=== PATIENT | male | born 1955 | race Caucasian/White ===

== ENCOUNTER → 2016-07-02 | Outpatient (CLI) | payer BC ==
--- NOTE | 2016-07-02 11:46 | CT ---
CT CHEST FOR PULMONARY EMBOLISM. EXAMINATION TYPE: CT angio chest DATE OF EXAM: 07/02/2016 11:34 AM INDICATION: Patient complains of increased difficulty in breathing with a history of COPD. CT DLP: 136.5 mGycm, Automated exposure control for dose reduction was used. CONTRAST: Patient injected with 100 mL of Omnipaque 350. COMPARISON: NONE TECHNIQUE: CT of the chest is performed on a spiral scan at 2 mm thick sections. Study is performed with intravenous contrast timed for evaluation for pulmonary embolism. This will limit additional po rtions of the evaluation. 3-D MIP images reconstructed by the technologist are reviewed on the compu ter in the coronal and sagittal planes. FINDINGS: No persistent filling defects are evident to suggest an acute pulmonary embolism. There is an enlarged right hilar lymph node measuring 1.8 cm. Additional adenopathy is present in the right peribronchial region. There is an enlarged right paratracheal lymph node estimated at 1.8 cm. A pretracheal precarinal lymph node is enlarged at 2.5 cm. Findings are suspicious for metastatic dis ease. The ascending aorta diameter at the level of the main pulmonary artery is 3.7 cm. The main pulmona ry artery diameter at the bifurcation is 2.5 cm. Emphysematous blebs and bulla are at the right apex. Emphysematous changes are within the lungs bilat erally. Emphysematous bulla are present at the lung bases. There is a cyst lobular density within the posterior superior right upper lobe measuring 1.6 AP by 1. 5 cm transverse. Workup for neoplasm is recommended. Limited CT section through the upper abdomen are unremarkable. IMPRESSIONS: 1. No acute pulmonary embolism. 2. 1.6 x 1.5 cm right upper lobe mass suspicious for neoplasm. 3. Enlarged right peribronchial pretracheal and precarinal lymphadenopathy suspicious for metastatic disease. 4. Workup for neoplasm is recommended. Consider PET/CT. 5. COPD
== END | disposition home or self-care (01) ==
LOC: RADCTMAIN 11:11
PROVIDERS: ATTEND Internal Medicine
DX: J44.9 Chronic obstructive pulmonary disease, unspecified (principal); R59.0 Localized enlarged lymph nodes; R91.8 Other nonspecific abnormal finding of lung field
CPT/HCPCS: 71275; Q9967

== ENCOUNTER 2016-07-16 07:46 | Day surgery (SDC) | payer BC ==
[2016-07-16] MEDS ORDERED: ALPRAZolam 0.5 MG TAB PO STA (08:39)
[2016-07-16 08:41] LABS: Mean Platelet Volume 6.5
[2016-07-16 08:43] VITALS: RESP 14; TEMP 97.6
[2016-07-16 08:54] LABS: Prothrombin Time 9.8 sec (9.0-12.0)
--- NOTE | 2016-07-16 09:47 | CT ---
EXAMINATION TYPE: CT discontinued procedure DATE OF EXAM: 07/16/2016 9:36 AM COMPARISON: NONE HISTORY: RUL lung mass CT DLP: 290 mGycm Automated exposure control for dose reduction was used. FINDINGS: Patient was positioned for the procedure. Nodules small and located directly behind the rib. Patient was moved in multiple positions with no successive removing the nodule away from the rib. Therefore, there is no percutaneous access. IMPRESSION: NO PERCUTANEOUS ACCESS FOR BIOPSY. PROCEDURE DEFERRED. LESION DOES APPEAR SUSPICIOUS. SURGICAL CONSUL TATION SUGGESTED.
[2016-07-16 09:56] VITALS: BP 140/77; PULSE 66
== END 2016-07-16 09:55 | disposition home or self-care (01) ==
LOC: RADPROMAIN 07:46
PROVIDERS: ATTEND Internal Medicine
DX: R91.1 Solitary pulmonary nodule (principal); Z53.8 Procedure and treatment not carried out for other reasons; I10 Essential (primary) hypertension; J44.9 Chronic obstructive pulmonary disease, unspecified; J96.11 Chronic respiratory failure with hypoxia; Z79.52 Long term (current) use of systemic steroids; Z79.899 Other long term (current) drug therapy; Z83.6 Family history of other diseases of the respiratory system; Z87.891 Personal history of nicotine dependence
CPT/HCPCS: 36415; 76380; 85049; 85610

== ENCOUNTER 2016-07-30 11:11 | Day surgery (SDC) | payer BC ==
[2016-07-28 11:28] VITALS: BMI 17.2
[~2016-07-30 11:11] MED LIST: ALBUTEROL NEB (CONC) 2.5 MG/0.5 ML INHALATION ONE; LACTATED RINGERS 1,000 ML IV ONE; LACTATED RINGERS 1,000 ML IV SCH; LIDOCAINE 1% 20 ML VIAL (10MG/ML) FOR IV START INTRADERMA PRN; LIDOCAINE 2% (PF) 20 MG/ML 10ML INHALATION ONE
[2016-07-30] MEDS ORDERED: NEOSTIGMINE 1 MG/ML 10 ML VIAL ONE (12:56)
[2016-07-30] MEDS ORDERED: GLYCOPYRROLATE 0.2 MG/ML 2 ML VIAL ONE (12:56)
[2016-07-30] MEDS ORDERED: ROCURONIUM BROMIDE 10 MG/ML 10 ML VIAL IV ONE (12:56)
[2016-07-30] MEDS ORDERED: LIDOCAINE 1% INJ 10MG/ML (20 ML MDV) ONE (12:56)
[2016-07-30] MEDS ORDERED: PROPOFOL 10 MG/ML 20 ML VIAL IV ONE (12:56)
[2016-07-30] MEDS ORDERED: PHENYLEPHRINE-0.9% NACL SYG 1 MG/10 ML SYRINGE ONE (12:56)
[2016-07-30] MEDS ORDERED: fentaNYL (PF) 50 MCG/ML 2 ML AMP ONE (12:56)
[2016-07-30] MEDS ORDERED: MIDAZOLAM 2 MG/2 ML VIAL ONE (12:56)
[2016-07-30] MEDS ORDERED: SUCCINYLCHOLINE CHLORIDE 100 MG/5 ML SYR IV ONE (12:56)
--- NOTE | 2016-07-30 13:33 | P.OP ---
Date of Procedure: 07/30/16 Preoperative Diagnosis: Mediastinal lymphadenopathy, lung mass Postoperative Diagnosis: Mediastinal lymphadenopathy, lung mass Procedure(s) Performed: Bronchoscopy, transbronchial needle aspirate of mediastinal lymph node Surgeon: Tom Nava Machine Installer #1: Kathryn Mccrary Estimated Blood Loss (ml): 0 Pathology: other Condition: stable Disposition: same day Indications for Procedure: lung mass Operative Findings: The procedure was done in the operating room. A consent was obtained and a timeout was done. The patient was placed on the general anesthesia, intubated and placed on a mechanical ventilator. Following that, a flexible bronchoscope was inserted through the endotracheal tube and was advanced into the lower trachea. The procedure was done as the patient was being fully ventilated and oxygenated. The tip of the endotracheal tube was seen around 4 cm above the gabriela. Airway inspection was done and the visualized airways occluded the distal trachea, bilateral mainstem bronchi, right upper lobe bronchus, bronchus intermedius, right middle lobe bronchus, right lower lobe bronchus, left upper lobe bronchus, left lower lobe bronchussegments and subsegments. No endobronchial tumors or lesions was identified. There was some mild extrinsic compression of the anterior tracheal wall at its distal and just before its bifurcation. Nevertheless, there was no endobronchial tumors. No significant airway compromise. Using a 19-gauge cytology needle, one needle aspirates of the precarinal mediastinal lymph node was done. A total of 2 passes were obtained and the adequacy of the samples was confirmed by anesthesia the bedside. The sample was quite cellular and diagnostic. Following that, I used a 21-gauge histology needle and an additional 2 passes were obtained in the same location and samples were sent for histologic evaluation. No bleeding was encountered a total amount of bleeding was less than 5 mL's. Bronchoscope was removed and the patient was left for anesthesia to recover.
[2016-07-30 13:48] VITALS: TEMP 97.2
[2016-07-30 14:32] VITALS: BP 134/81; PULSE 79; RESP 18
--- NOTE | 2016-08-10 07:58 | CDI ---
Mr. Gomez was seen on 07/30 for a biopsy of his mediastinal lymphadenopathy. 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 According to the Official Guidelines for Coding and Reporting, in the outpatient setting a diagnosis documented as consistent with fits the definition of a probable or suspected condition. Further clarification is required when a suspected condition is reported. Please clarify for proper reporting purposes. 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 Thank you for your time. MATT
--- NOTE | 2016-08-12 08:50 | CDI ---
Mr. Gomez was seen on 08/27 for a biopsy of his mediastinal lymphadenopathy. 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 According to the Official Guidelines for Coding and Reporting, in the outpatient setting a diagnosis documented as 'consistent with' fits the definition of a probable or suspected condition. Further clarification is required when a suspected condition is reported. Please clarify for proper reporting purposes. 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 Thank you for your time. MATT
--- NOTE | 2016-08-25 07:24 | CDI ---
Mr. Gomez was seen on 08/27 for a biopsy of his mediastinal lymphadenopathy. 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 According to the Official Guidelines for Coding and Reporting, in the outpatient setting a diagnosis documented as 'consistent with' fits the definition of a probable or suspected condition. Further clarification is required when a suspected condition is reported. Please clarify for proper reporting purposes. 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 Thank you for your time. JOSE Murphy If you have any questions about this query, you may contact Orchestrator, Dorinda Arana at [phone] between 8am and 6pm Mon-Fri. 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
== END 2016-07-30 14:46 | disposition home or self-care (01) ==
LOC: ORWHC2ENDO 11:11
PROVIDERS: ATTEND Internal Medicine Critical Care Medicine
DX: C34.31 Malignant neoplasm of lower lobe, right bronchus or lung (principal); C77.1 Secondary and unspecified malignant neoplasm of intrathoracic lymph nodes; J44.9 Chronic obstructive pulmonary disease, unspecified; Z99.81 Dependence on supplemental oxygen; Z87.891 Personal history of nicotine dependence; J96.11 Chronic respiratory failure with hypoxia; C80.1 Malignant (primary) neoplasm, unspecified; Z79.899 Other long term (current) drug therapy; Z79.52 Long term (current) use of systemic steroids
CPT/HCPCS: 88305; 88173; 88342; 88341; 31629; J2250; J2710; J2001; J3010; J2370; J0330; J2704; 31633

== ENCOUNTER → 2016-08-13 | Outpatient (CLI) | payer BC ==
--- NOTE | 2016-08-13 18:04 | XR ---
EXAMINATION TYPE: XR chest 2V DATE OF EXAM: 08/13/2016 5:54 PM COMPARISON: 07/02/2016 HISTORY: COPD TECHNIQUE: Frontal and lateral views of the chest are obtained. FINDINGS: There is no heart failure nor confluent pneumonic infiltrate. There is pulmonary hyperinfl ation and flattening of the diaphragm. There are no hilar masses. Heart size is normal. Bones are ost eopenic. IMPRESSION: COPD. Normal heart. No acute lung disease. No change.
[2016-08-13 19:20] LABS: Non-African American GFR(MDRD) >60 (>60 ml/min/1.73 sqM)
--- NOTE | 2016-08-13 20:19 | CT ---
EXAMINATION TYPE: CT brain wo/w con DATE OF EXAM: 08/13/2016 8:05 PM COMPARISON: NONE HISTORY: Lung CA small cell. CT DLP: 2416.00 mGycm Automated exposure control for dose reduction was used. CONTRAST: CT scan of the head is performed with IV Contrast, patient injected with 100 mL of Omnipaque 300. FINDINGS: The ventricles have normal size. There is no mass effect nor midline shift. There is no sign of intra cranial hemorrhage. The calvarium is intact. I see no focal bone destruction. The contrast images marie w no pathologic enhancement. IMPRESSION: Negative CT scan of the brain with and without contrast.
== END | disposition home or self-care (01) ==
LOC: RADXRMAIN 17:32
PROVIDERS: ATTEND Internal Medicine Hematology & Oncology
DX: C34.90 Malignant neoplasm of unspecified part of unspecified bronchus or lung (principal); J44.9 Chronic obstructive pulmonary disease, unspecified
CPT/HCPCS: 82565; 71020; 70470; Q9967

== ENCOUNTER → 2016-12-10 | Outpatient (CLI) | payer BC ==
[2016-12-10 12:44] LABS: Blood Urea Nitrogen 21 mg/dL (9-20); Non-African American GFR(MDRD) >60 (>60 ml/min/1.73 sqM)
--- NOTE | 2016-12-10 13:42 | CT ---
EXAMINATION TYPE: CT chest w con DATE OF EXAM: 12/10/2016 COMPARISON: Previous study dated 07/02/2016. HISTORY: Lung cancer CT DLP: 154.6 mGycm Automated exposure control for dose reduction was used. CONTRAST: CT scan of the chest is performed with IV Contrast, patient injected with 100 mL of Omnipaque 300. FINDINGS: There are bullous emphysematous changes throughout both lungs.. The mass in the posterior s egment of the right upper lobe which previously measured 1.5 x 1.6 cm today measures 5.9 x 10.3 mm. N o new parenchymal lesions are seen. Mediastinal pretracheal and subcarinal adenopathy has resolved. Right hilar adenopathy has improved. There is no pleural or pericardial fluid. The heart is not enlarged. There is a stable 11 mm cyst in the medial segment of the left lobe of the liver. There continues to be fullness in the left adrenal gland. Upper abdominal structures are otherwise unremarkable. There is hypertrophic spondylosis within the spine. There is mild wedging of the T3 vertebral body. T his is unchanged. No bony destructive lesion is seen. IMPRESSION: 1. MARKED REDUCTION IN THE SIZE OF THE PATIENT'S RIGHT UPPER LOBE PULMONARY MASS WELL THE MEDIA STINAL AND HILAR ADENOPATHY. 2. SEVERE BULLOUS EMPHYSEMATOUS CHANGE. 3. FULLNESS IN THE LEFT ADRENAL GLAND WHICH MEASURES 9.1 MM X 2.6 MM. 4. PROBABLE CYST WITHIN THE LEFT LOBE OF THE LIVER. 5. STABLE WEDGE COMPRESSION FRACTURE OF THE T3 VERTEBRAL BODY.
== END | disposition home or self-care (01) ==
LOC: RADPROMAIN 11:48
PROVIDERS: ATTEND Internal Medicine Hematology & Oncology
DX: Z03.89 Encounter for observation for other suspected diseases and conditions ruled out (principal); J43.9 Emphysema, unspecified; C34.91 Malignant neoplasm of unspecified part of right bronchus or lung; S22.030A Wedge compression fracture of third thoracic vertebra, initial encounter for closed fracture
CPT/HCPCS: 82565; 84520; 71260; 36415; Q9967

== ENCOUNTER 2016-12-12 07:57 | Emergency (ER) | payer BC ==
[2016-12-12] MEDS ORDERED: ONDANSETRON 4 MG/2 ML VIAL IVP STA (08:24)
[2016-12-12] MEDS ORDERED: ACETAMINOPHEN TAB 325 MG TAB PO STA (08:24)
[2016-12-12] MEDS ORDERED: HYDROmorphone 1 MG/ML 1 ML SYRINGE IVP STA (08:24)
[2016-12-12] MEDS ORDERED: SODIUM CHLORIDE 0.9% 1,000 ML IV STA ×2 (08:24)
--- NOTE | 2016-12-12 08:43 | ED ---
General Adult HPI - General Chief complaint: Fever Stated complaint: FEVER, CHILLS Ca PATIENT Time Seen by Provider: 12/12/16 08:10 Source: patient, RN notes reviewed Mode of arrival: wheelchair Limitations: no limitations - History of Present Illness Initial comments: Patient 61-year-old male significant past medical history for lung cancer, who presents emergency room today with a chief complaint of a she was rash to the right side of his face. Patient admits that he was diagnosed she was just restarted on acyclovir. He states he went to the family doctor and was then directed to the systems administrator who did see yesterday placed on steroid drops for the right eye. He does admit to some pain locally to the right eye. States he woke up this morning with a fever. States had symptoms of nausea vomiting over the last day has been unable to keep anything down and feels that he may be dehydrated as well. States last dose of chemotherapy was on December 04 approximately one week ago. Patient does admit some mild discomfort in his abdomen in the upper quadrants as well. He denies any other complaints or symptoms at this time. Patient denies any recent fever, chills, shortness of breath, chest pain, back pain, numbness or tingling, dysuria or hematuria, constipation or diarrhea, or any other complaints. - Related Data Home Medications Medication Instructions Recorded Confirmed Tiotropium 18 Mcg/Puff [Spiriva] 1 cap INHALATION BID 07/08/16 11/20/16 predniSONE 5 mg PO DAILY 07/08/16 11/20/16 Previous Rx's Medication Instructions Recorded Hydrocodone/Acetaminophen [Rittman 1 each PO Q6HR PRN #20 tab 12/12/16 5-325] Ondansetron Odt [Zofran ODT] 4 mg PO Q8HR PRN #20 tab 12/12/16 Allergies Allergy/AdvReac Type Severity Reaction Status Date / Time No Known Allergies Allergy Verified 12/12/16 08:04 Review of Systems ROS Statement: Those systems with pertinent positive or pertinent negative responses have been documented in the HPI. ROS Other: All systems not noted in ROS Statement are negative. Past Medical History Past Medical History: Asthma, Cancer, COPD, Pneumonia, Renal Disease Additional Past Medical History / Comment(s): kidney stones in past, small cell lung CA History of Any Multi-Drug Resistant Organisms: None Reported Past Surgical History: Hernia Repair Additional Past Surgical History / Comment(s): bilateral hernia repair 2016 Past Anesthesia/Blood Transfusion Reactions: No Reported Reaction Past Psychological History: No Psychological Hx Reported Smoking Status: Former smoker Past Alcohol Use History: None Reported Past Drug Use History: None Reported - Past Family History Father Family Medical History: No Reported History General Exam - General Exam Comments Initial Comments: General: The patient is awake and alert, in no distress, and does not appear acutely ill. Eye: Pupils are equal, round and reactive to light, extra-ocular movements are intact. Patient does admit to some discomfort with extraocular movements. No nystagmus. There is normal conjunctiva bilaterally. No signs of icterus. Patient's right eye stained with fluorescein checked with Wood's lamp revealing no dendritic lesions. Ears, nose, mouth and throat: There are moist mucous membranes and no oral lesions. Neck: The neck is supple, there is no tenderness or JVD. Cardiovascular: There is a regular rate and rhythm. No murmur, rub or gallop is appreciated. Respiratory: Lungs are clear to auscultation, respirations are non-labored, breath sounds are equal. No wheezes, stridor, rales, or rhonchi. Gastrointestinal: Soft, non-distended, non-tender abdomen without masses or organomegaly noted. There is no rebound or guarding present. No CVA tenderness. Bowel sounds are unremarkable. Musculoskeletal: Normal ROM, no tenderness. Strength 5/5. Sensation intact. Pulses equal bilaterally 2+. Neurological: A&O x 3. CN II-XII intact, There are no obvious motor or sensory deficits. Coordination appears grossly intact. Speech is normal. Skin: Skin is warm and dry and no rashes or lesions are noted. Psychiatric: Cooperative, appropriate mood & affect, normal judgment. Limitations: no limitations Course Vital Signs 12/12/16 12/12/16 12/12/16 08:01 08:24 09:52 Temperature 100.1 F H Pulse Rate 119 H 90 Respiratory 18 18 16 Rate Blood Pressure 139/76 171/85 O2 Sat by Pulse 94 L 99 Oximetry Medical Decision Making - Medical Decision Making Case discussed in detail with attending physician Dr. Augustin who did discuss case with patient's oncologist radio television technical director constipation may be discharged home if he is feeling better. Patient's symptoms of nausea has improved. Given a liter bolus here in the emergency room with IV fluids and is feeling better. Patient's currently on antivirals and steroid drops. Has seen the systems administrator. Does have a follow-up appointment coming up this week. Options were discussed with patient about discharge versus admission. He states feels comfortable being discharged home. He's been advised to return here to the emergency room if any symptoms increase or worsen. Patient will be given prescription for both nausea and pain to go home with. - Lab Data Result diagrams: 12/12/16 08:50 12/12/16 08:50 Lab Results 12/12/16 12/12/16 12/12/16 Range/Units 08:50 08:50 08:50 WBC 1.9 L* (3.8-10.6) k/uL RBC 2.75 L (4.30-5.90) m/uL Hgb 9.5 L (13.0-17.5) gm/dL Hct 26.4 L (39.0-53.0) % MCV 96.3 (80.0-100.0) fL MCH 34.7 (25.0-35.0) pg MCHC 36.0 (31.0-37.0) g/dL RDW 18.0 H (11.5-15.5) % Plt Count 62 L (150-450) k/uL Neutrophils % 80 % Lymphocytes % 5 % Monocytes % 10 % Eosinophils % 0 % Basophils % 1 % Neutrophils # 1.5 (1.3-7.7) k/uL Lymphocytes # 0.1 L (1.0-4.8) k/uL Monocytes # 0.2 (0-1.0) k/uL Eosinophils # 0.0 (0-0.7) k/uL Basophils # 0.0 (0-0.2) k/uL Manual Slide Review Performed Poikilocytosis (manual Present Anisocytosis Slight Macrocytosis Slight PT (9.0-12.0) sec INR (<1.1) APTT (22.0-30.0) sec Sodium 132 L (137-145) mmol/L Potassium 4.6 (3.5-5.1) mmol/L Chloride 98 (98-107) mmol/L Carbon Dioxide 25 (22-30) mmol/L Anion Gap 9 mmol/L BUN 19 (9-20) mg/dL Creatinine 1.00 (0.66-1.25) mg/dL Est GFR (MDRD) Af Amer >60 (>60 ml/min/1.73 sqM) Est GFR (MDRD) Non-Af >60 (>60 ml/min/1.73 sqM) Glucose 102 H (74-99) mg/dL Plasma Lactic Acid Santana 0.7 (0.7-2.0) mmol/L Calcium 8.4 (8.4-10.2) mg/dL Total Bilirubin 0.6 (0.2-1.3) mg/dL AST 16 L (17-59) U/L ALT 21 (21-72) U/L Alkaline Phosphatase 148 H (38-126) U/L Total Protein 6.0 L (6.3-8.2) g/dL Albumin 3.7 (3.5-5.0) g/dL Amylase 96 (30-110) U/L Lipase 70 (23-300) U/L /01/21 Range/Units 08:50 WBC (3.8-10.6) k/uL RBC (4.30-5.90) m/uL Hgb (13.0-17.5) gm/dL Hct (39.0-53.0) % MCV (80.0-100.0) fL MCH (25.0-35.0) pg MCHC (31.0-37.0) g/dL RDW (11.5-15.5) % Plt Count (150-450) k/uL Neutrophils % % Lymphocytes % % Monocytes % % Eosinophils % % Basophils % % Neutrophils # (1.3-7.7) k/uL Lymphocytes # (1.0-4.8) k/uL Monocytes # (0-1.0) k/uL Eosinophils # (0-0.7) k/uL Basophils # (0-0.2) k/uL Manual Slide Review Poikilocytosis (manual Anisocytosis Macrocytosis PT 10.0 (9.0-12.0) sec INR 1.0 (<1.1) APTT 21.3 L (22.0-30.0) sec Sodium (137-145) mmol/L Potassium (3.5-5.1) mmol/L Chloride (98-107) mmol/L Carbon Dioxide (22-30) mmol/L Anion Gap mmol/L BUN (9-20) mg/dL Creatinine (0.66-1.25) mg/dL Est GFR (MDRD) Af Amer (>60 ml/min/1.73 sqM) Est GFR (MDRD) Non-Af (>60 ml/min/1.73 sqM) Glucose (74-99) mg/dL Plasma Lactic Acid Santana (0.7-2.0) mmol/L Calcium (8.4-10.2) mg/dL Total Bilirubin (0.2-1.3) mg/dL AST (17-59) U/L ALT (21-72) U/L Alkaline Phosphatase (38-126) U/L Total Protein (6.3-8.2) g/dL Albumin (3.5-5.0) g/dL Amylase (30-110) U/L Lipase (23-300) U/L Disposition Clinical Impression: Herpes zoster Disposition: HOME SELF-CARE Condition: Good Instructions: Shingles (ED) Additional Instructions: Please use medication as discussed. Please follow-up with systems administrator/ family doctor in the next 2 days of symptoms have not improved. Please return to emergency room if the symptoms increase or worsen or for any other concerns. Prescriptions: Hydrocodone/Acetaminophen [Rittman 5-325] 1 each PO Q6HR PRN #20 tab PRN Reason: Pain Ondansetron Odt [Zofran ODT] 4 mg PO Q8HR PRN #20 tab PRN Reason: Nausea Referrals: Zhane Cabrera MD [Primary Care Provider] - 1-2 days Time of Disposition: 10:35
[2016-12-12 09:11] LABS: Anisocytosis Slight; Basophils % (A) 1 %; CHCM 35.4; Eosinophils % (A) 0 %; HCT 26.4 % (39.0-53.0); HDW 2.84; HGB 9.5 gm/dL (13.0-17.5); Luc # (Auto) 0.07; Luc % (Auto) 4; Lymphocytes # (A) 0.1 k/uL (1.0-4.8); Lymphocytes % (A) 5 %; MCH 34.7 pg (25.0-35.0); MCV 96.3 fL (80.0-100.0); Macrocytosis Slight; Mean Platelet Volume 7.6; Monocytes # (A) 0.2 k/uL (0-1.0); Monocytes % (A) 10 %; Neutrophils # (A) 1.5 k/uL (1.3-7.7); Neutrophils % (A) 80 %; RBC 2.75 m/uL (4.30-5.90); WBC (Perox) 1.96
[2016-12-12 09:20] LABS: ALT 21 U/L (21-72); AST 16 U/L (17-59); Alkaline Phosphatase 148 U/L (38-126); Amylase 96 U/L (30-110); Anion Gap 9 mmol/L; Blood Urea Nitrogen 19 mg/dL (9-20); Calcium 8.4 mg/dL (8.4-10.2); Carbon Dioxide 25 mmol/L (22-30); Chloride 98 mmol/L (98-107); Glucose 102 mg/dL (74-99); Non-African American GFR(MDRD) >60 (>60 ml/min/1.73 sqM); Potassium 4.6 mmol/L (3.5-5.1); Sodium 132 mmol/L (137-145); Total Bilirubin 0.6 mg/dL (0.2-1.3)
[2016-12-12 09:24] LABS: WBC 1.9 k/uL (3.8-10.6)
[2016-12-12 09:26] LABS: Manual Review Performed
[2016-12-12 09:36] LABS: Partial Thromboplastin Time 21.3 sec (22.0-30.0)
--- NOTE | 2016-12-12 09:50 | XR ---
EXAMINATION TYPE: XR chest 2V DATE OF EXAM: 12/12/2016 COMPARISON: 08/13/2016 HISTORY: 61-year-old male with fever TECHNIQUE: AP and lateral views FINDINGS: Heart is normal size. Aorta and pulmonary vasculature within normal limits. COPD with hyperinflation and bullous change at the left base. Slight increased opacity in the peripheral left midlung. Nodular density just below on the left suggestive of nipple shadow. No pleural effusion. Punctate metallic d ebris projecting at the left shoulder. Right anterior chest wall injection port with catheter tip at the mid SVC. IMPRESSION: 1. COPD with bullous emphysema. 2. New patchy left midlung atelectasis or early infiltrate.
[2016-12-12 09:54] VITALS: PULSE 90; RESP 16
[2016-12-12 11:03] VITALS: BP 170/81; TEMP 97.7
== END 2016-12-12 10:55 | disposition home or self-care (01) ==
LOC: EC 07:57
DX: B02.9 Zoster without complications (principal); R11.2 Nausea with vomiting, unspecified; J45.909 Unspecified asthma, uncomplicated; J44.9 Chronic obstructive pulmonary disease, unspecified; Z85.118 Personal history of other malignant neoplasm of bronchus and lung; Z87.891 Personal history of nicotine dependence; Z79.52 Long term (current) use of systemic steroids; Z79.899 Other long term (current) drug therapy
CPT/HCPCS: 99283; 96374; 96375; 96361 ×2; 36415; 80053; 82150; 83605; 83690; 85025; 85610; 85730; 87040; 71020; J2405; J1170

== ENCOUNTER 2016-12-12 19:12 | Inpatient (IN) | payer BC ==
[2016-12-12] MEDS ORDERED: SODIUM CHLORIDE 0.9% 1,000 ML IV STA ×2 (19:39)
[2016-12-12] MEDS ORDERED: PIPERACILLIN-TAZOBACTAM 3.375 GM in DEXTROSE/WATER 1 50ML.BAG IVPB STA (19:39)
[2016-12-12] MEDS ORDERED: IV VANCOMYCIN PER PHARMACY 1 EACH MISC MISCELLANE PRN (19:39)
[2016-12-12] MEDS ORDERED: VANCOMYCIN 1,250 MG in SODIUM CHLORIDE 0.9% 250 ML IVPB STA (19:39)
[2016-12-12] MEDS ORDERED: ACETAMINOPHEN TAB 325 MG TAB PO STA (19:42)
[2016-12-12] MEDS ORDERED: SODIUM CHLORIDE 0.9% 1,000 ML IV ONE (19:47)
--- NOTE | 2016-12-12 19:47 | ED ---
General Adult HPI - General Chief complaint: Skin/Abscess/Foreign Body Stated complaint: Shingles,Eye Swelling Time Seen by Provider: 12/12/16 19:32 Source: patient, RN notes reviewed Mode of arrival: wheelchair Limitations: no limitations - History of Present Illness Initial comments: Patient 61-year-old male significant past medical history for lung cancer, shingles, who presents emergency room today with a chief complaint of increased nausea vomiting. Patient states having difficult time keeping down liquids and food at home. Patient does admit to increased pain with the she was rash. States he tried medications of nausea medication and pain medicine at home with no relief. Patient was seen here earlier in the day here in the emergency room and offered admission at the time. He states he wanted to try to go home but has not any little to tolerated by mouth liquids and medications at home. Patient states still experiencing pain to the right side of the face with rash. She'll have some swelling around the right eye. Patient does admit to nausea vomiting some mild abdominal discomfort and cramping. Denies any other complaints or symptoms at this time. Patient denies any recent fever, chills, shortness of breath, chest pain, back pain, numbness or tingling, dysuria or hematuria, constipation or diarrhea, headaches or visual changes, or any other complaints. - Related Data Home Medications Medication Instructions Recorded Confirmed Tiotropium 18 Mcg/Puff [Spiriva] 1 cap INHALATION BID 07/08/16 12/12/16 predniSONE 5 mg PO DAILY 07/08/16 12/12/16 valACYclovir HCL [Valtrex] 1,000 mg PO TID 12/12/16 12/12/16 Previous Rx's Medication Instructions Recorded Hydrocodone/Acetaminophen [[place] 1 each PO Q6HR PRN #20 tab 12/12/16 5-325] Ondansetron Odt [Zofran ODT] 4 mg PO Q8HR PRN #20 tab 12/12/16 Allergies Allergy/AdvReac Type Severity Reaction Status Date / Time No Known Allergies Allergy Verified 12/12/16 19:28 Review of Systems ROS Statement: Those systems with pertinent positive or pertinent negative responses have been documented in the HPI. ROS Other: All systems not noted in ROS Statement are negative. Past Medical History Past Medical History: Asthma, Cancer, COPD, Pneumonia, Renal Disease Additional Past Medical History / Comment(s): kidney stones in past, small cell lung CA History of Any Multi-Drug Resistant Organisms: None Reported Past Surgical History: Hernia Repair Additional Past Surgical History / Comment(s): bilateral hernia repair 2016 Past Anesthesia/Blood Transfusion Reactions: No Reported Reaction Past Psychological History: No Psychological Hx Reported Smoking Status: Former smoker Past Alcohol Use History: None Reported Past Drug Use History: None Reported - Past Family History Father Family Medical History: No Reported History General Exam - General Exam Comments Initial Comments: General: The patient is awake and alert, in no distress, and does not appear acutely ill. Eye: Pupils are equal, round and reactive to light, extra-ocular movements are intact. No nystagmus. There is normal conjunctiva bilaterally. No signs of icterus. Ears, nose, mouth and throat: There are moist mucous membranes and no oral lesions. Neck: The neck is supple, there is no tenderness or JVD. Cardiovascular: There is a regular rate and rhythm. No murmur, rub or gallop is appreciated. Respiratory: Lungs are clear to auscultation, respirations are non-labored, breath sounds are equal. No wheezes, stridor, rales, or rhonchi. Gastrointestinal: Soft, non-distended, non-tender abdomen without masses or organomegaly noted. There is no rebound or guarding present. No CVA tenderness. Bowel sounds are unremarkable. Musculoskeletal: Normal ROM, no tenderness. Strength 5/5. Sensation intact. Pulses equal bilaterally 2+. Neurological: A&O x 3. CN II-XII intact, There are no obvious motor or sensory deficits. Coordination appears grossly intact. Speech is normal. Skin: She was rash located to the right side of her face going from top arrival area down just above right cheek. Mild swelling locally below right eye. Psychiatric: Cooperative, appropriate mood & affect, normal judgment. Limitations: no limitations Course Vital Signs 12/12/16 19:25 Temperature 101.7 F H Pulse Rate 125 H Respiratory 20 Rate Blood Pressure 174/84 O2 Sat by Pulse 95 Oximetry Medical Decision Making - Medical Decision Making Patient will be given a bolus of IV fluids here in the emergency room started on broad-spectrum antibiotics. Given Tylenol for fever. She will be admitted for intractable nausea vomiting and fever. Consult to oncology. Disposition Clinical Impression: Herpes zoster, Intractable nausea and vomiting Disposition: ADMITTED IP TO THIS HOSP Condition: Stable Referrals: Zhane Cabrera MD [Primary Care Provider] - 1-2 days Time of Disposition: 19:47
[2016-12-12] MEDS ORDERED: NALOXONE 0.4 MG/ML 1 ML VIAL IV PRN (19:49)
[2016-12-12] MEDS ORDERED: HYDROmorphone 1 MG/ML 1 ML SYRINGE IVP STA (19:50)
[2016-12-12] MEDS ORDERED: ONDANSETRON 4 MG/2 ML VIAL IVP STA (19:50)
[2016-12-12] MEDS: valACYclovir HCL 1,000 MG TABLET PO SCH (22:22)
[2016-12-13] MEDS: HYDROmorphone 1 MG/ML 1 ML SYRINGE IV PRN ×7 (00:02→19:00)
[2016-12-13] MEDS: ONDANSETRON 4 MG/2 ML VIAL IVP PRN ×2 (06:09→14:40)
[2016-12-13 07:44] LABS: Anisocytosis Slight; Aty Lym Flag Marked; CH 33.7; CHCM 34.8; HCT 24.4 % (39.0-53.0); HDW 2.94; HGB 8.6 gm/dL (13.0-17.5); MCH 34.3 pg (25.0-35.0); MCHC 35.3 g/dL (31.0-37.0); MCV 97.1 fL (80.0-100.0); Mean Platelet Volume 7.1; RBC 2.52 m/uL (4.30-5.90); RDW 17.3 % (11.5-15.5); WBC (Perox) 1.84
[2016-12-13 07:50] LABS: WBC 1.7 k/uL (3.8-10.6)
[2016-12-13 08:05] LABS: ALT 20 U/L (21-72); AST 14 U/L (17-59); Alkaline Phosphatase 116 U/L (38-126); Anion Gap 7 mmol/L; Blood Urea Nitrogen 14 mg/dL (9-20); Calcium 8.1 mg/dL (8.4-10.2); Carbon Dioxide 25 mmol/L (22-30); Chloride 97 mmol/L (98-107); Glucose 127 mg/dL (74-99); Non-African American GFR(MDRD) >60 (>60 ml/min/1.73 sqM); Sodium 129 mmol/L (137-145); Total Bilirubin 0.5 mg/dL (0.2-1.3); Total Protein 5.6 g/dL (6.3-8.2)
[2016-12-13 08:55] LABS: Add Differential Manual Differential
[2016-12-13 08:58] LABS: Manual Review Performed; Nucleated Red Blood Cells 0 /100 WBC (0-0); Total Cells Counted 100
[2016-12-13 08:59] LABS: Toxic Granulation Present
[2016-12-13] MEDS: PIPERACILLIN-TAZOBACTAM 3.375 GM in DEXTROSE/WATER 1 50ML.BAG IVPB SCH ×3 (09:08→23:03)
[2016-12-13] MEDS: valACYclovir HCL 1,000 MG TABLET PO SCH ×3 (09:08→21:32)
[2016-12-13] MEDS ORDERED: PANTOPRAZOLE 40 MG/10 ML VIAL IVP SCH (10:00)
[2016-12-13] MEDS: SCOPOLAMINE 1.5MG/72HR PATCH TRANSDERM SCH (10:45)
[2016-12-13] MEDS ORDERED: VANCOMYCIN 1,250 MG in SODIUM CHLORIDE 0.9% 250 ML IVPB SCH (12:00)
[2016-12-13] MEDS ORDERED: VANCOMYCIN 1,000 MG in SODIUM CHLORIDE 0.9% 250 ML IVPB SCH (13:00)
--- NOTE | 2016-12-13 13:57 | P.HPIM ---
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 Galvez and started on radiation and chemotherapy. Patient had chemotherapy this past week. For the last few days patient developed to have intractable nausea vomiting not control started to have a smaller spot and right side of his face then developed to have multiple line or rash involving the superior branch of the trigeminal nerve as a full blowing type of zoster with severe pain. Patient was started on Valtrex he symptoms has not improved but his worsening nausea vomiting and low-grade temperature and pain become much worse. Patient seen at [facility] early on 12/12/2016 was stabilized and sent home to return to the hospital again with worsening symptoms. Same time patient had leukopenia and thrombocytopenia most likely from his chemotherapy this past weekend he could not tolerate previously neulasta, patient tolerate Neupogen very well. Patient was hospitalized started on gram-negative coverage for pancytopenia and we'll continue anti-nausea vomiting medication for now. Review of Systems Constitutional: Reports anorexia, Reports chronic headaches, Reports fatigue, Reports fever, Reports lethargy, Reports malaise, Reports weakness, Reports weight loss, Denies as per HPI, Denies chills, Denies chronic pain, Denies daytime sleepiness, Denies night sweats, Denies poor appetite, Denies sweats, Denies weight gain Eyes: bilateral as per HPI Ears: bilateral: decreased hearing Ears, nose, mouth and throat: Reports ant. neck pain, Reports nasal congestion, Reports sinus pain, Reports sinus pressure, Reports swelling in throat, Reports sore throat, Denies as per HPI, Denies bleeding gums, Denies dental pain, Denies dysphagia, Denies epistaxis, Denies headache, Denies hoarseness, Denies mouth pain, Denies nasal discharge, Denies neck fullness/pressure, Denies neck lump, Denies nose pain, Denies odynophagia, Denies post-nasal drip, Denies swelling in mouth, Denies vertigo, Denies voice changes Cardiovascular: Reports lightheadedness, Reports orthopnea, Denies as per HPI, Denies chest pain, Denies claudication, Denies decreased exercise tolerance, Denies dyspnea on exertion, Denies edema, Denies high blood pressure, Denies irregular heart beat, Denies leg edema, Denies palpitations, Denies paroxysmal nocturnal dyspnea, Denies phlebitis, Denies rapid heart beat, Denies shortness of breath, Denies syncope Respiratory: Reports congestion, Reports pain on inspiration, Reports pleurisy, Reports wheezing, Denies as per HPI, Denies cough, Denies cough with sputum, Denies dyspnea, Denies excessive sputum, Denies hemoptysis, Denies home oxygen, Denies pain, Denies respiratory infections, Denies sleep apnea, Denies snoring Gastrointestinal: Reports abdominal pain, Reports bloating, Reports constipation , Reports dyspepsia, Reports early satiety, Reports heartburn, Reports indigestion, Reports loss of appetite, Reports nausea, Reports vomiting, Denies as per HPI, Denies belching, Denies BRBPR, Denies change in bowel habits, Denies coffee ground emesis, Denies diarrhea, Denies excessive gas, Denies hematemesis, Denies hematochezia, Denies jaundice, Denies lactose intolerance, Denies melena Genitourinary: Reports nocturia, Reports urinary frequency, Reports urinary hesitancy, Denies as per HPI, Denies decreased libido, Denies difficulties fathering child, Denies discharge, Denies dysuria, Denies erectile dysfunction, Denies flank pain, Denies genital pain, Denies genital sores, Denies hematuria, Denies impotence, Denies incontinence, Denies kidney stones, Denies polyuria, Denies testicular lump, Denies testicular pain, Denies urinary retention Musculoskeletal: Reports low back pain, Reports myalgias, Reports neck pain, Reports neck stiffness, Denies as per HPI, Denies arm numbness/tingling, Denies atrophy, Denies fractures, Denies frequent falls, Denies gait dysfunction, Denies hot joints, Denies leg numbness/tingling, Denies limitation of motion, Denies loss of height, Denies morning stiffness, Denies muscle cramps, Denies muscle weakness, Denies prior amputations, Denies redness of joints, Denies shooting arm pain, Denies shooting leg pain Integumentary: Reports pruritus, Reports rash, Reports unusual bruising, Denies as per HPI, Denies acne, Denies boils, Denies brittle nails, Denies change in hair/nails, Denies color changes, Denies darkening of skin, Denies depigmentation, Denies dryness, Denies foot/leg ulcers, Denies growths, Denies hirsutism, Denies lesions, Denies onychomycosis, Denies sores, Denies striae, Denies wounds Neurological: Reports ataxia, Reports balance difficulties, Reports headaches, Denies as per HPI, Denies aphasia, Denies burning pain, Denies change in mentation, Denies change in smell/taste, Denies change in speech, Denies confusion, Denies convulsions, Denies double vision, Denies gait dysfunction, Denies head injury, Denies hearing difficulties, Denies lack of coordination, Denies loss of vision, Denies memory loss, Denies migraines, Denies motor disturbance, Denies numbness, Denies paralysis, Denies paresthesias, Denies seizures, Denies sensory deficit, Denies spasticity, Denies syncope, Denies tic , Denies tingling, Denies transient paralysis, Denies tremors, Denies vertigo, Denies weakness, Denies visual changes Psychiatric: Reports anxiety, Reports mood swings, Denies as per HPI, Denies anhedonia, Denies anxiety attacks, Denies change in appetite, Denies change in libido, Denies change in sleep habits, Denies confusion, Denies depression, Denies difficulty concentrating, Denies disorientation, Denies hallucinations, Denies hopelessness, Denies hypersomnia, Denies insomnia, Denies irritability, Denies memory loss, Denies paranoia, Denies sadness/tearfulness, Denies sleep disturbances, Denies suicidal ideation Endocrine: Reports cold intolerance, Reports polyphagia, Reports polyuria, Denies as per HPI, Denies deepening of the voice, Denies excessive sweating, Denies excessive thirst, Denies fatigue, Denies flushing, Denies heat intolerance, Denies high blood sugars, Denies increase in ring/shoe/hat size, Denies low blood sugars, Denies nocturia, Denies palpitations, Denies polydipsia , Denies proptosis, Denies recent glucocorticoid use, Denies thyroid mass, Denies weight change Hematologic/Lymphatic: Reports easy bruising Allergic/Immunologic: Reports allergic rhinitis Past Medical History Past Medical History: Asthma, Cancer, COPD, Pneumonia, Renal Disease Additional Past Medical History / Comment(s): kidney stones in past, small cell lung CA History of Any Multi-Drug Resistant Organisms: None Reported Past Surgical History: Hernia Repair Additional Past Surgical History / Comment(s): bilateral hernia repair 2016 Past Anesthesia/Blood Transfusion Reactions: No Reported Reaction Past Psychological History: No Psychological Hx Reported Smoking Status: Former smoker Past Alcohol Use History: None Reported Past Drug Use History: None Reported - Past Family History Father Family Medical History: No Reported History Medications and Allergies Home Medications Medication Instructions Recorded Confirmed Type Tiotropium 18 Mcg/Puff [Spiriva] 1 cap INHALATION BID 07/08/16 12/12/16 History predniSONE 5 mg PO DAILY 07/08/16 12/12/16 History valACYclovir HCL [Valtrex] 1,000 mg PO TID 12/12/16 12/12/16 History Allergies Allergy/AdvReac Type Severity Reaction Status Date / Time No Known Allergies Allergy Verified 12/12/16 19:28 Physical Exam Vitals: Vital Signs Temp Pulse Pulse Resp BP BP Pulse Ox 12/13/16 07:00 99.8 F H 92 16 158/87 98 12/12/16 23:00 99.1 F 100 18 156/94 98 12/12/16 20:21 101.5 F H 104 H 20 188/94 98 12/12/16 19:25 101.7 F H 125 H 20 174/84 95 Intake and Output 12/12/16 12/13/16 12/13/16 22:59 06:59 14:59 Intake Total 260 0 Balance 260 0 Intake: Oral 260 0 Other: # Voids 1 1 0 # Bowel Movements 0 Weight 130.5 kg 59.194 kg - Constitutional General appearance: cooperative, disheveled, morbidly obese - EENT Shingle rash and liner distribution in the superior branch of the trigeminal nerve in the right side. Eyes: no abnormal pupil, anicteric sclerae, no disc margins sharp, no edentulous , no EOMI, no PERRLA, no fundus normal, no photophobia, no dentition normal, no poor dentition, no ptosis, scleral icterus, normal appearance ENT: hard of hearing, no hearing grossly normal, no NA/AT, normal oropharynx, no other, pharyngeal erythema, no thrush, no tonsillar exudates, no tonsillar swelling Ears: bilateral: normal, bulging - Neck Neck: lymphadenopathy, normal ROM, no other, no rigidity, no stridor, no thyromegaly Carotids: bilateral: upstroke normal, upstroke delayed Thyroid: bilateral: normal size - Respiratory Respiratory: bilateral: CTA, diminished - Cardiovascular Rhythm: regular Heart sounds: normal: S1, S2 Abnormal Heart Sounds: systolic murmur, S3 Gallop - Gastrointestinal General gastrointestinal: no absent bowel sounds, no decreased bowel sounds, distended, no hepatomegaly, no hyperactive bowel sounds, no normal bowel sounds , organomegaly, no rigid, no scaphoid, soft, splenomegaly, no tenderness, no umbilical hernia, no ventral hernia - Integumentary Shingle rash on the right side of the trigeminal nerve area. Integumentary: flushed, normal, pale, rash - Neurologic Neurologic: CNII-XII intact - Musculoskeletal Musculoskeletal: generalized weakness, strength equal bilaterally - Psychiatric Psychiatric: A&O x's 3, appropriate affect Results CBC & Chem 7: 12/13/16 07:15 12/13/16 07:15 Labs: Abnormal Lab Results - Last 24 Hours (Table) 12/13/16 12/13/16 Range/Units 07:15 07:15 WBC 1.7 L* (3.8-10.6) k/uL RBC 2.52 L (4.30-5.90) m/uL Hgb 8.6 L (13.0-17.5) gm/dL Hct 24.4 L (39.0-53.0) % RDW 17.3 H (11.5-15.5) % Plt Count 59 L (150-450) k/uL Neutrophils # (Manual) 1.1 L (1.3-7.7) k/uL Lymphocytes # (Manual) 0.2 L (1.0-4.8) k/uL Sodium 129 L (137-145) mmol/L Chloride 97 L (98-107) mmol/L Glucose 127 H (74-99) mg/dL Calcium 8.1 L (8.4-10.2) mg/dL AST 14 L (17-59) U/L ALT 20 L (21-72) U/L Total Protein 5.6 L (6.3-8.2) g/dL Albumin 3.3 L (3.5-5.0) g/dL Thrombosis Risk Factor Assmnt - DVT/VTE Prophylaxis DVT/VTE Prophylaxis: Mechanical Prophylaxis ordered - Choose All That Apply Any of the Below Risk Factors Present?: No Other Risk Factors: Yes Each Risk Factor Represents 2 Points: Age 61-74 years Thrombosis Risk Factor Assessment Total Risk Factor Score: 2 Thrombosis Risk Factor Assessment Level: Low Risk Assessment and Plan Plan: 1 severe intractable nausea vomiting: Combination of gastroparesis along with pancytopenia reaction to chemotherapy and other continue Zofran will add Compazine on regular basis and possible Transderm scopolamine patch until the symptoms are better control. 2 leukopenia and neutropenia: Patient was started on gram-negative coverage antibiotics we will ask oncology to see patient in consultation most likely the patient will be giving and continue to watch his CBC on daily basis. 3 severe herpes zoster continue Valtrex watch for any worsening symptom watch for any secondary infection in the same area and for developing of [place] Augustin syndrome. 4 small cell CA of the lung: Has been on chemotherapy and seen pulmonary and oncology. 5 anemia: Has been on multivitamins and iron supplement. 6 COPD: Patient has been on's Prevo and risk her inhaler and he hardly use anything else, He is seen Dr. Montilla on regular basis. 7 GI prophylaxis: Patient will be on Pepcid or pantoprazole. 8 DVT prophylaxis: With his thrombocytopenia patient will be only on knee-high SINAN hose and Venodyne boots. CODE STATUS: Full code. Expectation from's admission: Patient in the hospital for more than 2 nights.
[2016-12-13] MEDS: VANCOMYCIN 1,250 MG in SODIUM CHLORIDE 0.9% 250 ML IVPB SCH (21:32)
[2016-12-13] MEDS ORDERED: HYDROmorphone 1 MG/ML 1 ML SYRINGE ONE (23:30)
[2016-12-14] MEDS ORDERED: HYDROmorphone 1 MG/ML 1 ML SYRINGE ONE
[2016-12-14] MEDS ORDERED: ONDANSETRON 4 MG/2 ML VIAL ONE
[2016-12-14] MEDS: HYDROmorphone 1 MG/ML 1 ML SYRINGE IV PRN ×6 (05:29→22:13)
[2016-12-14] MEDS: ACETAMINOPHEN TAB 325 MG TAB PO PRN (05:34)
[2016-12-14] MEDS: PANTOPRAZOLE 40 MG TABLET PO SCH (07:58)
[2016-12-14] MEDS: valACYclovir HCL 1,000 MG TABLET PO SCH ×3 (07:58→22:10)
[2016-12-14] MEDS: PIPERACILLIN-TAZOBACTAM 3.375 GM in DEXTROSE/WATER 1 50ML.BAG IVPB SCH ×2 (07:58→15:32)
[2016-12-14 09:30] LABS: ALT 20 U/L (21-72); AST 15 U/L (17-59); Alkaline Phosphatase 103 U/L (38-126); Anion Gap 11 mmol/L; Blood Urea Nitrogen 12 mg/dL (9-20); Calcium 8.3 mg/dL (8.4-10.2); Carbon Dioxide 26 mmol/L (22-30); Chloride 88 mmol/L (98-107); Glucose 143 mg/dL (74-99); Non-African American GFR(MDRD) >60 (>60 ml/min/1.73 sqM); Potassium 3.2 mmol/L (3.5-5.1); Sodium 125 mmol/L (137-145); Total Bilirubin 0.5 mg/dL (0.2-1.3); Total Protein 5.7 g/dL (6.3-8.2)
[2016-12-14 09:35] LABS: Anisocytosis Slight; Aty Lym Flag Marked; CH 33.8; CHCM 35.4; HCT 24.9 % (39.0-53.0); HDW 2.99; HGB 8.8 gm/dL (13.0-17.5); MCH 33.8 pg (25.0-35.0); MCHC 35.3 g/dL (31.0-37.0); MCV 95.8 fL (80.0-100.0); Mean Platelet Volume 7.5; RDW 17.4 % (11.5-15.5); WBC (Perox) 2.25
[2016-12-14 10:58] VITALS: BMI 18.7
[2016-12-14] MEDS: POTASSIUM CHLORIDE ER 20 MEQ TAB.ER PO SCH ×2 (11:16→13:38)
[2016-12-14 12:15] LABS: Add Differential Manual Differential
[2016-12-14] MEDS: VANCOMYCIN 1,250 MG in SODIUM CHLORIDE 0.9% 250 ML IVPB SCH ×2 (12:17→22:09)
[2016-12-14 12:20] LABS: Nucleated Red Blood Cells 0 /100 WBC (0-0); Total Cells Counted 100
--- NOTE | 2016-12-14 13:37 | P.PN ---
Subjective 61-year-old male with past medical history of asthma/COPD who was diagnosed with small cell C of the lung in June 2016 apparently patient diagnosed with recurrent bronchitis and pneumonia for few weeks chest x-ray and CAT scan in May showed slight abnormality and up having bronchoscopy and biopsy came back positive for small cell C of the lung patient was seen Dr. Galvez and started on radiation and chemotherapy. Patient had chemotherapy this past week. For the last few days patient developed to have intractable nausea vomiting not control started to have a smaller spot and right side of his face then developed to have multiple line or rash involving the superior branch of the trigeminal nerve as a full blowing type of zoster with severe pain. Patient was started on Valtrex he symptoms has not improved but his worsening nausea vomiting and low-grade temperature and pain become much worse. Patient seen at [facility] early on 12/12/2016 was stabilized and sent home to return to the hospital again with worsening symptoms. Same time patient had leukopenia and thrombocytopenia most likely from his chemotherapy this past weekend he could not tolerate previously neulasta, patient tolerate Neupogen very well. Patient was hospitalized started on gram-negative coverage for pancytopenia and we'll continue anti-nausea vomiting medication for now. 12/14: Patient's lab work today shows an increased white count to 2 and hemoglobin 8.8 and platelet count 62. Sodium is down to 125 with potassium 3.2. Potassium will be replaced. Patient will be placed on a 1.5 L fluid restriction. Patient denies any nausea. Possible discharge home tomorrow. Objective - Vital Signs Vital signs: Vital Signs Temp 97.2 F L 12/14/16 07:00 Pulse 92 12/14/16 07:00 Resp 16 12/14/16 07:00 BP 168/74 12/14/16 07:00 Pulse Ox 98 12/14/16 07:00 Intake & Output 12/13/16 12/14/16 12/14/16 18:59 06:59 18:59 Intake Total 0 Balance 0 Weight 59.194 kg Intake: Oral 0 Other: # Voids 0 2 # Bowel Movements 0 0 - Exam General appearance: cooperative, disheveled, morbidly obese - EENT Shingle rash and liner distribution in the superior branch of the trigeminal nerve in the right side. Eyes: no abnormal pupil, anicteric sclerae, no disc margins sharp, no edentulous , no EOMI, no PERRLA, no fundus normal, no photophobia, no dentition normal, no poor dentition, no ptosis, scleral icterus, normal appearance ENT: hard of hearing, no hearing grossly normal, no NA/AT, normal oropharynx, no other, pharyngeal erythema, no thrush, no tonsillar exudates, no tonsillar swelling Ears: bilateral: normal, bulging - Neck Neck: lymphadenopathy, normal ROM, no other, no rigidity, no stridor, no thyromegaly Carotids: bilateral: upstroke normal, upstroke delayed Thyroid: bilateral: normal size - Respiratory Respiratory: bilateral: CTA, diminished - Cardiovascular Rhythm: regular Heart sounds: normal: S1, S2 Abnormal Heart Sounds: systolic murmur, S3 Gallop - Gastrointestinal General gastrointestinal: no absent bowel sounds, no decreased bowel sounds, distended, no hepatomegaly, no hyperactive bowel sounds, no normal bowel sounds , organomegaly, no rigid, no scaphoid, soft, splenomegaly, no tenderness, no umbilical hernia, no ventral hernia - Integumentary Shingle rash on the right side of the trigeminal nerve area. Integumentary: flushed, normal, pale, rash - Neurologic Neurologic: CNII-XII intact - Musculoskeletal Musculoskeletal: generalized weakness, strength equal bilaterally - Psychiatric Psychiatric: A&O x's 3, appropriate affect - Labs CBC & Chem 7: 12/14/16 08:05 12/14/16 08:05 Labs: Abnormal Lab Results - Last 24 Hours (Table) 12/14/16 12/14/16 Range/Units 08:05 08:05 WBC 2.0 L* (3.8-10.6) k/uL RBC 2.60 L (4.30-5.90) m/uL Hgb 8.8 L (13.0-17.5) gm/dL Hct 24.9 L (39.0-53.0) % RDW 17.4 H (11.5-15.5) % Plt Count 62 L (150-450) k/uL Sodium 125 L (137-145) mmol/L Potassium 3.2 L (3.5-5.1) mmol/L Chloride 88 L (98-107) mmol/L Glucose 143 H (74-99) mg/dL Calcium 8.3 L (8.4-10.2) mg/dL AST 15 L (17-59) U/L ALT 20 L (21-72) U/L Total Protein 5.7 L (6.3-8.2) g/dL Albumin 3.4 L (3.5-5.0) g/dL Microbiology - Last 24 Hours (Table) 12/12/16 20:00 Blood Culture - Preliminary Blood No Growth after 24 hours Assessment and Plan Plan: 1 severe intractable nausea vomiting: Combination of gastroparesis along with pancytopenia reaction to chemotherapy and other continue Zofran will add Compazine on regular basis and possible Transderm scopolamine patch until the symptoms are better control. 2 leukopenia and neutropenia: Patient was started on gram-negative coverage antibiotics we will ask oncology to see patient in consultation most likely the patient will be giving and continue to watch his CBC on daily basis. 3 severe herpes zoster continue Valtrex watch for any worsening symptom watch for any secondary infection in the same area and for developing of [place] Augustin syndrome. 4 small cell CA of the lung: Has been on chemotherapy and seen pulmonary and oncology. 5 anemia: Has been on multivitamins and iron supplement. 6 COPD: Patient has been on's Prevo and risk her inhaler and he hardly use anything else, He is seen Dr. Montilla on regular basis. 7 GI prophylaxis: Patient will be on Pepcid or pantoprazole. 8 DVT prophylaxis: With his thrombocytopenia patient will be only on knee-high SINAN hose and Venodyne boots. 9. Hyponatremia secondary to SIADH patient will be placed on fluid restriction of 1.5 L. Recheck sodium in the morning. CODE STATUS: Full code. Discharge plan: Return home Impression and plan of care have been directed as dictated by the signing physician. [place] Archibald nurse practitioner acting as scribe for signing physician.
[2016-12-14] MEDS: predniSONE 5 MG TAB PO SCH (13:38)
[2016-12-14] MEDS: ONDANSETRON 4 MG/2 ML VIAL IVP PRN (15:39)
--- NOTE | 2016-12-14 16:07 | P.CONS ---
History of Present Illness - Reason for Consult Consult date: 12/14/16 right lung small cell cancer - Chief Complaint facial rash - History of Present Illness Edison Gomez is a 61 year old Male with a history of limited stage small cell lung cancer involving right upper lobe mass with mediastinal adenopathy. He is status post definitive chemoradiation to a dose of 60 Capellan, finishing his radiotherapy on October 21, 2016. His last dose of chemotherapy was on December 04, 2016. The patient presents after being hospitalized with a herpes zoster infection of the right first trigeminal distribution. The patient reports that this rash started approximately 1 week ago on Wednesday, and progressively worsened until this past Wednesday. He notes that by his right eye had swollen shut, and he was seen in ophthalmology. He was sent to the emergency room for evaluation on December 12, 2016. Since being admitted, the patient reports he is feeling better; he notes that the rash along his right upper face has been drying out. On December 10, the patient underwent a CT scan of the chest for restaging. This study revealed resolution of the patient's mediastinal and hilar adenopathy, as well as significant decrease in the size of a right upper lung nodule. The patient denies significant cough, but does note that he is requiring 3 L of oxygen constantly at this time. 3 weeks ago, the patient noted that he needed the oxygen with less frequency, and he feels more short of breath at this current time. The patient was due for a follow-up in our clinic tomorrow, however he may still be hospitalized at the time of a scheduled visit. Review of Systems Constitutional: Denies chills, Denies fever Eyes: right blurred vision Ears: deny: decreased hearing Ears, nose, mouth and throat: Denies dysphagia Cardiovascular: Denies chest pain Respiratory: Reports dyspnea, Reports home oxygen Gastrointestinal: Denies abdominal pain Musculoskeletal: Denies myalgias Neurological: Denies aphasia, Denies headaches Psychiatric: Denies anxiety, Denies depression Past Medical History Past Medical History: Asthma, Cancer, COPD, Pneumonia, Renal Disease Additional Past Medical History / Comment(s): kidney stones in past, small cell lung CA History of Any Multi-Drug Resistant Organisms: None Reported Past Surgical History: Hernia Repair Additional Past Surgical History / Comment(s): bilateral hernia repair 2016 Past Anesthesia/Blood Transfusion Reactions: No Reported Reaction Past Psychological History: No Psychological Hx Reported Smoking Status: Former smoker Past Alcohol Use History: None Reported Past Drug Use History: None Reported - Past Family History Father Family Medical History: No Reported History Medications and Allergies Home Medications Medication Instructions Recorded Confirmed Type Tiotropium 18 Mcg/Puff [Spiriva] 1 cap INHALATION DAILY 07/08/16 12/14/16 History predniSONE 5 mg PO DAILY 07/08/16 12/12/16 History valACYclovir HCL [Valtrex] 1,000 mg PO TID 12/12/16 12/12/16 History Allergies Allergy/AdvReac Type Severity Reaction Status Date / Time No Known Allergies Allergy Verified 12/12/16 19:28 Physical Exam Vitals: Vital Signs Temp Pulse Resp BP Pulse Ox 12/14/16 07:00 97.2 F L 92 16 168/74 98 12/13/16 22:26 99.1 F 106 H 16 158/79 97 12/13/16 16:00 16 Intake and Output 12/14/16 12/14/16 12/14/16 06:59 14:59 22:59 Intake Total 300 Balance 300 Intake: IV 50 Piperacillin-Tazobactam 3 50 .375 gm In Dextrose/Water 1 50ml.bag @ 12.5 mls/hr IVPB Q8HR [facility] Rx#: [id number] Intake, IV Titration 250 Amount Vancomycin 1,250 mg In 250 Sodium Chloride 0.9% 250 ml @ 125 mls/hr IVPB BID@ 1200,2200 [facility] Rx#: [id number] Other: # Voids 2 # Bowel Movements 0 Weight 59.194 kg Patient Weight 12/15/16 06:59 Weight 59.194 kg - Constitutional General appearance: average body habitus, no acute distress - EENT Eyes: ptosis (right eye swollen, moderate edema) - Neck Neck: no lymphadenopathy - Respiratory Respiratory: bilateral: diminished (dimished breath sounds in lower lung blakely) - Cardiovascular Rhythm: regular - Gastrointestinal General gastrointestinal: no tenderness - Integumentary Integumentary: no calor, no jaundiced - Neurologic Neurologic: CNII-XII intact - Psychiatric Psychiatric: A&O x's 3 Results CBC & Chem 7: 12/14/16 08:05 12/14/16 08:05 Labs: Abnormal Lab Results - Last 24 Hours (Table) 12/14/16 12/14/16 12/14/16 Range/Units 08:05 08:05 08:05 WBC 2.0 L* (3.8-10.6) k/uL RBC 2.60 L (4.30-5.90) m/uL Hgb 8.8 L (13.0-17.5) gm/dL Hct 24.9 L (39.0-53.0) % RDW 17.4 H (11.5-15.5) % Plt Count 62 L (150-450) k/uL Neutrophils # (Manual) 1.0 L (1.3-7.7) k/uL Lymphocytes # (Manual) 0.4 L (1.0-4.8) k/uL Sodium 125 L (137-145) mmol/L Potassium 3.2 L (3.5-5.1) mmol/L Chloride 88 L (98-107) mmol/L Glucose 143 H (74-99) mg/dL Calcium 8.3 L (8.4-10.2) mg/dL Magnesium 1.2 L (1.6-2.3) mg/dL AST 15 L (17-59) U/L ALT 20 L (21-72) U/L Total Protein 5.7 L (6.3-8.2) g/dL Albumin 3.4 L (3.5-5.0) g/dL Microbiology - Last 24 Hours (Table) 12/12/16 20:00 Blood Culture - Preliminary Blood No Growth after 24 hours Chest x-ray: report reviewed, image reviewed CT scan - chest: report reviewed, image reviewed Assessment and Plan (1) Mediastinal lymphadenopathy Status: Acute Plan: 1. I discussed with the patient, that his CT scan of the chest shows a significant response to treatment with resolution of the abnormal adenopathy. The patient plans to follow-up with Dr. Oates this coming . I have recommended the patient return to our clinic in approximately 3-4 weeks for routine follow-up. 2. I briefly discussed with the patient the possibility of treatment with PCI. I explained that this treatment is often recommended for patients with limited stage small cell lung cancer, and is been shown to decrease the rate of metastasis in the brain as well as improve overall survival. I did explain to the patient, that this can be a difficult decision to make, as patient's often can often have neurocognitive side effects from PCI. We do have an open research trial looking at hippocampal avoidance, and this will be discussed in more detail when the patient returns to our clinic. 3. Continue medical management for the patient's apparent shingles outbreak. Time with Patient: Greater than 30
[2016-12-14] MEDS ORDERED: FILGRASTIM-SNDZ 300 MCG/0.5 ML SYRINGE SQ SCH (18:00)
--- NOTE | 2016-12-14 18:22 | P.CONS ---
History of Present Illness - Reason for Consult Consult date: 12/14/16 SCLC Requesting physician: Dank Cheema - Chief Complaint shingles - History of Present Illness Mr. Gomez is a very pleasant male pt of Dr. Oates who was diagnosed in about Jul 2016 with limited stage Small cell lng cancer. Pt was seen by and evaluated by Dr. Smith due to progressive SOB, he had CT chest dated 07/02/16 at [facility], this revealed 1.8cm RUL nodule and suspicious right hilar lymphadenoapthy, PET was active in the same areas with no extra-thoracic areas of concern. He had navigational bronchosopy with hazel needle biopsy on revealing small cell lung cancer. He was started on cisplatin with concurrent radiation 08/19/16 and completed 6 cycles of treatment 12/04/16. He required GCSF support, he is O2 dependent prior to treatment. Pt states progressive rash on the scalp x 3 days, burning in nature, touching the area would rupture pustules and they would drain purulent fluid, he denies vision loss or eye pain, had some nausea, vomiting and had fevers, he denies any other area of rash. Today he is feeling better, did eat breakfast without vomiting, he is using antiemetic. Denies cough, SOB, chest pain. No other physical c/o. Would like results of recent treatment follow up CT. Review of Systems All systems: negative Constitutional: Reports as per HPI Past Medical History Past Medical History: Asthma, Cancer, COPD, Pneumonia, Renal Disease Additional Past Medical History / Comment(s): kidney stones in past, small cell lung CA History of Any Multi-Drug Resistant Organisms: None Reported Past Surgical History: Hernia Repair Additional Past Surgical History / Comment(s): bilateral hernia repair 2016 Past Anesthesia/Blood Transfusion Reactions: No Reported Reaction Past Psychological History: No Psychological Hx Reported Smoking Status: Former smoker Past Alcohol Use History: None Reported Past Drug Use History: None Reported - Past Family History Father Family Medical History: No Reported History Medications and Allergies Home Medications Medication Instructions Recorded Confirmed Type Tiotropium 18 Mcg/Puff [Spiriva] 1 cap INHALATION DAILY 07/08/16 12/14/16 History predniSONE 5 mg PO DAILY 07/08/16 12/12/16 History valACYclovir HCL [Valtrex] 1,000 mg PO TID 12/12/16 12/12/16 History Allergies Allergy/AdvReac Type Severity Reaction Status Date / Time No Known Allergies Allergy Verified 12/12/16 19:28 Physical Exam Vitals: Vital Signs Temp Pulse Resp BP Pulse Ox 12/14/16 15:00 97.4 F L 106 H 16 156/71 97 12/14/16 07:00 97.2 F L 92 16 168/74 98 12/13/16 22:26 99.1 F 106 H 16 158/79 97 Intake and Output 12/14/16 12/14/16 12/14/16 06:59 14:59 22:59 Intake Total 300 Output Total 50 Balance 300 -50 Intake: IV 50 Piperacillin-Tazobactam 3 50 .375 gm In Dextrose/Water 1 50ml.bag @ 12.5 mls/hr IVPB Q8HR [facility] Rx#: [id number] Intake, IV Titration 250 Amount Vancomycin 1,250 mg In 250 Sodium Chloride 0.9% 250 ml @ 125 mls/hr IVPB BID@ 1200,2200 [facility] Rx#: [id number] Output: Emesis 50 Other: # Voids 2 # Bowel Movements 0 Weight 59.194 kg Patient Weight 12/15/16 06:59 Weight 59.194 kg - Constitutional General appearance: cooperative, no acute distress, thin - EENT right eye scleral swelling and redness, tearing and whiteish colored drainage, EOMs intact, pupil equal, round and reactive - Respiratory Respiratory: bilateral: diminished - Cardiovascular Rhythm: regular Heart sounds: normal: S1, S2 leg Peripheral Edema: bilateral: None - Gastrointestinal General gastrointestinal: normal bowel sounds, soft - Integumentary Integumentary: normal - Neurologic right scalp reddened, scabbed rash noted, no pustules or draining noted at this time Neurologic: CNII-XII intact - Musculoskeletal Musculoskeletal: strength equal bilaterally - Psychiatric Psychiatric: A&O x's 3, appropriate affect, intact judgment & insight Results CBC & Chem 7: 12/14/16 08:05 12/14/16 08:05 Labs: Abnormal Lab Results - Last 24 Hours (Table) 12/14/16 12/14/16 12/14/16 Range/Units 08:05 08:05 08:05 WBC 2.0 L* (3.8-10.6) k/uL RBC 2.60 L (4.30-5.90) m/uL Hgb 8.8 L (13.0-17.5) gm/dL Hct 24.9 L (39.0-53.0) % RDW 17.4 H (11.5-15.5) % Plt Count 62 L (150-450) k/uL Neutrophils # (Manual) 1.0 L (1.3-7.7) k/uL Lymphocytes # (Manual) 0.4 L (1.0-4.8) k/uL Sodium 125 L (137-145) mmol/L Potassium 3.2 L (3.5-5.1) mmol/L Chloride 88 L (98-107) mmol/L Glucose 143 H (74-99) mg/dL Calcium 8.3 L (8.4-10.2) mg/dL Magnesium 1.2 L (1.6-2.3) mg/dL AST 15 L (17-59) U/L ALT 20 L (21-72) U/L Total Protein 5.7 L (6.3-8.2) g/dL Albumin 3.4 L (3.5-5.0) g/dL Microbiology - Last 24 Hours (Table) 12/12/16 20:00 Blood Culture - Preliminary Blood No Growth after 24 hours Chest x-ray: report reviewed CT scan - chest: report reviewed Assessment and Plan (1) Herpes zoster Status: Acute (2) Small cell lung cancer Narrative/Plan: Reviewed results of recent CT chest with noted improvement in RUL mass and lymphadenopathy. This is pt 1st imaging post treatment, he will keep his follow up with Dr. Oates as scheduled for ongoing plan of care. Status: Chronic (3) Antineoplastic chemotherapy induced pancytopenia Narrative/Plan: GCSF has been ordered, no need for PRBC or platelet transfusion. SCDs for DVT prophylaxis recommended for now, daily CBC. Status: Acute
[2016-12-14] MEDS: TIOTROPIUM 18 MCG/PUFF INHALER INHALATION SCH (20:42)
[2016-12-14] MEDS ORDERED: VANCOMYCIN TROUGH DUE 1 EACH MISC MISCELLANE ONE (21:00)
[2016-12-15] MEDS: PIPERACILLIN-TAZOBACTAM 3.375 GM in DEXTROSE/WATER 1 50ML.BAG IVPB SCH ×3 (00:44→15:08)
[2016-12-15] MEDS: ONDANSETRON 4 MG/2 ML VIAL IVP PRN ×2 (00:45→10:56)
[2016-12-15] MEDS: HYDROmorphone 1 MG/ML 1 ML SYRINGE IV PRN ×2 (02:15→06:17)
[2016-12-15] MEDS: predniSONE 5 MG TAB PO SCH (07:41)
[2016-12-15] MEDS: valACYclovir HCL 1,000 MG TABLET PO SCH ×3 (07:41→21:53)
[2016-12-15] MEDS: PANTOPRAZOLE 40 MG TABLET PO SCH (07:41)
[2016-12-15 08:37] LABS: Anisocytosis Slight; Aty Lym Flag Slight; Basophils % (A) 0 %; CH 34.8; Eosinophils % (A) 0 %; HCT 26.2 % (39.0-53.0); HDW 2.98; HGB 9.3 gm/dL (13.0-17.5); Luc # (Auto) 0.48; Luc % (Auto) 5; Lymphocytes # (A) 0.6 k/uL (1.0-4.8); Lymphocytes % (A) 6 %; MCH 34.3 pg (25.0-35.0); MCHC 35.4 g/dL (31.0-37.0); MCV 97.1 fL (80.0-100.0); Macrocytosis Slight; Mean Platelet Volume 7.2; Monocytes # (A) 0.8 k/uL (0-1.0); Monocytes % (A) 8 %; Neutrophils # (A) 8.1 k/uL (1.3-7.7); Neutrophils % (A) 81 %; RDW 18.2 % (11.5-15.5); WBC (Perox) 10.19
[2016-12-15 09:07] LABS: Anion Gap 9 mmol/L; Blood Urea Nitrogen 14 mg/dL (9-20); Calcium 8.7 mg/dL (8.4-10.2); Carbon Dioxide 30 mmol/L (22-30); Chloride 86 mmol/L (98-107); Glucose 122 mg/dL (74-99); Non-African American GFR(MDRD) >60 (>60 ml/min/1.73 sqM); Potassium 3.5 mmol/L (3.5-5.1); Sodium 125 mmol/L (137-145)
[2016-12-15] MEDS ORDERED: RX INFO: IV CONTRAST WAS GIVEN 1 EACH MISC MISCELLANE PRN (09:23)
--- NOTE | 2016-12-15 11:03 | CT ---
EXAMINATION TYPE: CT brain wo/w con DATE OF EXAM: 12/15/2016 COMPARISON: 08/13/2016 HISTORY: 61-year-old male complains of difficulty breathing with history of lung cancer. Episode of confusion. TECHNIQUE: Examination was done in axial plane before and after administration of intravenous contra st. 100 mL Omnipaque 300 IV contrast was administered. Coronal and sagittal reconstructions performed . CT DLP: 1999.6 mGycm Automated exposure control for dose reduction was used. FINDINGS: There is no evidence of acute intracranial hemorrhage, acute ischemic changes, mass effect, or extra -axial fluid collection. There is no effacement of cerebral sulci or basal subarachnoid cisterns. T here is no hydrocephalus. There is no midline shift. Capellan-white matter distinction is preserved. Similar mild bifrontal cerebral atrophy. There is new hypodensity within the medial right temporal lobe, axial image 15 there is a vague enhan cement is seen in this region that appears separate from the choroid enhancement. Also, some new hypodensity inferior and medial right frontal lobe, axial image 11, sagittal image 24. Otherwise, no suspicious enhancing lesions are identified. Dural venous sinuses are patent. Dural venous sinuses are patent. Air-fluid level in the right frontal sinus. Mild mucosal thickening right ethmoid air cells. Mastoid air cells well pneumatized. IMPRESSION: 1. 2 new hypodensities, one in the medial right temporal lobe and the second at the inferomedial righ t frontal lobe. There may be some subtle associated enhancement in the temporal lobe lesion. Given th e patient's history of lung cancer, brain metastases are not excluded. Consider contrast-enhanced MRI for more sensitive evaluation. 2. No mass effect, midline shift, or acute intracranial hemorrhage. 3. Findings suggest acute right frontal sinusitis.
[2016-12-15] MEDS: VANCOMYCIN 1,250 MG in SODIUM CHLORIDE 0.9% 250 ML IVPB SCH ×2 (11:30→21:53)
--- NOTE | 2016-12-15 12:10 | P.PN ---
Subjective 61-year-old male with past medical history of asthma/COPD who was diagnosed with small cell C of the lung in June 2016 apparently patient diagnosed with recurrent bronchitis and pneumonia for few weeks chest x-ray and CAT scan in May showed slight abnormality and up having bronchoscopy and biopsy came back positive for small cell C of the lung patient was seen Dr. Galvez and started on radiation and chemotherapy. Patient had chemotherapy this past week. For the last few days patient developed to have intractable nausea vomiting not control started to have a smaller spot and right side of his face then developed to have multiple line or rash involving the superior branch of the trigeminal nerve as a full blowing type of zoster with severe pain. Patient was started on Valtrex he symptoms has not improved but his worsening nausea vomiting and low-grade temperature and pain become much worse. Patient seen at [facility] early on 12/12/2016 was stabilized and sent home to return to the hospital again with worsening symptoms. Same time patient had leukopenia and thrombocytopenia most likely from his chemotherapy this past weekend he could not tolerate previously neulasta, patient tolerate Neupogen very well. Patient was hospitalized started on gram-negative coverage for pancytopenia and we'll continue anti-nausea vomiting medication for now. 12/14: Patient's lab work today shows an increased white count to 2 and hemoglobin 8.8 and platelet count 62. Sodium is down to 125 with potassium 3.2. Potassium will be replaced. Patient will be placed on a 1.5 L fluid restriction. Patient denies any nausea. Possible discharge home tomorrow. 12/15: Patient has been seen by oncology with plan for him to follow-up with Dr. Oates as scheduled. Lab work this morning shows a jump in his white count to 10, hemoglobin of 9.3 and platelet count is up to 88. Sodium is again today 125 and chloride 86, however, fluid restriction was not started yesterday. We will plan to recheck sodium in the morning. Patient has had some confusion yesterday and CAT scan of the brain ordered which reveals 2 new hypodensities, one in the medial right temporal lobe and the second at the inferior medial right frontal lobe. There may be some subtle associated enhancement in the temporal lobe lesion. Brain metastasis not excluded. Consider contrast- enhanced MRI for more sensitive evaluation. No mass effect, midline shift or acute intracranial hemorrhage. Suggest acute right frontal sinusitis. MRI ordered. We have discontinued Dilaudid as this may be affecting his mentation. Patient states his right eye is feeling much better and he can see out of the right eye at this time. Consult with ophthalmology is still pending. Objective - Vital Signs Vital signs: Vital Signs Temp 98.0 F 12/15/16 07:00 Pulse 112 H 12/15/16 07:00 Resp 16 12/15/16 07:00 BP 140/80 12/15/16 07:00 Pulse Ox 97 12/15/16 07:00 Intake & Output 12/14/16 12/15/16 12/15/16 18:59 06:59 18:59 Intake Total 300 Output Total 50 Balance 250 Weight 59.194 kg Intake: IV 50 Piperacillin-Tazobactam 3 50 .375 gm In Dextrose/Water 1 50ml.bag @ 12.5 mls/hr IVPB Q8HR [facility] Rx#: [id number] Intake, IV Titration 250 Amount Vancomycin 1,250 mg In 250 Sodium Chloride 0.9% 250 ml @ 125 mls/hr IVPB BID@ 1200,2200 [facility] Rx#: [id number] Output: Emesis 50 Other: # Voids 0 # Bowel Movements 0 - Exam General appearance: cooperative, disheveled, morbidly obese - EENT Shingle rash and liner distribution in the superior branch of the trigeminal nerve in the right side. Eyes: no abnormal pupil, anicteric sclerae, no disc margins sharp, no edentulous , no EOMI, no PERRLA, no fundus normal, no photophobia, no dentition normal, no poor dentition, no ptosis, scleral icterus, normal appearance ENT: hard of hearing, no hearing grossly normal, no NA/AT, normal oropharynx, no other, pharyngeal erythema, no thrush, no tonsillar exudates, no tonsillar swelling Ears: bilateral: normal, bulging - Neck Neck: lymphadenopathy, normal ROM, no other, no rigidity, no stridor, no thyromegaly Carotids: bilateral: upstroke normal, upstroke delayed Thyroid: bilateral: normal size - Respiratory Respiratory: bilateral: CTA, diminished - Cardiovascular Rhythm: regular Heart sounds: normal: S1, S2 Abnormal Heart Sounds: systolic murmur, S3 Gallop - Gastrointestinal General gastrointestinal: no absent bowel sounds, no decreased bowel sounds, distended, no hepatomegaly, no hyperactive bowel sounds, no normal bowel sounds , organomegaly, no rigid, no scaphoid, soft, splenomegaly, no tenderness, no umbilical hernia, no ventral hernia - Integumentary Shingle rash on the right side of the trigeminal nerve area. Integumentary: flushed, normal, pale, rash - Neurologic Neurologic: CNII-XII intact - Musculoskeletal Musculoskeletal: generalized weakness, strength equal bilaterally - Psychiatric Psychiatric: A&O x's 3, appropriate affect - Labs CBC & Chem 7: 12/15/16 07:56 12/15/16 07:56 Labs: Abnormal Lab Results - Last 24 Hours (Table) 12/14/16 12/15/16 12/15/16 Range/Units 08:05 07:56 07:56 RBC 2.70 L (4.30-5.90) m/uL Hgb 9.3 L (13.0-17.5) gm/dL Hct 26.2 L (39.0-53.0) % RDW 18.2 H (11.5-15.5) % Plt Count 88 L (150-450) k/uL Neutrophils # 8.1 H (1.3-7.7) k/uL Neutrophils # (Manual) 1.0 L (1.3-7.7) k/uL Lymphocytes # 0.6 L (1.0-4.8) k/uL Lymphocytes # (Manual) 0.4 L (1.0-4.8) k/uL Sodium 125 L (137-145) mmol/L Chloride 86 L (98-107) mmol/L Glucose 122 H (74-99) mg/dL Microbiology - Last 24 Hours (Table) 12/12/16 20:00 Blood Culture - Preliminary Blood No Growth after 48 hours Assessment and Plan Plan: 1 severe intractable nausea vomiting: Combination of gastroparesis along with pancytopenia reaction to chemotherapy and other continue Zofran will add Compazine on regular basis and possible Transderm scopolamine patch until the symptoms are better control. 2 leukopenia and neutropenia with neutropenic fever: Patient was started on gram -negative coverage antibiotics we will ask oncology to see patient in consultation most likely the patient will be giving and continue to watch his CBC on daily basis. 3 severe herpes zoster continue Valtrex watch for any worsening symptom watch for any secondary infection in the same area and for developing of Arely Augustin syndrome. 4 small cell CA of the lung: Has been on chemotherapy and seen pulmonary and oncology. 5 anemia: Has been on multivitamins and iron supplement. 6 COPD: Patient has been on's Prevo and risk her inhaler and he hardly use anything else, He is seen Dr. Montilla on regular basis. 7 GI prophylaxis: Patient will be on Pepcid or pantoprazole. 8 DVT prophylaxis: With his thrombocytopenia patient will be only on knee-high SINAN hose and Venodyne boots. 9. Hyponatremia secondary to SIADH patient will be placed on fluid restriction of 1.5 L. Recheck sodium in the morning. 10. Acute delirium. CAT scan showing two lesions that may be metastatic disease. MRI will be ordered. Dilaudid also discontinued as may be affecting his mentation. Patient is currently at his baseline. CODE STATUS: Full code. Discharge plan: Return home Impression and plan of care have been directed as dictated by the signing physician. [place] Archibald nurse practitioner acting as scribe for signing physician.
[2016-12-15] MEDS: ACETAMINOPHEN TAB 325 MG TAB PO PRN ×2 (13:28→19:42)
--- NOTE | 2016-12-15 17:48 | P.PN ---
Subjective Principal diagnosis: Shingles Pt admitted with fever and shingles of the scalp involving the right eye as well. Pt just completed cisplatin and etoposide for SCLC about 2 weeks ago, his CT chest showed improvement in disease. Today when seen pt voiced concerns about pt behavior-easily agitated, forgetfulness and talking about events that have not happened, these changes started last night. Pt was able to count serial 7's for me, he was oriented to self, place, time and situation but he did make some statements that were out of context of our conversation. Pt has facial pain, states his right eye vision is better today, mild nausea controlled with anti-emetics, he did have 2 episodes of emesis, small amounts, denies difficulty swallowing, numbness or tingling, unilateral weakness, no acute changes in bowel or bladder habits. Objective - Vital Signs Vital signs: Vital Signs Temp 97.0 F L 12/15/16 15:00 Pulse 109 H 12/15/16 15:00 Resp 16 12/15/16 15:00 BP 118/65 12/15/16 15:00 Pulse Ox 96 12/15/16 15:00 Intake & Output 12/14/16 12/15/16 12/15/16 18:59 06:59 18:59 Intake Total 300 Output Total 50 Balance 250 Weight 59.194 kg Intake: IV 50 Piperacillin-Tazobactam 3 50 .375 gm In Dextrose/Water 1 50ml.bag @ 12.5 mls/hr IVPB Q8HR KATIE Rx#: [id number] Intake, IV Titration 250 Amount Vancomycin 1,250 mg In 250 Sodium Chloride 0.9% 250 ml @ 125 mls/hr IVPB BID@ 1200,2200 KATIE Rx#: [id number] Output: Emesis 50 Other: # Voids 0 2 # Bowel Movements 0 - Constitutional General appearance: Present: cooperative, no acute distress, thin - EENT EENT Comment(s): right eye less redness and swelling Eyes: Present: anicteric sclerae, EOMI - Respiratory Respiratory: bilateral: diminished - Cardiovascular Heart sounds: normal: S1, S2 - Peripheral edema leg Peripheral Edema: bilateral: None - Gastrointestinal General gastrointestinal: Present: normal bowel sounds, soft - Neurologic Neurologic Comment(s): no gross deficits noted, generalized weakness - Musculoskeletal Musculoskeletal: Present: generalized weakness, strength equal bilaterally - Psychiatric Psychiatric: Present: A&O x's 3, appropriate affect - Labs CBC & Chem 7: 12/15/16 07:56 07 07:56 Labs: Abnormal Lab Results - Last 24 Hours (Table) 12/15/16 12/15/16 Range/Units 07:56 07:56 RBC 2.70 L (4.30-5.90) m/uL Hgb 9.3 L (13.0-17.5) gm/dL Hct 26.2 L (39.0-53.0) % RDW 18.2 H (11.5-15.5) % Plt Count 88 L (150-450) k/uL Neutrophils # 8.1 H (1.3-7.7) k/uL Lymphocytes # 0.6 L (1.0-4.8) k/uL Sodium 125 L (137-145) mmol/L Chloride 86 L (98-107) mmol/L Glucose 122 H (74-99) mg/dL Microbiology - Last 24 Hours (Table) 12/12/16 20:00 Blood Culture - Preliminary Blood No Growth after 48 hours Assessment and Plan (1) Herpes zoster Narrative/Plan: IM managing, ophthalmology consulted Status: Acute (2) Small cell lung cancer Narrative/Plan: We reviewed CT chest post treatment yesterday with decreased disease burden noted. Pt mental status changes are concerning-metastasis vs narcotic effects. CT has been ordered for evaluation. Have asked nursing to discuss pain management with IM. Status: Chronic (3) Antineoplastic chemotherapy induced pancytopenia Narrative/Plan: GCSF discontinued today as ANC 8.1, Hgb and platelets stable, no transfusions Status: Acute Plan: At time of documentation CT results were available, IM note reviewed, they have ordered MRI for suspicious findings on CT. Will follow up in AM.
[2016-12-15] MEDS: TIOTROPIUM 18 MCG/PUFF INHALER INHALATION SCH (21:13)
[2016-12-15] MEDS: ERYTHROMYCIN 5 MG/GM OPHTH OINT 3.5 GM TUBE RIGHT EYE SCH (21:53)
[2016-12-15 23:16] VITALS: RESP 18
[2016-12-15] MEDS: HYDROcodone/APAP 7.5-325MG 1 EACH TAB PO PRN (23:25)
[2016-12-16] MEDS: PIPERACILLIN-TAZOBACTAM 3.375 GM in DEXTROSE/WATER 1 50ML.BAG IVPB SCH ×2 (00:52→07:39)
[2016-12-16] MEDS: HYDROcodone/APAP 7.5-325MG 1 EACH TAB PO PRN (05:11)
[2016-12-16] MEDS: PANTOPRAZOLE 40 MG TABLET PO SCH (07:38)
[2016-12-16] MEDS: predniSONE 5 MG TAB PO SCH (07:38)
[2016-12-16] MEDS: valACYclovir HCL 1,000 MG TABLET PO SCH (07:39)
[2016-12-16] MEDS: SCOPOLAMINE 1.5MG/72HR PATCH TRANSDERM SCH (07:39)
[2016-12-16] MEDS: ERYTHROMYCIN 5 MG/GM OPHTH OINT 3.5 GM TUBE RIGHT EYE SCH (07:39)
[2016-12-16 07:54] VITALS: BP 143/82; PULSE 94; TEMP 99.4
[2016-12-16 08:42] LABS: Anisocytosis Slight; Basophils % (A) 0 %; CH 34.2; CHCM 35.2; Eosinophils % (A) 0 %; HCT 26.3 % (39.0-53.0); HDW 2.92; HGB 9.4 gm/dL (13.0-17.5); Luc # (Auto) 0.21; Luc % (Auto) 2; Lymphocytes # (A) 0.5 k/uL (1.0-4.8); Lymphocytes % (A) 5 %; MCHC 35.9 g/dL (31.0-37.0); MCV 97.4 fL (80.0-100.0); Macrocytosis Slight; Mean Platelet Volume 7.1; Monocytes # (A) 0.5 k/uL (0-1.0); Monocytes % (A) 4 %; Neutrophils # (A) 9.9 k/uL (1.3-7.7); Neutrophils % (A) 89 %; RDW 18.9 % (11.5-15.5); WBC 11.2 k/uL (3.8-10.6); WBC (Perox) 11.22
[2016-12-16 08:53] LABS: Anion Gap 11 mmol/L; Blood Urea Nitrogen 14 mg/dL (9-20); Calcium 8.9 mg/dL (8.4-10.2); Carbon Dioxide 30 mmol/L (22-30); Chloride 90 mmol/L (98-107); Glucose 125 mg/dL (74-99); Non-African American GFR(MDRD) >60 (>60 ml/min/1.73 sqM); Sodium 131 mmol/L (137-145)
[2016-12-16] MEDS: VANCOMYCIN 1,250 MG in SODIUM CHLORIDE 0.9% 250 ML IVPB SCH (11:21)
--- NOTE | 2016-12-16 15:32 | CONS ---
CHIEF CONSULT: Pain right forehead. HISTORY OF PRESENT ILLNESS: Mr. Gomez notes a one week history of pain in the right scalp and forehead and brow area. This began suddenly and slowly worsened. There are associated skin lesions. The patient was seen in the office as an outpatient two days prior and was started on oral antivirals for herpes zoster. The patient has multiple medical issues and was admitted in the hospital for further treatment. The patient notes that the symptoms are constant and have not improved. There is no associated vision loss. REVIEW OF SYSTEMS: The patient reports occasional headache, joint stiffness, shortness of breath. Otherwise negative. Medical history: The patient has history of small cell lung cancer with metastasis. Medications: Reviewed. Please see history and physical. ALLERGIES: No known drug allergies. SOCIAL HISTORY: Previous cigarette smoker. Currently does not smoke. Ophthalmic surgical history: None. FAMILY HISTORY: No significant family history. OPHTHALMIC EXAM: Visual acuity is 20/50 at near in the right eye and 20/40 at near in the left eye. There was intraocular pressure soft to palpation in both eyes. Eyelid examination reveal ( ) lesions in the upper lid, brow and forehead involving the scalp on the right side. Conjunctivae 1+ injection in the right. Cornea clear. No dendrites. Anterior chamber within normal limits. Lens shows 1+ nuclear sclerosis. Posterior exam within normal limits. ASSESSMENT AND PLAN: 1. Herpes zoster opthalmatus, right. The patient is receiving the appropriate treatment for herpes zoster. He should continue valacyclovir 1 gm two times daily. The patient is immune compromised due to his lung cancer history. There is no indication for steroid treatment or antiviral drops. Erythromycin ophthalmic ointment can be administered twice a day in the right eye to prevent super infection. 2. Nuclear sclerosis does not appear significant. Can be reevaluated in an outpatient setting. Thank you for allowing me to participate in this patient's care. I will reevaluate him in the hospital if needed, otherwise, I will evaluate him as an outpatient after discharge. MATT
--- NOTE | 2016-12-16 16:14 | P.PN ---
Subjective Principal diagnosis: Shingles Pt seen today in follow up, pt shingles pain is fairly well controlled, it can be severe at times, no vomiting today, he is getting back and forth to the bathroom, he is O2 dependent and SOB with activity, feels his mental status is a little better. Objective - Vital Signs Vital signs: Vital Signs Temp 99.4 F 12/16/16 07:00 Pulse 94 12/16/16 07:00 Resp 18 12/16/16 07:00 BP 143/82 12/16/16 07:00 Pulse Ox 96 12/16/16 07:00 Intake & Output 12/15/16 12/16/16 12/16/16 18:59 06:59 18:59 Intake Total 640 Balance 640 Intake: Oral 640 Other: Voiding Method Toilet # Voids 2 2 # Bowel Movements 0 - Constitutional General appearance: Present: cooperative, no acute distress, thin - EENT Eyes: Present: PERRLA - Respiratory Respiratory: bilateral: diminished - Cardiovascular Heart sounds: normal: S1, S2 - Peripheral edema leg Peripheral Edema: bilateral: None - Gastrointestinal General gastrointestinal: Present: normal bowel sounds, soft - Neurologic Neurologic: Present: CNII-XII intact - Musculoskeletal Musculoskeletal: Present: strength equal bilaterally - Psychiatric Psychiatric: Present: A&O x's 3, appropriate affect, intact judgment & insight - Labs CBC & Chem 7: 12/16/16 07:45 12/16/16 07:45 Labs: Abnormal Lab Results - Last 24 Hours (Table) 12/16/16 12/16/16 Range/Units 07:45 07:45 WBC 11.2 H (3.8-10.6) k/uL RBC 2.70 L (4.30-5.90) m/uL Hgb 9.4 L (13.0-17.5) gm/dL Hct 26.3 L (39.0-53.0) % RDW 18.9 H (11.5-15.5) % Plt Count 112 L (150-450) k/uL Neutrophils # 9.9 H (1.3-7.7) k/uL Lymphocytes # 0.5 L (1.0-4.8) k/uL Sodium 131 L (137-145) mmol/L Chloride 90 L (98-107) mmol/L Glucose 125 H (74-99) mg/dL Microbiology - Last 24 Hours (Table) 12/12/16 20:00 Blood Culture - Preliminary Blood No Growth after 72 hours - Imaging and Cardiology CT Scan - head: report reviewed, image reviewed, other (discussed with Radiology , Radiation/Oncology) Assessment and Plan (1) Herpes zoster Narrative/Plan: IM managing and treating, pt is improving Status: Acute (2) Small cell lung cancer Narrative/Plan: CT head results discussed with pt and , MRI cannot be performed due to foreign object in chest. Dr. Del Cid reviewed with Radiologist and case discussed with Rad/Onc Dr. Hutchins-no one is convinced of malignant process. Plan is for pt to be seen outpatient once shingles have cleared with consideration for another CT head in a few weeks for comparison. Pt is a candidate for prophylactic cranial irradiation because of diagnosis of SCLC but, care team would like evaluate pt further before committing to a definite plan. Status: Chronic (3) Antineoplastic chemotherapy induced pancytopenia Narrative/Plan: WBC increased with use of GCSF which had been discontinues, Hgb stable, platelets improved. No interventions today Status: Acute
== END 2016-12-16 12:42 | disposition home health service (06) | DRG 865 ==
LOC: EC 19:12 → 4MS4W 19:52
PROVIDERS: ADMIT Internal Medicine Geriatric Medicine; ATTEND Internal Medicine Geriatric Medicine
DX: B02.8 Zoster with other complications (principal); D61.810 Antineoplastic chemotherapy induced pancytopenia; Z99.81 Dependence on supplemental oxygen; C34.11 Malignant neoplasm of upper lobe, right bronchus or lung; E22.2 Syndrome of inappropriate secretion of antidiuretic hormone; B02.30 Zoster ocular disease, unspecified; J44.9 Chronic obstructive pulmonary disease, unspecified; D64.9 Anemia, unspecified; K31.84 Gastroparesis; T40.2X5A Adverse effect of other opioids, initial encounter; R41.0 Disorientation, unspecified; T45.1X5A Adverse effect of antineoplastic and immunosuppressive drugs, initial encounter; R59.0 Localized enlarged lymph nodes; R53.1 Weakness; R01.1 Cardiac murmur, unspecified; R90.89 Other abnormal findings on diagnostic imaging of central nervous system; J30.9 Allergic rhinitis, unspecified; R50.81 Fever presenting with conditions classified elsewhere; R51 Headache; H91.90 Unspecified hearing loss, unspecified ear; R11.2 Nausea with vomiting, unspecified; M79.5 Residual foreign body in soft tissue; H25.11 Age-related nuclear cataract, right eye; Z87.891 Personal history of nicotine dependence; Z87.442 Personal history of urinary calculi; Z79.51 Long term (current) use of inhaled steroids; Z79.52 Long term (current) use of systemic steroids; Z92.3 Personal history of irradiation; Z92.21 Personal history of antineoplastic chemotherapy; Z87.448 Personal history of other diseases of urinary system; Z87.01 Personal history of pneumonia (recurrent); Z87.09 Personal history of other diseases of the respiratory system; Z71.3 Dietary counseling and surveillance
CPT/HCPCS: 70470; 80048; 80053; 80202; 83605; 83735; 85025; 87040; 94640; 94760; 96374; 96375; 99285

== ENCOUNTER 2016-12-18 06:58 | Inpatient (IN) | payer BC ==
[2016-12-18] MEDS ORDERED: SODIUM CHLORIDE 0.9% 1,000 ML IV STA ×2 (07:39)
--- NOTE | 2016-12-18 07:46 | ED ---
General Adult HPI - General Chief complaint: Recheck/Abnormal Lab/Rx Stated complaint: HTN Time Seen by Provider: 12/18/16 07:17 Source: patient, family, RN notes reviewed, old records reviewed Mode of arrival: wheelchair Limitations: no limitations - History of Present Illness Initial comments: This is a 61-year-old male with a history of small cell lung cancer who was just discharged from the hospital 2 days ago after being admitted for intractable vomiting and herpes zoster of the face and scalp who presents today with complaints of shortness of breath or exertional dyspnea and elevated blood pressure. He was noted have a blood pressure 250/190 at home on arrival here to 236/110. He did have chills this morning also. Patient has any history of COPD and emphysema he does have known metastatic lesions to the brain were documented on a scan done 3 days ago for the patient's . He denies any overt headache fevers sweats no overt chest pain no nausea vomiting at this time additionally he has been acting paranoid per his he's been hearing voices and seeing things that aren't there. He woke up immediately if radiated hurt his . Patient relates this to possibly taking too many pain medications which contained Tylenol. Is no prior history of paranoid behavior additional information patient believes he does have a history of blood pressure issues and had been on lisinopril in the past but apparently he had problems with it. He is currently not on any blood pressure medication. - Related Data Home Medications Medication Instructions Recorded Confirmed Tiotropium 18 Mcg/Puff [Spiriva] 1 cap INHALATION RT-DAILY 07/08/16 12/18/16 predniSONE 5 mg PO DAILY 07/08/16 12/18/16 valACYclovir HCL [Valtrex] 1,000 mg PO TID 12/12/16 12/18/16 Previous Rx's Medication Instructions Recorded Ondansetron Odt [Zofran ODT] 4 mg PO Q8HR PRN #20 tab 12/12/16 Acetaminophen Tab [Tylenol] 650 mg PO Q6HR PRN tab 12/16/16 Erythromycin Ophth Oint [Romycin 1 applic RIGHT EYE BID #5 ml 12/16/16 Ophth Oint] HYDROcodone/APAP 7.5-325MG [[place] 1 tab PO Q6HR PRN #40 tab 12/16/16 7.5-325] Levofloxacin [Levaquin] 500 mg PO DAILY #5 tab 12/16/16 Pantoprazole [Protonix] 40 mg PO AC-BRKFST #30 tab 12/16/16 Scopolamine 1.5MG/72Hr Patch 1 patch TRANSDERM Q72H #3 patch 12/16/16 [TransDerm Scop] Allergies Allergy/AdvReac Type Severity Reaction Status Date / Time No Known Allergies Allergy Verified 12/18/16 07:54 Review of Systems ROS Statement: Those systems with pertinent positive or pertinent negative responses have been documented in the HPI. ROS Other: All systems not noted in ROS Statement are negative. Past Medical History Past Medical History: Asthma, Cancer, COPD, Pneumonia, Renal Disease Additional Past Medical History / Comment(s): kidney stones in past, small cell lung CA History of Any Multi-Drug Resistant Organisms: None Reported Past Surgical History: Hernia Repair Additional Past Surgical History / Comment(s): bilateral hernia repair 2016 Past Anesthesia/Blood Transfusion Reactions: No Reported Reaction Past Psychological History: No Psychological Hx Reported Smoking Status: Former smoker Past Alcohol Use History: None Reported Past Drug Use History: None Reported - Past Family History Father Family Medical History: No Reported History General Exam - General Exam Comments Initial Comments: This is a well-developed asthenic appearing male he is awake alert oriented 3 Limitations: no limitations General appearance: alert, anxious Head exam: Present: normocephalic, other (Healing herpes zoster lesions seen over the right side of the scalp /forehead) Eye exam: Present: normal appearance, PERRL, EOMI. Absent: scleral icterus, conjunctival injection, periorbital swelling ENT exam: Present: mucous membranes dry Neck exam: Present: normal inspection. Absent: tenderness, meningismus, lymphadenopathy Respiratory exam: Present: decreased breath sounds Cardiovascular Exam: Present: normal rhythm, tachycardia GI/Abdominal exam: Present: soft, normal bowel sounds. Absent: distended, tenderness, guarding, rebound, rigid Extremities exam: Present: normal inspection, full ROM, normal capillary refill. Absent: tenderness, pedal edema, joint swelling, calf tenderness Back exam: Present: normal inspection Neurological exam: Present: alert, oriented X3, CN II-XII intact. Absent: motor sensory deficit Psychiatric exam: Present: anxious Skin exam: Present: warm, dry, other (The above-mentioned herpetic lesions on the scalp also with excoriated area in the posterior right occipital scalp) Course Vital Signs 12/18/16 12/18/16 12/18/16 07:08 07:34 08:12 Temperature 98.8 F Pulse Rate 119 H 120 H 124 H Respiratory 17 18 18 Rate Blood Pressure 181/91 236/112 222/108 O2 Sat by Pulse 90 L 100 99 Oximetry 12/18/16 12/18/16 12/18/16 09:00 09:30 10:18 Temperature 97.1 F L Pulse Rate 111 H 112 H 125 H Respiratory 18 18 18 Rate Blood Pressure 225/112 211/100 208/107 O2 Sat by Pulse 98 99 96 Oximetry 12/18/16 12/18/16 10:56 11:25 Temperature Pulse Rate 123 H 118 H Respiratory 18 18 Rate Blood Pressure 205/98 196/91 O2 Sat by Pulse 98 96 Oximetry - Reevaluation(s) Reevaluation #1: 12/18/16 12:10 Patient's blood pressure remained elevated he required IV fluids he did get IV hydralazine and later Nitropaste patient's blood pressure did improve. Medical Decision Making - Medical Decision Making I did discuss the findings with Dr. Del Cid from oncology also with Dr. Shaikh. Patient be admitted patient was started on IV heparin no bolus. Patient does have evidence of 2 lesions in the brain though per oncology is not definitive metastatic disease. Patient will be evaluated also by vascular surgery for possible IVC filter. - Lab Data Result diagrams: 12/18/16 08:05 12/18/16 08:05 Lab Results 12/18/16 12/18/16 12/18/16 Range/Units 08:05 08:05 08:05 WBC 7.6 (3.8-10.6) k/uL RBC 2.78 L (4.30-5.90) m/uL Hgb 9.6 L (13.0-17.5) gm/dL Hct 27.4 L (39.0-53.0) % MCV 98.9 (80.0-100.0) fL MCH 34.6 (25.0-35.0) pg MCHC 35.0 (31.0-37.0) g/dL RDW 19.2 H (11.5-15.5) % Plt Count 192 D (150-450) k/uL Neutrophils % 80 % Lymphocytes % 6 % Monocytes % 10 % Eosinophils % 0 % Basophils % 0 % Neutrophils # 6.1 (1.3-7.7) k/uL Lymphocytes # 0.5 L (1.0-4.8) k/uL Monocytes # 0.7 (0-1.0) k/uL Eosinophils # 0.0 (0-0.7) k/uL Basophils # 0.0 (0-0.2) k/uL Anisocytosis Slight Macrocytosis Slight PT (9.0-12.0) sec INR (<1.1) APTT (22.0-30.0) sec D-Dimer (<0.60) mg/L FEU Sodium 137 (137-145) mmol/L Potassium 3.6 (3.5-5.1) mmol/L Chloride 95 L (98-107) mmol/L Carbon Dioxide 31 H (22-30) mmol/L Anion Gap 11 mmol/L BUN 21 H (9-20) mg/dL Creatinine 1.02 (0.66-1.25) mg/dL Est GFR (MDRD) Af Amer >60 (>60 ml/min/1.73 sqM) Est GFR (MDRD) Non-Af >60 (>60 ml/min/1.73 sqM) Glucose 97 (74-99) mg/dL Calcium 8.4 (8.4-10.2) mg/dL Magnesium 1.5 L (1.6-2.3) mg/dL Total Bilirubin 0.3 (0.2-1.3) mg/dL AST 21 (17-59) U/L ALT 24 (21-72) U/L Alkaline Phosphatase 128 H (38-126) U/L Ammonia (<30) umol/L Total Creatine Kinase 24 L (55-170) U/L CK-MB (CK-2) 1.6 (0.0-2.4) ng/mL CK-MB (CK-2) Rel Index 6.7 Troponin I 0.038 H* (0.000-0.034) ng/mL NT-Pro-B Natriuret Pep pg/mL Total Protein 6.5 (6.3-8.2) g/dL Albumin 4.1 (3.5-5.0) g/dL Salicylates <1.0 mg/dL Urine Opiates Screen (NotDetected) Ur Oxycodone Screen (NotDetected) Urine Methadone Screen (NotDetected) Ur Propoxyphene Screen (NotDetected) Acetaminophen <10.0 ug/mL Ur Barbiturates Screen (NotDetected) U Tricyclic Antidepress (NotDetected) Ur Phencyclidine Scrn (NotDetected) Ur Amphetamines Screen (NotDetected) U Methamphetamines Scrn (NotDetected) U Benzodiazepines Scrn (NotDetected) Urine Cocaine Screen (NotDetected) U Marijuana (THC) Screen (NotDetected) 12/18/16 12/18/16 12/18/16 Range/Units 08:05 08:05 08:05 WBC (3.8-10.6) k/uL RBC (4.30-5.90) m/uL Hgb (13.0-17.5) gm/dL Hct (39.0-53.0) % MCV (80.0-100.0) fL MCH (25.0-35.0) pg MCHC (31.0-37.0) g/dL RDW (11.5-15.5) % Plt Count (150-450) k/uL Neutrophils % % Lymphocytes % % Monocytes % % Eosinophils % % Basophils % % Neutrophils # (1.3-7.7) k/uL Lymphocytes # (1.0-4.8) k/uL Monocytes # (0-1.0) k/uL Eosinophils # (0-0.7) k/uL Basophils # (0-0.2) k/uL Anisocytosis Macrocytosis PT 10.5 (9.0-12.0) sec INR 1.0 (<1.1) APTT 25.1 (22.0-30.0) sec D-Dimer 1.59 H (<0.60) mg/L FEU Sodium (137-145) mmol/L Potassium (3.5-5.1) mmol/L Chloride (98-107) mmol/L Carbon Dioxide (22-30) mmol/L Anion Gap mmol/L BUN (9-20) mg/dL Creatinine (0.66-1.25) mg/dL Est GFR (MDRD) Af Amer (>60 ml/min/1.73 sqM) Est GFR (MDRD) Non-Af (>60 ml/min/1.73 sqM) Glucose (74-99) mg/dL Calcium (8.4-10.2) mg/dL Magnesium (1.6-2.3) mg/dL Total Bilirubin (0.2-1.3) mg/dL AST (17-59) U/L ALT (21-72) U/L Alkaline Phosphatase (38-126) U/L Ammonia <9 (<30) umol/L Total Creatine Kinase (55-170) U/L CK-MB (CK-2) (0.0-2.4) ng/mL CK-MB (CK-2) Rel Index Troponin I (0.000-0.034) ng/mL NT-Pro-B Natriuret Pep 1600 pg/mL Total Protein (6.3-8.2) g/dL Albumin (3.5-5.0) g/dL Salicylates mg/dL Urine Opiates Screen (NotDetected) Ur Oxycodone Screen (NotDetected) Urine Methadone Screen (NotDetected) Ur Propoxyphene Screen (NotDetected) Acetaminophen ug/mL Ur Barbiturates Screen (NotDetected) U Tricyclic Antidepress (NotDetected) Ur Phencyclidine Scrn (NotDetected) Ur Amphetamines Screen (NotDetected) U Methamphetamines Scrn (NotDetected) U Benzodiazepines Scrn (NotDetected) Urine Cocaine Screen (NotDetected) U Marijuana (THC) Screen (NotDetected) 12/18/16 Range/Units 08:40 WBC (3.8-10.6) k/uL RBC (4.30-5.90) m/uL Hgb (13.0-17.5) gm/dL Hct (39.0-53.0) % MCV (80.0-100.0) fL MCH (25.0-35.0) pg MCHC (31.0-37.0) g/dL RDW (11.5-15.5) % Plt Count (150-450) k/uL Neutrophils % % Lymphocytes % % Monocytes % % Eosinophils % % Basophils % % Neutrophils # (1.3-7.7) k/uL Lymphocytes # (1.0-4.8) k/uL Monocytes # (0-1.0) k/uL Eosinophils # (0-0.7) k/uL Basophils # (0-0.2) k/uL Anisocytosis Macrocytosis PT (9.0-12.0) sec INR (<1.1) APTT (22.0-30.0) sec D-Dimer (<0.60) mg/L FEU Sodium (137-145) mmol/L Potassium (3.5-5.1) mmol/L Chloride (98-107) mmol/L Carbon Dioxide (22-30) mmol/L Anion Gap mmol/L BUN (9-20) mg/dL Creatinine (0.66-1.25) mg/dL Est GFR (MDRD) Af Amer (>60 ml/min/1.73 sqM) Est GFR (MDRD) Non-Af (>60 ml/min/1.73 sqM) Glucose (74-99) mg/dL Calcium (8.4-10.2) mg/dL Magnesium (1.6-2.3) mg/dL Total Bilirubin (0.2-1.3) mg/dL AST (17-59) U/L ALT (21-72) U/L Alkaline Phosphatase (38-126) U/L Ammonia (<30) umol/L Total Creatine Kinase (55-170) U/L CK-MB (CK-2) (0.0-2.4) ng/mL CK-MB (CK-2) Rel Index Troponin I (0.000-0.034) ng/mL NT-Pro-B Natriuret Pep pg/mL Total Protein (6.3-8.2) g/dL Albumin (3.5-5.0) g/dL Salicylates mg/dL Urine Opiates Screen Not Detected (NotDetected) Ur Oxycodone Screen Not Detected (NotDetected) Urine Methadone Screen Not Detected (NotDetected) Ur Propoxyphene Screen Not Detected (NotDetected) Acetaminophen ug/mL Ur Barbiturates Screen Not Detected (NotDetected) U Tricyclic Antidepress Not Detected (NotDetected) Ur Phencyclidine Scrn Not Detected (NotDetected) Ur Amphetamines Screen Not Detected (NotDetected) U Methamphetamines Scrn Not Detected (NotDetected) U Benzodiazepines Scrn Not Detected (NotDetected) Urine Cocaine Screen Not Detected (NotDetected) U Marijuana (THC) Screen Not Detected (NotDetected) - Radiology Data Radiology results: report reviewed (X-ray was unremarkable for acute findings a CAT scan however show evidence of a left upper lobe pulmonary embolism.), image reviewed Critical Care Time Critical Care Time: Yes Critical Care Time: 35 minutes of critical care time which includes initial presentation with history physical labs x-rays evaluation of old charting. Evaluation of patient response to therapy discussion with the consult service and the admitting physician and admission orders and documentation of the above. This also included discussion with patient family members. Disposition Clinical Impression: Pulmonary embolism, Small cell lung cancer, Hypertensive urgency, Tachycardia Disposition: ADMITTED IP TO THIS [facility] Condition: Stable Referrals: Zhane Cabrera MD [Primary Care Provider] - 1-2 days
[2016-12-18 08:36] LABS: Anisocytosis Slight; Basophils % (A) 0 %; CH 34.1; CHCM 34.7; Eosinophils % (A) 0 %; HCT 27.4 % (39.0-53.0); HDW 2.91; HGB 9.6 gm/dL (13.0-17.5); Luc # (Auto) 0.24; Luc % (Auto) 3; Lymphocytes # (A) 0.5 k/uL (1.0-4.8); Lymphocytes % (A) 6 %; MCH 34.6 pg (25.0-35.0); MCV 98.9 fL (80.0-100.0); Macrocytosis Slight; Mean Platelet Volume 6.9; Monocytes # (A) 0.7 k/uL (0-1.0); Monocytes % (A) 10 %; Neutrophils # (A) 6.1 k/uL (1.3-7.7); Neutrophils % (A) 80 %; RBC 2.78 m/uL (4.30-5.90); RDW 19.2 % (11.5-15.5); WBC 7.6 k/uL (3.8-10.6); WBC (Perox) 7.75
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
[2016-12-18 08:45] LABS: ALT 24 U/L (21-72); AST 21 U/L (17-59); Acetaminophen <10.0 ug/mL; Alkaline Phosphatase 128 U/L (38-126); Anion Gap 11 mmol/L; Blood Urea Nitrogen 21 mg/dL (9-20); Calcium 8.4 mg/dL (8.4-10.2); Carbon Dioxide 31 mmol/L (22-30); Chloride 95 mmol/L (98-107); Glucose 97 mg/dL (74-99); Magnesium 1.5 mg/dL (1.6-2.3); Non-African American GFR(MDRD) >60 (>60 ml/min/1.73 sqM); Potassium 3.6 mmol/L (3.5-5.1); Salicylate <1.0 mg/dL; Sodium 137 mmol/L (137-145); Total Bilirubin 0.3 mg/dL (0.2-1.3); Total Protein 6.5 g/dL (6.3-8.2)
[2016-12-18 08:47] LABS: Partial Thromboplastin Time 25.1 sec (22.0-30.0); Prothrombin Time 10.5 sec (9.0-12.0)
[2016-12-18] MEDS ORDERED: MAGNESIUM SULFATE-D5W PMX 1 GM in DEXTROSE/WATER 1 100ML.BAG IVPB ONE (08:49)
[2016-12-18 09:03] LABS: Creatine Kinase MB 1.6 ng/mL (0.0-2.4)
[2016-12-18 09:05] LABS: Troponin I 0.038 ng/mL (0.000-0.034)
[2016-12-18] MEDS ORDERED: RX INFO: IV CONTRAST WAS GIVEN 1 EACH MISC MISCELLANE PRN (09:31)
[2016-12-18] MEDS ORDERED: hydrALAZINE HCL 20 MG/ML 1 ML VIAL IVP STA (09:31)
--- NOTE | 2016-12-18 10:35 | CT ---
EXAMINATION TYPE: CT angio chest DATE OF EXAM: 12/18/2016 10:22 AM COMPARISON: 12/10/2016 HISTORY: chest pain CT DLP: 161.5 mGycm Automated exposure control for dose reduction was used. CONTRAST: CTA scan of the thorax is performed with IV Contrast, patient injected with 53 mL of Omnipaque 350, p ulmonary embolism protocol. . FINDINGS: LUNGS: There are bullous emphysematous changes throughout both lungs.. The stable nodule in the poste rior segment of the right upper lobe measures 5.9 x 10.3 mm. MEDIASTINUM: There is small filling defects within left upper lobe branch pulmonary artery compatible with pulmonary embolism. Best noted axial image 53 Central pulmonary arteries are patent. Additional reduced enhancement within any additional left upper lobe artery also suspicious for additional pulm onary embolus. Subsegmental changes involving lungs are seen bilaterally most typical of atelectasis. Shotty adenopathy in the mediastinum and hilum noted. Tiny right pleural effusion seen. OTHER: There is hypertrophic spondylosis within the spine. There is mild wedging of the T3 vertebral body. This is unchanged. IMPRESSION: 1. FINDINGS ARE COMPATIBLE WITH A SMALL LEFT UPPER LOBE DISTAL BRANCH PULMONARY EMBOLISM 2. SEVERE COPD COPD. 3. STABLE RIGHT UPPER LOBE PULMONARY NODULE. CENTRAL BRONCHIECTASIS EXTENDING IN THE LUNG BASES NOTED . SUBSEGMENTAL CONSOLIDATION RIGHT SUGGESTIVE OF ATELECTASIS.
[2016-12-18] MEDS ORDERED: NITROGLYCERIN OINT 1 INCH/GM PACKET TOPICAL STA (10:53)
[2016-12-18] MEDS ORDERED: ONDANSETRON 4 MG/2 ML VIAL IVP STA (12:00)
[2016-12-18] MEDS: HEPARIN SODIUM,PORCINE/D5W PMX 25,000 UNIT in DEXTROSE/WATER 1 500ML.BAG IV SCH (12:09)
[2016-12-18] MEDS ORDERED: NALOXONE 0.4 MG/ML 1 ML VIAL IV PRN (12:17)
[2016-12-18] MEDS ORDERED: ONDANSETRON 4 MG/2 ML VIAL IVP PRN (12:17)
[2016-12-18] MEDS ORDERED: HYDROcodone/APAP 7.5-325MG 1 EACH TAB PO PRN (12:21)
[2016-12-18] MEDS ORDERED: ONDANSETRON ODT 4 MG TAB PO PRN (12:21)
[2016-12-18] MEDS: SODIUM CHLORIDE 0.9% 1,000 ML IV SCH (12:48)
[2016-12-18] MEDS: ACETAMINOPHEN TAB 325 MG TAB PO PRN ×2 (14:10→22:16)
--- NOTE | 2016-12-18 17:17 | P.HPIM ---
History of Present Illness H&P Date: 12/18/16 Chief Complaint: Pulmonary embolism, altered mental status with brain metastasis , small cell 61-year-old male one of Dr. Cabrera's patient who was in the hospital few days ago with severe intractable nausea vomiting combination of gastroparesis along with pancytopenia He develops same time neutropenia from chemotherapy and severe shingle in the right side of the trigeminal nerve area with severe pain at the time. Patient ended up leaving the hospital day before yesterday through his hospitalization had slight change CAT scan of the brain showed 2 spot in the brain consistent with metastasis could not do MRI of the time. Patient has an appointment to see his radiation oncologist Dr. Hutchins and was in to see Dr. of Al Terrell yesterday for his follow-up and to schedule his MRI of the brain and move forward on his chemotherapy. He is neutropenia was resolved and he is to be continue on oral antibiotics. Patient developed to have significant altered mental status had diffusion confusion and mild hallucination he felt become so aggressive he killed his was very compatible with her at the time. Something never took place at the time. Patient was scared of the current finding his blood pressure surprisingly was very high in the 200 at the time ended up coming to the emergency department at [facility] while his in developed to have significant chest pain mild tachycardia and slight change in EKG his CK with troponin was negative d-dimer was quite bit elevated CTA performed and shows left upper lobe distal branch pulmonary embolism with severe COPD and stable right upper lobe pulmonary nodular. Patient was started on heparin drip was giving hydralazine IV stabilized his blood pressure will be admitted to the hospital for the above problem. Apparently Dr. Del Cid: An requested vascular consultation for possible need for [place] filter placement. No finding so far consistent with DVT of the lower extremity [place] filter placement will be delay at this point until further testing in Doppler of the leg to find out if there is any finding of DVT [place] filter might be indicated otherwise is not at this point. Despite the indication for anticoagulation this patient will be very hard and rough decision on the long-term because of the metastasis to the brain and the family area the brain tissue the auto of having intracranial hemorrhage become very high patient and his were told about this dilemma still need to treat this initially to avoid having life- threatening problem and any complication happen in the future need to be dealt with at the time. Review of Systems Constitutional: Reports anorexia, Reports chronic headaches, Reports chronic pain, Reports fatigue, Reports lethargy, Reports malaise, Reports weight loss, Denies as per HPI, Denies chills, Denies daytime sleepiness, Denies fever, Denies night sweats, Denies poor appetite, Denies sweats, Denies weakness, Denies weight gain Eyes: right blurred vision, right irritation, right itching, right pain, right photophobia Ears: bilateral: decreased hearing Ears, nose, mouth and throat: Reports nasal congestion, Reports nasal discharge , Reports sinus pain, Reports sinus pressure, Denies as per HPI, Denies ant. neck pain, Denies bleeding gums, Denies dental pain, Denies dysphagia, Denies epistaxis, Denies headache, Denies hoarseness, Denies mouth pain, Denies neck fullness/pressure, Denies neck lump, Denies nose pain, Denies odynophagia, Denies post-nasal drip, Denies swelling in mouth, Denies swelling in throat, Denies sore throat, Denies vertigo, Denies voice changes Cardiovascular: Reports chest pain, Reports orthopnea, Reports palpitations, Denies as per HPI, Denies claudication, Denies decreased exercise tolerance, Denies dyspnea on exertion, Denies edema, Denies high blood pressure, Denies irregular heart beat, Denies leg edema, Denies lightheadedness, Denies paroxysmal nocturnal dyspnea, Denies phlebitis, Denies rapid heart beat, Denies shortness of breath, Denies syncope Respiratory: Reports congestion, Reports cough, Reports cough with sputum, Reports sleep apnea, Denies as per HPI, Denies dyspnea, Denies excessive sputum , Denies hemoptysis, Denies home oxygen, Denies pain, Denies pain on inspiration , Denies pleurisy, Denies respiratory infections, Denies snoring, Denies wheezing Gastrointestinal: Reports abdominal pain, Reports bloating, Reports early satiety, Reports loss of appetite, Reports nausea, Denies as per HPI, Denies belching, Denies BRBPR, Denies change in bowel habits, Denies coffee ground emesis, Denies constipation, Denies diarrhea, Denies dyspepsia, Denies excessive gas, Denies heartburn, Denies hematemesis, Denies hematochezia, Denies indigestion, Denies jaundice, Denies lactose intolerance, Denies melena, Denies vomiting Genitourinary: Reports dysuria, Reports incontinence, Reports nocturia, Reports polyuria, Denies as per HPI, Denies decreased libido, Denies difficulties fathering child, Denies discharge, Denies erectile dysfunction, Denies flank pain, Denies genital pain, Denies genital sores, Denies hematuria, Denies impotence, Denies kidney stones, Denies testicular lump, Denies testicular pain , Denies urinary frequency, Denies urinary hesitancy, Denies urinary retention Musculoskeletal: Reports low back pain, Reports neck pain, Reports neck stiffness, Denies as per HPI, Denies arm numbness/tingling, Denies atrophy, Denies fractures, Denies frequent falls, Denies gait dysfunction, Denies hot joints, Denies leg numbness/tingling, Denies limitation of motion, Denies loss of height, Denies morning stiffness, Denies muscle cramps, Denies muscle weakness, Denies myalgias, Denies prior amputations, Denies redness of joints, Denies shooting arm pain, Denies shooting leg pain Integumentary: Reports pruritus, Reports rash, Denies as per HPI, Denies acne, Denies boils, Denies brittle nails, Denies change in hair/nails, Denies color changes, Denies darkening of skin, Denies depigmentation, Denies dryness, Denies foot/leg ulcers, Denies growths, Denies hirsutism, Denies lesions, Denies onychomycosis, Denies sores, Denies striae, Denies unusual bruising, Denies wounds Neurological: Reports aphasia, Reports ataxia, Reports burning pain, Reports headaches, Reports migraines, Reports vertigo, Reports weakness, Denies as per HPI, Denies balance difficulties, Denies change in mentation, Denies change in smell/taste, Denies change in speech, Denies confusion, Denies convulsions, Denies double vision, Denies gait dysfunction, Denies head injury, Denies hearing difficulties, Denies lack of coordination, Denies loss of vision, Denies memory loss, Denies motor disturbance, Denies numbness, Denies paralysis , Denies paresthesias, Denies seizures, Denies sensory deficit, Denies spasticity, Denies syncope, Denies tic, Denies tingling, Denies transient paralysis, Denies tremors, Denies visual changes Psychiatric: Reports anhedonia, Reports anxiety, Reports disorientation, Reports hallucinations, Reports hypersomnia, Reports memory loss, Reports mood swings, Reports paranoia, Reports sleep disturbances, Denies as per HPI, Denies anxiety attacks, Denies change in appetite, Denies change in libido, Denies change in sleep habits, Denies confusion, Denies depression, Denies hopelessness , Denies insomnia, Denies irritability, Denies sadness/tearfulness, Denies suicidal ideation Endocrine: Reports fatigue, Reports nocturia, Reports polyphagia, Denies as per HPI, Denies cold intolerance, Denies deepening of the voice, Denies excessive sweating, Denies excessive thirst, Denies flushing, Denies heat intolerance, Denies high blood sugars, Denies increase in ring/shoe/hat size, Denies low blood sugars, Denies palpitations, Denies polydipsia, Denies polyuria, Denies proptosis, Denies recent glucocorticoid use, Denies thyroid mass, Denies weight change Hematologic/Lymphatic: Reports easy bruising, Denies as per HPI, Denies easy bleeding, Denies lymphadenopathy, Denies lymphedema, Denies thrombophilia Allergic/Immunologic: Reports allergic rhinitis, Denies as per HPI, Denies anaphylaxis, Denies angioedema, Denies gluten intolerance, Denies persistent infections, Denies seasonal allergies, Denies urticaria, Denies wheezing Past Medical History Past Medical History: Asthma, Cancer, COPD, Pneumonia, Renal Disease Additional Past Medical History / Comment(s): R small cell lung cancer with chemo/radiation, pancytopenia, anemia, home O2, current shingelles R trigeminal nerve, HTN in the past, kidney stones in past. History of Any Multi-Drug Resistant Organisms: None Reported Past Surgical History: Hernia Repair Additional Past Surgical History / Comment(s): Bronchoscopy with bx, colonoscopy , bilateral hernia repair 2016, Past Anesthesia/Blood Transfusion Reactions: No Reported Reaction Smoking Status: Former smoker - Past Family History Father Family Medical History: No Reported History Medications and Allergies Home Medications Medication Instructions Recorded Confirmed Type Tiotropium 18 Mcg/Puff [Spiriva] 1 cap INHALATION RT-DAILY 07/08/16 12/18/16 History predniSONE 5 mg PO DAILY 07/08/16 12/18/16 History valACYclovir HCL [Valtrex] 1,000 mg PO TID 12/12/16 12/18/16 History Allergies Allergy/AdvReac Type Severity Reaction Status Date / Time No Known Allergies Allergy Verified 12/18/16 07:54 Physical Exam Vitals: Vital Signs Temp Pulse Resp BP Pulse Ox 12/18/16 16:20 115 H 18 12/18/16 15:03 98.1 F 113 H 18 156/86 98 12/18/16 13:50 113 H 15 12/18/16 12:49 113 H 16 178/99 98 12/18/16 12:10 111 H 16 167/83 100 12/18/16 11:25 118 H 18 196/91 96 12/18/16 10:56 123 H 18 205/98 98 12/18/16 10:18 97.1 F L 125 H 18 208/107 96 12/18/16 09:30 112 H 18 211/100 99 12/18/16 09:00 111 H 18 225/112 98 12/18/16 08:12 124 H 18 222/108 99 12/18/16 07:34 120 H 18 236/112 100 12/18/16 07:08 98.8 F 119 H 17 181/91 90 L Intake and Output 12/18/16 12/18/16 12/18/16 06:59 14:59 22:59 Other: Weight 59.874 kg Patient Weight 12/19/16 06:59 Weight 59.874 kg - Constitutional General appearance: no average body habitus, cooperative, disheveled, no mild distress, no morbidly obese, no acute distress, no obese, no severe distress, no thin - EENT Zoster on the right side of his forehead all the way to the mid skull area in the trigeminal nerve side. Eyes: abnormal pupil, no anicteric sclerae, no disc margins sharp, no edentulous , no EOMI, no PERRLA, no fundus normal, no photophobia, no dentition normal, no poor dentition, no ptosis, no scleral icterus, normal appearance ENT: hard of hearing, no hearing grossly normal, no NA/AT, no normal oropharynx , no other, no pharyngeal erythema, no thrush, no tonsillar exudates, no tonsillar swelling Ears: bilateral: normal - Neck Neck: no lymphadenopathy, normal ROM, no other, no rigidity, no stridor, no thyromegaly Carotids: bilateral: upstroke normal Thyroid: bilateral: normal size - Respiratory Respiratory: bilateral: diminished, dullness, rales, rhonchi, wheezing - Cardiovascular Rhythm: irregularly irregular Heart sounds: normal: S1, S2 Abnormal Heart Sounds: systolic murmur, S3 Gallop - Gastrointestinal General gastrointestinal: no absent bowel sounds, no decreased bowel sounds, distended, no hepatomegaly, no hyperactive bowel sounds, normal bowel sounds, no organomegaly, no rigid, no scaphoid, soft, no splenomegaly, no tenderness, no umbilical hernia, no ventral hernia - Integumentary Integumentary: no calor, no cellulitis, no cyanotic, no decreased turgor, no flushed, no jaundiced, normal, no normal turgor, pale, rash, no ulcer - Neurologic Neurologic: CNII-XII intact - Musculoskeletal Musculoskeletal: gait normal, generalized weakness, strength equal bilaterally, no right sided weakness, no left sided weakness - Psychiatric Psychiatric: A&O x's 3, appropriate affect Results CBC & Chem 7: 12/18/16 08:05 12/18/16 08:05 Labs: Abnormal Lab Results - Last 24 Hours (Table) 12/18/16 12/18/16 12/18/16 Range/Units 08:05 08:05 08:05 RBC 2.78 L (4.30-5.90) m/uL Hgb 9.6 L (13.0-17.5) gm/dL Hct 27.4 L (39.0-53.0) % RDW 19.2 H (11.5-15.5) % Lymphocytes # 0.5 L (1.0-4.8) k/uL D-Dimer (<0.60) mg/L FEU Chloride 95 L (98-107) mmol/L Carbon Dioxide 31 H (22-30) mmol/L BUN 21 H (9-20) mg/dL Magnesium 1.5 L (1.6-2.3) mg/dL Alkaline Phosphatase 128 H (38-126) U/L Total Creatine Kinase 24 L (55-170) U/L Troponin I 0.038 H* (0.000-0.034) ng/mL 12/18/16 12/18/16 Range/Units 08:05 14:49 RBC (4.30-5.90) m/uL Hgb (13.0-17.5) gm/dL Hct (39.0-53.0) % RDW (11.5-15.5) % Lymphocytes # (1.0-4.8) k/uL D-Dimer 1.59 H (<0.60) mg/L FEU Chloride (98-107) mmol/L Carbon Dioxide (22-30) mmol/L BUN (9-20) mg/dL Magnesium (1.6-2.3) mg/dL Alkaline Phosphatase (38-126) U/L Total Creatine Kinase (55-170) U/L Troponin I 0.042 H* (0.000-0.034) ng/mL Thrombosis Risk Factor Assmnt - DVT/VTE Prophylaxis DVT/VTE Prophylaxis: Pharmacologic Prophylaxis ordered, Mechanical Prophylaxis ordered - Choose All That Apply Any of the Below Risk Factors Present?: Yes Each Factor Represents 1 point: Abnormal pulmonary function (COPD) Other Risk Factors: Yes Each Risk Factor Represents 2 Points: Age 61-74 years, Malignancy Each Risk Factor Represents 3 Points: History of DVT/PE Other congenital or acquired thrombophilia - If yes, enter type in comment: No Thrombosis Risk Factor Assessment Total Risk Factor Score: 8 Thrombosis Risk Factor Assessment Level: High Risk Assessment and Plan Plan: 1 acute pulmonary embolism: With the current finding patient will be hospitalized started on heparin drip and try to switch him into Lovenox subcutaneous twice a day 1 mg/kg twice a day. Whether patient need to go for [place] filter placement or not to be decided in the next few days the meanwhile Doppler of the lower extremity be done we'll consult pulmonary. 2 altered mental status: Most likely elated to the brain metastasis patient might benefit from Decadron again decision will be left up to his oncologist specially with this finding of his PE and been on steroid will make the area more susceptible to bleed. 3 urgent hypertension with a blood pressure emergency was 250/190, patient will be on hydralazine and a sore are if possible try to bring his blood pressure down and if needed calcium channel donovan be good option as well. 4 herpes zoster: Continue his to finish his dose of Valcyte [place]. 5 neutropenia: Patient is on oral Levaquin for a few more days his white blood cell has improved. 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 7 severe intractable nausea and vomiting and gastroparesis: Has improved significantly since last week. 8 BPH: Watch for any urinary retention. 9 tachycardia: EKG was performed patient might need an echocardiogram and if needed to start him on beta donovan to bring the pulse rate down. 10 anemia: Iron deficiency continue multivitamins. 11 COPD: Has been on combination of bronchodilator along with steroid inhaler. 12 GI prophylaxis: Patient is on pantoprazole. DVT prophylaxis: Patient will be on heparin IV. CODE STATUS: Full code. Expectation from this admission: Patient be in the hospital for more than 2 nights.
--- NOTE | 2016-12-18 17:24 | US ---
EXAMINATION TYPE: US venous doppler duplex LE DATE OF EXAM: 12/18/2016 4:24 PM COMPARISON: NONE CLINICAL HISTORY: known pe. SIDE PERFORMED: Bilateral TECHNIQUE: The lower extremity deep venous system is examined utilizing real time linear array sonog francisca with graded compression, doppler sonography and color-flow sonography. VESSELS IMAGED: External Iliac Vein (EIV) Common Femoral Vein Deep Femoral Vein Greater Saphenous Vein * Femoral Vein Popliteal Vein Small Saphenous Vein * Proximal Calf Veins (* superficial vessels) Grayscale, color doppler, spectral doppler imaging performed of the deep veins of the lower extremiti es. There is normal flow, compressibility, vascular waveforms bilaterally. IMPRESSION: RIGHT LEG: NO EVIDENCE OF DVT LEFT LEG: NO EVIDENCE OF DVT
[2016-12-18] MEDS: valACYclovir HCL 1,000 MG TABLET PO SCH ×2 (18:01→22:10)
[2016-12-18] MEDS: NITROGLYCERIN OINT 1 INCH/GM PACKET TOPICAL SCH (18:02)
[2016-12-18] MEDS: predniSONE 5 MG TAB PO SCH (22:10)
[2016-12-18] MEDS: METOPROLOL TARTRATE 25 MG TAB PO SCH (22:10)
[2016-12-18] MEDS: ERYTHROMYCIN 5 MG/GM OPHTH OINT 3.5 GM TUBE RIGHT EYE SCH (22:11)
[2016-12-19] MEDS: NITROGLYCERIN OINT 1 INCH/GM PACKET TOPICAL SCH ×5 (00:08→23:39)
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
[2016-12-19] MEDS: ACETAMINOPHEN TAB 325 MG TAB PO PRN (03:00)
[2016-12-19] MEDS: HEPARIN SODIUM,PORCINE/D5W PMX 25,000 UNIT in DEXTROSE/WATER 1 500ML.BAG IV SCH ×2 (05:14→23:55)
[2016-12-19] MEDS: PANTOPRAZOLE 40 MG TABLET PO SCH (06:23)
[2016-12-19] MEDS: SCOPOLAMINE 1.5MG/72HR PATCH TRANSDERM SCH (08:08)
[2016-12-19] MEDS: predniSONE 5 MG TAB PO SCH (08:08)
[2016-12-19] MEDS: ERYTHROMYCIN 5 MG/GM OPHTH OINT 3.5 GM TUBE RIGHT EYE SCH ×2 (08:08→20:46)
[2016-12-19] MEDS: valACYclovir HCL 1,000 MG TABLET PO SCH ×3 (08:08→20:46)
[2016-12-19] MEDS: LEVOFLOXACIN 500 MG TAB PO SCH (08:09)
[2016-12-19] MEDS: METOPROLOL TARTRATE 25 MG TAB PO SCH ×2 (08:09→20:39)
[2016-12-19] MEDS ORDERED: predniSONE 5 MG TAB PO SCH (09:00)
--- NOTE | 2016-12-19 09:09 | CT ---
EXAMINATION TYPE: CT brain wo con DATE OF EXAM: 12/19/2016 HISTORY: Hypertension, pulmonary embolism, lung cancer. New altered mental status. CT DLP: 945.5 mGycm. Automated Exposure Control for Dose Reduction was Utilized. TECHNIQUE: CT scan of the head is performed without contrast. COMPARISON: CT brain from 4 days ago. FINDINGS: There is no acute intracranial hemorrhage or midline shift identified. There is diffuse v entricular and sulcal prominence consistent with diffuse age-related cerebral atrophy. Findings most pronounced superiorly. There is redemonstration of vague area heterogeneous low-attenuation inferior right frontal lobe on axial image 13. There is additional vague hypodense area or medial right tempor al lobe redemonstrated near axial image 12 through 16. The globes are intact and the visualized sinus es are clear. IMPRESSION: No acute intracranial hemorrhage or midline shift. There is mild diffuse age-related ce rebral atrophy redemonstrated. There is redemonstration of vague areas of heterogeneous hypodensity i nferior right frontal lobe and medial right temporal lobes, differential includes evolving acute/suba cute infarcts versus metastatic disease.. Clinical correlation advised. MRI can be performed to [facility] er investigate if desired.
--- NOTE | 2016-12-19 11:05 | P.CNPUL ---
History of Present Illness Consult date: 12/19/16 Reason for consult: dyspnea, cough, chest pain, pulmonary embolism, abnormal CXR /CT Chief complaint: Shortness of breath, dyspnea on exertion. Elevated blood pressure. History of present illness: 61-year-old male who was recently inpatient. He was inpatient for about 2 days with intractable vomiting and sitosterol the facial and scalp area. The patient presented to the emergency room on 714 with complaints of increasing shortness of breath as well as some elevated blood pressure. The blood pressure was noted to be 250/190. The patient does have a history of underlying COPD and also has a history of a small cell lung cancer. He's finishing off chemotherapy. The patient was evaluated in the emergency room by Dr. Negron and was discovered to have a blood clot in the left upper lobe pulmonary artery. Patient is currently on IV heparin. Patient seemed to be doing relatively well although he apparently is been acting unreasonable at home according to the note from the ER doctor with paranoia hearing voices and seeing things. I the patient apparently was on all the appropriate medications including a small dose of prednisone Spiriva Valtrex Zofran Tylenol erythromycin ointment [place] Levaquin Protonix and Transderm scopolamine. He has no ALLERGIES. He does have a history of COPD small cell lung cancer and apparently a history of asthma as well. Review of Systems A 12 point review of system is positive for shortness of breath. That has pretty much resolved. He was apparently also having some nausea and vomiting and the previous admission but not currently. His other issue is elevated blood pressure. Past Medical History Past Medical History: Asthma, Cancer, COPD, Pneumonia, Renal Disease Additional Past Medical History / Comment(s): R small cell lung cancer with chemo/radiation, pancytopenia, anemia, home O2, current shingelles R trigeminal nerve, HTN in the past, kidney stones in past. History of Any Multi-Drug Resistant Organisms: None Reported Past Surgical History: Hernia Repair Additional Past Surgical History / Comment(s): Bronchoscopy with bx, colonoscopy , bilateral hernia repair 2016, Past Anesthesia/Blood Transfusion Reactions: No Reported Reaction Smoking Status: Former smoker - Past Family History Father Family Medical History: No Reported History Medications and Allergies Home Medications Medication Instructions Recorded Confirmed Type Tiotropium 18 Mcg/Puff [Spiriva] 1 cap INHALATION RT-DAILY 07/08/16 12/18/16 History predniSONE 5 mg PO DAILY 07/08/16 12/18/16 History valACYclovir HCL [Valtrex] 1,000 mg PO TID 12/12/16 12/18/16 History Allergies Allergy/AdvReac Type Severity Reaction Status Date / Time No Known Allergies Allergy Verified 12/18/16 07:54 Physical Exam Osteopathic Statement: *. No significant issues noted on an osteopathic structural exam other than those noted in the History and Physical/Consult. Vitals: Vital Signs Temp Pulse Pulse Resp BP BP Pulse Ox 12/19/16 03:31 20 12/19/16 03:30 97.8 F 87 20 150/81 99 12/19/16 00:00 98.2 F 86 20 153/82 97 12/18/16 20:00 97.9 F 108 H 20 174/89 98 12/18/16 18:18 98.5 F 110 H 22 136/90 98 12/18/16 18:10 118 H 21 12/18/16 17:12 99.3 F 104 H 16 149/88 98 12/18/16 16:20 115 H 18 12/18/16 15:03 98.1 F 113 H 18 156/86 98 12/18/16 13:50 113 H 15 12/18/16 12:49 113 H 16 178/99 98 12/18/16 12:10 111 H 16 167/83 100 12/18/16 11:25 118 H 18 196/91 96 12/18/16 10:56 123 H 18 205/98 98 Intake and Output 12/18/16 12/19/16 12/19/16 22:59 06:59 14:59 Intake Total 146.54 585.863 120 Output Total 350 Balance 146.54 585.863 -230 Intake: IV 315 Heparin Sodium,Porcine/ 175 D5w Pmx 25,000 unit In Dextrose/Water 1 500ml. bag @ 18 UNITS/KG/HR 21. 55 mls/hr IV .[id number] [facility] Rx#:[id number] Sodium Chloride 0.9% 1, 140 000 ml @ 20 mls/hr IV . Q24H [facility] Rx#:[id number] Intake, IV Titration 146.54 270.863 Amount Heparin Sodium,Porcine/ 146.54 270.863 D5w Pmx 25,000 unit In Dextrose/Water 1 500ml. bag @ 18 UNITS/KG/HR 21. 55 mls/hr IV .[id number] [facility] Rx#:[id number] Oral 120 Output: Urine 350 Other: Voiding Method Urinal Urinal # Voids 3 1 Weight 60.2 kg No acute distress, oriented 3 HEENT examination is grossly unremarkable. Membranes are moist. No oral lesions. He does have some healing lesions on the facial area and scalp area on the right side from his recent episode of zoster or shingles. He also appears to have some right eyelid droop. Neck supple. Full range of motion. No adenopathy or thyromegaly. Neck veins are flat. Cardiovascular examination reveals regular rhythm rate. 1 S2 normal. He's not in atrial fibrillation. Lungs are clear breath sounds are equal. No wheezes rhonchi or crackles. Abdomen soft bowel sounds are heard. Extremities are intact. No cyanosis clubbing or edema. Skin without rash except for the previously aforementioned rash on the facial and scalp area on the right side. Neurologic examination is brief but nonfocal. Results - Laboratory Findings CBC and BMP: 12/18/16 08:05 12/18/16 08:05 PT/INR, D-dimer PT 10.5 sec (9.0-12.0) 12/18/16 08:05 INR 1.0 (<1.1) 12/18/16 08:05 D-Dimer 1.59 mg/L FEU (<0.60) H 12/18/16 08:05 Abnormal lab findings: Abnormal Labs 12/18/16 12/18/16 12/18/16 08:05 08:05 08:05 RBC 2.78 L Hgb 9.6 L Hct 27.4 L RDW 19.2 H Lymphocytes # 0.5 L APTT D-Dimer Chloride 95 L Carbon Dioxide 31 H BUN 21 H Magnesium 1.5 L Alkaline Phosphatase 128 H Total Creatine Kinase 24 L Troponin I 0.038 H* 12/18/16 12/18/16 12/18/16 08:05 14:49 18:05 RBC Hgb Hct RDW Lymphocytes # APTT 34.5 H D-Dimer 1.59 H Chloride Carbon Dioxide BUN Magnesium Alkaline Phosphatase Total Creatine Kinase Troponin I 0.042 H* 12/18/16 12/19/16 21:37 01:34 RBC Hgb Hct RDW Lymphocytes # APTT 53.8 H D-Dimer Chloride Carbon Dioxide BUN Magnesium Alkaline Phosphatase Total Creatine Kinase Troponin I 0.037 H* - Diagnostic Findings Chest x-ray: image reviewed CT scan - chest: image reviewed (Chest x-ray labs and medications are all reviewed.) Assessment and Plan (1) Hypertensive urgency Status: Acute (2) Pulmonary embolism Status: Acute (3) Small cell lung cancer Status: Acute (4) COPD (chronic obstructive pulmonary disease) Status: Acute (5) Herpes zoster Status: Acute (6) Lung mass Status: Acute (7) Small cell lung cancer Status: Chronic Plan: Plan dated 12/19/2016 The patient's labs x-rays a medications are all be reviewed. Because of his history of small cell lung cancer, the patient should probably have a lifelong treatment with anticoagulation. He was currently started on heparin. He apparently does have some brain lesions which may be metastatic lesions from his small cell lung cancer. The patient's respiratory status is stable. The blood clot was confined to the left upper lobe was peripheral line relatively small. His breathing is stable. We'll continue to follow. Additional recommendations and suggestions are made. Time with Patient: Greater than 30
[2016-12-19] MEDS ORDERED: ALBUTEROL NEBULIZED 2.5 MG/3 ML INHALATION PRN (11:06)
[2016-12-19] MEDS: TIOTROPIUM 18 MCG/PUFF INHALER INHALATION SCH (11:23)
[2016-12-19] MEDS: SODIUM CHLORIDE 0.9% 1,000 ML IV SCH (12:18)
--- NOTE | 2016-12-19 13:49 | P.PN ---
Subjective Principal diagnosis: Pulmonary embolism, altered mental status with brain metastasis, small cell 61-year-old male one of Dr. Cabrera's patient who was in the hospital few days ago with severe intractable nausea vomiting combination of gastroparesis along with pancytopenia He develops same time neutropenia from chemotherapy and severe shingle in the right side of the trigeminal nerve area with severe pain at the time. Patient ended up leaving the hospital day before yesterday through his hospitalization had slight change CAT scan of the brain showed 2 spot in the brain consistent with metastasis could not do MRI of the time. Patient has an appointment to see his radiation oncologist Dr. Hutchins and was in to see Dr. of [facility] Terrell yesterday for his follow-up and to schedule his MRI of the brain and move forward on his chemotherapy. He is neutropenia was resolved and he is to be continue on oral antibiotics. Patient developed to have significant altered mental status had diffusion confusion and mild hallucination he felt become so aggressive he killed his was very compatible with her at the time. Something never took place at the time. Patient was scared of the current finding his blood pressure surprisingly was very high in the 200 at the time ended up coming to the emergency department at [facility] while his in developed to have significant chest pain mild tachycardia and slight change in EKG his CK with troponin was negative d-dimer was quite bit elevated CTA performed and shows left upper lobe distal branch pulmonary embolism with severe COPD and stable right upper lobe pulmonary nodular. Patient was started on heparin drip was giving hydralazine IV stabilized his blood pressure will be admitted to the hospital for the above problem. Apparently Dr. Del Cid: An requested vascular consultation for possible need for [place] filter placement. No finding so far consistent with DVT of the lower extremity Shanelle filter placement will be delay at this point until further testing in Doppler of the leg to find out if there is any finding of DVT Shanelle filter might be indicated otherwise is not at this point. Despite the indication for anticoagulation this patient will be very hard and rough decision on the intermediate frame tender because of the metastasis to the brain and the family area the brain tissue the auto of having intracranial hemorrhage become very high patient and his were told about this dilemma still need to treat this initially to avoid having life- threatening problem and any complication happen in the future need to be dealt with at the time. Patient seen Dr. Tani Montilla today and then indication for Shanelle filter still if patient brain spot consult to be metastasis in origin cannot be on anticoagulation long-term he need to have a [place] filter by Wednesday to avoid having or to reduce the possibility of having any further PE. Objective - Vital Signs Vital signs: Vital Signs Temp 98.0 F 12/19/16 12:00 Pulse 88 12/19/16 12:00 Resp 20 12/19/16 12:00 BP 119/70 12/19/16 12:00 Pulse Ox 96 12/19/16 12:00 Intake & Output 12/18/16 12/19/16 12/19/16 18:59 06:59 18:59 Intake Total 146.54 585.863 120 Output Total 700 Balance 146.54 585.863 -580 Weight 59.874 kg 60.2 kg 60.2 kg Intake: IV 315 Heparin Sodium,Porcine/ 175 D5w Pmx 25,000 unit In Dextrose/Water 1 500ml. bag @ 18 UNITS/KG/HR 21. 55 mls/hr IV .[id number] KATIE Rx#:[id number] Sodium Chloride 0.9% 1, 140 000 ml @ 20 mls/hr IV . Q24H KATIE Rx#:[id number] Intake, IV Titration 146.54 270.863 Amount Heparin Sodium,Porcine/ 146.54 270.863 D5w Pmx 25,000 unit In Dextrose/Water 1 500ml. bag @ 18 UNITS/KG/HR 21. 55 mls/hr IV .[id number] KATIE Rx#:[id number] Oral 120 Output: Urine 700 Other: Voiding Method Urinal Urinal # Voids 3 1 - Constitutional General appearance: Present: cooperative, disheveled, no acute distress. Absent : average body habitus, mild distress, morbidly obese, obese, severe distress, thin - EENT EENT Comment(s): Shingle on the right side of his forehead area more dry spot compared to before. Eyes: Present: abnormal pupil, normal appearance. Absent: anicteric sclerae, disc margins sharp, edentulous, EOMI, PERRLA, fundus normal, photophobia, dentition normal, poor dentition, ptosis, scleral icterus ENT: Present: normal oropharynx. Absent: hard of hearing, hearing grossly normal, NA/AT, other, pharyngeal erythema, thrush, tonsillar exudates, tonsillar swelling Ears: bilateral: normal, bulging - Neck Neck: Present: normal ROM. Absent: lymphadenopathy, other, rigidity, stridor, thyromegaly Carotids: bilateral: upstroke normal, upstroke delayed Thyroid: bilateral: normal size - Respiratory Respiratory: bilateral: diminished, dullness, rales - Cardiovascular Rhythm: irregularly irregular Heart sounds: normal: S1, S2 Abnormal Heart Sounds: Present: systolic murmur, S3 Gallop - Gastrointestinal General gastrointestinal: Present: hepatomegaly, normal bowel sounds, soft. Absent: absent bowel sounds, decreased bowel sounds, distended, hyperactive bowel sounds, organomegaly, rigid, scaphoid, splenomegaly, tenderness, umbilical hernia, ventral hernia - Integumentary Integumentary: Present: normal, pale, rash. Absent: calor, cellulitis, cyanotic , decreased turgor, flushed, jaundiced, normal turgor, ulcer - Neurologic Neurologic: Present: CNII-XII intact. Absent: focal deficits - Musculoskeletal Musculoskeletal: Present: gait normal, generalized weakness, strength equal bilaterally. Absent: right sided weakness, left sided weakness - Psychiatric Psychiatric: Present: A&O x's 3, appropriate affect. Absent: intact judgment & insight - Labs CBC & Chem 7: 12/18/16 08:05 12/18/16 08:05 Labs: Abnormal Lab Results - Last 24 Hours (Table) 12/18/16 12/18/16 12/18/16 Range/Units 14:49 18:05 21:37 APTT 34.5 H (22.0-30.0) sec Troponin I 0.042 H* 0.037 H* (0.000-0.034) ng/mL 12/19/16 Range/Units 01:34 APTT 53.8 H (22.0-30.0) sec Troponin I (0.000-0.034) ng/mL Microbiology - Last 24 Hours (Table) 12/18/16 09:15 Blood Culture - Preliminary Blood No Growth after 24 hours Assessment and Plan Plan: 1 acute pulmonary embolism: With the current finding patient will be hospitalized started on heparin drip and try to switch him into Lovenox subcutaneous twice a day 1 mg/kg twice a day. Whether patient need to go for [place] filter placement or not to be decided in the next few days the meanwhile Doppler of the lower extremity be done we'll consult pulmonary. It's all depend the patient need to be on anticoagulation long-term he might need to be on Lovenox 1 mg/kg twice a day. 2 altered mental status: Most likely elated to the brain metastasis patient might benefit from Decadron again decision will be left up to his oncologist specially with this finding of his PE and been on steroid will make the area more susceptible to bleed. Patient will be seen radiation oncologist on Wednesday prepare for radiation of the brain metastasis. 3 urgent hypertension with a blood pressure emergency was 250/190, patient will be on hydralazine and a sore are if possible try to bring his blood pressure down and if needed calcium channel donovan be good option as well. Pressure is much more stable today. 4 herpes zoster: Continue his to finish his dose of Valcyte [place]. 5 neutropenia: Patient is on oral Levaquin for a few more days his white blood cell has improved. 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 7 severe intractable nausea and vomiting and gastroparesis: Has improved significantly since last week. 8 BPH: Watch for any urinary retention. 9 tachycardia: EKG was performed patient might need an echocardiogram and if needed to start him on beta donovan to bring the pulse rate down. 10 anemia: Iron deficiency continue multivitamins. 11 COPD: Has been on combination of bronchodilator along with steroid inhaler. 12 GI prophylaxis: Patient is on pantoprazole.
[2016-12-20] MEDS: NITROGLYCERIN OINT 1 INCH/GM PACKET TOPICAL SCH ×4 (06:45→23:05)
[2016-12-20] MEDS: PANTOPRAZOLE 40 MG TABLET PO SCH (06:45)
[2016-12-20 07:17] LABS: Anisocytosis Moderate; Basophils % (A) 0 %; CH 34.6; CHCM 33.6; Eosinophils % (A) 0 %; HCT 28.1 % (39.0-53.0); HDW 2.73; HGB 9.5 gm/dL (13.0-17.5); Luc # (Auto) 0.21; Luc % (Auto) 3; Lymphocytes # (A) 0.7 k/uL (1.0-4.8); Lymphocytes % (A) 10 %; MCH 35.1 pg (25.0-35.0); MCHC 33.8 g/dL (31.0-37.0); MCV 103.7 fL (80.0-100.0); Macrocytosis Moderate; Mean Platelet Volume 6.7; Monocytes # (A) 1.1 k/uL (0-1.0); Monocytes % (A) 16 %; Neutrophils # (A) 4.9 k/uL (1.3-7.7); Neutrophils % (A) 71 %; RDW 20.1 % (11.5-15.5); WBC 6.8 k/uL (3.8-10.6); WBC (Perox) 7.38
[2016-12-20] MEDS: TIOTROPIUM 18 MCG/PUFF INHALER INHALATION SCH (08:01)
[2016-12-20] MEDS: ERYTHROMYCIN 5 MG/GM OPHTH OINT 3.5 GM TUBE RIGHT EYE SCH ×2 (08:31→20:07)
[2016-12-20] MEDS: LEVOFLOXACIN 500 MG TAB PO SCH (08:32)
[2016-12-20] MEDS: valACYclovir HCL 1,000 MG TABLET PO SCH ×3 (08:32→20:07)
[2016-12-20] MEDS: METOPROLOL TARTRATE 25 MG TAB PO SCH ×2 (08:32→20:07)
[2016-12-20] MEDS: predniSONE 5 MG TAB PO SCH (08:32)
[2016-12-20 08:34] LABS: ALT 27 U/L (21-72); AST 19 U/L (17-59); Alkaline Phosphatase 102 U/L (38-126); Anion Gap 11 mmol/L; Blood Urea Nitrogen 22 mg/dL (9-20); Calcium 9.1 mg/dL (8.4-10.2); Carbon Dioxide 27 mmol/L (22-30); Chloride 99 mmol/L (98-107); Glucose 97 mg/dL (74-99); Non-African American GFR(MDRD) >60 (>60 ml/min/1.73 sqM); Potassium 4.2 mmol/L (3.5-5.1); Sodium 137 mmol/L (137-145); Total Bilirubin 0.3 mg/dL (0.2-1.3)
[2016-12-20 08:49] LABS: Manual Review Performed
--- NOTE | 2016-12-20 10:59 | P.PN ---
Subjective Principal diagnosis: Pulmonary embolism, altered mental status with brain metastasis, small cell of the lung has been on chemotherapy and radiation. Mild confusion, recovering from shingle and neutropenia. 61-year-old male one of Dr. Cabrera's patient who was in the hospital few days ago with severe intractable nausea vomiting combination of gastroparesis along with pancytopenia He develops same time neutropenia from chemotherapy and severe shingle in the right side of the trigeminal nerve area with severe pain at the time. Patient ended up leaving the hospital day before yesterday through his hospitalization had slight change CAT scan of the brain showed 2 spot in the brain consistent with metastasis could not do MRI of the time. Patient has an appointment to see his radiation oncologist Dr. Hutchins and was in to see Dr. of [place] Terrell yesterday for his follow-up and to schedule his MRI of the brain and move forward on his chemotherapy. He is neutropenia was resolved and he is to be continue on oral antibiotics. Patient developed to have significant altered mental status had diffusion confusion and mild hallucination he felt become so aggressive he killed his was very compatible with her at the time. Something never took place at the time. Patient was scared of the current finding his blood pressure surprisingly was very high in the 200 at the time ended up coming to the emergency department at [facility] while his in developed to have significant chest pain mild tachycardia and slight change in EKG his CK with troponin was negative d-dimer was quite bit elevated CTA performed and shows left upper lobe distal branch pulmonary embolism with severe COPD and stable right upper lobe pulmonary nodular. Patient was started on heparin drip was giving hydralazine IV stabilized his blood pressure will be admitted to the hospital for the above problem. Apparently Dr. Del Cid: An requested vascular consultation for possible need for Shanelle filter placement. No finding so far consistent with DVT of the lower extremity Shanelle filter placement will be delay at this point until further testing in Doppler of the leg to find out if there is any finding of DVT [place] filter might be indicated otherwise is not at this point. Despite the indication for anticoagulation this patient will be very hard and rough decision on the half-way because of the metastasis to the brain and the family area the brain tissue the auto of having intracranial hemorrhage become very high patient and his were told about this dilemma still need to treat this initially to avoid having life- threatening problem and any complication happen in the future need to be dealt with at the time. Patient seen Dr. Tani Montilla today and then indication for Shanelle filter still if patient brain spot consult to be metastasis in origin cannot be on anticoagulation long-term he need to have a [place] filter by Wednesday to avoid having or to reduce the possibility of having any further PE. Shingle rash is healing looks much better, patient has recovered from his neutropenia currently doing better. He is looking forward for the decision Dr. Hutchins or radiation of the brain metastasis. Still struggling with the decision for the [place] filter this point. Objective - Vital Signs Vital signs: Vital Signs Temp 97.4 F L 12/20/16 04:00 Pulse 90 12/20/16 04:00 Resp 18 12/20/16 04:00 BP 150/70 12/20/16 04:00 Pulse Ox 94 L 12/20/16 04:00 Intake & Output 12/19/16 12/20/16 12/20/16 18:59 06:59 18:59 Intake Total 610 492.119 Output Total 1200 Balance -590 492.119 Weight 60.2 kg 57.2 kg Intake: IV 290 Heparin Sodium,Porcine/ 150 D5w Pmx 25,000 unit In Dextrose/Water 1 500ml. bag @ 18 UNITS/KG/HR 21. 55 mls/hr IV .[id number] KATIE Rx#:[id number] Sodium Chloride 0.9% 1, 140 000 ml @ 20 mls/hr IV . Q24H KATIE Rx#:[id number] Intake, IV Titration 492.119 Amount Heparin Sodium,Porcine/ 492.119 D5w Pmx 25,000 unit In Dextrose/Water 1 500ml. bag @ 18 UNITS/KG/HR 21. 55 mls/hr IV .[id number] KATIE Rx#:[id number] Oral 320 Output: Urine 1200 Other: Voiding Method Urinal Urinal # Voids 2 1 - Constitutional General appearance: Present: cooperative, disheveled, thin. Absent: average body habitus, mild distress, morbidly obese, no acute distress, obese, severe distress - EENT Eyes: Present: normal appearance. Absent: abnormal pupil, anicteric sclerae, disc margins sharp, edentulous, EOMI, PERRLA, fundus normal, photophobia, dentition normal, poor dentition, ptosis, scleral icterus ENT: Present: normal oropharynx. Absent: hard of hearing, hearing grossly normal, NA/AT, other, pharyngeal erythema, thrush, tonsillar exudates, tonsillar swelling Ears: bilateral: normal - Neck Neck: Present: normal ROM. Absent: lymphadenopathy, other, rigidity, stridor, thyromegaly Carotids: bilateral: upstroke normal Thyroid: bilateral: normal size - Respiratory Respiratory: bilateral: diminished, dullness, rales - Cardiovascular Rhythm: regular Heart sounds: normal: S1, S2 Abnormal Heart Sounds: Present: systolic murmur, S3 Gallop - Gastrointestinal General gastrointestinal: Present: distended, normal bowel sounds, soft - Integumentary Integumentary Comment(s): Still have slight residual shingle rash on the right forehead area. Integumentary: Present: normal, pale, rash. Absent: calor, cellulitis, cyanotic , decreased turgor, flushed, jaundiced, normal turgor, ulcer - Neurologic Neurologic Comment(s): Slight confusion despite family. Neurologic: Present: CNII-XII intact. Absent: focal deficits - Musculoskeletal Musculoskeletal: Present: generalized weakness, strength equal bilaterally. Absent: gait normal, right sided weakness, left sided weakness - Psychiatric Psychiatric: Present: A&O x's 3. Absent: appropriate affect, intact judgment & insight - Labs CBC & Chem 7: 12/20/16 06:52 12/20/16 06:52 Labs: Abnormal Lab Results - Last 24 Hours (Table) 12/20/16 12/20/16 12/20/16 Range/Units 06:52 06:52 06:52 RBC 2.70 L (4.30-5.90) m/uL Hgb 9.5 L (13.0-17.5) gm/dL Hct 28.1 L (39.0-53.0) % MCV 103.7 H (80.0-100.0) fL MCH 35.1 H (25.0-35.0) pg RDW 20.1 H (11.5-15.5) % Lymphocytes # 0.7 L (1.0-4.8) k/uL Monocytes # 1.1 H (0-1.0) k/uL APTT 56.9 H (22.0-30.0) sec BUN 22 H (9-20) mg/dL Total Protein 6.0 L (6.3-8.2) g/dL Microbiology - Last 24 Hours (Table) 12/18/16 09:15 Blood Culture - Preliminary Blood No Growth after 24 hours Assessment and Plan Plan: 1 acute pulmonary embolism: With the current finding patient will be hospitalized started on heparin drip and try to switch him into Lovenox subcutaneous twice a day 1 mg/kg twice a day. Whether patient need to go for [place] filter placement or not to be decided in the next few days the meanwhile Doppler of the lower extremity be done we'll consult pulmonary. It's all depend the patient need to be on anticoagulation long-term he might need to be on Lovenox 1 mg/kg twice a day. Still debatable whether patient is given go for Shanelle filter placement or not the decision if he is going for radiation of the brain metastasis he need a Shanelle filter need to be off anticoagulation completely. 2 altered mental status: Most likely elated to the brain metastasis patient might benefit from Decadron again decision will be left up to his oncologist specially with this finding of his PE and been on steroid will make the area more susceptible to bleed. Patient will be seen radiation oncologist on Wednesday prepare for radiation of the brain metastasis. 3 in metastasis: From small cell see of the lung, patient seen Dr. Hutchins radiation oncology and he might need to go for radiation therapy. 4 herpes zoster: Continue his to finish his dose of Valcyte [place]. 5 neutropenia: Patient is on oral Levaquin for a few more days his white blood cell has improved. His white blood cell is much better is not neutropenic anymore Levaquin probably can be stopped in 48 hours. 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 7 severe intractable nausea and vomiting and gastroparesis: Has improved significantly since last week. 8 BPH: Watch for any urinary retention. 9 tachycardia: EKG was performed patient might need an echocardiogram and if needed to start him on beta donovan to bring the pulse rate down. 10 anemia: Iron deficiency continue multivitamins. 11 COPD: Has been on combination of bronchodilator along with steroid inhaler. 12 GI prophylaxis: Patient is on pantoprazole.
[2016-12-20] MEDS: SODIUM CHLORIDE 0.9% 1,000 ML IV SCH (12:42)
--- NOTE | 2016-12-20 15:12 | PN ---
A 61 year old gentleman we saw yesterday in consultation. he came into the hospital with hypertensive urgency, pulmonary embolism, small cell lung cancer, COPD, herpes zoster infection of the facial area and scalp and he is actually doing reasonably well. The patient really denies any major complaints today. States he is not really having any shortness of breath, any pain or any difficulty breathing. The patient really had a pretty benign presentation when we talked to him yesterday. He came in with primarily increasing shortness of breath and some elevated blood pressure. The blood pressure issue was more of a concern than the shortness of breath. He had a blood clot in the left upper lobe pulmonary artery. It was relatively small. He was started on IV heparin. Doing better as I mentioned. Currently temperature 98.5. Heart rate 85. Respiratory rate 20. Blood pressure 140/76. Mean 97. 3 L saturation 96%. Appears in no acute distress. HEENT: Grossly unremarkable. Mucous membranes are moist. No oral lesions. Neck supple. Full range of motion. No adenopathy. No thyromegaly. Neck veins are not distended. He has facial rash on the right side from the recent zoster infection. Neck veins are flat. Cardiovascular examination reveals regular rate and rhythm. Heart rate about 80. S1, S2 normal. No S3, S4 or murmur. Lungs reveal mostly clear breath sounds. No wheezes, rhonchi or no crackles. Breath sounds slightly diminished throughout. Abdomen soft. Bowel sounds heard. Extremities intact. Skin without rash save for the facial rash. Extremities revealed no evidence of edema, cyanosis or clubbing. Labs are reviewed. White count 6.8, hemoglobin 9.5, hematocrit 28.1, platelet count 235,000. PTT 56.9. Sodium and potassium normal. Chloride, CO2 13, BUN and creatinine all normal. Microbiology all negative. Medications are reviewed. ASSESSMENT: 1. Hypertensive urgency, improved. 2. Pulmonary embolism. 3. History of small cell lung cancer. 4. History of chronic obstructive pulmonary disease stable. 5. History of recent herpes zoster infection. PLAN: The patient seems to be doing relatively well. We will continue to follow. Additional recommendations and suggestions forthcoming. Medications are reviewed. The patient's respiratory status has improved. The patient should probably have life long anticoagulation given his lung cancer history . We will continue to follow. [facility]
[2016-12-20] MEDS: HEPARIN SODIUM,PORCINE/D5W PMX 25,000 UNIT in DEXTROSE/WATER 1 500ML.BAG IV SCH (17:32)
[2016-12-20] MEDS: ACETAMINOPHEN TAB 325 MG TAB PO PRN (20:07)
[2016-12-20] MEDS: ZOLPIDEM 5 MG TAB PO SCH (22:24)
[2016-12-21] MEDS: NITROGLYCERIN OINT 1 INCH/GM PACKET TOPICAL SCH ×3 (06:06→16:49)
[2016-12-21 06:18] LABS: Anisocytosis Moderate; Basophils % (A) 0 %; CH 34.8; CHCM 33.2; Eosinophils % (A) 1 %; HCT 26.8 % (39.0-53.0); Luc # (Auto) 0.17; Luc % (Auto) 3; Lymphocytes # (A) 0.6 k/uL (1.0-4.8); Lymphocytes % (A) 11 %; MCH 35.5 pg (25.0-35.0); MCHC 33.7 g/dL (31.0-37.0); Macrocytosis Marked; Mean Platelet Volume 6.4; Monocytes # (A) 0.9 k/uL (0-1.0); Monocytes % (A) 17 %; Neutrophils # (A) 3.7 k/uL (1.3-7.7); Neutrophils % (A) 69 %; RBC 2.54 m/uL (4.30-5.90); RDW 20.8 % (11.5-15.5); WBC 5.4 k/uL (3.8-10.6); WBC (Perox) 5.44
[2016-12-21 06:21] LABS: MCV 105.3 fL (80.0-100.0)
[2016-12-21 06:30] LABS: ALT 25 U/L (21-72); AST 22 U/L (17-59); Alkaline Phosphatase 88 U/L (38-126); Anion Gap 10 mmol/L; Blood Urea Nitrogen 20 mg/dL (9-20); Calcium 8.9 mg/dL (8.4-10.2); Carbon Dioxide 27 mmol/L (22-30); Chloride 101 mmol/L (98-107); Glucose 90 mg/dL (74-99); Non-African American GFR(MDRD) >60 (>60 ml/min/1.73 sqM); Potassium 3.9 mmol/L (3.5-5.1); Sodium 138 mmol/L (137-145); Total Bilirubin 0.3 mg/dL (0.2-1.3); Total Protein 5.6 g/dL (6.3-8.2)
[2016-12-21] MEDS: PANTOPRAZOLE 40 MG TABLET PO SCH (06:33)
[2016-12-21] MEDS: TIOTROPIUM 18 MCG/PUFF INHALER INHALATION SCH (07:39)
[2016-12-21] MEDS: ERYTHROMYCIN 5 MG/GM OPHTH OINT 3.5 GM TUBE RIGHT EYE SCH ×2 (08:18→21:12)
[2016-12-21] MEDS: METOPROLOL TARTRATE 25 MG TAB PO SCH ×2 (08:18→21:13)
[2016-12-21] MEDS: predniSONE 5 MG TAB PO SCH (08:18)
[2016-12-21] MEDS: ACETAMINOPHEN TAB 325 MG TAB PO PRN ×2 (10:12→16:49)
[2016-12-21] MEDS: HEPARIN SODIUM,PORCINE/D5W PMX 25,000 UNIT in DEXTROSE/WATER 1 500ML.BAG IV SCH (12:03)
[2016-12-21] MEDS: risperiDONE 0.5 MG TAB PO SCH ×2 (12:03→21:13)
[2016-12-21] MEDS: SODIUM CHLORIDE 0.9% 1,000 ML IV SCH (12:20)
--- NOTE | 2016-12-21 16:31 | P.PN ---
Subjective 61-year-old male who was recently inpatient. He was inpatient for about 2 days with intractable vomiting and sitosterol the facial and scalp area. The patient presented to the emergency room on 714 with complaints of increasing shortness of breath as well as some elevated blood pressure. The blood pressure was noted to be 250/190. The patient does have a history of underlying COPD and also has a history of a small cell lung cancer. He's finishing off chemotherapy. The patient was evaluated in the emergency room by Dr. Negron and was discovered to have a blood clot in the left upper lobe pulmonary artery. Patient is currently on IV heparin. Patient seemed to be doing relatively well although he apparently is been acting unreasonable at home according to the note from the ER doctor with paranoia hearing voices and seeing things. I the patient apparently was on all the appropriate medications including a small dose of prednisone Spiriva Valtrex Zofran Tylenol erythromycin ointment [place] Levaquin Protonix and Transderm scopolamine. He has no ALLERGIES. He does have a history of COPD small cell lung cancer and apparently a history of asthma as well. The patient is seen again today 12/21/2016 in follow-up on the selective care unit. He is currently awake and alert in no acute distress. He has had ongoing issues with vivid dreams and some delusions. He is currently on Risperdal 0.5 mg twice a day. He denies any pulmonary complaints. He is maintaining good O2 saturations in the high 90s on 3 L/m per nasal cannula. He' s been afebrile. He was found to have a small left upper lobe distal branch pulmonary embolism. He remains on a heparin drip for now. Anticoagulation is issue of concerned based on his brain lesions. He was seen by Dr. Hutchins today from radiation oncology and the plan to radiate the lesions and then possibly the patient would tolerate anticoagulation. Objective - Vital Signs Vital signs: Vital Signs Temp 97.8 F 12/21/16 08:15 Pulse 90 12/21/16 12:00 Resp 16 12/21/16 12:00 BP 133/78 12/21/16 12:00 Pulse Ox 98 12/21/16 12:00 Intake & Output 12/20/16 12/21/16 12/21/16 18:59 06:59 18:59 Intake Total 778.023 439.783 626.626 Output Total 200 Balance 578.023 439.783 626.626 Weight 57.8 kg Intake: IV 164 98.68 Heparin Sodium,Porcine/ 84 58.68 D5w Pmx 25,000 unit In Dextrose/Water 1 500ml. bag @ 18 UNITS/KG/HR 21. 55 mls/hr IV .[id number] KATIE Rx#:[id number] Sodium Chloride 0.9% 1, 80 40 000 ml @ 20 mls/hr IV . Q24H KATIE Rx#:[id number] Intake, IV Titration 464.023 341.103 146.626 Amount Heparin Sodium,Porcine/ 464.023 341.103 146.626 D5w Pmx 25,000 unit In Dextrose/Water 1 500ml. bag @ 18 UNITS/KG/HR 21. 55 mls/hr IV .[id number] KATIE Rx#:[id number] Oral 150 480 Output: Urine 200 Other: Voiding Method Urinal Toilet Toilet Urinal Urinal # Voids 0 2 - Exam GENERAL EXAM: Alert, comfortable in no apparent distress. HEAD: Normocephalic. Lesions of shingles are healing. EYES: Normal reaction of pupils, equal size. NOSE: Clear with pink turbinates. THROAT: No erythema or exudates. NECK: No masses, no JVD. CHEST: No chest wall deformity. LUNGS: Equal air entry with few scattered rhonchi CVS: S1 and S2 normal with no audible murmurs, regular rhythm. ABDOMEN: No hepatosplenomegaly, normal bowel sounds, no guarding or rigidity. SPINE: No scoliosis or deformity SKIN: No rashes CENTRAL NERVOUS SYSTEM: No focal deficits, tone is normal in all 4 extremities. Extremities: There is no significant peripheral edema. No clubbing, no cyanosis. Peripheral pulses are intact. - Labs CBC & Chem 7: 12/21/16 05:18 12/21/16 05:18 Labs: Abnormal Lab Results - Last 24 Hours (Table) 12/21/16 12/21/16 12/21/16 Range/Units 05:18 05:18 05:18 RBC 2.54 L (4.30-5.90) m/uL Hgb 9.0 L (13.0-17.5) gm/dL Hct 26.8 L (39.0-53.0) % MCV 105.3 H (80.0-100.0) fL MCH 35.5 H (25.0-35.0) pg RDW 20.8 H (11.5-15.5) % Lymphocytes # 0.6 L (1.0-4.8) k/uL APTT 65.6 H (22.0-30.0) sec Total Protein 5.6 L (6.3-8.2) g/dL Microbiology - Last 24 Hours (Table) 12/18/16 09:15 Blood Culture - Preliminary Blood No Growth after 72 hours Assessment and Plan Plan: Impression: #1 Dyspnea secondary to pulmonary embolism and acute exacerbation of severe oxygen dependent chronic obstructive pulmonary disease and history of small cell lung cancer. #2 Pulmonary embolism. #3 Small cell lung cancer. #4 Chronic obstructive pulmonary disease. #5 Shingles. #6 Metastatic lesions to the brain. Plan: The patient was seen and evaluated by Dr. Nava. The patient will need anticoagulation. He remains on heparin drip for now. The plan is to radiate the lesions of the brain which would decrease the risk of bleeding and possibly start oral anticoagulation. He could also benefit from Lovenox injections. In the interim, we'll continue to follow and make further recommendations based on his clinical status.
[2016-12-21] MEDS: ZOLPIDEM 5 MG TAB PO SCH (21:14)
[2016-12-22] MEDS: NITROGLYCERIN OINT 1 INCH/GM PACKET TOPICAL SCH ×4 (00:11→17:54)
[2016-12-22] MEDS: PANTOPRAZOLE 40 MG TABLET PO SCH (06:47)
[2016-12-22] MEDS: TIOTROPIUM 18 MCG/PUFF INHALER INHALATION SCH (07:30)
[2016-12-22] MEDS: HEPARIN SODIUM,PORCINE/D5W PMX 25,000 UNIT in DEXTROSE/WATER 1 500ML.BAG IV SCH (08:00)
[2016-12-22] MEDS: predniSONE 5 MG TAB PO SCH (08:05)
[2016-12-22] MEDS: METOPROLOL TARTRATE 25 MG TAB PO SCH ×2 (08:05→22:35)
[2016-12-22] MEDS: SCOPOLAMINE 1.5MG/72HR PATCH TRANSDERM SCH (08:05)
[2016-12-22] MEDS: risperiDONE 0.5 MG TAB PO SCH ×2 (08:05→22:35)
--- NOTE | 2016-12-22 08:28 | P.PN ---
Subjective 61-year-old male one of Dr. Cabrera's patient who was in the hospital few days ago with severe intractable nausea vomiting combination of gastroparesis along with pancytopenia He develops same time neutropenia from chemotherapy and severe shingle in the right side of the trigeminal nerve area with severe pain at the time. Patient ended up leaving the hospital day before yesterday through his hospitalization had slight change CAT scan of the brain showed 2 spot in the brain consistent with metastasis could not do MRI of the time. Patient has an appointment to see his radiation oncologist Dr. Hutchins and was in to see Dr. of Al Terrell yesterday for his follow-up and to schedule his MRI of the brain and move forward on his chemotherapy. He is neutropenia was resolved and he is to be continue on oral antibiotics. Patient developed to have significant altered mental status had diffusion confusion and mild hallucination he felt become so aggressive he killed his was very compatible with her at the time. Something never took place at the time. Patient was scared of the current finding his blood pressure surprisingly was very high in the 200 at the time ended up coming to the emergency department at [facility] while his in developed to have significant chest pain mild tachycardia and slight change in EKG his CK with troponin was negative d-dimer was quite bit elevated CTA performed and shows left upper lobe distal branch pulmonary embolism with severe COPD and stable right upper lobe pulmonary nodular. Patient was started on heparin drip was giving hydralazine IV stabilized his blood pressure will be admitted to the hospital for the above problem. Apparently Dr. Del Cid: An requested vascular consultation for possible need for [place] filter placement. No finding so far consistent with DVT of the lower extremity [place] filter placement will be delay at this point until further testing in Doppler of the leg to find out if there is any finding of DVT Shanelle filter might be indicated otherwise is not at this point. Despite the indication for anticoagulation this patient will be very hard and rough decision on the retirement because of the metastasis to the brain and the family area the brain tissue the auto of having intracranial hemorrhage become very high patient and his were told about this dilemma still need to treat this initially to avoid having life- threatening problem and any complication happen in the future need to be dealt with at the time. Patient seen Dr. Tani Montilla today and then indication for [place] filter still if patient brain spot consult to be metastasis in origin cannot be on anticoagulation long-term he need to have a Shanelle filter by Wednesday to avoid having or to reduce the possibility of having any further PE. Shingle rash is healing looks much better, patient has recovered from his neutropenia currently doing better. He is looking forward for the decision Dr. Hutchins or radiation of the brain metastasis. Still struggling with the decision for the [place] filter this point. 12/21: Patient has had some confusion and delusions especially at nighttime for which Risperdal has been added. PT and OT will be added. Radiology oncologist to meet with the patient and family today regarding radiation of the brain lesions and possibly start oral anticoagulation. Patient is currently on heparin drip. He has been afebrile and pulse ox running 99% on O2 4 L nasal cannula. Objective - Vital Signs Vital signs: Vital Signs Temp 97.8 F 12/21/16 08:15 Pulse 96 12/21/16 08:15 Resp 18 12/21/16 08:15 BP 188/86 12/21/16 08:15 Pulse Ox 99 12/21/16 08:15 Intake & Output 12/20/16 12/21/16 12/21/16 18:59 06:59 18:59 Intake Total 778.023 439.783 Output Total 200 Balance 578.023 439.783 Weight 57.8 kg Intake: IV 164 98.68 Heparin Sodium,Porcine/ 84 58.68 D5w Pmx 25,000 unit In Dextrose/Water 1 500ml. bag @ 18 UNITS/KG/HR 21. 55 mls/hr IV .[id number] KATIE Rx#:[id number] Sodium Chloride 0.9% 1, 80 40 000 ml @ 20 mls/hr IV . Q24H KATIE Rx#:[id number] Intake, IV Titration 464.023 341.103 Amount Heparin Sodium,Porcine/ 464.023 341.103 D5w Pmx 25,000 unit In Dextrose/Water 1 500ml. bag @ 18 UNITS/KG/HR 21. 55 mls/hr IV .[id number] KATIE Rx#:[id number] Oral 150 Output: Urine 200 Other: Voiding Method Urinal Toilet Urinal # Voids 0 - Exam General appearance: Present: cooperative, disheveled, thin. Absent: average body habitus, mild distress, morbidly obese, no acute distress, obese, severe distress - EENT Eyes: Present: normal appearance. Absent: abnormal pupil, anicteric sclerae, disc margins sharp, edentulous, EOMI, PERRLA, fundus normal, photophobia, dentition normal, poor dentition, ptosis, scleral icterus ENT: Present: normal oropharynx. Absent: hard of hearing, hearing grossly normal, NA/AT, other, pharyngeal erythema, thrush, tonsillar exudates, tonsillar swelling Ears: bilateral: normal - Neck Neck: Present: normal ROM. Absent: lymphadenopathy, other, rigidity, stridor, thyromegaly Carotids: bilateral: upstroke normal Thyroid: bilateral: normal size - Respiratory Respiratory: bilateral: diminished, dullness, rales - Cardiovascular Rhythm: regular Heart sounds: normal: S1, S2 Abnormal Heart Sounds: Present: systolic murmur, S3 Gallop - Gastrointestinal General gastrointestinal: Present: distended, normal bowel sounds, soft - Integumentary Integumentary Comment(s): Still have slight residual shingle rash on the right forehead area. Integumentary: Present: normal, pale, rash. Absent: calor, cellulitis, cyanotic , decreased turgor, flushed, jaundiced, normal turgor, ulcer - Neurologic Neurologic Comment(s): Slight confusion despite family. Neurologic: Present: CNII-XII intact. Absent: focal deficits - Musculoskeletal Musculoskeletal: Present: generalized weakness, strength equal bilaterally. Absent: gait normal, right sided weakness, left sided weakness - Psychiatric Psychiatric: Present: A&O x's 3. Absent: appropriate affect, intact judgment & insight - Labs CBC & Chem 7: 12/21/16 05:18 12/21/16 05:18 Labs: Abnormal Lab Results - Last 24 Hours (Table) 12/21/16 12/21/16 12/21/16 Range/Units 05:18 05:18 05:18 RBC 2.54 L (4.30-5.90) m/uL Hgb 9.0 L (13.0-17.5) gm/dL Hct 26.8 L (39.0-53.0) % MCV 105.3 H (80.0-100.0) fL MCH 35.5 H (25.0-35.0) pg RDW 20.8 H (11.5-15.5) % Lymphocytes # 0.6 L (1.0-4.8) k/uL APTT 65.6 H (22.0-30.0) sec Total Protein 5.6 L (6.3-8.2) g/dL Microbiology - Last 24 Hours (Table) 12/18/16 09:15 Blood Culture - Preliminary Blood No Growth after 48 hours Assessment and Plan Plan: 1 acute pulmonary embolism: With the current finding patient will be hospitalized started on heparin drip and try to switch him into Lovenox subcutaneous twice a day 1 mg/kg twice a day. Whether patient need to go for [place] filter placement or not to be decided in the next few days the meanwhile Doppler of the lower extremity be done we'll consult pulmonary. It's all depend the patient need to be on anticoagulation long-term he might need to be on Lovenox 1 mg/kg twice a day. Still debatable whether patient is given go for [place] filter placement or not the decision if he is going for radiation of the brain metastasis he need a Shanelle filter need to be off anticoagulation completely. 2 altered mental status: Most likely elated to the brain metastasis patient might benefit from Decadron again decision will be left up to his oncologist specially with this finding of his PE and been on steroid will make the area more susceptible to bleed. Patient will be seen radiation oncologist on Wednesday prepare for radiation of the brain metastasis. Risperdal twice daily started. 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 Hutchins radiation oncology and he might need to go for radiation therapy. 4 herpes zoster: Continue his to finish his dose of Valcyte [place]. 5 neutropenia: Patient is on oral Levaquin for a few more days his white blood cell has improved. His white blood cell is much better is not neutropenic anymore Levaquin probably can be stopped in 48 hours. 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 7 severe intractable nausea and vomiting and gastroparesis: Has improved significantly since last week. 8 BPH: Watch for any urinary retention. 9 tachycardia: EKG was performed patient might need an echocardiogram and if needed to start him on beta donovan to bring the pulse rate down. 10 anemia: Iron deficiency continue multivitamins. 11 COPD: Has been on combination of bronchodilator along with steroid inhaler. 12 GI prophylaxis: Patient is on pantoprazole. Discharge plan: To be determined. PT and OT consults added. Impression and plan of care have been directed as dictated by the signing physician. [place] Archibald nurse practitioner acting as scribe for signing physician.
[2016-12-22] MEDS: ERYTHROMYCIN 5 MG/GM OPHTH OINT 3.5 GM TUBE RIGHT EYE SCH ×2 (12:56→22:34)
[2016-12-22] MEDS: DEXAMETHASONE 4 MG TAB PO SCH ×3 (12:56→22:35)
[2016-12-22] MEDS: SODIUM CHLORIDE 0.9% 1,000 ML IV SCH (12:57)
--- NOTE | 2016-12-22 14:04 | P.PN ---
Subjective Principal diagnosis: small cell lung cancer 61 year old Male with a history of limited stage small cell lung cancer involving right upper lobe mass with mediastinal adenopathy. He is status post definitive chemoradiation to a dose of 60 [place], finishing on October 21, 2016. Recently, there has been suspicion that the patient has brain metastasis based on CT imaging. The patient was admitted to the hospital secondary to acute pulmonary embolism, and has had progressive confusion. On seeing the patient today, he notes that he is not having any significant headaches or nausea. He did undergo repeat noncontrast CT scan of the brain on December 19, showing 2 hypodense areas which appeared stable compared to prior scan. The patient has started heparin for his pulmonary embolism; lower extremity ultrasound was unremarkable. According to the patient's , he has been increasingly confused over the past several days. This past evening, the patient woke up at 2 AM and got dressed intending to leave the hospital. He is also pulled out his lines Objective - Vital Signs Vital signs: Vital Signs Temp 99.4 F 12/22/16 07:59 Pulse 98 12/22/16 12:51 Resp 16 12/22/16 12:51 BP 162/73 12/22/16 12:51 Pulse Ox 99 12/22/16 12:51 Intake & Output 12/21/16 12/22/16 12/22/16 18:59 06:59 18:59 Intake Total 946.626 555.6 700 Balance 946.626 555.6 700 Weight 58.2 kg Intake: IV 320 555.6 200 Heparin Sodium,Porcine/ 160 315.6 100 D5w Pmx 25,000 unit In Dextrose/Water 1 500ml. bag @ 18 UNITS/KG/HR 21. 55 mls/hr IV .[id number] KATIE Rx#:[id number] Sodium Chloride 0.9% 1, 160 240 100 000 ml @ 20 mls/hr IV . Q24H KATIE Rx#:[id number] Intake, IV Titration 146.626 500 Amount Heparin Sodium,Porcine/ 146.626 500 D5w Pmx 25,000 unit In Dextrose/Water 1 500ml. bag @ 18 UNITS/KG/HR 21. 55 mls/hr IV .[id number] KATIE Rx#:[id number] Oral 480 Other: Voiding Method Toilet Toilet Toilet Urinal Urinal Urinal # Voids 8 1 4 - Constitutional General appearance: Present: no acute distress - EENT Eyes: Present: PERRLA - Neck Neck: Absent: lymphadenopathy - Respiratory Respiratory: bilateral: diminished - Cardiovascular Rhythm: regular - Gastrointestinal General gastrointestinal: Absent: tenderness - Integumentary Integumentary: Absent: calor, cellulitis - Neurologic Neurologic: Present: CNII-XII intact. Absent: focal deficits - Psychiatric Psychiatric: Present: A&O x's 3 (confused at times) - Labs CBC & Chem 7: 12/21/16 05:18 12/21/16 05:18 Labs: Abnormal Lab Results - Last 24 Hours (Table) 12/22/16 Range/Units 06:10 APTT 49.4 H (22.0-30.0) sec Microbiology - Last 24 Hours (Table) 12/18/16 09:15 Blood Culture - Preliminary Blood No Growth after 96 hours Assessment and Plan (1) Small cell lung cancer Status: Acute Plan: 1. Brain Metastases: I had a discussion with the patient is regarding whole brain radiotherapy. I explained to the patient, that based on the CT imaging, and the natural process of disease disease, it is likely that the areas are metastatic. I recommended the patient undergo CT simulation today for treatment planning. He will initiate radiotherapy later this afternoon. I explained that he undergo radiotherapy for approximately 10 treatments, and the possible side effects of the radiotherapy include, but are not limited to; fatigue, skin erythema, alopecia, otitis, and risk of neurocognitive decline specifically in the memory domain chronically. After reviewing the patient's CT simulation, there is been clear progression since 3 days ago. There are small hyperdense areas surrounding the area concerning for metastatic disease. This is worrisome for acute bleed. I have therefore recommended the patient have his heparin stopped. I have furthermore added on Decadron, 4 mg 3 times a day to help with mass effect. This was discussed in depth with the patient's , as the patient was confused during our conversation. Time with Patient: Greater than 30
--- NOTE | 2016-12-22 14:35 | P.PN ---
Subjective 61-year-old male who was recently inpatient. He was inpatient for about 2 days with intractable vomiting and sitosterol the facial and scalp area. The patient presented to the emergency room on 714 with complaints of increasing shortness of breath as well as some elevated blood pressure. The blood pressure was noted to be 250/190. The patient does have a history of underlying COPD and also has a history of a small cell lung cancer. He's finishing off chemotherapy. The patient was evaluated in the emergency room by Dr. Negron and was discovered to have a blood clot in the left upper lobe pulmonary artery. Patient is currently on IV heparin. Patient seemed to be doing relatively well although he apparently is been acting unreasonable at home according to the note from the ER doctor with paranoia hearing voices and seeing things. I the patient apparently was on all the appropriate medications including a small dose of prednisone Spiriva Valtrex Zofran Tylenol erythromycin ointment Chimayo Levaquin Protonix and Transderm scopolamine. He has no ALLERGIES. He does have a history of COPD small cell lung cancer and apparently a history of asthma as well. The patient is seen again today 12/21/2016 in follow-up on the selective care unit. He is currently awake and alert in no acute distress. He has had ongoing issues with vivid dreams and some delusions. He is currently on Risperdal 0.5 mg twice a day. He denies any pulmonary complaints. He is maintaining good O2 saturations in the high 90s on 3 L/m per nasal cannula. He' s been afebrile. He was found to have a small left upper lobe distal branch pulmonary embolism. He remains on a heparin drip for now. Anticoagulation is issue of concerned based on his brain lesions. He was seen by Dr. Hutchins today from radiation oncology and the plan to radiate the lesions and then possibly the patient would tolerate anticoagulation. The patient is seen again today 12/22/2016 in follow-up on the selective care unit. He had become more confused throughout the night and he got himself dressed and was attempting to leave the hospital. He also pulled out his lines. He remains somewhat confused this morning but cooperative. He did undergo simulation computed tomography scan of the brain and there was noted progression even since 3 days ago. Seen and evaluated by Dr. Hutchins who felt he was at risk for bleeding in his heparin has been discontinued. The patient was initiated on Decadron. 10 treatments of radiotherapy our plan to begin today. Really, the patient denies any pulmonary complaints. No worsening shortness of breath, cough or congestion. No hemoptysis. He is maintaining O2 saturations in the high 90s on 3 L/m per nasal cannula. Slightly afebrile at 99.4. Leukocytosis. The cultures revealed no growth to date. Objective - Vital Signs Vital signs: Vital Signs Temp 99.4 F 12/22/16 07:59 Pulse 98 12/22/16 12:51 Resp 16 12/22/16 12:51 BP 162/73 12/22/16 12:51 Pulse Ox 99 12/22/16 12:51 Intake & Output 12/21/16 12/22/16 12/22/16 18:59 06:59 18:59 Intake Total 946.626 555.6 700 Balance 946.626 555.6 700 Weight 58.2 kg Intake: IV 320 555.6 200 Heparin Sodium,Porcine/ 160 315.6 100 D5w Pmx 25,000 unit In Dextrose/Water 1 500ml. bag @ 18 UNITS/KG/HR 21. 55 mls/hr IV .[id number] KATIE Rx#:[id number] Sodium Chloride 0.9% 1, 160 240 100 000 ml @ 20 mls/hr IV . Q24H KATIE Rx#:[id number] Intake, IV Titration 146.626 500 Amount Heparin Sodium,Porcine/ 146.626 500 D5w Pmx 25,000 unit In Dextrose/Water 1 500ml. bag @ 18 UNITS/KG/HR 21. 55 mls/hr IV .[id number] KATIE Rx#:[id number] Oral 480 Other: Voiding Method Toilet Toilet Toilet Urinal Urinal Urinal # Voids 8 1 4 - Exam GENERAL EXAM: Alert, somewhat confused, comfortable in no apparent distress. HEAD: Normocephalic. Lesions of shingles are healing. EYES: Normal reaction of pupils, equal size. NOSE: Clear with pink turbinates. THROAT: No erythema or exudates. NECK: No masses, no JVD. CHEST: No chest wall deformity. LUNGS: Equal air entry with few scattered rhonchi CVS: S1 and S2 normal with no audible murmurs, regular rhythm. ABDOMEN: No hepatosplenomegaly, normal bowel sounds, no guarding or rigidity. SPINE: No scoliosis or deformity SKIN: No rashes CENTRAL NERVOUS SYSTEM: No focal deficits, tone is normal in all 4 extremities. Extremities: There is no significant peripheral edema. No clubbing, no cyanosis. Peripheral pulses are intact. - Labs CBC & Chem 7: 12/21/16 05:18 12/21/16 05:18 Labs: Abnormal Lab Results - Last 24 Hours (Table) 12/22/16 Range/Units 06:10 APTT 49.4 H (22.0-30.0) sec Microbiology - Last 24 Hours (Table) 12/18/16 09:15 Blood Culture - Preliminary Blood No Growth after 96 hours Assessment and Plan Plan: Impression: #1 Dyspnea secondary to pulmonary embolism and acute exacerbation of severe oxygen dependent chronic obstructive pulmonary disease and history of small cell lung cancer. Improved. Maintaining good O2 saturations in the high 90s on 3 L/m per nasal cannula. #2 Pulmonary embolism. Heparin currently discontinued based on brain lesions and high risk of bleed. #3 Small cell lung cancer. #4 Chronic obstructive pulmonary disease. #5 Shingles. #6 Metastatic lesions to the brain. Initiated on Decadron. To start radiotherapy today. Plan: The patient was seen and evaluated by Dr. Nava. We will hold off on anticoagulation per radiation oncology recommendations regarding increased risk for bleeding at the metastatic lesions in the brain. Continue to monitor the patient's confused state. Radiotherapy is planned for today. Continue with bronchodilators and Spiriva. We'll continue to follow and make further recommendations based on his clinical status.
[2016-12-22] MEDS: ZOLPIDEM 5 MG TAB PO SCH (22:36)
[2016-12-23] MEDS: NITROGLYCERIN OINT 1 INCH/GM PACKET TOPICAL SCH ×4 (00:10→17:38)
[2016-12-23 06:28] LABS: Anisocytosis Moderate; CH 35.7; CHCM 32.9; HDW 2.53; HGB 10.2 gm/dL (13.0-17.5); MCH 35.8 pg (25.0-35.0); MCHC 32.9 g/dL (31.0-37.0); Macrocytosis Marked; Mean Platelet Volume 7.4; RBC 2.84 m/uL (4.30-5.90); RDW 21.6 % (11.5-15.5); WBC 8.4 k/uL (3.8-10.6)
[2016-12-23 06:58] LABS: ALT 29 U/L (21-72); AST 21 U/L (17-59); Alkaline Phosphatase 84 U/L (38-126); Anion Gap 11 mmol/L; Blood Urea Nitrogen 28 mg/dL (9-20); Carbon Dioxide 27 mmol/L (22-30); Chloride 100 mmol/L (98-107); Glucose 117 mg/dL (74-99); Non-African American GFR(MDRD) >60 (>60 ml/min/1.73 sqM); Potassium 4.5 mmol/L (3.5-5.1); Sodium 138 mmol/L (137-145); Total Bilirubin 0.5 mg/dL (0.2-1.3); Total Protein 6.8 g/dL (6.3-8.2)
[2016-12-23] MEDS: TIOTROPIUM 18 MCG/PUFF INHALER INHALATION SCH (07:57)
--- NOTE | 2016-12-23 08:08 | P.PN ---
Subjective 61-year-old male one of Dr. Cabrera's patient who was in the hospital few days ago with severe intractable nausea vomiting combination of gastroparesis along with pancytopenia He develops same time neutropenia from chemotherapy and severe shingle in the right side of the trigeminal nerve area with severe pain at the time. Patient ended up leaving the hospital day before yesterday through his hospitalization had slight change CAT scan of the brain showed 2 spot in the brain consistent with metastasis could not do MRI of the time. Patient has an appointment to see his radiation oncologist Dr. Hutchins and was in to see Dr. of Al Terrell yesterday for his follow-up and to schedule his MRI of the brain and move forward on his chemotherapy. He is neutropenia was resolved and he is to be continue on oral antibiotics. Patient developed to have significant altered mental status had diffusion confusion and mild hallucination he felt become so aggressive he killed his was very compatible with her at the time. Something never took place at the time. Patient was scared of the current finding his blood pressure surprisingly was very high in the 200 at the time ended up coming to the emergency department at [facility] while his in developed to have significant chest pain mild tachycardia and slight change in EKG his CK with troponin was negative d-dimer was quite bit elevated CTA performed and shows left upper lobe distal branch pulmonary embolism with severe COPD and stable right upper lobe pulmonary nodular. Patient was started on heparin drip was giving hydralazine IV stabilized his blood pressure will be admitted to the hospital for the above problem. Apparently Dr. Del Cid: An requested vascular consultation for possible need for [place] filter placement. No finding so far consistent with DVT of the lower extremity [place] filter placement will be delay at this point until further testing in Doppler of the leg to find out if there is any finding of DVT Shanelle filter might be indicated otherwise is not at this point. Despite the indication for anticoagulation this patient will be very hard and rough decision on the long term care phlebotomist because of the metastasis to the brain and the family area the brain tissue the auto of having intracranial hemorrhage become very high patient and his were told about this dilemma still need to treat this initially to avoid having life- threatening problem and any complication happen in the future need to be dealt with at the time. Patient seen Dr. Tani Montilla today and then indication for [place] filter still if patient brain spot consult to be metastasis in origin cannot be on anticoagulation long-term he need to have a [place] filter by Wednesday to avoid having or to reduce the possibility of having any further PE. Shingle rash is healing looks much better, patient has recovered from his neutropenia currently doing better. He is looking forward for the decision Dr. Hutchins or radiation of the brain metastasis. Still struggling with the decision for the [place] filter this point. 12/21: Patient has had some confusion and delusions especially at nighttime for which Risperdal has been added. PT and OT will be added. Radiology oncologist to meet with the patient and family today regarding radiation of the brain lesions and possibly start oral anticoagulation. Patient is currently on heparin drip. He has been afebrile and pulse ox running 99% on O2 4 L nasal cannula. 12/22: Patient had fever of 101.4 yesterday afternoon. He has gone this morning for radiation treatment. Patient will be transferred to the oncology unit today Objective - Vital Signs Vital signs: Vital Signs Temp 99.4 F 12/22/16 07:59 Pulse 103 H 12/22/16 07:59 Resp 16 12/22/16 07:59 BP 165/78 12/22/16 07:59 Pulse Ox 98 12/22/16 07:59 Intake & Output 12/21/16 12/22/16 12/22/16 18:59 06:59 18:59 Intake Total 946.626 555.6 500 Balance 946.626 555.6 500 Weight 58.2 kg Intake: IV 320 555.6 Heparin Sodium,Porcine/ 160 315.6 D5w Pmx 25,000 unit In Dextrose/Water 1 500ml. bag @ 18 UNITS/KG/HR 21. 55 mls/hr IV .[id number] KATIE Rx#:[id number] Sodium Chloride 0.9% 1, 160 240 000 ml @ 20 mls/hr IV . Q24H KATIE Rx#:[id number] Intake, IV Titration 146.626 500 Amount Heparin Sodium,Porcine/ 146.626 500 D5w Pmx 25,000 unit In Dextrose/Water 1 500ml. bag @ 18 UNITS/KG/HR 21. 55 mls/hr IV .[id number] KATIE Rx#:[id number] Oral 480 Other: Voiding Method Toilet Toilet Urinal Urinal # Voids 8 1 - Exam General appearance: Present: cooperative, disheveled, thin. Absent: average body habitus, mild distress, morbidly obese, no acute distress, obese, severe distress - EENT Eyes: Present: normal appearance. Absent: abnormal pupil, anicteric sclerae, disc margins sharp, edentulous, EOMI, PERRLA, fundus normal, photophobia, dentition normal, poor dentition, ptosis, scleral icterus ENT: Present: normal oropharynx. Absent: hard of hearing, hearing grossly normal, NA/AT, other, pharyngeal erythema, thrush, tonsillar exudates, tonsillar swelling Ears: bilateral: normal - Neck Neck: Present: normal ROM. Absent: lymphadenopathy, other, rigidity, stridor, thyromegaly Carotids: bilateral: upstroke normal Thyroid: bilateral: normal size - Respiratory Respiratory: bilateral: diminished, dullness, rales - Cardiovascular Rhythm: regular Heart sounds: normal: S1, S2 Abnormal Heart Sounds: Present: systolic murmur, S3 Gallop - Gastrointestinal General gastrointestinal: Present: distended, normal bowel sounds, soft - Integumentary Integumentary Comment(s): Still have slight residual shingle rash on the right forehead area. Integumentary: Present: normal, pale, rash. Absent: calor, cellulitis, cyanotic , decreased turgor, flushed, jaundiced, normal turgor, ulcer - Neurologic Neurologic Comment(s): Slight confusion despite family. Neurologic: Present: CNII-XII intact. Absent: focal deficits - Musculoskeletal Musculoskeletal: Present: generalized weakness, strength equal bilaterally. Absent: gait normal, right sided weakness, left sided weakness - Psychiatric Psychiatric: Present: A&O x's 3. Absent: appropriate affect, intact judgment & insight - Labs CBC & Chem 7: 12/23/16 06:20 12/23/16 06:20 Labs: Abnormal Lab Results - Last 24 Hours (Table) 12/22/16 Range/Units 06:10 APTT 49.4 H (22.0-30.0) sec Microbiology - Last 24 Hours (Table) 12/18/16 09:15 Blood Culture - Preliminary Blood No Growth after 72 hours Assessment and Plan Plan: 1 acute pulmonary embolism: Continue heparin drip and try to switch him into Lovenox subcutaneous twice a day 1 mg/kg twice a day. Whether patient need to go for [place] filter placement or not to be decided in the next few days 2 altered mental status: Most likely elated to the brain metastasis. Patient will be seen radiation oncologist on Wednesday prepare for radiation of the brain metastasis. Risperdal twice daily started. 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 Hutchins radiation oncology and he might need to go for radiation therapy. 4 herpes zoster: Patient completed course of Valtrex. 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 7 severe intractable nausea and vomiting and gastroparesis: Has improved significantly since last week. 8 BPH: Watch for any urinary retention. 9 tachycardia: EKG was performed patient might need an echocardiogram and if needed to start him on beta donovan to bring the pulse rate down. 10 anemia of chronic disease: Iron deficiency continue multivitamins. 11 COPD not in exacerbation: Has been on combination of bronchodilator along with steroid inhaler. 12 GI prophylaxis: Patient is on pantoprazole. Discharge plan: To be determined. PT and OT consults added. Impression and plan of care have been directed as dictated by the signing physician. [place] Archibald nurse practitioner acting as scribe for signing physician.
[2016-12-23] MEDS: DEXAMETHASONE 4 MG TAB PO SCH ×3 (08:15→21:36)
[2016-12-23] MEDS: PANTOPRAZOLE 40 MG TABLET PO SCH (08:15)
[2016-12-23] MEDS: risperiDONE 0.5 MG TAB PO SCH (08:15)
[2016-12-23] MEDS: ERYTHROMYCIN 5 MG/GM OPHTH OINT 3.5 GM TUBE RIGHT EYE SCH ×2 (08:16→21:36)
[2016-12-23] MEDS: METOPROLOL TARTRATE 25 MG TAB PO SCH ×2 (08:16→21:36)
--- NOTE | 2016-12-23 10:00 | CDI ---
In responding to this query, please exercise your independent professional judgment. The [facility] Coding Staff and Clinical Documentation Specialists appreciate your assistance in clarifying documentation, maintaining compliance with coding guidelines, accurately documenting patients condition and capturing severity of illness. The fact that a question is asked does not imply that any particular answer is desired or expected. Communication forms are a method of clarifying documentation and are not made part of the Legal Health Record. Thank you in advance for your clarification. 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 Improved. Maintaining good O2 saturations in the high 90s on 3 L/m per nasal cannula. Vital signs/Pulse oximetry: Temp 98.8, HR 119, B/P 181/91, Spo2 90%4L 12/22 Pulmonary Progress Note: Lung/Breathing assessment: LUNGS: Equal air entry with few scattered rhonchi. Treatment: Breathing TX: Spiriva INH QD Pulse ox per unit protocol O2: 2-4L In your professional opinion, can you please clarify if these findings signify one of the following conditions? Acuity: o Acute o Chronic o Acute on Chronic Respiratory Status: o Respiratory failure o Respiratory failure with hypercapnia o Respiratory failure with hypoxia o Acute Respiratory Distress o Other Diagnosis, please specify o Unable to determine Please document in your progress notes and discharge summary in order to capture severity of illness and risk of mortality. Include clinical findings that support your diagnosis. FYI: Press F11 to launch patient chart. Place X here if this finding has no clinical significance, is not applicable or if you are not able to provide any additional documentation. CAROLED
--- NOTE | 2016-12-23 12:49 | P.PN ---
Subjective 61-year-old male who was recently inpatient. He was inpatient for about 2 days with intractable vomiting and sitosterol the facial and scalp area. The patient presented to the emergency room on 714 with complaints of increasing shortness of breath as well as some elevated blood pressure. The blood pressure was noted to be 250/190. The patient does have a history of underlying COPD and also has a history of a small cell lung cancer. He's finishing off chemotherapy. The patient was evaluated in the emergency room by Dr. Negron and was discovered to have a blood clot in the left upper lobe pulmonary artery. Patient is currently on IV heparin. Patient seemed to be doing relatively well although he apparently is been acting unreasonable at home according to the note from the ER doctor with paranoia hearing voices and seeing things. I the patient apparently was on all the appropriate medications including a small dose of prednisone Spiriva Valtrex Zofran Tylenol erythromycin ointment Peak Levaquin Protonix and Transderm scopolamine. He has no ALLERGIES. He does have a history of COPD small cell lung cancer and apparently a history of asthma as well. The patient is seen again today 12/21/2016 in follow-up on the selective care unit. He is currently awake and alert in no acute distress. He has had ongoing issues with vivid dreams and some delusions. He is currently on Risperdal 0.5 mg twice a day. He denies any pulmonary complaints. He is maintaining good O2 saturations in the high 90s on 3 L/m per nasal cannula. He' s been afebrile. He was found to have a small left upper lobe distal branch pulmonary embolism. He remains on a heparin drip for now. Anticoagulation is issue of concerned based on his brain lesions. He was seen by Dr. Hutchins today from radiation oncology and the plan to radiate the lesions and then possibly the patient would tolerate anticoagulation. The patient is seen again today 12/22/2016 in follow-up on the selective care unit. He had become more confused throughout the night and he got himself dressed and was attempting to leave the hospital. He also pulled out his lines. He remains somewhat confused this morning but cooperative. He did undergo simulation computed tomography scan of the brain and there was noted progression even since 3 days ago. Seen and evaluated by Dr. Hutchins who felt he was at risk for bleeding in his heparin has been discontinued. The patient was initiated on Decadron. 10 treatments of radiotherapy our plan to begin today. Really, the patient denies any pulmonary complaints. No worsening shortness of breath, cough or congestion. No hemoptysis. He is maintaining O2 saturations in the high 90s on 3 L/m per nasal cannula. Slightly afebrile at 99.4. Leukocytosis. The cultures revealed no growth to date. The patient is seen again today 12/23/2016 in follow-up on the oncology unit. He has continued and ongoing issues with confusion. He denies any significant shortness of breath at this time. He is maintaining O2 saturations in the 90s on 3 L/m per nasal cannula. He's been afebrile. No leukocytosis. He remains off anticoagulants secondary to the brain lesions and being at risk for bleeding. Objective - Vital Signs Vital signs: Vital Signs Temp 97.0 F L 12/22/16 23:00 Pulse 108 H 12/23/16 07:00 Resp 18 12/23/16 07:00 BP 146/69 12/23/16 07:00 Pulse Ox 94 L 12/23/16 07:00 Intake & Output 12/22/16 12/23/16 12/23/16 18:59 06:59 18:59 Intake Total 700 830 Balance 700 830 Intake: IV 200 Heparin Sodium,Porcine/ 100 D5w Pmx 25,000 unit In Dextrose/Water 1 500ml. bag @ 18 UNITS/KG/HR 21. 55 mls/hr IV .[id number] KATIE Rx#:[id number] Sodium Chloride 0.9% 1, 100 000 ml @ 20 mls/hr IV . Q24H KATIE Rx#:[id number] Intake, IV Titration 500 Amount Heparin Sodium,Porcine/ 500 D5w Pmx 25,000 unit In Dextrose/Water 1 500ml. bag @ 18 UNITS/KG/HR 21. 55 mls/hr IV .[id number] KATIE Rx#:[id number] Oral 830 Other: Voiding Method Toilet Toilet Toilet Urinal Urinal Urinal # Voids 4 2 - Exam GENERAL EXAM: Alert, somewhat confused, comfortable in no apparent distress. HEAD: Normocephalic. Lesions of shingles are healing. EYES: Normal reaction of pupils, equal size. NOSE: Clear with pink turbinates. THROAT: No erythema or exudates. NECK: No masses, no JVD. CHEST: No chest wall deformity. LUNGS: Equal air entry with few scattered rhonchi CVS: S1 and S2 normal with no audible murmurs, regular rhythm. ABDOMEN: No hepatosplenomegaly, normal bowel sounds, no guarding or rigidity. SPINE: No scoliosis or deformity SKIN: No rashes CENTRAL NERVOUS SYSTEM: No focal deficits, tone is normal in all 4 extremities. Extremities: There is no significant peripheral edema. No clubbing, no cyanosis. Peripheral pulses are intact. - Labs CBC & Chem 7: 12/23/16 06:20 12/23/16 06:20 Labs: Abnormal Lab Results - Last 24 Hours (Table) 12/23/16 12/23/16 Range/Units 06:20 06:20 RBC 2.84 L (4.30-5.90) m/uL Hgb 10.2 L (13.0-17.5) gm/dL Hct 31.0 L (39.0-53.0) % MCV 109.0 H (80.0-100.0) fL MCH 35.8 H (25.0-35.0) pg RDW 21.6 H (11.5-15.5) % BUN 28 H (9-20) mg/dL Glucose 117 H (74-99) mg/dL Microbiology - Last 24 Hours (Table) 12/18/16 09:15 Blood Culture - Preliminary Blood No Growth after 120 hours Assessment and Plan Plan: Impression: #1 Dyspnea secondary to pulmonary embolism and acute exacerbation of severe oxygen dependent chronic obstructive pulmonary disease and history of small cell lung cancer. Improved. Maintaining good O2 saturations in the high 90s on 3 L/m per nasal cannula. #2 Pulmonary embolism. Heparin currently discontinued based on brain lesions and high risk of bleed. #3 Small cell lung cancer. #4 Chronic obstructive pulmonary disease. #5 Acute on chronic hypoxic respiratory failure secondary to above. #6 Shingles. #7 Metastatic lesions to the brain. Initiated on Decadron. To start radiotherapy. #8 Altered mental status suspect secondary to above. Plan: The patient was seen and evaluated by Dr. Nava. We will hold off on anticoagulation per radiation oncology recommendations regarding increased risk for bleeding at the metastatic lesions in the brain. Continue to monitor the patient's confused state. Continue with bronchodilators and Spiriva. We'll continue to follow and make further recommendations based on his clinical status.
[2016-12-23] MEDS: SODIUM CHLORIDE 0.9% 1,000 ML IV SCH (13:32)
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
[2016-12-23 13:54] VITALS: BMI 18.3
[2016-12-23] MEDS: ZOLPIDEM 5 MG TAB PO SCH (21:35)
--- NOTE | 2016-12-23 21:40 | P.PN ---
Subjective Principal diagnosis: PE Pt seen today in follow up, he has started WBRT. His heparin drip for PE was stopped yesterday after suspect bleeding at brain mets sites. Pt remains very confused, he cannot stay on topic and is confused to events, he has been hallucinating, has witnessed, he has required sitter to protect pt from hurting himself. He denies pain or nausea. Objective - Vital Signs Vital signs: Vital Signs Temp 97.3 F L 12/23/16 15:00 Pulse 93 12/23/16 15:00 Resp 20 12/23/16 15:00 BP 124/76 12/23/16 15:00 Pulse Ox 98 12/23/16 15:00 Intake & Output 12/23/16 12/23/16 12/24/16 06:59 18:59 06:59 Intake Total 830 Balance 830 Weight 58.2 kg Intake: Oral 830 Other: Voiding Method Toilet Toilet Urinal Urinal # Voids 2 3 - Exam WD, thin, frail cauc[place] male pt sitting up in bed, no acute distress, on O2, respirations even and unlabored. - Labs CBC & Chem 7: 12/23/16 06:20 12/23/16 06:20 Labs: Abnormal Lab Results - Last 24 Hours (Table) 12/23/16 12/23/16 Range/Units 06:20 06:20 RBC 2.84 L (4.30-5.90) m/uL Hgb 10.2 L (13.0-17.5) gm/dL Hct 31.0 L (39.0-53.0) % MCV 109.0 H (80.0-100.0) fL MCH 35.8 H (25.0-35.0) pg RDW 21.6 H (11.5-15.5) % BUN 28 H (9-20) mg/dL Glucose 117 H (74-99) mg/dL Microbiology - Last 24 Hours (Table) 12/18/16 09:15 Blood Culture - Preliminary Blood No Growth after 120 hours Assessment and Plan (1) Pulmonary embolism Narrative/Plan: Pt connot be on anticoagulation until brain mets treated, will look for Rad/Onc recommendations as to appropriate timing to resume anticoagulation. Status: Acute (2) Small cell lung cancer Narrative/Plan: Pt is being treated for brain mets. Most recent CT did not show evidence of local recurrence or new areas of disease in the chest. Concern is for pt ability to care for him at home. If pt mentation/ independence does not improve his may have to consider ECF placement as she will not be able to care for him at home alone. Social Work and Case Management working with her. We discussed transition to hospice once brain radiation has been completed and she is meeting for an informational session. Will follow up Status: Acute
[2016-12-24] MEDS: NITROGLYCERIN OINT 1 INCH/GM PACKET TOPICAL SCH ×4 (00:14→20:43)
[2016-12-24] MEDS: ACETAMINOPHEN TAB 325 MG TAB PO PRN (00:38)
[2016-12-24] MEDS: TIOTROPIUM 18 MCG/PUFF INHALER INHALATION SCH (07:48)
[2016-12-24] MEDS: PANTOPRAZOLE 40 MG TABLET PO SCH (09:02)
[2016-12-24] MEDS: METOPROLOL TARTRATE 25 MG TAB PO SCH ×2 (09:02→20:43)
[2016-12-24] MEDS: ERYTHROMYCIN 5 MG/GM OPHTH OINT 3.5 GM TUBE RIGHT EYE SCH ×2 (09:02→20:43)
[2016-12-24] MEDS: DEXAMETHASONE 4 MG TAB PO SCH ×3 (09:02→22:39)
--- NOTE | 2016-12-24 12:24 | P.PN ---
Subjective 61-year-old male one of Dr. Cabrera's patient who was in the hospital few days ago with severe intractable nausea vomiting combination of gastroparesis along with pancytopenia He develops same time neutropenia from chemotherapy and severe shingle in the right side of the trigeminal nerve area with severe pain at the time. Patient ended up leaving the hospital day before yesterday through his hospitalization had slight change CAT scan of the brain showed 2 spot in the brain consistent with metastasis could not do MRI of the time. Patient has an appointment to see his radiation oncologist Dr. Hutchins and was in to see Dr. of Al Terrell yesterday for his follow-up and to schedule his MRI of the brain and move forward on his chemotherapy. He is neutropenia was resolved and he is to be continue on oral antibiotics. Patient developed to have significant altered mental status had diffusion confusion and mild hallucination he felt become so aggressive he killed his was very compatible with her at the time. Something never took place at the time. Patient was scared of the current finding his blood pressure surprisingly was very high in the 200 at the time ended up coming to the emergency department at [facility] while his in developed to have significant chest pain mild tachycardia and slight change in EKG his CK with troponin was negative d-dimer was quite bit elevated CTA performed and shows left upper lobe distal branch pulmonary embolism with severe COPD and stable right upper lobe pulmonary nodular. Patient was started on heparin drip was giving hydralazine IV stabilized his blood pressure will be admitted to the hospital for the above problem. Apparently Dr. Del Cid: An requested vascular consultation for possible need for Barton filter placement. No finding so far consistent with DVT of the lower extremity Barton filter placement will be delay at this point until further testing in Doppler of the leg to find out if there is any finding of DVT Shanelle filter might be indicated otherwise is not at this point. Despite the indication for anticoagulation this patient will be very hard and rough decision on the intermediate because of the metastasis to the brain and the family area the brain tissue the auto of having intracranial hemorrhage become very high patient and his were told about this dilemma still need to treat this initially to avoid having life- threatening problem and any complication happen in the future need to be dealt with at the time. Patient seen Dr. Tani Montilla today and then indication for Barton filter still if patient brain spot consult to be metastasis in origin cannot be on anticoagulation long-term he need to have a Shanelle filter by Wednesday to avoid having or to reduce the possibility of having any further PE. Shingle rash is healing looks much better, patient has recovered from his neutropenia currently doing better. He is looking forward for the decision Dr. Hutchins or radiation of the brain metastasis. Still struggling with the decision for the Barton filter this point. 12/21: Patient has had some confusion and delusions especially at nighttime for which Risperdal has been added. PT and OT will be added. Radiology oncologist to meet with the patient and family today regarding radiation of the brain lesions and possibly start oral anticoagulation. Patient is currently on heparin drip. He has been afebrile and pulse ox running 99% on O2 4 L nasal cannula. 12/22: Patient had fever of 101.4 yesterday afternoon. He has gone this morning for radiation treatment. Patient will be transferred to the oncology unit today 12/23: Patient has continued to be confused to the point where he was scrubbing the bathroom patterson because he thought there were spiders on the patterson. Patient' s is very concerned regarding his confusion and including her safety at home as he did wake her up one day and thought he had killed her. She has locked up all the guns in the home. Discussed with patient's and his poor prognosis and option of hospice care. She will further discuss this with social sciences department chair and does have financial concerns. Risperdal will be discontinued due to increased risk for bleeding. Heparin drip was discontinued. Oncology is started him on dexamethasone 4 mg orally 3 times daily. CODE STATUS discussed with patient's and he is now a no code. 12/24: Patient continues to have confusion and hallucinations but somewhat better and his believe it's the Ativan. We are waiting for reevaluation by Dr. Hutchins to determine if radiation therapy is helping. If patient needs to continue radiation therapy, plan is for patient to be discharged home in other family members will help his care for him for the next week until he can get into hospice home. If radiation treatment is not of help, patient will be discharged to [facility]. Patient has a sitter at the bedside. Objective - Vital Signs Vital signs: Vital Signs Temp 97.9 F 12/24/16 07:00 Pulse 90 12/24/16 07:00 Resp 18 07/20/17 08:00 BP 144/84 12/24/16 07:00 Pulse Ox 100 12/24/16 07:00 Intake & Output 12/23/16 12/24/16 12/24/16 18:59 06:59 18:59 Weight 58.2 kg Other: Voiding Method Toilet Toilet Toilet Urinal Urinal Urinal # Voids 3 2 - Exam General appearance: Present: cooperative, disheveled, thin. Absent: average body habitus, mild distress, morbidly obese, no acute distress, obese, severe distress - EENT Eyes: Present: normal appearance. Absent: abnormal pupil, anicteric sclerae, disc margins sharp, edentulous, EOMI, PERRLA, fundus normal, photophobia, dentition normal, poor dentition, ptosis, scleral icterus ENT: Present: normal oropharynx. Absent: hard of hearing, hearing grossly normal, NA/AT, other, pharyngeal erythema, thrush, tonsillar exudates, tonsillar swelling Ears: bilateral: normal - Neck Neck: Present: normal ROM. Absent: lymphadenopathy, other, rigidity, stridor, thyromegaly Carotids: bilateral: upstroke normal Thyroid: bilateral: normal size - Respiratory Respiratory: bilateral: diminished, dullness, rales - Cardiovascular Rhythm: regular Heart sounds: normal: S1, S2 Abnormal Heart Sounds: Present: systolic murmur, S3 Gallop - Gastrointestinal General gastrointestinal: Present: distended, normal bowel sounds, soft - Integumentary Integumentary Comment(s): Still have slight residual shingle rash on the right forehead area. Integumentary: Present: normal, pale, rash. Absent: calor, cellulitis, cyanotic , decreased turgor, flushed, jaundiced, normal turgor, ulcer - Neurologic Neurologic Comment(s): Slight confusion despite family. Neurologic: Present: CNII-XII intact. Absent: focal deficits - Musculoskeletal Musculoskeletal: Present: generalized weakness, strength equal bilaterally. Absent: gait normal, right sided weakness, left sided weakness - Psychiatric Psychiatric: Present: A&O x's 2. Absent: appropriate affect, intact judgment & insight - Labs CBC & Chem 7: 12/23/16 06:20 12/23/16 06:20 Labs: Microbiology - Last 24 Hours (Table) 12/18/16 09:15 Blood Culture - Final Blood No Growth after 144 hours Assessment and Plan Plan: 1 acute pulmonary embolism: Heparin drip was discontinued. Patient is not on any anticoagulation at this time due to brain metastases and radiation therapy. 2 altered mental status: Secondary to brain metastasis status post radiation therapy. Risperdal discontinued. Patient has been started on dexamethasone. 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 Hutchins radiation oncology and he might need to go for radiation therapy. 4 herpes zoster: Patient completed course of Valtrex. 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 7 severe intractable nausea and vomiting and gastroparesis: Has improved significantly since last week. 8 BPH: Watch for any urinary retention. 9 tachycardia: EKG was performed patient might need an echocardiogram and if needed to start him on beta donovan to bring the pulse rate down. 10 anemia of chronic disease: Iron deficiency continue multivitamins. 11 COPD not in exacerbation and chronic hypoxic respiratory failure on home O2 dependent: Has been on combination of bronchodilator along with steroid inhaler. 12 GI prophylaxis: Patient is on pantoprazole. CODE STATUS: No code Discharge plan: To be determined. Impression and plan of care have been directed as dictated by the signing physician. [place] Archibald nurse practitioner acting as scribe for signing physician.
--- NOTE | 2016-12-24 13:44 | P.PN ---
Subjective 61-year-old male who was recently inpatient. He was inpatient for about 2 days with intractable vomiting and sitosterol the facial and scalp area. The patient presented to the emergency room on 714 with complaints of increasing shortness of breath as well as some elevated blood pressure. The blood pressure was noted to be 250/190. The patient does have a history of underlying COPD and also has a history of a small cell lung cancer. He's finishing off chemotherapy. The patient was evaluated in the emergency room by Dr. Negron and was discovered to have a blood clot in the left upper lobe pulmonary artery. Patient is currently on IV heparin. Patient seemed to be doing relatively well although he apparently is been acting unreasonable at home according to the note from the ER doctor with paranoia hearing voices and seeing things. I the patient apparently was on all the appropriate medications including a small dose of prednisone Spiriva Valtrex Zofran Tylenol erythromycin ointment Roslyn Levaquin Protonix and Transderm scopolamine. He has no ALLERGIES. He does have a history of COPD small cell lung cancer and apparently a history of asthma as well. The patient is seen again today 12/21/2016 in follow-up on the selective care unit. He is currently awake and alert in no acute distress. He has had ongoing issues with vivid dreams and some delusions. He is currently on Risperdal 0.5 mg twice a day. He denies any pulmonary complaints. He is maintaining good O2 saturations in the high 90s on 3 L/m per nasal cannula. He' s been afebrile. He was found to have a small left upper lobe distal branch pulmonary embolism. He remains on a heparin drip for now. Anticoagulation is issue of concerned based on his brain lesions. He was seen by Dr. Hutchins today from radiation oncology and the plan to radiate the lesions and then possibly the patient would tolerate anticoagulation. The patient is seen again today 12/22/2016 in follow-up on the selective care unit. He had become more confused throughout the night and he got himself dressed and was attempting to leave the hospital. He also pulled out his lines. He remains somewhat confused this morning but cooperative. He did undergo simulation computed tomography scan of the brain and there was noted progression even since 3 days ago. Seen and evaluated by Dr. Hutchins who felt he was at risk for bleeding in his heparin has been discontinued. The patient was initiated on Decadron. 10 treatments of radiotherapy our plan to begin today. Really, the patient denies any pulmonary complaints. No worsening shortness of breath, cough or congestion. No hemoptysis. He is maintaining O2 saturations in the high 90s on 3 L/m per nasal cannula. Slightly afebrile at 99.4. Leukocytosis. The cultures revealed no growth to date. The patient is seen again today 12/23/2016 in follow-up on the oncology unit. He has continued and ongoing issues with confusion. He denies any significant shortness of breath at this time. He is maintaining O2 saturations in the 90s on 3 L/m per nasal cannula. He's been afebrile. No leukocytosis. He remains off anticoagulants secondary to the brain lesions and being at risk for bleeding. The patient is seen again today 12/24/2016 in follow-up on the oncology unit. He is a little more alert today. He is a little less anxious. He is still having issues with confusion and even slight paranoia. A sitter remains at the bedside. He is continuing with radiation therapy to the lesions in the brain. Anticoagulants remain on hold. Stable from the pulmonary standpoint. He has been hemodynamically stable as well. Objective - Vital Signs Vital signs: Vital Signs Temp 97.9 F 12/24/16 07:00 Pulse 90 12/24/16 07:00 Resp 18 12/24/16 08:00 BP 144/84 12/24/16 07:00 Pulse Ox 100 12/24/16 07:00 Intake & Output 12/23/16 12/24/16 12/24/16 18:59 06:59 18:59 Weight 58.2 kg Other: Voiding Method Toilet Toilet Toilet Urinal Urinal Urinal # Voids 3 2 - Exam GENERAL EXAM: Alert, confused, comfortable in no apparent distress. HEAD: Normocephalic. Lesions of shingles are healing. EYES: Normal reaction of pupils, equal size. NOSE: Clear with pink turbinates. THROAT: No erythema or exudates. NECK: No masses, no JVD. CHEST: No chest wall deformity. LUNGS: Equal air entry with few scattered rhonchi CVS: S1 and S2 normal with no audible murmurs, regular rhythm. ABDOMEN: No hepatosplenomegaly, normal bowel sounds, no guarding or rigidity. SPINE: No scoliosis or deformity SKIN: No rashes CENTRAL NERVOUS SYSTEM: No focal deficits, tone is normal in all 4 extremities. Extremities: There is no significant peripheral edema. No clubbing, no cyanosis. Peripheral pulses are intact. - Labs CBC & Chem 7: 12/23/16 06:20 12/23/16 06:20 Labs: Microbiology - Last 24 Hours (Table) 12/18/16 09:15 Blood Culture - Final Blood No Growth after 144 hours Assessment and Plan Plan: Impression: #1 Dyspnea secondary to pulmonary embolism and acute exacerbation of severe oxygen dependent chronic obstructive pulmonary disease and history of small cell lung cancer. Improved. Maintaining good O2 saturations in the high 90s on 3 L/m per nasal cannula. #2 Pulmonary embolism. Heparin currently discontinued based on brain lesions and high risk of bleed. #3 Small cell lung cancer. #4 Chronic obstructive pulmonary disease. #5 Acute on chronic hypoxic respiratory failure secondary to above. #6 Shingles. #7 Metastatic lesions to the brain. Initiated on Decadron. Started radiotherapy. #8 Altered mental status suspect secondary to above. Plan: The patient was seen and evaluated by Dr. Nava. We will hold off on anticoagulation per radiation oncology recommendations regarding increased risk for bleeding at the metastatic lesions in the brain. Continue to monitor the patient's confused state. Continue with bronchodilators and Spiriva. The patient's is considering possible home with hospice versus continuing and completing the radiation treatments. She is waiting for the patient's daughter to arrive to have further conversation. In the interim, we'll continue with supportive care. We'll continue to follow and make further recommendations based on his clinical status.
[2016-12-24] MEDS: SODIUM CHLORIDE 0.9% 1,000 ML IV SCH (14:43)
[2016-12-24] MEDS: ZOLPIDEM 5 MG TAB PO SCH (20:43)
[2016-12-24 23:14] VITALS: PULSE 88
[2016-12-25] MEDS: NITROGLYCERIN OINT 1 INCH/GM PACKET TOPICAL SCH ×3 (01:52→12:31)
[2016-12-25 08:05] VITALS: BP 148/80; RESP 20; TEMP 99
[2016-12-25] MEDS: TIOTROPIUM 18 MCG/PUFF INHALER INHALATION SCH (09:18)
[2016-12-25] MEDS: DEXAMETHASONE 4 MG TAB PO SCH (09:26)
[2016-12-25] MEDS: METOPROLOL TARTRATE 25 MG TAB PO SCH (09:27)
[2016-12-25] MEDS: ERYTHROMYCIN 5 MG/GM OPHTH OINT 3.5 GM TUBE RIGHT EYE SCH (09:27)
[2016-12-25] MEDS: PANTOPRAZOLE 40 MG TABLET PO SCH (09:27)
[2016-12-25] MEDS: SCOPOLAMINE 1.5MG/72HR PATCH TRANSDERM SCH (12:30)
[2016-12-25] MEDS: SODIUM CHLORIDE 0.9% 1,000 ML IV SCH (12:31)
--- NOTE | 2016-12-25 14:27 | P.DS ---
Providers Date of admission: 12/18/16 12:17 Expected date of discharge: 12/25/16 Attending physician: José Miguel Shaikh Consults: 12/18/16 12:17 Consult Physician Urgent Consulting Provider: Rolan Del Cid Consult Reason/Comments: Lung cancer, pulmonary embolism Do you want consulting provider notified?: Already Contacted 12/18/16 12:19 Consult Physician Routine Consulting Provider: Edu Freire Consult Reason/Comments: Consideration of IVC filter Do you want consulting provider notified?: Yes 12/18/16 13:22 Consult Physician Routine Consulting Provider: Grace Smith Consult Reason/Comments: Patient known to you Do you want consulting provider notified?: Yes 12/21/16 09:15 Consult Physician Routine Consulting Provider: Varghese Hutchins Consult Reason/Comments: consultation re: initiation of PCI Do you want consulting provider notified?: Already Contacted Primary care physician: Zhane [facility] Course: 61-year-old male one of Dr. Cabrera's patient who was in the hospital few days ago with severe intractable nausea vomiting combination of gastroparesis along with pancytopenia He develops same time neutropenia from chemotherapy and severe shingle in the right side of the trigeminal nerve area with severe pain at the time. Patient ended up leaving the hospital day before yesterday through his hospitalization had slight change CAT scan of the brain showed 2 spot in the brain consistent with metastasis could not do MRI of the time. Patient has an appointment to see his radiation oncologist Dr. Hutchins and was in to see Dr. of Al Terrell yesterday for his follow-up and to schedule his MRI of the brain and move forward on his chemotherapy. He is neutropenia was resolved and he is to be continue on oral antibiotics. Patient developed to have significant altered mental status had diffusion confusion and mild hallucination he felt become so aggressive he killed his was very compatible with her at the time. Something never took place at the time. Patient was scared of the current finding his blood pressure surprisingly was very high in the 200 at the time ended up coming to the emergency department at [facility] while his in developed to have significant chest pain mild tachycardia and slight change in EKG his CK with troponin was negative d-dimer was quite bit elevated CTA performed and shows left upper lobe distal branch pulmonary embolism with severe COPD and stable right upper lobe pulmonary nodular. Patient was started on heparin drip was giving hydralazine IV stabilized his blood pressure will be admitted to the hospital for the above problem. Apparently Dr. Del Cid: An requested vascular consultation for possible need for Cantril filter placement. No finding so far consistent with DVT of the lower extremity Shanelle filter placement will be delay at this point until further testing in Doppler of the leg to find out if there is any finding of DVT Shanelle filter might be indicated otherwise is not at this point. Despite the indication for anticoagulation this patient will be very hard and rough decision on the residential because of the metastasis to the brain and the family area the brain tissue the auto of having intracranial hemorrhage become very high patient and his were told about this dilemma still need to treat this initially to avoid having life- threatening problem and any complication happen in the future need to be dealt with at the time. Patient seen Dr. Tani Montilla today and then indication for Shanelle filter still if patient brain spot consult to be metastasis in origin cannot be on anticoagulation long-term he need to have a Shanelle filter by Wednesday to avoid having or to reduce the possibility of having any further PE. Shingle rash is healing looks much better, patient has recovered from his neutropenia currently doing better. He is looking forward for the decision Dr. Hutchins or radiation of the brain metastasis. Still struggling with the decision for the Cantril filter this point. 12/21: Patient has had some confusion and delusions especially at nighttime for which Risperdal has been added. PT and OT will be added. Radiology oncologist to meet with the patient and family today regarding radiation of the brain lesions and possibly start oral anticoagulation. Patient is currently on heparin drip. He has been afebrile and pulse ox running 99% on O2 4 L nasal cannula. 12/22: Patient had fever of 101.4 yesterday afternoon. He has gone this morning for radiation treatment. Patient will be transferred to the oncology unit today 12/23: Patient has continued to be confused to the point where he was scrubbing the bathroom pattesron because he thought there were spiders on the patterson. Patient' s is very concerned regarding his confusion and including her safety at home as he did wake her up one day and thought he had killed her. She has locked up all the guns in the home. Discussed with patient's and his poor prognosis and option of hospice care. She will further discuss this with social contact worker and does have financial concerns. Risperdal will be discontinued due to increased risk for bleeding. Heparin drip was discontinued. Oncology is started him on dexamethasone 4 mg orally 3 times daily. CODE STATUS discussed with patient's and he is now a no code. 12/24: Patient continues to have confusion and hallucinations but somewhat better and his believe it's the Ativan. We are waiting for reevaluation by Dr. Hutchins to determine if radiation therapy is helping. If patient needs to continue radiation therapy, plan is for patient to be discharged home in other family members will help his care for him for the next week until he can get into hospice home. If radiation treatment is not of help, patient will be discharged to [facility]. Patient has a sitter at the bedside. 12/25: Patient was seen by Dr. Hutchins with recommendations to continue whole brain radiation treatment. He is currently at 4 out of 10 treatments. Oncology has provided him a prescription for tapering dexamethasone and requests follow-up in one week after completing radiation treatments. Patient is noted to have less confusion and less hallucinations today. Patient will be discharged home today in stable condition. 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 5 neutropenia 6 small cell CA of the lung stage IV 7 severe intractable nausea and vomiting and gastroparesis 8 BPH 9 tachycardia: 10 anemia of chronic disease 11 COPD not in exacerbation and chronic hypoxic respiratory failure on home O2 Discharge plan: Home. Impression and plan of care have been directed as dictated by the signing physician. [place] Archibald nurse practitioner acting as scribe for signing physician. Patient Condition at Discharge: Stable Plan - Discharge Summary New Discharge Prescriptions: New Metoprolol Tartrate [Lopressor] 25 mg PO BID #60 tab Continue predniSONE 5 mg PO DAILY Tiotropium 18 Mcg/Puff [Spiriva] 1 cap INHALATION RT-DAILY Ondansetron Odt [Zofran ODT] 4 mg PO Q8HR PRN #20 tab PRN Reason: Nausea Acetaminophen Tab [Tylenol] 650 mg PO Q6HR PRN tab PRN Reason: Mild Pain Or Fever > 100.5 Pantoprazole [Protonix] 40 mg PO AC-BRKFST #30 tab Scopolamine 1.5MG/72Hr Patch [TransDerm Scop] 1 patch TRANSDERM Q72H #3 patch Erythromycin Ophth Oint [Romycin Ophth Oint] 1 applic RIGHT EYE BID #5 ml HYDROcodone/APAP 7.5-325MG [[place] 7.5-325] 1 tab PO Q6HR PRN #40 tab PRN Reason: Pain Discontinued valACYclovir HCL [Valtrex] 1,000 mg PO TID Levofloxacin [Levaquin] 500 mg PO DAILY #5 tab Discharge Medication List Tiotropium 18 Mcg/Puff [Spiriva] 1 cap INHALATION RT-DAILY 07/08/16 [History] predniSONE 5 mg PO DAILY 07/08/16 [History] Ondansetron Odt [Zofran ODT] 4 mg PO Q8HR PRN #20 tab 12/12/16 [Rx] Acetaminophen Tab [Tylenol] 650 mg PO Q6HR PRN tab 12/16/16 [Rx] Erythromycin Ophth Oint [Romycin Ophth Oint] 1 applic RIGHT EYE BID #5 ml [Rx] HYDROcodone/APAP 7.5-325MG [[place] 7.5-325] 1 tab PO Q6HR PRN #40 tab 12/16/16 [ Rx] Pantoprazole [Protonix] 40 mg PO AC-BRKFST #30 tab 12/16/16 [Rx] Scopolamine 1.5MG/72Hr Patch [TransDerm Scop] 1 patch TRANSDERM Q72H #3 patch [Rx] Metoprolol Tartrate [Lopressor] 25 mg PO BID #60 tab 12/25/16 [Rx] Follow up Appointment(s)/Referral(s): Zhane Cabrera MD [Primary Care Provider] - As Needed Varghese Hutchins MD [STAFF PHYSICIAN] - 12/28/16 2:30 pm Thomas Oates MD [STAFF PHYSICIAN] - 01/14/17 8:30 am Patient Instructions/Handouts: Metoprolol (By mouth), Pulmonary Embolism (DC), Hypertension (DC), Tachycardia (GEN) Discharge Disposition: HOME SELF-CARE
--- NOTE | 2016-12-25 16:45 | P.PN ---
Subjective Principal diagnosis: Patient feeling better today, denies difficulty with headache, nausea/vomiting, focal weakness or numbness/tingling. The patient reports that he does feel fatigued, but otherwise feels better than he has in some time. He notes that he has not been up walking much, excluding to the restroom. Objective - Vital Signs Vital signs: Vital Signs Temp 99.0 F 12/25/16 07:00 Pulse 88 12/25/16 07:00 Resp 20 12/25/16 08:00 BP 148/80 12/25/16 07:00 Pulse Ox 99 12/25/16 09:18 Intake & Output 12/24/16 12/25/16 12/25/16 18:59 06:59 18:59 Intake Total 0 1090 180 Balance 0 1090 180 Intake: IV 0 180 Sodium Chloride 0.9% 1, 0 180 000 ml @ 20 mls/hr IV . Q24H KATIE Rx#:[id number] Oral 1090 Other: Voiding Method Toilet Toilet Toilet Urinal Urinal Urinal # Voids 2 - EENT Eyes: Present: abnormal pupil (RIGHT PUPIL SLUGGISH), PERRLA - Neck Neck: Absent: lymphadenopathy - Respiratory Respiratory: bilateral: CTA, diminished - Cardiovascular Rhythm: regular - Integumentary Integumentary: Present: rash (improving V1 shingles) - Neurologic Neurologic: Present: CNII-XII intact. Absent: focal deficits - Musculoskeletal Musculoskeletal: Present: strength equal bilaterally - Psychiatric Psychiatric: Present: A&O x's 3, appropriate affect - Labs CBC & Chem 7: 12/23/16 06:20 12/23/16 06:20 Assessment and Plan (1) Small cell lung cancer Status: Acute Plan: 1. Brain metastases: Patient's mental status has improved significantly over past few days. Neurologic exam improved as well. Patient's family was hoping he would be discharged tomorrow so that the house would be prepared. Patient has had 4/10 treatments to the whole brain. Will continue next week. Decadron taper recommended and explained. Time with Patient: Greater than 30
--- NOTE | 2016-12-25 18:40 | P.PN ---
Subjective Principal diagnosis: PE, hemorrhagic brain mets Pt seen in follow up, he is much more lucid, his conversation makes more sense and he stays on topic for the most part. He denies headache, pain, nausea. Objective - Vital Signs Vital signs: Vital Signs Temp 99.0 F 12/25/16 07:00 Pulse 88 12/25/16 07:00 Resp 20 12/25/16 16:00 BP 148/80 12/25/16 07:00 Pulse Ox 99 12/25/16 09:18 Intake & Output 12/24/16 12/25/16 12/25/16 18:59 06:59 18:59 Intake Total 0 1090 180 Balance 0 1090 180 Intake: IV 0 180 Sodium Chloride 0.9% 1, 0 180 000 ml @ 20 mls/hr IV . Q24H KATIE Rx#:[id number] Oral 1090 Other: Voiding Method Toilet Toilet Toilet Urinal Urinal Urinal # Voids 2 - Constitutional General appearance: Present: cooperative, no acute distress, thin - EENT Eyes: Present: anicteric sclerae - Respiratory Details: respirations even and unlabored - Musculoskeletal Musculoskeletal: Present: generalized weakness, strength equal bilaterally - Psychiatric Psychiatric Comment(s): judgment can fluctuate, worse at night per pt Psychiatric: Present: A&O x's 3, appropriate affect - Labs CBC & Chem 7: 12/23/16 06:20 12/23/16 06:20 Assessment and Plan (1) Pulmonary embolism Narrative/Plan: Unable to be treated at this time due to hemorrhagic brain mets, no anticoagulants at this time. Status: Acute (2) Small cell lung cancer Narrative/Plan: Pt is having WBRT, 4 treatments done so far. Rx for tapering steroid dose written. Has follow up with Dr. Oates 1 week after completing Radiation Status: Acute Plan: >30 min spent counseling pt and family. We discussed pt complex medical conditions, treatments and prognosis. All questions were answered to the best of my ability. Time with Patient: Greater than 30
== END 2016-12-25 18:00 | disposition home or self-care (01) | DRG 175 ==
LOC: EC 06:58 → 6SEL 12:17 → 5ONC 12-22 14:26
PROVIDERS: ADMIT Internal Medicine Geriatric Medicine; ATTEND Internal Medicine Geriatric Medicine
DX: I26.99 Other pulmonary embolism without acute cor pulmonale (principal); I61.9 Nontraumatic intracerebral hemorrhage, unspecified; J96.21 Acute and chronic respiratory failure with hypoxia; C79.31 Secondary malignant neoplasm of brain; Z99.81 Dependence on supplemental oxygen; D70.1 Agranulocytosis secondary to cancer chemotherapy; B02.9 Zoster without complications; I48.91 Unspecified atrial fibrillation; F22 Delusional disorders; D50.9 Iron deficiency anemia, unspecified; D63.8 Anemia in other chronic diseases classified elsewhere; D72.829 Elevated white blood cell count, unspecified; I16.0 Hypertensive urgency; I10 Essential (primary) hypertension; K31.84 Gastroparesis; J44.9 Chronic obstructive pulmonary disease, unspecified; N40.0 Benign prostatic hyperplasia without lower urinary tract symptoms; T45.1X5A Adverse effect of antineoplastic and immunosuppressive drugs, initial encounter; Z85.118 Personal history of other malignant neoplasm of bronchus and lung; Z87.442 Personal history of urinary calculi; Z87.891 Personal history of nicotine dependence; Z92.3 Personal history of irradiation
CPT/HCPCS: 36415; 70450; 71020; 71275; 77334; 77412; 80053; 80306; 82140; 82550; 82553; 83520; 83735; 83880; 84484; 85025; 85027; 85379; 85610; 85730; 87040; 93005; 93970; 94640; 94760

== ENCOUNTER 2017-01-17 20:34 | Emergency (ER) | payer BC ==
[2017-01-17] MEDS ORDERED: SODIUM CHLORIDE 0.9% 500 ML IV STA (20:43)
[2017-01-17] MEDS ORDERED: SODIUM CHLORIDE 0.9% 1,000 ML IV STA (20:43)
[2017-01-17 21:12] LABS: Anisocytosis Slight; Basophils % (A) 0 %; CH 36.5; CHCM 32.8; Eosinophils % (A) 0 %; HCT 36.9 % (39.0-53.0); HDW 2.31; Immature Gran Flag Slight; Luc # (Auto) 0.07; Luc % (Auto) 1; Lymphocytes # (A) 0.2 k/uL (1.0-4.8); Lymphocytes % (A) 3 %; MCH 36.1 pg (25.0-35.0); MCHC 32.4 g/dL (31.0-37.0); MCV 111.4 fL (80.0-100.0); Macrocytosis Marked; Mean Platelet Volume 8.4; Monocytes # (A) 0.3 k/uL (0-1.0); Monocytes % (A) 5 %; Neutrophils # (A) 6.1 k/uL (1.3-7.7); Neutrophils % (A) 91 %; RBC 3.31 m/uL (4.30-5.90); RDW 17.4 % (11.5-15.5); WBC 6.7 k/uL (3.8-10.6); WBC (Perox) 6.88
[2017-01-17] MEDS ORDERED: RX INFO: IV CONTRAST WAS GIVEN 1 EACH MISC MISCELLANE PRN (21:21)
--- NOTE | 2017-01-17 21:21 | ED ---
General Adult HPI - General Chief complaint: Chest Pain Stated complaint: Chest Pain Time Seen by Provider: 01/17/17 20:43 Source: patient, family, RN notes reviewed, old records reviewed Mode of arrival: ambulatory Limitations: no limitations - History of Present Illness Initial comments: This is a 61-year-old male to the ER for evaluation today. Today's male presenting for evaluation of multiple complaints surrounding chest pain. Chest pain right arm pain elevated blood pressure. Patient has significant comorbid medical conditions. He has cancer with brain metastasis. Bleeding. History of PE. No fevers no cough or congestion abdominal pain. - Related Data Home Medications Medication Instructions Recorded Confirmed predniSONE 5 mg PO QAM 07/08/16 01/19/17 Albuterol Inhaler [Ventolin Hfa 1 - 2 puff INHALATION RT-QID PRN 01/17/17 Inhaler] Dexamethasone [Hexadrol] See Taper PO DAILY 01/17/17 01/19/17 Metoprolol Tartrate [Lopressor] 25 mg PO QAM 01/17/17 01/19/17 Tiotropium [place] [Spiriva 2 puff INHALATION RT-DAILY 01/17/17 01/19/17 Respimat] Vitamin B Complex 1 cap PO QAM 01/17/17 01/19/17 Previous Rx's Medication Instructions Recorded Acetaminophen Tab [Tylenol] 650 mg PO Q6HR PRN tab 12/16/16 HYDROcodone/APAP 7.5-325MG [[place] 1 tab PO Q6HR PRN #40 tab 12/16/16 7.5-325] Pantoprazole [Protonix] 40 mg PO AC-BRKFST #30 tab 12/16/16 Levofloxacin [Levaquin] 750 mg PO DAILY #7 tab 01/17/17 Allergies Allergy/AdvReac Type Severity Reaction Status Date / Time No Known Allergies Allergy Verified 01/17/17 21:10 Review of Systems ROS Statement: Those systems with pertinent positive or pertinent negative responses have been documented in the HPI. ROS Other: All systems not noted in ROS Statement are negative. Past Medical History Past Medical History: Asthma, Cancer, COPD, Pneumonia, Renal Disease Additional Past Medical History / Comment(s): R small cell lung cancer with chemo/radiation, pancytopenia, anemia, home O2, current shingelles R trigeminal nerve, HTN in the past, kidney stones in past. History of Any Multi-Drug Resistant Organisms: None Reported Past Surgical History: Hernia Repair Additional Past Surgical History / Comment(s): Bronchoscopy with bx, colonoscopy , bilateral hernia repair 2016, Past Anesthesia/Blood Transfusion Reactions: No Reported Reaction Past Psychological History: No Psychological Hx Reported Smoking Status: Former smoker - Past Family History Father Family Medical History: No Reported History General Exam Limitations: no limitations General appearance: alert, in no apparent distress Head exam: Present: atraumatic, normocephalic, normal inspection Eye exam: Present: normal appearance, PERRL, EOMI. Absent: scleral icterus, conjunctival injection, periorbital swelling ENT exam: Present: normal exam, mucous membranes moist Neck exam: Present: normal inspection. Absent: tenderness, meningismus, lymphadenopathy Respiratory exam: Present: normal lung sounds bilaterally. Absent: respiratory distress, wheezes, rales, rhonchi, stridor Cardiovascular Exam: Present: regular rate, normal rhythm, normal heart sounds. Absent: systolic murmur, diastolic murmur, rubs, gallop, clicks GI/Abdominal exam: Present: soft, normal bowel sounds. Absent: distended, tenderness, guarding, rebound, rigid Extremities exam: Present: normal inspection, full ROM, normal capillary refill. Absent: tenderness, pedal edema, joint swelling, calf tenderness Back exam: Present: normal inspection Neurological exam: Present: alert, oriented X3, CN II-XII intact Psychiatric exam: Present: normal affect, normal mood Skin exam: Present: warm, dry, intact, normal color. 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 ] Respiratory 24 24 Rate Blood Pressure 119/76 146/89 O2 Sat by Pulse 98 97 Oximetry 01/17/17 01/17/17 01/18/17 23:18 23:33 00:30 Temperature 98.6 F 97.7 F 97.9 F Pulse Rate 96 93 100 Pulse Rate [ Bilateral Signaling Project Engineer ] Respiratory 20 20 20 Rate Blood Pressure 162/94 171/95 155/78 O2 Sat by Pulse 98 99 98 Oximetry - Reevaluation(s) Reevaluation #1: At this time patient has adequate pain control EKG Findings - EKG Comments: EKG Findings:: EKG shows sinus tachycardia rate 110, [place] 140, QRS 92, QTC 408 Medical Decision Making - Medical Decision Making 58 female here for evaluation of multiple different complaints, patient well aware of medical condition, that this nothing new is affecting his issues. Would like to be discharged home - Lab Data Result diagrams: 01/17/17 21:00 01/17/17 21:00 Lab Results 01/17/17 01/17/17 01/17/17 Range/Units 21:00 21:00 21:00 WBC 6.7 (3.8-10.6) k/uL RBC 3.31 L (4.30-5.90) m/uL Hgb 12.0 L (13.0-17.5) gm/dL Hct 36.9 L (39.0-53.0) % MCV 111.4 H (80.0-100.0) fL MCH 36.1 H (25.0-35.0) pg MCHC 32.4 (31.0-37.0) g/dL RDW 17.4 H (11.5-15.5) % Plt Count 135 L D (150-450) k/uL Neutrophils % 91 % Lymphocytes % 3 % Monocytes % 5 % Eosinophils % 0 % Basophils % 0 % Neutrophils # 6.1 (1.3-7.7) k/uL Lymphocytes # 0.2 L (1.0-4.8) k/uL Monocytes # 0.3 (0-1.0) k/uL Eosinophils # 0.0 (0-0.7) k/uL Basophils # 0.0 (0-0.2) k/uL Anisocytosis Slight Macrocytosis Marked PT (9.0-12.0) sec INR (<1.2) APTT (22.0-30.0) sec Sodium 140 (137-145) mmol/L Potassium 4.9 (3.5-5.1) mmol/L Chloride 106 (98-107) mmol/L Carbon Dioxide 27 (22-30) mmol/L Anion Gap 7 mmol/L BUN 31 H (9-20) mg/dL Creatinine 0.90 (0.66-1.25) mg/dL Est GFR (MDRD) Af Amer >60 (>60 ml/min/1.73 sqM) Est GFR (MDRD) Non-Af >60 (>60 ml/min/1.73 sqM) Glucose 108 H (74-99) mg/dL Calcium 8.3 L (8.4-10.2) mg/dL Magnesium 1.8 (1.6-2.3) mg/dL Total Bilirubin 0.3 (0.2-1.3) mg/dL AST 27 (17-59) U/L ALT 53 (21-72) U/L Alkaline Phosphatase 94 (38-126) U/L Total Creatine Kinase (55-170) U/L CK-MB (CK-2) (0.0-2.4) ng/mL CK-MB (CK-2) Rel Index Troponin I (0.000-0.034) ng/mL NT-Pro-B Natriuret Pep 3010 pg/mL Total Protein 5.2 L (6.3-8.2) g/dL Albumin 2.8 L (3.5-5.0) g/dL Lipase 34 (23-300) U/L 01/17/17 01/17/17 Range/Units 21:00 21:00 WBC (3.8-10.6) k/uL RBC (4.30-5.90) m/uL Hgb (13.0-17.5) gm/dL Hct (39.0-53.0) % MCV (80.0-100.0) fL MCH (25.0-35.0) pg MCHC (31.0-37.0) g/dL RDW (11.5-15.5) % Plt Count (150-450) k/uL Neutrophils % % Lymphocytes % % Monocytes % % Eosinophils % % Basophils % % Neutrophils # (1.3-7.7) k/uL Lymphocytes # (1.0-4.8) k/uL Monocytes # (0-1.0) k/uL Eosinophils # (0-0.7) k/uL Basophils # (0-0.2) k/uL Anisocytosis Macrocytosis PT 9.5 (9.0-12.0) sec INR 0.9 (<1.2) APTT 25.0 (22.0-30.0) sec Sodium (137-145) mmol/L Potassium (3.5-5.1) mmol/L Chloride (98-107) mmol/L Carbon Dioxide (22-30) mmol/L Anion Gap mmol/L BUN (9-20) mg/dL Creatinine (0.66-1.25) mg/dL Est GFR (MDRD) Af Amer (>60 ml/min/1.73 sqM) Est GFR (MDRD) Non-Af (>60 ml/min/1.73 sqM) Glucose (74-99) mg/dL Calcium (8.4-10.2) mg/dL Magnesium (1.6-2.3) mg/dL Total Bilirubin (0.2-1.3) mg/dL AST (17-59) U/L ALT (21-72) U/L Alkaline Phosphatase (38-126) U/L Total Creatine Kinase <20 L (55-170) U/L CK-MB (CK-2) 4.3 H* (0.0-2.4) ng/mL CK-MB (CK-2) Rel Index 0.0 Troponin I 0.048 H* (0.000-0.034) ng/mL NT-Pro-B Natriuret Pep pg/mL Total Protein (6.3-8.2) g/dL Albumin (3.5-5.0) g/dL Lipase (23-300) U/L - Radiology Data Radiology results: report reviewed (CT brain shows increasingly brain metastases with edema and bleeding, CT chest is negative for PE or dissection), image reviewed Disposition Clinical Impression: Chest pain, Nosocomial pneumonia, Small cell lung cancer, COPD (chronic obstructive pulmonary disease), Lung mass Disposition: HOME SELF-CARE Condition: Fair Instructions: Community Acquired Pneumonia (ED) Prescriptions: Levofloxacin [Levaquin] 750 mg PO DAILY #7 tab Referrals: Zhane Cabrera MD [Primary Care Provider] - 1-2 days
[2017-01-17] MEDS ORDERED: MORPHINE SULFATE 4 MG/ML SYRINGE IVP STA (21:24)
[2017-01-17 21:25] LABS: ALT 53 U/L (21-72); AST 27 U/L (17-59); Alkaline Phosphatase 94 U/L (38-126); Anion Gap 7 mmol/L; Blood Urea Nitrogen 31 mg/dL (9-20); Calcium 8.3 mg/dL (8.4-10.2); Carbon Dioxide 27 mmol/L (22-30); Chloride 106 mmol/L (98-107); Glucose 108 mg/dL (74-99); Magnesium 1.8 mg/dL (1.6-2.3); Non-African American GFR(MDRD) >60 (>60 ml/min/1.73 sqM); Potassium 4.9 mmol/L (3.5-5.1); Sodium 140 mmol/L (137-145); Total Bilirubin 0.3 mg/dL (0.2-1.3); Total Protein 5.2 g/dL (6.3-8.2)
--- NOTE | 2017-01-17 21:32 | XR ---
EXAMINATION TYPE: XR chest 2V DATE OF EXAM: 01/17/2017 COMPARISON: December 18, 2016. HISTORY: Chest pain TECHNIQUE: Frontal and lateral views of the chest are obtained. FINDINGS: Postop Leonarda changes are noted with the largest at the left lung base. There is a Mediport noted with the tip in the SVC. There is nodular density in the peripheral lower lobe suggests a nipp le shadow. Known right upper lobe pulmonary nodule is not well identified. There are multiple metalli c foci overlying the left humerus which are stable. There is a new airspace opacity in the right uppe r lobe adjacent to the Mediport. There is no pneumothorax. There is a new small right-sided pleural e ffusion. IMPRESSION: Pneumonia in the right upper lobe which is new. There is also a new small right-sided pleural effusion.
[2017-01-17 21:34] LABS: Creatine Kinase <20 U/L (55-170)
[2017-01-17 21:38] LABS: INR 0.9 (<1.2); Prothrombin Time 9.5 sec (9.0-12.0)
[2017-01-17 21:49] LABS: Creatine Kinase MB 4.3 ng/mL (0.0-2.4); Troponin I 0.048 ng/mL (0.000-0.034)
--- NOTE | 2017-01-17 22:54 | CT ---
ADDENDUM - Added by Eyal Cannon M.D. on 01/17/2017 10:59 PM (-07:00) DLP should read: 1141.8 mGy-cm. EXAM: CT Head Without Intravenous Contrast CLINICAL HISTORY: Reason: Pain TECHNIQUE: Axial computed tomography images of the head/brain without intravenous contrast. DLP is 1160.8 mGy-cm. This CT exam was performed using one or more of the following dose reduction techniques: automated exposure control, adjustment of the mA and/or kV according to patient size, and/or use of iterative reconstruction technique. COMPARISON: 12/19/16 FINDINGS: Again noted are areas of increased density with surrounding edema in the right frontal and temporal lobes. Findings are more prominent than previous exam, both in terms of hyperdense foci and edema. Leading differential is metastatic disease. Hyperdensity to presumed metastatic foci may indicate hemorrhagic metastases. IMPRESSION: Findings suggest worsening metastatic disease in the right frontal and temporal lobes with possible hemorrhagic metastases and associated edema. Consider MRI follow-up, as indicated.
--- NOTE | 2017-01-17 23:19 | CT ---
EXAM: CT Angiography Chest With Intravenous Contrast CLINICAL HISTORY: Reason: Pain TECHNIQUE: Axial computed tomographic angiography images of the chest with intravenous contrast using pulmonary embolism protocol. DLP is 533.95 mGy-cm. This CT exam was performed using one or more of the following dose reduction techniques: automated exposure control, adjustment of the mA and/or kV according to patient size, and/or use of iterative reconstruction technique. MIP reconstructed images were created and reviewed. Coronal and sagittal reformatted images were created and reviewed. COMPARISON: 12/18/16 FINDINGS: There is artifact limiting evaluation for small peripheral PE. No central PE. Small right pleural effusion slightly increased in size compared to prior. Right upper lobe nodule stable. There is increasing right lung opacity in the right upper lobe. Some of this may represent infiltrate though suggest follow-up to resolution. Underlying nodules/mass not excluded. Emphysematous changes. Areas of scarring and atelectasis. Port. Nonobstructive right renal stone. Right adrenal hyperplasia with questionable mild nodularity. Hyperplasia and nodularity to the left adrenal gland. Stable mild compression of T6. Suspected liver cyst. IMPRESSION: Limited for peripheral PE. No evidence for acute central PE. Worsening right upper lobe opacity. Component of infiltrate not excluded though follow-up to resolution is recommended. Underlying nodules and/or mass not excluded. Slight increase in small right pleural effusion. Nonobstructive right renal stone, adrenal nodularity/hyperplasia and other findings, as above.
[2017-01-17 23:21] VITALS: RESP 20
[2017-01-17] MEDS ORDERED: IPRATROPIUM-ALBUTEROL 3 ML NEB INHALATION PRN (23:35)
[2017-01-17] MEDS ORDERED: LEVOFLOXACIN 750MG-D5W PMX 750 MG in DEXTROSE/WATER 1 150ML.BAG IVPB STA (23:35)
[2017-01-17] MEDS ORDERED: PIPERACILLIN-TAZOBACTAM 3.375 GM in DEXTROSE/WATER 1 50ML.BAG IVPB STA (23:35)
[2017-01-17] MEDS ORDERED: PNEUMONIA PROTOCOL UTILIZED 1 EACH MISC PO PRN (23:35)
[2017-01-17] MEDS ORDERED: LEVOFLOXACIN 750 MG TAB PO STA (23:41)
[2017-01-17] MEDS ORDERED: SODIUM CHLORIDE 0.9% 1,000 ML IV SCH (23:45)
[2017-01-18] MEDS ORDERED: PIPERACILLIN-TAZOBACTAM 3.375 GM in DEXTROSE/WATER 1 50ML.BAG IVPB SCH
[2017-01-18 00:31] VITALS: BP 155/78; PULSE 100; TEMP 97.9
[2017-01-18] MEDS ORDERED: LEVOFLOXACIN 750MG-D5W PMX 750 MG in DEXTROSE/WATER 1 150ML.BAG IVPB SCH (23:37)
== END 2017-01-18 00:31 | disposition home or self-care (01) ==
LOC: EC 20:34
DX: R07.9 Chest pain, unspecified (principal); J44.0 Chronic obstructive pulmonary disease with (acute) lower respiratory infection; J18.9 Pneumonia, unspecified organism; Y95 Nosocomial condition; R91.8 Other nonspecific abnormal finding of lung field; I10 Essential (primary) hypertension; Z87.891 Personal history of nicotine dependence; Z85.118 Personal history of other malignant neoplasm of bronchus and lung; Z53.8 Procedure and treatment not carried out for other reasons; Z79.51 Long term (current) use of inhaled steroids; Z79.52 Long term (current) use of systemic steroids; Z79.899 Other long term (current) drug therapy
CPT/HCPCS: 99285; 96374; 96361 ×3; 36415; 93005; 83880; 80053; 82550; 82553; 83690; 83735; 84484; 85025; 85610; 85730; 71020; 70450; 71275; J2270; Q9967

== ENCOUNTER 2017-01-19 02:53 | Inpatient (IN) | payer BC ==
[2017-01-19] MEDS ORDERED: HYDROmorphone 1 MG/ML 1 ML SYRINGE IVP STA ×2 (03:19→05:48)
--- NOTE | 2017-01-19 03:22 | ED ---
General Adult HPI - General Chief complaint: Chest Pain Stated complaint: CHEST PAIN Time Seen by Provider: 01/19/17 03:00 Source: patient, family, EMS Mode of arrival: EMS Limitations: no limitations - History of Present Illness Initial comments: Patient is a pleasant 61-year-old male presenting to the emergency department complaining of chest discomfort. Patient has had symptoms for some time. Discomfort started getting worse several days ago. Patient does have a history of right-sided lung cancer and was told discomfort would increase following radiation. Patient has undergone chemotherapy and radiation to the chest. Patient was then found to have brain lesions with bleeding and did undergo radiation to the brain as well. Discomfort is right lower chest and does radiate up to the shoulder. Patient states discomfort does increase with movement. Patient does feel somewhat short of breath however this is chronic and mild. No fever. - Related Data Home Medications Medication Instructions Recorded Confirmed predniSONE 5 mg PO QAM 07/08/16 01/19/17 Albuterol Inhaler [Ventolin Hfa 1 - 2 puff INHALATION RT-QID PRN 01/17/17 Inhaler] Dexamethasone [Hexadrol] See Taper PO DAILY 01/17/17 01/19/17 Metoprolol Tartrate [Lopressor] 25 mg PO QAM 01/17/17 01/19/17 Tiotropium [place] [Spiriva 2 puff INHALATION RT-DAILY 01/17/17 01/19/17 Respimat] Vitamin B Complex 1 cap PO QAM 01/17/17 01/19/17 Previous Rx's Medication Instructions Recorded Acetaminophen Tab [Tylenol] 650 mg PO Q6HR PRN tab 12/16/16 HYDROcodone/APAP 7.5-325MG [[place] 1 tab PO Q6HR PRN #40 tab 12/16/16 7.5-325] Pantoprazole [Protonix] 40 mg PO AC-BRKFST #30 tab 12/16/16 Levofloxacin [Levaquin] 750 mg PO DAILY #7 tab 01/17/17 Allergies Allergy/AdvReac Type Severity Reaction Status Date / Time No Known Allergies Allergy Verified 01/17/17 21:10 Review of Systems ROS Statement: Those systems with pertinent positive or pertinent negative responses have been documented in the HPI. ROS Other: All systems not noted in ROS Statement are negative. Constitutional: Denies: fever Eyes: Denies: eye pain ENT: Denies: ear pain Respiratory: Denies: cough Cardiovascular: Reports: chest pain Endocrine: Denies: fatigue Gastrointestinal: Denies: abdominal pain Genitourinary: Denies: urgency Musculoskeletal: Denies: back pain Skin: Denies: rash Neurological: Denies: weakness Past Medical History Past Medical History: Asthma, Cancer, COPD, Pneumonia, Renal Disease Additional Past Medical History / Comment(s): R small cell lung cancer with chemo/radiation with mets to the brain, pancytopenia, anemia, home O2, shingles 12/2016. trigeminal nerve, HTN in the past, kidney stones in past. History of Any Multi-Drug Resistant Organisms: None Reported Past Surgical History: Hernia Repair Additional Past Surgical History / Comment(s): Bronchoscopy with bx, colonoscopy , bilateral hernia repair 2015, Past Anesthesia/Blood Transfusion Reactions: No Reported Reaction Past Psychological History: No Psychological Hx Reported Smoking Status: Former smoker Past Alcohol Use History: None Reported Past Drug Use History: None Reported - Past Family History Father Family Medical History: No Reported History General Exam Limitations: no limitations General appearance: alert, in no apparent distress Head exam: Present: atraumatic Eye exam: Present: normal appearance, PERRL ENT exam: Present: normal oropharynx Neck exam: Present: normal inspection. Absent: tenderness Respiratory exam: Present: normal lung sounds bilaterally. Absent: chest wall tenderness Cardiovascular Exam: Present: regular rate, normal rhythm Expanded Peripheral pulses: 2+: Radial (R), Radial (L) GI/Abdominal exam: Present: soft. Absent: tenderness Extremities exam: Present: normal inspection, full ROM. Absent: tenderness Back exam: Present: normal inspection Neurological exam: Present: alert Psychiatric exam: Present: normal affect, normal mood Skin exam: Present: normal color Course Vital Signs 01/19/17 01/19/17 01/19/17 02:57 03:19 05:13 Temperature 97.2 F L Pulse Rate 101 H 105 H Respiratory 20 20 22 Rate Blood Pressure 172/96 O2 Sat by Pulse 97 96 Oximetry 01/19/17 06:27 Temperature Pulse Rate 104 H Respiratory 20 Rate Blood Pressure 180/98 O2 Sat by Pulse 98 Oximetry - Reevaluation(s) Reevaluation #1: 01/19/17 06:53 Patient was reevaluated and updated. Dr. Perez has been paged for admission. Patient does meet sepsis criteria diagnosed at 442 AM. IV antibiotics have been started. 01/19/17 06:56 Case was discussed with Dr. Booth, who will admit for Dr. Cabrera EKG Findings - EKG Comments: EKG Findings:: Sinus tachycardia 112. NE 120. QRS 72. QT 290. QTC 395. Normal axis. Normal QRS. Nonspecific T waves. Medical Decision Making - Lab Data Result diagrams: 01/19/17 05:16 01/19/17 05:16 Lab Results 01/19/17 01/19/17 01/19/17 Range/Units 05:16 05:16 05:16 WBC 2.5 L (3.8-10.6) k/uL RBC 3.33 L (4.30-5.90) m/uL Hgb 11.9 L (13.0-17.5) gm/dL Hct 36.4 L (39.0-53.0) % MCV 109.4 H (80.0-100.0) fL MCH 35.6 H (25.0-35.0) pg MCHC 32.6 (31.0-37.0) g/dL RDW 17.1 H (11.5-15.5) % Plt Count 136 L (150-450) k/uL Neutrophils % (Manual) 89 % Band Neutrophils % 6.0 % Lymphocytes % (Manual) 2 % Monocytes % (Manual) 3 % Neutrophils # (Manual) 2.37 (1.3-7.7) k/uL Lymphocytes # (Manual) 0.05 L (1.0-4.8) k/uL Monocytes # (Manual) 0.08 (0-1.0) k/uL Nucleated RBCs 0 (0-0) /100 WBC Manual Slide Review Performed Anisocytosis Slight Macrocytosis Marked PT (9.0-12.0) sec INR (<1.2) APTT (22.0-30.0) sec Sodium 133 L (137-145) mmol/L Potassium 4.6 (3.5-5.1) mmol/L Chloride 100 (98-107) mmol/L Carbon Dioxide 26 (22-30) mmol/L Anion Gap 7 mmol/L BUN 22 H (9-20) mg/dL Creatinine 0.80 (0.66-1.25) mg/dL Est GFR (MDRD) Af Amer >60 (>60 ml/min/1.73 sqM) Est GFR (MDRD) Non-Af >60 (>60 ml/min/1.73 sqM) Glucose 119 H (74-99) mg/dL Plasma Lactic Acid [place] (0.7-2.0) mmol/L Calcium 8.5 (8.4-10.2) mg/dL Total Bilirubin 0.4 (0.2-1.3) mg/dL AST 19 (17-59) U/L ALT 50 (21-72) U/L Alkaline Phosphatase 95 (38-126) U/L Total Creatine Kinase <20 L (55-170) U/L CK-MB (CK-2) 3.0 H* (0.0-2.4) ng/mL CK-MB (CK-2) Rel Index 0.0 Troponin I 0.016 (0.000-0.034) ng/mL Total Protein 5.2 L (6.3-8.2) g/dL Albumin 2.7 L (3.5-5.0) g/dL 01/19/17 01/19/17 Range/Units 05:16 05:16 WBC (3.8-10.6) k/uL RBC (4.30-5.90) m/uL Hgb (13.0-17.5) gm/dL Hct (39.0-53.0) % MCV (80.0-100.0) fL MCH (25.0-35.0) pg MCHC (31.0-37.0) g/dL RDW (11.5-15.5) % Plt Count (150-450) k/uL Neutrophils % (Manual) % Band Neutrophils % % Lymphocytes % (Manual) % Monocytes % (Manual) % Neutrophils # (Manual) (1.3-7.7) k/uL Lymphocytes # (Manual) (1.0-4.8) k/uL Monocytes # (Manual) (0-1.0) k/uL Nucleated RBCs (0-0) /100 WBC Manual Slide Review Anisocytosis Macrocytosis PT 10.1 (9.0-12.0) sec INR 1.0 (<1.2) APTT 28.0 (22.0-30.0) sec Sodium (137-145) mmol/L Potassium (3.5-5.1) mmol/L Chloride (98-107) mmol/L Carbon Dioxide (22-30) mmol/L Anion Gap mmol/L BUN (9-20) mg/dL Creatinine (0.66-1.25) mg/dL Est GFR (MDRD) Af Amer (>60 ml/min/1.73 sqM) Est GFR (MDRD) Non-Af (>60 ml/min/1.73 sqM) Glucose (74-99) mg/dL Plasma Lactic Acid [place] 1.3 (0.7-2.0) mmol/L Calcium (8.4-10.2) mg/dL Total Bilirubin (0.2-1.3) mg/dL AST (17-59) U/L ALT (21-72) U/L Alkaline Phosphatase (38-126) U/L Total Creatine Kinase (55-170) U/L CK-MB (CK-2) (0.0-2.4) ng/mL CK-MB (CK-2) Rel Index Troponin I (0.000-0.034) ng/mL Total Protein (6.3-8.2) g/dL Albumin (3.5-5.0) g/dL - Radiology Data Radiology results: image reviewed (Chest x-ray does show increased opacification right upper lobe and somewhat right lower lobe suggestive of worsening consolidation.) Critical Care Time Critical Care Time: Yes Total Critical Care Time: 33 Disposition Clinical Impression: Pneumonia, Sepsis Disposition: ADMITTED IP TO THIS [facility] Condition: Serious Referrals: Zhane Cabrera MD [Primary Care Provider] - 1-2 days Decision Time: 06:57
[2017-01-19] MEDS ORDERED: LEVOFLOXACIN 750MG-D5W PMX 750 MG in DEXTROSE/WATER 1 150ML.BAG IVPB STA (04:43)
[2017-01-19] MEDS ORDERED: PIPERACILLIN-TAZOBACTAM 3.375 GM in DEXTROSE/WATER 1 50ML.BAG IVPB STA (04:43)
[2017-01-19] MEDS: SODIUM CHLORIDE 0.9% 500 ML IV SCH ×2 (05:32→06:21)
[2017-01-19 05:42] LABS: Anisocytosis Slight; CH 36.6; CHCM 33.5; HCT 36.4 % (39.0-53.0); HDW 2.47; HGB 11.9 gm/dL (13.0-17.5); Immature Gran Flag Marked; MCH 35.6 pg (25.0-35.0); MCHC 32.6 g/dL (31.0-37.0); MCV 109.4 fL (80.0-100.0); Macrocytosis Marked; Mean Platelet Volume 7.7; RBC 3.33 m/uL (4.30-5.90); RDW 17.1 % (11.5-15.5); WBC 2.5 k/uL (3.8-10.6); WBC (Perox) 2.63
--- NOTE | 2017-01-19 05:47 | XR ---
CXR 2 Views INDICATION: chest pain COMPARISON: Chest radiograph 01/17/17, CT Chest 01/17/17 FINDINGS: AP and lateral views of the chest. There is a right chest nazia cath device with tip in the region of the mid SVC. There are overlying leads limiting evaluation. Again seen is nonspecific small densities in the left axillary/proximal humerus region. The cardiomediastinal silhouette is unchanged. There is increased opacification of the right mid to upper lung field. There is an additionally increasing opacity in the right lower lung field. There suggestion of a right pleural effusion. Increased lucency of the left mid to lower lung field may be related to the large pneumatoceles. Additional scattered lucencies likely related to emphysematous changes. There is flattening of the left hemidiaphragm. There is a tubular structure projecting over the left medial chest. Please correlate with physical examination. Osseous structures are grossly unchanged. There is suggestion of height loss of the mid thoracic vertebral bodies. IMPRESSION: There is increased opacification of the right mid to upper lung field as well as opacification of the right lower lung field suggestive of worsening consolidation/pneumonia. There is a small right pleural effusion.
[2017-01-19 05:50] LABS: Prothrombin Time 10.1 sec (9.0-12.0)
[2017-01-19 05:59] LABS: ALT 50 U/L (21-72); AST 19 U/L (17-59); Alkaline Phosphatase 95 U/L (38-126); Anion Gap 7 mmol/L; Blood Urea Nitrogen 22 mg/dL (9-20); Calcium 8.5 mg/dL (8.4-10.2); Carbon Dioxide 26 mmol/L (22-30); Chloride 100 mmol/L (98-107); Glucose 119 mg/dL (74-99); Non-African American GFR(MDRD) >60 (>60 ml/min/1.73 sqM); Potassium 4.6 mmol/L (3.5-5.1); Sodium 133 mmol/L (137-145); Total Bilirubin 0.4 mg/dL (0.2-1.3); Total Protein 5.2 g/dL (6.3-8.2)
[2017-01-19 06:01] LABS: Creatine Kinase <20 U/L (55-170)
[2017-01-19 06:15] LABS: Troponin I 0.016 ng/mL (0.000-0.034)
[2017-01-19 06:25] LABS: Add Differential Manual Differential
[2017-01-19 06:28] LABS: Manual Review Performed; Nucleated Red Blood Cells 0 /100 WBC (0-0); Total Cells Counted 100
[2017-01-19] MEDS ORDERED: PNEUMONIA PROTOCOL UTILIZED 1 EACH MISC PO PRN (06:59)
[2017-01-19] MEDS: SODIUM CHLORIDE 0.9% 1,000 ML IV SCH ×2 (07:10→16:33)
[2017-01-19 08:34] LABS: ABG HCO3 22 mmol/L (21-25); ABG PCO2 42 mmHg (35-45); ABG PH 7.33 (7.35-7.45); ABG PO2 54 mmHg (83-108); ABG TCO2 23 mmol/L (19-24)
[2017-01-19 08:35] LABS: ABG Base Excess -3.1 mmol/L
[2017-01-19] MEDS ORDERED: RX INFO: IV CONTRAST WAS GIVEN 1 EACH MISC MISCELLANE PRN (08:51)
[2017-01-19] MEDS ORDERED: ADENOSINE 3 MG/ML 2 ML VIAL IVP STA ×2 (09:03)
[2017-01-19] MEDS ORDERED: LORazepam 2 MG/ML SYRINGE IV STA (09:24)
[2017-01-19] MEDS ORDERED: DILTIAZEM 5 MG/ML 5 ML VIAL IVP STA (09:26)
[2017-01-19] MEDS: DILTIAZEM 125 MG in SODIUM CHLORIDE 0.9% 100 ML IV SCH ×3 (09:42→21:05)
[2017-01-19 09:57] LABS: Appearance,Urine Clear (Clear); Bilirubin,Urine Negative (Negative); Glucose,Urine (UA) Trace (Negative); Granular Casts,Urine 1 /lpf (0); Ketones,Urine Negative (Negative); Leukocyte Esterase,Urine Negative (Negative); Mucus,Urine Rare /hpf; Nitrite,Urine Negative (Negative); PH, Urine 5.5 (5.0-8.0); Particle Count 4174; Protein,Urine 1+ (Negative); RBC,Urine 1 /hpf (0-5); Specific Gravity,Urine 1.022 (1.001-1.035); Squamous Epithelial Cell,Urine <1 /hpf (0-4); UA Billing (MACRO vs. MICRO) MICRO; Urobilinogen,Urine <2.0 mg/dL (<2.0); WBC,Urine 1 /hpf (0-5)
--- NOTE | 2017-01-19 11:00 | CT ---
EXAMINATION TYPE: CT angio chest DATE OF EXAM: 01/19/2017 COMPARISON: 01/17/2017 HISTORY: 61-year-old male with pneumonia and sepsis TECHNIQUE: Contiguous axial scanning of the chest performed with IV Contrast, patient injected with 1 00 mL of Omnipaque 350. Coronal/sagittal MIP reconstructions performed. CT DLP: 638.55 mGycm Automated exposure control for dose reduction was used. FINDINGS: Right anterior chest wall and port catheter tip likely in the lower SVC. The heart is normal size without pericardial effusion. No flattening of the interventricular septum t chung there is mild reflux into the hepatic veins. Aorta is normal caliber with conventional branching anatomy. Satisfactory opacification of the pulmonary system. There is prominent basilar respiratory motion li miting assessment of the segmental and subsegmental branches of the lower lungs. No large central or visualized pulmonary embolus in the upper to mid lungs. No thoracic lymphadenopathy identified. There is bullous emphysema with some panlobular emphysema at the lung bases well. Increasing small right pleural effusion with increasing patchy and confluent consolidation throughout the right upper lobe especially dependently and also dependently within the basilar right lower lobe . Some layering secretions or debris were noted within the right bronchus intermedius, axial image 66. Focal irregular opacity measures 2.1 x 1.1 cm at the basilar right lower lobe axial image 118 that sh ould be reassessed at follow-up. Stable mild thickening of the adrenal glands without discrete nodularity. Redemonstrated 4 mm nonobst ructive right renal calculus. Bones: No osseous destructive process. IMPRESSION: 1. MODERATE TO SEVERE BULLOUS EMPHYSEMA WITH WORSENING PATCHY AND CONFLUENT RIGHT UPPER LOBE CONSOLID ATION. INCREASING SMALL RIGHT PLEURAL EFFUSION WITH DEPENDENT CONSOLIDATION AT THE RIGHT BASE WELL . WORSENING PNEUMONIA SHOULD BE CONSIDERED. GIVEN SOME LAYERING SECRETIONS/DEBRIS IN THE RIGHT-SIDED AIRWAY, ASPIRATION PNEUMONITIS IS AN ADDITIONAL CONSIDERATION. 2. PROMINENT RESPIRATORY MOTION ARTIFACTS IN THE LOWER LUNGS. THERE IS NO LARGE CENTRAL PULMONARY EMB OLUS OR EMBOLUS IN THE UPPER TO MID LUNGS. MOST OF THE SEGMENTAL AND SUBSEGMENTAL LOWER LUNG BRANCHES ARE NONDIAGNOSTIC AND EMBOLI IN THESE LOCATIONS CANNOT BE EXCLUDED ON THE BASIS OF THIS EXAM. 3. SIX-MONTH FOLLOW-UP RECOMMENDED FOR A 2.1 CM FOCAL DENSITY AT THE RIGHT BASE TO EXCLUDE AN EARLY M ASS.
[2017-01-19 13:47] LABS: Glucose,Whole Blood 132 mg/dL (75-99)
[2017-01-19] MEDS ORDERED: IV VANCOMYCIN PER PHARMACY 1 EACH MISC MISCELLANE PRN (14:30)
[2017-01-19] MEDS ORDERED: VANCOMYCIN 1,500 MG in SODIUM CHLORIDE 0.9% 250 ML IVPB ONE (15:00)
--- NOTE | 2017-01-19 15:03 | P.CNPUL ---
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 Patient's diagnosis of small cell lung cancer was made back in July of 2016, and this was established via bronchoscopy and transtracheal needle aspiration done by Dr. Nava. Patient presented initially with a right upper lobe nodule and mediastinal as well as pretracheal lymphadenopathy. Since the diagnosis was made, patient received chemotherapy and radiation therapy by Dr. Oates, and recently he was discovered to have brain metastasis, patient finished whole brain radiation treatment with Dr. Hutchins. Patient was also diagnosed as having small pulmonary emboli during his last admission were in he presented with pancytopenia and intractable nausea and vomiting. Anticoagulation therapy was not recommended because of his brain metastasis and fear of bleeding while on anticoagulation therapy in the brain. At any rate since then the patient has been seen by different consultants including oncology, radiation oncology, and I saw him in the office few weeks ago recommended that he remains on prednisone for possible radiation pneumonitis. Patient has been on multiple bronchodilators for his underlying COPD/emphysema. Patient presented to the ER last night with mostly symptoms of chest discomfort, pain in the right side of the chest, pain in his right shoulder, radiation of the pain to the right upper extremity, and numbness in the hand and fingers noted. Patient was also noted to be relatively hypoxic, and he was in supraventricular tachycardia/atrial fibrillation with RVR. Seen by cardiology while in the ER, placed on Cardizem drip and given Cardizem bolus. Presently patient seems to be in sinus tachycardia rate of 127/m.. CT of the chest was ordered , and it showed moderate severe bullous emphysema with worsening patchy and confluent right upper lobe consolidation and small right pleural effusion and consolidation of the right base worsening airspace disease and worsening pneumonitis. No evidence of pulmonary embolism was noted. There was also a 2.1 cm focal density at the right base suspicious for malignancy. ABG in the ER showed a pO2 of 54 pCO2 of 42 pH of 7.33 and this was on 6 L nasal cannula. Lactic acid was 1.3. Patient was noted to be hypertensive, no episodes of hypotension in spite of his supraventricular tachycardia. Patient was placed on a nonrebreather mask, admitted to the intensive care unit, and I recommended high-dose of Solu-Cortef, antibiotics in the form of Levaquin and vancomycin, bronchodilators in the form of DuoNeb updrafts and the patient will be placed on GI and DVT prophylaxis. I had a long discussion with the patient and his regarding CODE STATUS, he seems and his seems to be inclined to make him DO NOT RESUSCITATE CODE STATUS, and I explained to both the overall picture and the fact that he has a terminal illness, prognosis in the extermination inspector is extremely poor and guarded. Decision regarding CODE STATUS is yet to be decided upon. In the meantime the patient will remain on nonrebreather mask, and all orders were placed on the chart. Review of Systems Constitutional: No fever, no chills, positive weight loss, poor appetite. HEENT: Negative. Pulmonary: As noted in the HPI. Cardiac: As noted in HPI. GI: Recent episode of gastroparesis and intractable nausea and vomiting, resolved. Genitourinary: No dysuria, no frequency, no urgency, no hematuria. [place] skeletal: Right-sided chest wall pain, right shoulder pain, right arm pain , numbness in hands and fingers. Hematologic: Recent history of pancytopenia related to chemotherapy. History of thrombolic embolic disease. Neurologic: History of metastatic small cell carcinoma to the brain, status post whole brain radiation treatment. Psychiatric: No symptoms of active depression. Past Medical History Past Medical History: Asthma, Cancer, COPD, Hypertension, Pneumonia, Renal Disease Additional Past Medical History / Comment(s): Pt recently admitted to [facility] on with Pulmonary embolism, AMS, confusion, intractable nausea/vomiting, shingelles R trigeminal nerve-now healed. Other hx: R small cell lung cancer with chemo/radiation with mets to the brain with brain radiation, pancytopenia, gastroparesis, chronic anemia, home O2 at 5L/NC ATC, , shingles . trigeminal nerve, HTN in the past, kidney stones in past. PT AND SPOUSE DO NOT WANT PT RECEIVING NEBULIZER TX "BAD AFFECT." History of Any Multi-Drug Resistant Organisms: None Reported Past Surgical History: Hernia Repair Additional Past Surgical History / Comment(s): Bronchoscopy with bx, colonoscopy , bilateral hernia repair 2016, Past Anesthesia/Blood Transfusion Reactions: No Reported Reaction Smoking Status: Former smoker - Past Family History Father Family Medical History: Congestive Heart Failure (CHF) Additional Family Medical History / Comment(s): Father at the age of 82 yrs with CHF. Mother Family Medical History: COPD Medications and Allergies Home Medications Medication Instructions Recorded Confirmed Type predniSONE 5 mg PO QAM 07/08/16 01/19/17 History Albuterol Inhaler [Ventolin Hfa 1 - 2 puff INHALATION RT-QID PRN 01/17/17 History Inhaler] Dexamethasone [Hexadrol] See Taper PO DAILY 01/17/17 01/19/17 History Metoprolol Tartrate [Lopressor] 25 mg PO QAM 01/17/17 01/19/17 History Tiotropium [place] [Spiriva 2 puff INHALATION RT-DAILY 01/17/17 01/19/17 History Respimat] Vitamin B Complex 1 cap PO QAM 01/17/17 01/19/17 History Allergies Allergy/AdvReac Type Severity Reaction Status Date / Time No Known Allergies Allergy Verified 01/17/17 21:10 Physical Exam Vitals: Vital Signs Temp Pulse Resp BP Pulse Ox 01/19/17 12:49 127 H 36 H 138/77 91 L 01/19/17 12:12 137 H 20 161/79 90 L 01/19/17 11:15 98.1 F 129 H 24 149/82 92 L 01/19/17 10:36 131 H 22 147/75 97 01/19/17 09:26 160 H 22 165/88 94 L 01/19/17 08:35 182 H 92 L 01/19/17 08:03 170 H 87 L 01/19/17 07:29 117 H 20 173/91 95 01/19/17 06:27 104 H 20 180/98 98 01/19/17 05:13 105 H 22 172/96 96 01/19/17 03:19 20 01/19/17 02:57 97.2 F L 101 H 20 97 Intake and Output 01/18/17 01/19/17 01/19/17 22:59 06:59 14:59 Intake Total 12.25 Balance 12.25 Intake: Intake, IV Titration 12.25 Amount Diltiazem 125 mg In 12.25 Sodium Chloride 0.9% 100 ml @ 5 MG/HR 5 mls/hr IV .Q24H [facility] Rx#:[id number] Other: Weight 61.235 kg Physical Exam: Revealed a 61-year-old white male in moderate respiratory distress presently on non-rebreather mask noted to be slightly anxious. HEENT:[Neck is supple.] [No neck masses.] [No thyromegaly.] [No JVD.] Chest: [Diminished breath sound bilaterally crackles and rhonchi and wheezing noted on the right side.] Cardiac Exam: Tachycardic [Normal S1 and S2, no S3 gallop, no murmur.] Abdomen: [Soft, nontender, no megaly, no rebound, no guarding, normal bowel sounds.] Extremities: [Mild clubbing, no edema, no cyanosis.] Neurological Exam: [No focal neurologic deficit.] Results - Laboratory Findings CBC and BMP: 01/19/17 05:16 01/19/17 05:16 ABG ABG pH 7.33 (7.35-7.45) L 01/19/17 08:21 ABG pCO2 42 mmHg (35-45) 01/19/17 08:21 ABG pO2 54 mmHg (83-108) L 01/19/17 08:21 ABG O2 Saturation 85.0 % (94-97) L 01/19/17 08:21 PT/INR, D-dimer PT 10.1 sec (9.0-12.0) 01/19/17 05:16 INR 1.0 (<1.2) 01/19/17 05:16 Abnormal lab findings: Abnormal Labs 01/19/17 01/19/17 01/19/17 05:16 05:16 05:16 WBC 2.5 L RBC 3.33 L Hgb 11.9 L Hct 36.4 L MCV 109.4 H MCH 35.6 H RDW 17.1 H Plt Count 136 L Lymphocytes # (Manual) 0.05 L ABG pH ABG pO2 ABG O2 Saturation Sodium 133 L BUN 22 H Glucose 119 H POC Glucose (mg/dL) Total Creatine Kinase <20 L CK-MB (CK-2) 3.0 H* Total Protein 5.2 L Albumin 2.7 L Urine Protein Urine Glucose (UA) Hyaline Casts Urine Mucus 01/19/17 01/19/17 01/19/17 07:55 08:21 13:45 WBC RBC Hgb Hct MCV MCH RDW Plt Count Lymphocytes # (Manual) ABG pH 7.33 L ABG pO2 54 L ABG O2 Saturation 85.0 L Sodium BUN Glucose POC Glucose (mg/dL) 132 H Total Creatine Kinase CK-MB (CK-2) Total Protein Albumin Urine Protein 1+ H Urine Glucose (UA) Trace H Hyaline Casts 3 H Urine Mucus Rare H - Diagnostic Findings Chest x-ray: image reviewed (Please refer to my dictation in the history of the present illness) CT scan - chest: image reviewed Assessment and Plan Plan: Impression: 1 Acute hypoxic respiratory failure, multifactorial secondary to severe COPD exacerbation, right sided small cell lung cancer, pneumonia, possible radiation pneumonitis involving the right lung. 2 possible sepsis, primary source is the right lung pneumonia. 3 atrial fibrillation with RVR, patient remains on Cardizem drip, rate seems to be better controlled. 4 history of severe bullous emphysema with acute exacerbation 5 acute radiation pneumonitis, patient finished his radiation treatment in October of 2016. 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 7 history of pulmonary embolism, patient is not on anticoagulation therapy because of risk of bleeding into the central nervous system. 8 history of shingles, treated and responded well to treatment. Recommendation: Patient will be treated with antibiotics, high doses of steroids , bronchodilators, high FiO2/oxygen, will place on GI and DVT prophylaxis, we' ll follow closely. Discussed his condition with him and his at bedside, also discussed the CODE STATUS, both are inclined to consider DO NOT RESUSCITATE CODE STATUS, but final decision is yet to be made. Overall prognosis is definitely poor and guarded. We'll continue to follow. Time with Patient: Greater than 30
[2017-01-19] MEDS: IPRATROPIUM-ALBUTEROL 3 ML NEB INHALATION SCH ×2 (15:52→20:18)
[2017-01-19] MEDS: PANTOPRAZOLE 40 MG/10 ML VIAL IVP SCH (16:20)
[2017-01-19] MEDS: HYDROCORTISONE SUCCINATE 100 MG/2 ML VIAL IV SCH ×2 (16:21→23:25)
[2017-01-19] MEDS: PIPERACILLIN-TAZOBACTAM 3.375 GM in DEXTROSE/WATER 1 50ML.BAG IVPB SCH (16:22)
[2017-01-19 16:45] LABS: Glucose,Whole Blood 109 mg/dL (75-99)
[2017-01-19] MEDS: INSULIN LISPRO (humaLOG) 300 UNIT/3 ML VIAL SQ SCH ×2 (16:46→20:27)
[2017-01-19] MEDS: LORazepam 2 MG/ML SYRINGE IV PRN (16:48)
[2017-01-19 20:30] LABS: Glucose,Whole Blood 106 mg/dL (75-99)
--- NOTE | 2017-01-19 20:33 | P.HPIM ---
History of Present Illness H&P Date: 01/19/17 Chief Complaint: Shortness breath increasing cough 61-year-old male one of Dr. Cabrera's doctor Sarah Oates radiation oncologist Dr. 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 Anticoagulation was not recommended at that time secondary to brain with a stasis with feeling of increasing brain bleed He presented to emergency room secondary to increasing cough and increasing shortness of breath increasing discomfort, patient denies any fever, patient denies any obstructive processes, he mentions that he cannot use the nebulized albuterol as he causes paradoxical bronchospasm, he requires oral prednisone daily along with Ventolin inhaled device and Spiriva patient denies any headache no syncopal event no motor deficits in right or left side, no diplopia no posttussive vomiting In the emergency room patient was hypoxemic, he had supraventricular tachycardia with atrial fibrillation, RVR, he was placed on Cardizem drip, CAT scan was performed that shows severe bullous emphysema with worsening confluent right upper lobe consolidation and small right pleural effusion along with constellation off the right base worsening airspace disease and worsening pneumonitis. No large pulmonary emboli was noted, there is a focal density in the right base suspicious for malignancy at 2.1 cm patient was subsequently admitted to intensive care unit with consultations with Dr. Smith pulmonary medicine. CODE STATUS was discussed with the patient, he wants to be placed as a full code this time including ventilatory support however prognosis remains to be guarded based on not curable small cell carcinoma with brain metastases, again this would be closely discussed with the patient. Patient was started on Solu-Cortef and Levaquin and vancomycin Review of Systems Constitutional: Reports as per HPI, Reports anorexia, Reports chills, Reports fatigue, Reports lethargy, Reports poor appetite, Reports weakness, Reports weight loss Ears, nose, mouth and throat: Reports as per HPI, Denies ant. neck pain, Denies bleeding gums, Denies dental pain, Denies dysphagia, Denies epistaxis, Denies headache, Denies hoarseness, Denies mouth pain, Denies nasal congestion, Denies nasal discharge, Denies neck fullness/pressure, Denies neck lump, Denies nose pain, Denies odynophagia, Denies post-nasal drip, Denies sinus pain, Denies sinus pressure, Denies swelling in mouth, Denies swelling in throat, Denies sore throat, Denies vertigo, Denies voice changes Cardiovascular: Reports as per HPI, Reports irregular heart beat, Reports rapid heart beat, Reports shortness of breath, Denies chest pain, Denies claudication , Denies decreased exercise tolerance, Denies dyspnea on exertion, Denies edema , Denies high blood pressure, Denies leg edema, Denies lightheadedness, Denies orthopnea, Denies palpitations, Denies paroxysmal nocturnal dyspnea, Denies phlebitis, Denies syncope Respiratory: Reports as per HPI, Reports cough, Reports cough with sputum, Reports dyspnea, Reports home oxygen, Reports pain on inspiration, Reports respiratory infections, Reports wheezing, Denies congestion, Denies excessive sputum, Denies hemoptysis, Denies pain, Denies pleurisy, Denies sleep apnea, Denies snoring Gastrointestinal: Reports as per HPI, Denies abdominal pain, Denies belching, Denies bloating, Denies BRBPR, Denies change in bowel habits, Denies coffee ground emesis, Denies constipation, Denies diarrhea, Denies dyspepsia, Denies early satiety, Denies excessive gas, Denies heartburn, Denies hematemesis, Denies hematochezia, Denies indigestion, Denies jaundice, Denies lactose intolerance, Denies loss of appetite, Denies melena, Denies nausea, Denies vomiting Genitourinary: Reports as per HPI, Denies discharge, Denies dysuria, Denies erectile dysfunction, Denies flank pain, Denies genital pain, Denies genital sores, Denies hematuria, Denies incontinence, Denies kidney stones, Denies nocturia, Denies polyuria, Denies testicular lump, Denies testicular pain, Denies urinary frequency, Denies urinary hesitancy, Denies urinary retention Musculoskeletal: Reports as per HPI, Denies arm numbness/tingling, Denies atrophy, Denies fractures, Denies frequent falls, Denies gait dysfunction, Denies hot joints, Denies leg numbness/tingling, Denies limitation of motion, Denies loss of height, Denies low back pain, Denies morning stiffness, Denies muscle cramps, Denies muscle weakness, Denies myalgias, Denies neck pain, Denies neck stiffness, Denies prior amputations, Denies redness of joints, Denies shooting arm pain, Denies shooting leg pain Integumentary: Reports as per HPI, Denies acne, Denies boils, Denies brittle nails, Denies change in hair/nails, Denies color changes, Denies darkening of skin, Denies depigmentation, Denies dryness, Denies foot/leg ulcers, Denies growths, Denies hirsutism, Denies lesions, Denies onychomycosis, Denies pruritus , Denies rash, Denies sores, Denies striae, Denies unusual bruising, Denies wounds Neurological: Reports as per HPI, Reports weakness, Denies aphasia, Denies ataxia, Denies balance difficulties, Denies burning pain, Denies change in mentation, Denies change in smell/taste, Denies change in speech, Denies confusion, Denies convulsions, Denies double vision, Denies gait dysfunction, Denies head injury, Denies headaches, Denies hearing difficulties, Denies lack of coordination, Denies loss of vision, Denies memory loss, Denies migraines, Denies motor disturbance, Denies numbness, Denies paralysis, Denies paresthesias , Denies seizures, Denies sensory deficit, Denies spasticity, Denies syncope, Denies tic, Denies tingling, Denies transient paralysis, Denies tremors, Denies vertigo, Denies visual changes Psychiatric: Reports as per HPI, Reports sleep disturbances, Denies anhedonia, Denies anxiety, Denies anxiety attacks, Denies change in appetite, Denies change in libido, Denies change in sleep habits, Denies confusion, Denies depression, Denies difficulty concentrating, Denies disorientation, Denies hallucinations, Denies hopelessness, Denies hypersomnia, Denies insomnia, Denies irritability, Denies memory loss, Denies mood swings, Denies paranoia, Denies sadness/tearfulness, Denies suicidal ideation Endocrine: Reports as per HPI, Reports cold intolerance Hematologic/Lymphatic: Reports as per HPI Allergic/Immunologic: Reports as per HPI Past Medical History Past Medical History: Asthma, Cancer, COPD, Hypertension, Pneumonia, Renal Disease Additional Past Medical History / Comment(s): Pt recently admitted to [facility] on with Pulmonary embolism, AMS, confusion, intractable nausea/vomiting, shingelles R trigeminal nerve-now healed. Other hx: R small cell lung cancer with chemo/radiation with mets to the brain with brain radiation, pancytopenia, gastroparesis, chronic anemia, home O2 at 5L/NC ATC, , shingles . trigeminal nerve, HTN in the past, kidney stones in past. PT AND SPOUSE DO NOT WANT PT RECEIVING NEBULIZER TX "BAD AFFECT." History of Any Multi-Drug Resistant Organisms: None Reported Past Surgical History: Hernia Repair Additional Past Surgical History / Comment(s): Bronchoscopy with bx, colonoscopy , bilateral hernia repair 2015, Past Anesthesia/Blood Transfusion Reactions: No Reported Reaction Smoking Status: Former smoker - Past Family History Father Family Medical History: Congestive Heart Failure (CHF) Additional Family Medical History / Comment(s): Father at the age of 82 yrs with CHF. Mother Family Medical History: COPD Medications and Allergies Home Medications Medication Instructions Recorded Confirmed Type predniSONE 5 mg PO QAM 07/08/16 01/19/17 History Albuterol Inhaler [Ventolin Hfa 1 - 2 puff INHALATION RT-QID PRN 01/17/17 History Inhaler] Dexamethasone [Hexadrol] See Taper PO DAILY 01/17/17 01/19/17 History Metoprolol Tartrate [Lopressor] 25 mg PO QAM 01/17/17 01/19/17 History Tiotropium [place] [Spiriva 2 puff INHALATION RT-DAILY 01/17/17 01/19/17 History Respimat] Vitamin B Complex 1 cap PO QAM 01/17/17 01/19/17 History Allergies Allergy/AdvReac Type Severity Reaction Status Date / Time No Known Allergies Allergy Verified 01/17/17 21:10 Physical Exam Vitals: Vital Signs Temp Pulse Resp BP Pulse Ox 01/19/17 19:00 118 H 25 H 148/81 94 L 01/19/17 18:30 125 H 24 127/90 93 L 01/19/17 18:00 117 H 26 H 151/70 98 01/19/17 17:30 119 H 24 135/69 90 L 01/19/17 17:00 121 H 21 128/78 98 01/19/17 16:30 121 H 24 148/101 97 01/19/17 16:00 98.4 F 116 H 25 H 146/82 99 01/19/17 15:30 118 H 24 145/83 98 01/19/17 15:08 98.0 F 119 H 27 H 126/76 97 01/19/17 15:05 79 L 01/19/17 12:49 127 H 36 H 138/77 91 L 01/19/17 12:12 137 H 20 161/79 90 L 01/19/17 11:15 98.1 F 129 H 24 149/82 92 L 01/19/17 10:36 131 H 22 147/75 97 01/19/17 09:26 160 H 22 165/88 94 L 01/19/17 08:35 182 H 92 L 01/19/17 08:03 170 H 87 L 01/19/17 07:29 117 H 20 173/91 95 01/19/17 06:27 104 H 20 180/98 98 01/19/17 05:13 105 H 22 172/96 96 01/19/17 03:19 20 01/19/17 02:57 97.2 F L 101 H 20 97 Intake and Output 01/19/17 01/19/17 01/19/17 06:59 14:59 22:59 Intake Total 112.25 925.0 Output Total 250 550 Balance -137.75 375.0 Intake: Intake, IV Titration 112.25 925.0 Amount Diltiazem 125 mg In 12.25 Sodium Chloride 0.9% 100 ml @ 5 MG/HR 5 mls/hr IV .Q24H [facility] Rx#:[id number] Piperacillin-Tazobactam 3 50.0 .375 gm In Dextrose/Water 1 50ml.bag @ 12.5 mls/hr IVPB Q8HR [facility] Rx#: [id number] Sodium Chloride 0.9% 1, 100 500 000 ml @ 100 mls/hr IV . Q10H [facility] Rx#:[id number] Vancomycin 1,250 mg In 375 Sodium Chloride 0.9% 250 ml @ 125 mls/hr IVPB Q12H [facility] Rx#:[id number] Output: Urine 250 550 Other: Voiding Method Urinal Weight 61.235 kg 62.9 kg Patient Weight 01/20/17 06:59 Weight 62.9 kg - Constitutional General appearance: average body habitus, cooperative, mild distress - EENT Eyes: anicteric sclerae, EOMI, PERRLA, normal appearance ENT: hard of hearing, NA/AT, normal oropharynx - Neck Neck: no lymphadenopathy, normal ROM, no other, no rigidity, no stridor, no thyromegaly - Respiratory Respiratory: bilateral: CTA, negative: diminished, dullness, rales, rhonchi - Cardiovascular Rhythm: regular Heart sounds: normal: S1, S2 Abnormal Heart Sounds: no systolic murmur, no diastolic murmur, no rub, no S3 Gallop, no S4 Gallop, no click, no other - Gastrointestinal General gastrointestinal: normal bowel sounds, soft - Integumentary Integumentary: jaundiced, normal turgor - Neurologic Neurologic: CNII-XII intact - Musculoskeletal Musculoskeletal: gait normal, strength equal bilaterally - Psychiatric Psychiatric: A&O x's 3, appropriate affect, intact judgment & insight Results CBC & Chem 7: 01/19/17 05:16 01/19/17 05:16 Labs: Abnormal Lab Results - Last 24 Hours (Table) 01/19/17 01/19/17 01/19/17 Range/Units 05:16 05:16 05:16 WBC 2.5 L (3.8-10.6) k/uL RBC 3.33 L (4.30-5.90) m/uL Hgb 11.9 L (13.0-17.5) gm/dL Hct 36.4 L (39.0-53.0) % MCV 109.4 H (80.0-100.0) fL MCH 35.6 H (25.0-35.0) pg RDW 17.1 H (11.5-15.5) % Plt Count 136 L (150-450) k/uL Lymphocytes # (Manual) 0.05 L (1.0-4.8) k/uL ABG pH (7.35-7.45) ABG pO2 (83-108) mmHg ABG O2 Saturation (94-97) % Sodium 133 L (137-145) mmol/L BUN 22 H (9-20) mg/dL Glucose 119 H (74-99) mg/dL POC Glucose (mg/dL) (75-99) mg/dL Total Creatine Kinase <20 L (55-170) U/L CK-MB (CK-2) 3.0 H* (0.0-2.4) ng/mL Total Protein 5.2 L (6.3-8.2) g/dL Albumin 2.7 L (3.5-5.0) g/dL Urine Protein (Negative) Urine Glucose (UA) (Negative) Hyaline Casts (0-2) /lpf Urine Mucus (None) /hpf 01/19/17 01/19/17 01/19/17 Range/Units 07:55 08:21 13:45 WBC (3.8-10.6) k/uL RBC (4.30-5.90) m/uL Hgb (13.0-17.5) gm/dL Hct (39.0-53.0) % MCV (80.0-100.0) fL MCH (25.0-35.0) pg RDW (11.5-15.5) % Plt Count (150-450) k/uL Lymphocytes # (Manual) (1.0-4.8) k/uL ABG pH 7.33 L (7.35-7.45) ABG pO2 54 L (83-108) mmHg ABG O2 Saturation 85.0 L (94-97) % Sodium (137-145) mmol/L BUN (9-20) mg/dL Glucose (74-99) mg/dL POC Glucose (mg/dL) 132 H (75-99) mg/dL Total Creatine Kinase (55-170) U/L CK-MB (CK-2) (0.0-2.4) ng/mL Total Protein (6.3-8.2) g/dL Albumin (3.5-5.0) g/dL Urine Protein 1+ H (Negative) Urine Glucose (UA) Trace H (Negative) Hyaline Casts 3 H (0-2) /lpf Urine Mucus Rare H (None) /hpf 01/19/17 Range/Units 16:44 WBC (3.8-10.6) k/uL RBC (4.30-5.90) m/uL Hgb (13.0-17.5) gm/dL Hct (39.0-53.0) % MCV (80.0-100.0) fL MCH (25.0-35.0) pg RDW (11.5-15.5) % Plt Count (150-450) k/uL Lymphocytes # (Manual) (1.0-4.8) k/uL ABG pH (7.35-7.45) ABG pO2 (83-108) mmHg ABG O2 Saturation (94-97) % Sodium (137-145) mmol/L BUN (9-20) mg/dL Glucose (74-99) mg/dL POC Glucose (mg/dL) 109 H (75-99) mg/dL Total Creatine Kinase (55-170) U/L CK-MB (CK-2) (0.0-2.4) ng/mL Total Protein (6.3-8.2) g/dL Albumin (3.5-5.0) g/dL Urine Protein (Negative) Urine Glucose (UA) (Negative) Hyaline Casts (0-2) /lpf Urine Mucus (None) /hpf Microbiology - Last 24 Hours (Table) 01/19/17 07:55 Urine Culture - Preliminary Urine,Voided Microbiology Tests 01/19/17 07:55 Urine Culture - Preliminary Urine,Voided Laboratory Tests Range/Units 01/19/17 01/19/17 01/19/17 05:16 05:16 05:16 WBC (3.8-10.6) k/uL 2.5 L RBC (4.30-5.90) m/uL 3.33 L Hgb (13.0-17.5) gm/dL 11.9 L Hct (39.0-53.0) % 36.4 L MCV (80.0-100.0) fL 109.4 H MCH (25.0-35.0) pg 35.6 H MCHC (31.0-37.0) g/dL 32.6 RDW (11.5-15.5) % 17.1 H Plt Count (150-450) k/uL 136 L Neutrophils % (Manual) % 89 Band Neutrophils % % 6.0 Lymphocytes % (Manual) % 2 Monocytes % (Manual) % 3 Neutrophils # (Manual) (1.3-7.7) k/uL 2.37 Lymphocytes # (Manual) (1.0-4.8) k/uL 0.05 L Monocytes # (Manual) (0-1.0) k/uL 0.08 Nucleated RBCs (0-0) /100 WBC 0 Manual Slide Review Performed Anisocytosis Slight Macrocytosis Marked PT (9.0-12.0) sec INR (<1.2) APTT (22.0-30.0) sec Sample Site ABG pH (7.35-7.45) ABG pCO2 (35-45) mmHg ABG pO2 (83-108) mmHg ABG HCO3 (21-25) mmol/L ABG Total CO2 (19-24) mmol/L ABG O2 Saturation (94-97) % ABG Base Excess mmol/L FiO2 % Sodium (137-145) mmol/L 133 L Potassium (3.5-5.1) mmol/L 4.6 Chloride (98-107) mmol/L 100 Carbon Dioxide (22-30) mmol/L 26 Anion Gap mmol/L 7 BUN (9-20) mg/dL 22 H Creatinine (0.66-1.25) mg/dL 0.80 Est GFR (MDRD) Af Amer (>60 ml/min/1.73 sqM) >60 Est GFR (MDRD) Non-Af (>60 ml/min/1.73 sqM) >60 Glucose (74-99) mg/dL 119 H POC Glucose (mg/dL) (75-99) mg/dL POC Glu Conveyor Maintenance Mechanic ID Plasma Lactic Acid Santana (0.7-2.0) mmol/L Calcium (8.4-10.2) mg/dL 8.5 Total Bilirubin (0.2-1.3) mg/dL 0.4 AST (17-59) U/L 19 ALT (21-72) U/L 50 Alkaline Phosphatase (38-126) U/L 95 Total Creatine Kinase (55-170) U/L <20 L CK-MB (CK-2) (0.0-2.4) ng/mL 3.0 H* CK-MB (CK-2) Rel Index 0.0 Troponin I (0.000-0.034) ng/mL 0.016 Total Protein (6.3-8.2) g/dL 5.2 L Albumin (3.5-5.0) g/dL 2.7 L Urine Color Urine Appearance (Clear) Urine pH (5.0-8.0) Ur Specific [place] (1.001-1.035) Urine Protein (Negative) Urine Glucose (UA) (Negative) Urine Ketones (Negative) Urine Blood (Negative) Urine Nitrite (Negative) Urine Bilirubin (Negative) Urine Urobilinogen (<2.0) mg/dL Ur Leukocyte Esterase (Negative) Urine RBC (0-5) /hpf Urine WBC (0-5) /hpf Ur Squamous Epith Cells (0-4) /hpf Cellular Casts (0) /lpf Hyaline Casts (0-2) /lpf Granular Casts (0) /lpf Urine Mucus (None) /hpf Range/Units 01/19/17 01/19/17 01/19/17 05:16 05:16 07:55 WBC (3.8-10.6) k/uL RBC (4.30-5.90) m/uL Hgb (13.0-17.5) gm/dL Hct (39.0-53.0) % MCV (80.0-100.0) fL MCH (25.0-35.0) pg MCHC (31.0-37.0) g/dL RDW (11.5-15.5) % Plt Count (150-450) k/uL Neutrophils % (Manual) % Band Neutrophils % % Lymphocytes % (Manual) % Monocytes % (Manual) % Neutrophils # (Manual) (1.3-7.7) k/uL Lymphocytes # (Manual) (1.0-4.8) k/uL Monocytes # (Manual) (0-1.0) k/uL Nucleated RBCs (0-0) /100 WBC Manual Slide Review Anisocytosis Macrocytosis PT (9.0-12.0) sec 10.1 INR (<1.2) 1.0 APTT (22.0-30.0) sec 28.0 Sample Site ABG pH (7.35-7.45) ABG pCO2 (35-45) mmHg ABG pO2 (83-108) mmHg ABG HCO3 (21-25) mmol/L ABG Total CO2 (19-24) mmol/L ABG O2 Saturation (94-97) % ABG Base Excess mmol/L FiO2 % Sodium (137-145) mmol/L Potassium (3.5-5.1) mmol/L Chloride (98-107) mmol/L Carbon Dioxide (22-30) mmol/L Anion Gap mmol/L BUN (9-20) mg/dL Creatinine (0.66-1.25) mg/dL Est GFR (MDRD) Af Amer (>60 ml/min/1.73 sqM) Est GFR (MDRD) Non-Af (>60 ml/min/1.73 sqM) Glucose (74-99) mg/dL POC Glucose (mg/dL) (75-99) mg/dL POC Glu Conveyor Maintenance Mechanic ID Plasma Lactic Acid Santana (0.7-2.0) mmol/L 1.3 Calcium (8.4-10.2) mg/dL Total Bilirubin (0.2-1.3) mg/dL AST (17-59) U/L ALT (21-72) U/L Alkaline Phosphatase (38-126) U/L Total Creatine Kinase (55-170) U/L CK-MB (CK-2) (0.0-2.4) ng/mL CK-MB (CK-2) Rel Index Troponin I (0.000-0.034) ng/mL Total Protein (6.3-8.2) g/dL Albumin (3.5-5.0) g/dL Urine Color Yellow Urine Appearance (Clear) Clear Urine pH (5.0-8.0) 5.5 Ur Specific [place] (1.001-1.035) 1.022 Urine Protein (Negative) 1+ H Urine Glucose (UA) (Negative) Trace H Urine Ketones (Negative) Negative Urine Blood (Negative) Negative Urine Nitrite (Negative) Negative Urine Bilirubin (Negative) Negative Urine Urobilinogen (<2.0) mg/dL <2.0 Ur Leukocyte Esterase (Negative) Negative Urine RBC (0-5) /hpf 1 Urine WBC (0-5) /hpf 1 Ur Squamous Epith Cells (0-4) /hpf <1 Cellular Casts (0) /lpf 4 Hyaline Casts (0-2) /lpf 3 H Granular Casts (0) /lpf 1 Urine Mucus (None) /hpf Rare H Range/Units 01/19/17 01/19/17 01/19/17 08:21 11:43 13:45 WBC (3.8-10.6) k/uL RBC (4.30-5.90) m/uL Hgb (13.0-17.5) gm/dL Hct (39.0-53.0) % MCV (80.0-100.0) fL MCH (25.0-35.0) pg MCHC (31.0-37.0) g/dL RDW (11.5-15.5) % Plt Count (150-450) k/uL Neutrophils % (Manual) % Band Neutrophils % % Lymphocytes % (Manual) % Monocytes % (Manual) % Neutrophils # (Manual) (1.3-7.7) k/uL Lymphocytes # (Manual) (1.0-4.8) k/uL Monocytes # (Manual) (0-1.0) k/uL Nucleated RBCs (0-0) /100 WBC Manual Slide Review Anisocytosis Macrocytosis PT (9.0-12.0) sec INR (<1.2) APTT (22.0-30.0) sec Sample Site rbrac ABG pH (7.35-7.45) 7.33 L ABG pCO2 (35-45) mmHg 42 ABG pO2 (83-108) mmHg 54 L ABG HCO3 (21-25) mmol/L 22 ABG Total CO2 (19-24) mmol/L 23 ABG O2 Saturation (94-97) % 85.0 L ABG Base Excess mmol/L -3.1 FiO2 % 44 Sodium (137-145) mmol/L Potassium (3.5-5.1) mmol/L Chloride (98-107) mmol/L Carbon Dioxide (22-30) mmol/L Anion Gap mmol/L BUN (9-20) mg/dL Creatinine (0.66-1.25) mg/dL Est GFR (MDRD) Af Amer (>60 ml/min/1.73 sqM) Est GFR (MDRD) Non-Af (>60 ml/min/1.73 sqM) Glucose (74-99) mg/dL POC Glucose (mg/dL) (75-99) mg/dL 132 H POC Glu Conveyor Maintenance Mechanic ID Jordan Guzman, Anatoliy Plasma Lactic Acid Santana (0.7-2.0) mmol/L 1.7 Calcium (8.4-10.2) mg/dL Total Bilirubin (0.2-1.3) mg/dL AST (17-59) U/L ALT (21-72) U/L Alkaline Phosphatase (38-126) U/L Total Creatine Kinase (55-170) U/L CK-MB (CK-2) (0.0-2.4) ng/mL CK-MB (CK-2) Rel Index Troponin I (0.000-0.034) ng/mL Total Protein (6.3-8.2) g/dL Albumin (3.5-5.0) g/dL Urine Color Urine Appearance (Clear) Urine pH (5.0-8.0) Ur Specific [place] (1.001-1.035) Urine Protein (Negative) Urine Glucose (UA) (Negative) Urine Ketones (Negative) Urine Blood (Negative) Urine Nitrite (Negative) Urine Bilirubin (Negative) Urine Urobilinogen (<2.0) mg/dL Ur Leukocyte Esterase (Negative) Urine RBC (0-5) /hpf Urine WBC (0-5) /hpf Ur Squamous Epith Cells (0-4) /hpf Cellular Casts (0) /lpf Hyaline Casts (0-2) /lpf Granular Casts (0) /lpf Urine Mucus (None) /hpf Range/Units 01/19/ 16:44 WBC (3.8-10.6) k/uL RBC (4.30-5.90) m/uL Hgb (13.0-17.5) gm/dL Hct (39.0-53.0) % MCV (80.0-100.0) fL MCH (25.0-35.0) pg MCHC (31.0-37.0) g/dL RDW (11.5-15.5) % Plt Count (150-450) k/uL Neutrophils % (Manual) % Band Neutrophils % % Lymphocytes % (Manual) % Monocytes % (Manual) % Neutrophils # (Manual) (1.3-7.7) k/uL Lymphocytes # (Manual) (1.0-4.8) k/uL Monocytes # (Manual) (0-1.0) k/uL Nucleated RBCs (0-0) /100 WBC Manual Slide Review Anisocytosis Macrocytosis PT (9.0-12.0) sec INR (<1.2) APTT (22.0-30.0) sec Sample Site ABG pH (7.35-7.45) ABG pCO2 (35-45) mmHg ABG pO2 (83-108) mmHg ABG HCO3 (21-25) mmol/L ABG Total CO2 (19-24) mmol/L ABG O2 Saturation (94-97) % ABG Base Excess mmol/L FiO2 % Sodium (137-145) mmol/L Potassium (3.5-5.1) mmol/L Chloride (98-107) mmol/L Carbon Dioxide (22-30) mmol/L Anion Gap mmol/L BUN (9-20) mg/dL Creatinine (0.66-1.25) mg/dL Est GFR (MDRD) Af Amer (>60 ml/min/1.73 sqM) Est GFR (MDRD) Non-Af (>60 ml/min/1.73 sqM) Glucose (74-99) mg/dL POC Glucose (mg/dL) (75-99) mg/dL 109 H POC Glu Conveyor Maintenance Mechanic ID Harms, Valeri Plasma Lactic Acid Santana (0.7-2.0) mmol/L Calcium (8.4-10.2) mg/dL Total Bilirubin (0.2-1.3) mg/dL AST (17-59) U/L ALT (21-72) U/L Alkaline Phosphatase (38-126) U/L Total Creatine Kinase (55-170) U/L CK-MB (CK-2) (0.0-2.4) ng/mL CK-MB (CK-2) Rel Index Troponin I (0.000-0.034) ng/mL Total Protein (6.3-8.2) g/dL Albumin (3.5-5.0) g/dL Urine Color Urine Appearance (Clear) Urine pH (5.0-8.0) Ur Specific [place] (1.001-1.035) Urine Protein (Negative) Urine Glucose (UA) (Negative) Urine Ketones (Negative) Urine Blood (Negative) Urine Nitrite (Negative) Urine Bilirubin (Negative) Urine Urobilinogen (<2.0) mg/dL Ur Leukocyte Esterase (Negative) Urine RBC (0-5) /hpf Urine WBC (0-5) /hpf Ur Squamous Epith Cells (0-4) /hpf Cellular Casts (0) /lpf Hyaline Casts (0-2) /lpf Granular Casts (0) /lpf Urine Mucus (None) /hpf Thrombosis Risk Factor Assmnt - DVT/VTE Prophylaxis DVT/VTE Prophylaxis: Pharmacologic Prophylaxis ordered, Mechanical Prophylaxis ordered - Choose All That Apply Any of the Below Risk Factors Present?: Yes Each Factor Represents 1 point: Abnormal pulmonary function (COPD), Sepsis (< 1month), Serious lung disease incl. pneumonia (< 1month) Other Risk Factors: Yes Each Risk Factor Represents 2 Points: Age 61-74 years, Malignancy Each Risk Factor Represents 3 Points: History of DVT/PE Other congenital or acquired thrombophilia - If yes, enter type in comment: No Thrombosis Risk Factor Assessment Total Risk Factor Score: 10 Thrombosis Risk Factor Assessment Level: High Risk Assessment and Plan Plan: 1. Acute on chronic hypoxemic respiratory failure with worsening infiltrate suspicious of postobstructive pneumonia on a chemotherapy immunosuppressed patient underlying history of metastatic small cell carcinoma, patient requires close monitoring in the ICU secondary to underlying comorbidities including atrial fibrillation with rapid ventilator date, and worsening hypoxemia, patient will be seen by Dr. Smith from critical care medicine, IV hydrocortisone 100 mg every 8 hours, IV Zosyn and IV vancomycin and vancomycin. Sputum cultures blood cultures 2. 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 5 recent herpes zoster: Without any postherpetic neuralgia symptoms 6 small cell CA of the lung: Has been on chemotherapy radiation therapy this is more stage IV lung cancer been manage and follow by oncology and radiation oncology. 7 severe intractable nausea and vomiting and gastroparesis: Has improved significantly since last week. 8 BPH: Watch for any urinary retention. 9 tachycardia: EKG was performed patient might need an echocardiogram and if needed to start him on beta donovan to bring the pulse rate down. 10 anemia: Iron deficiency continue multivitamins. stable 11 COPD: Has been on combination of bronchodilator along with steroid inhaler. 12 GI prophylaxis: Patient is on pantoprazole. 13. Pancytopenia most likely chemotherapy related, oncology is on consult 14. End-stage COPD with bullous emphysema, small pleural effusion steroid dependency and O2 dependency. Treatment as above nebulized solutions, DVT prophylaxis: lovenox 40 d, norman hose CODE STATUS: Full code. Expectation from this admission: Patient be in the hospital for more than 2 nights.
[2017-01-19] MEDS: MELATONIN 5 MG TABLET PO SCH (21:06)
[2017-01-19] MEDS: ALPRAZolam 0.25 MG TAB PO SCH (21:06)
[2017-01-19 21:54] LABS: Hemoglobin A1C 5.2 % (4.2-6.1)
[2017-01-20] MEDS: PIPERACILLIN-TAZOBACTAM 3.375 GM in DEXTROSE/WATER 1 50ML.BAG IVPB SCH ×3 (00:10→15:59)
[2017-01-20] MEDS: IPRATROPIUM-ALBUTEROL 3 ML NEB INHALATION SCH ×2 (01:30→08:31)
[2017-01-20 04:56] LABS: Anisocytosis Slight; CH 36.1; CHCM 32.1; HCT 29.7 % (39.0-53.0); HDW 2.46; Immature Gran Flag Marked; MCV 112.5 fL (80.0-100.0); Macrocytosis Marked; Mean Platelet Volume 7.8; RBC 2.64 m/uL (4.30-5.90); WBC (Perox) 0.74
[2017-01-20 04:59] LABS: HGB 9.5 gm/dL (13.0-17.5)
[2017-01-20 05:01] LABS: WBC 0.7 k/uL (3.8-10.6)
[2017-01-20 05:07] LABS: Anion Gap 7 mmol/L; Blood Urea Nitrogen 19 mg/dL (9-20); Carbon Dioxide 23 mmol/L (22-30); Chloride 105 mmol/L (98-107); Glucose 106 mg/dL (74-99); Magnesium 1.5 mg/dL (1.6-2.3); Non-African American GFR(MDRD) >60 (>60 ml/min/1.73 sqM); Phosphorous 4.2 mg/dL (2.5-4.5); Potassium 3.7 mmol/L (3.5-5.1); Sodium 135 mmol/L (137-145)
[2017-01-20 05:42] LABS: Add Differential Manual Differential; Manual Review Performed
[2017-01-20] MEDS ORDERED: Potassium Replacement Protocol 1 EACH MISC MISCELLANE PRN (06:15)
[2017-01-20] MEDS ORDERED: Magnesium Replacement Protocol 1 EACH MISC MISCELLANE PRN (06:16)
[2017-01-20] MEDS: LEVOFLOXACIN 750MG-D5W PMX 750 MG in DEXTROSE/WATER 1 150ML.BAG IVPB SCH (06:21)
[2017-01-20] MEDS: SODIUM CHLORIDE 0.9% 1,000 ML IV SCH ×2 (06:21→14:03)
[2017-01-20] MEDS: VANCOMYCIN 1,250 MG in SODIUM CHLORIDE 0.9% 250 ML IVPB SCH ×2 (06:21→15:59)
[2017-01-20 06:52] LABS: Glucose,Whole Blood 123 mg/dL (75-99)
[2017-01-20] MEDS ORDERED: POTASSIUM CHLORIDE ER 20 MEQ TAB.ER PO SCH (07:00)
[2017-01-20] MEDS: MAGNESIUM SULFATE-D5W PMX 1 GM in DEXTROSE/WATER 1 100ML.BAG IVPB SCH ×2 (07:01→09:12)
[2017-01-20 07:25] LABS: Glucose,Whole Blood 130 mg/dL (75-99)
[2017-01-20] MEDS: INSULIN LISPRO (humaLOG) 300 UNIT/3 ML VIAL SQ SCH ×4 (08:26→20:12)
[2017-01-20] MEDS: PANTOPRAZOLE 40 MG/10 ML VIAL IVP SCH (08:27)
[2017-01-20] MEDS: HYDROCORTISONE SUCCINATE 100 MG/2 ML VIAL IV SCH ×3 (08:27→15:59)
[2017-01-20] MEDS: ALPRAZolam 0.25 MG TAB PO SCH ×2 (08:29→21:38)
--- NOTE | 2017-01-20 08:34 | XR ---
EXAMINATION TYPE: XR chest 1V portable DATE OF EXAM: 01/20/2017 Comparison: 01/19/2017 Clinical History: 61-year-old male Pneumonia vs radiation pneumonitis Findings: Heart is normal size. Aorta and pulmonary vasculature are within normal limits. Hyperinflation sugges ting underlying emphysema. There is a right anterior chest wall injection port with catheter tip at t he mid SVC level. There is dense airspace opacity within the right midlung, right hilar/infrahilar re gion, and peripheral right lower lung as well. Some of this consolidation is more confluent now as co mpared to prior exam. Impression: Similar to slight worsening dense multifocal consolidation in the right mid and lower lungs.
--- NOTE | 2017-01-20 09:12 | P.CRDCN ---
History of Present Illness Consult date: 01/20/17 Chief complaint: Shortness of breath History of present illness: This is a pleasant 60-year-old gentleman with no prior cardiac history but history of small cell lung cancer with metastasis to the brain who is status post radiation and chemotherapy presented to the emergency room complaining of shortness of breath. The patient described worsening shortness of breath associated with cough and also pleuritic chest discomfort. The patient is known to have underlying COPD and he is on home oxygen 24 7. He was diagnosed with COPD exacerbation and he was started on treatment for that. We get involved in the care of the patient because the patient developed an A. fib with RVR and he was started on Cardizem drip and converted to normal sinus mechanism. Reviewing all the EKGs in the chart as well as the rhythm strip it did indicate more of SVT and multifocal atrial tachycardia than atrial fibrillation. Currently the patient is maintaining normal sinus mechanism. He is on Cardizem and drip. I'm going to start the patient on metoprolol by mouth and start weaning him from the Cardizem drip. There is no need for anticoagulation. Beside that I will obtain an echocardiogram was Doppler and follow-up with the patient. Past Medical History Past Medical History: Asthma, Cancer, COPD, Hypertension, Pneumonia, Renal Disease Additional Past Medical History / Comment(s): Pt recently admitted to [facility] on with Pulmonary embolism, AMS, confusion, intractable nausea/vomiting, shingelles R trigeminal nerve-now healed. Other hx: R small cell lung cancer with chemo/radiation with mets to the brain with brain radiation, pancytopenia, gastroparesis, chronic anemia, home O2 at 5L/NC ATC, , shingles . trigeminal nerve, HTN in the past, kidney stones in past. PT AND SPOUSE DO NOT WANT PT RECEIVING NEBULIZER TX "BAD AFFECT." History of Any Multi-Drug Resistant Organisms: None Reported Past Surgical History: Hernia Repair Additional Past Surgical History / Comment(s): Bronchoscopy with bx, colonoscopy , bilateral hernia repair 2015, Past Anesthesia/Blood Transfusion Reactions: No Reported Reaction Smoking Status: Former smoker - Past Family History Father Family Medical History: Congestive Heart Failure (CHF) Additional Family Medical History / Comment(s): Father at the age of 82 yrs with CHF. Mother Family Medical History: COPD Medications and Allergies Home Medications Medication Instructions Recorded Confirmed Type predniSONE 5 mg PO QAM 07/08/16 01/19/17 History Albuterol Inhaler [Ventolin Hfa 1 - 2 puff INHALATION RT-QID PRN 01/17/17 History Inhaler] Dexamethasone [Hexadrol] See Taper PO DAILY 01/17/17 01/19/17 History Metoprolol Tartrate [Lopressor] 25 mg PO QAM 01/17/17 01/19/17 History Tiotropium [place] [Spiriva 2 puff INHALATION RT-DAILY 01/17/17 01/19/17 History Respimat] Vitamin B Complex 1 cap PO QAM 01/17/17 01/19/17 History Allergies Allergy/AdvReac Type Severity Reaction Status Date / Time No Known Allergies Allergy Verified 01/17/17 21:10 Physical Exam Vitals: Vital Signs Temp Pulse Resp BP Pulse Ox 01/20/17 08:00 98.7 F 115 H 24 140/67 95 01/20/17 07:00 97 24 149/68 97 01/20/17 06:00 103 H 26 H 140/77 98 01/20/17 05:00 92 22 131/65 98 01/20/17 04:00 98.7 F 95 23 124/66 95 01/20/17 03:00 100 24 136/70 98 01/20/17 02:00 100 23 129/66 99 01/20/17 01:00 105 H 28 H 135/66 98 01/20/17 00:00 98.5 F 106 H 28 H 140/73 95 01/19/17 23:04 105 H 30 H 119/61 99 01/19/17 23:00 107 H 22 119/61 98 01/19/17 22:00 112 H 25 H 109/64 97 01/19/17 21:00 124 H 34 H 147/77 96 01/19/17 20:00 100.1 F H 121 H 37 H 160/82 97 01/19/17 19:00 118 H 25 H 148/81 94 L 01/19/17 18:30 125 H 24 127/90 93 L 01/19/17 18:00 117 H 26 H 151/70 98 01/19/17 17:30 119 H 24 135/69 90 L 01/19/17 17:00 121 H 21 128/78 98 01/19/17 16:30 121 H 24 148/101 97 01/19/17 16:00 98.4 F 116 H 25 H 146/82 99 01/19/17 15:30 118 H 24 145/83 98 01/19/17 15:08 98.0 F 119 H 27 H 126/76 97 01/19/17 15:05 79 L 01/19/17 12:49 127 H 36 H 138/77 91 L 01/19/17 12:12 137 H 20 161/79 90 L 01/19/17 11:15 98.1 F 129 H 24 149/82 92 L 01/19/17 10:36 131 H 22 147/75 97 01/19/17 09:26 160 H 22 165/88 94 L Intake and Output 01/19/17 01/20/17 01/20/17 22:59 06:59 14:59 Intake Total 1414.333 850.0 312.5 Output Total 850 500 175 Balance 564.333 350.0 137.5 Intake: IV 300 850.0 212.5 Piperacillin-Tazobactam 3 50.0 12.5 .375 gm In Dextrose/Water 1 50ml.bag @ 12.5 mls/hr IVPB Q8HR [facility] Rx#: [id number] Sodium Chloride 0.9% 1, 300 800 200 000 ml @ 100 mls/hr IV . Q10H [facility] Rx#:[id number] Intake, IV Titration 1014.333 100 Amount Diltiazem 125 mg In 89.333 Sodium Chloride 0.9% 100 ml @ 5 MG/HR 5 mls/hr IV .Q24H [facility] Rx#:[id number] Magnesium Sulfate-D5w Pmx 100 1 gm In Dextrose/Water 1 100ml.bag @ 100 mls/hr IVPB Q1H [facility] Rx#: [id number] Piperacillin-Tazobactam 3 50.0 .375 gm In Dextrose/Water 1 50ml.bag @ 12.5 mls/hr IVPB Q8HR [facility] Rx#: [id number] Sodium Chloride 0.9% 1, 500 000 ml @ 100 mls/hr IV . Q10H [facility] Rx#:[id number] Vancomycin 1,250 mg In 375 Sodium Chloride 0.9% 250 ml @ 125 mls/hr IVPB Q12H [facility] Rx#:[id number] Oral 100 Output: Urine 850 500 175 Other: Voiding Method Urinal Urinal Weight 62.9 kg 65.4 kg - Constitutional General appearance: mild distress - Respiratory Respiratory: bilateral: wheezing - Cardiovascular Rhythm: irregularly irregular Heart sounds: normal: S1, S2 Results 01/20/17 04:15 01/20/17 04:15 CBC 01/20/17 Range/Units 04:15 WBC 0.7 L* (3.8-10.6) k/uL RBC 2.64 L (4.30-5.90) m/uL Hgb 9.5 L D (13.0-17.5) gm/dL Hct 29.7 L (39.0-53.0) % Plt Count 84 L (150-450) k/uL Comprehensive Metabolic Panel 01/20/17 Range/Units 04:15 Sodium 135 L (137-145) mmol/L Potassium 3.7 (3.5-5.1) mmol/L Chloride 105 (98-107) mmol/L Carbon Dioxide 23 (22-30) mmol/L BUN 19 (9-20) mg/dL Creatinine 0.80 (0.66-1.25) mg/dL Glucose 106 H (74-99) mg/dL Calcium 8.0 L (8.4-10.2) mg/dL Current Medications Generic Name Dose Route Start Last Admin Trade Name Freq PRN Reason Stop Dose Admin Acetaminophen 500 mg 01/19/17 20:35 Tylenol Tab PO Q6HR PRN Fever and/ or Pain Albuterol/Ipratropium 3 ml 01/19/17 16:00 01/20/17 08:31 Duoneb 0.5 Mg-3 Mg/3 Ml Soln INHALATION Not Given RT-Q4H [facility] Alprazolam 0.25 mg 01/19/17 21:00 01/20/17 08:29 Xanax PO 0.25 mg BID [facility] Administration Hydrocortisone Sodium Succinate 100 mg 01/19/17 16:00 01/20/17 08:27 Solu-Cortef IV 100 mg Q8HR [facility] Administration Sodium Chloride 1,000 mls @ 100 mls/hr 01/19/17 07:00 01/20/17 06:21 Saline 0.9% IV 100 mls/hr .Q10H [facility] Administration Diltiazem HCl 125 mg/ Sodium 125 mls @ 5 mls/hr 01/19/17 09:30 01/19/17 21:05 Chloride IV 10 mg/hr .Q24H [facility] 10 mls/hr Protocol Administration 5 MG/HR Levofloxacin 750 mg/ IV 150 mls @ 100 mls/hr 01/20/17 05:00 01/20/17 06:21 Solution IVPB 100 mls/hr Q24H [facility] Administration Piperacillin/Tazobactam/ 50 mls @ 12.5 mls/hr 01/19/17 16:00 01/20/17 08:28 Dextrose 3.375 gm/ IV Solution IVPB 12.5 mls/hr Q8HR [facility] Administration Vancomycin HCl 1,250 mg/ 250 mls @ 125 mls/hr 01/20/17 05:00 01/20/17 06:21 Sodium Chloride IVPB 125 mls/hr Q12H [facility] Administration Insulin Human Lispro 0 unit 01/19/17 17:30 01/20/17 08:26 Humalog SQ Not Given ACHS [facility] Protocol Lorazepam 0.5 mg 01/19/17 16:35 01/19/17 16:48 Ativan IV 0.5 mg Q6HR PRN Administration Anxiety Melatonin 10 mg 01/19/17 21:00 01/19/17 21:06 Melatonin PO 10 mg HS [facility] Administration Miscellaneous Information 1 each 01/19/17 06:59 Pneumonia Protocol Utilized PO ONCE PRN Per Protocol Miscellaneous Information 1 each 01/19/17 08:51 Rx Info: Iv Contrast Was Given MISCELLANE 01/21/17 08:51 DAILY PRN Per Protocol Miscellaneous Information 1 each 01/20/17 06:16 Magnesium Per Protocol MISCELLANE DAILY PRN Per Protocol Protocol Miscellaneous Information 1 each 01/20/17 06:15 Potassium Per Protocol MISCELLANE DAILY PRN Per Protocol Protocol Morphine Sulfate 1 mg 01/19/17 20:35 Morphine Sulfate (Inj) IVP Q3H PRN Pain/Discomfort Pantoprazole Sodium 40 mg 01/19/17 14:30 01/20/17 08:27 Protonix IVP 40 mg DAILY [facility] Administration Intake and Output 01/19/17 01/20/17 01/20/17 22:59 06:59 14:59 Intake Total 1414.333 850.0 312.5 Output Total 850 500 175 Balance 564.333 350.0 137.5 Intake: IV 300 850.0 212.5 Piperacillin-Tazobactam 3 50.0 12.5 .375 gm In Dextrose/Water 1 50ml.bag @ 12.5 mls/hr IVPB Q8HR [facility] Rx#: [id number] Sodium Chloride 0.9% 1, 300 800 200 000 ml @ 100 mls/hr IV . Q10H [facility] Rx#:[id number] Intake, IV Titration 1014.333 100 Amount Diltiazem 125 mg In 89.333 Sodium Chloride 0.9% 100 ml @ 5 MG/HR 5 mls/hr IV .Q24H [facility] Rx#:[id number] Magnesium Sulfate-D5w Pmx 100 1 gm In Dextrose/Water 1 100ml.bag @ 100 mls/hr IVPB Q1H [facility] Rx#: [id number] Piperacillin-Tazobactam 3 50.0 .375 gm In Dextrose/Water 1 50ml.bag @ 12.5 mls/hr IVPB Q8HR [facility] Rx#: [id number] Sodium Chloride 0.9% 1, 500 000 ml @ 100 mls/hr IV . Q10H [facility] Rx#:[id number] Vancomycin 1,250 mg In 375 Sodium Chloride 0.9% 250 ml @ 125 mls/hr IVPB Q12H [facility] Rx#:[id number] Oral 100 Output: Urine 850 500 175 Other: Voiding Method Urinal Urinal Weight 62.9 kg 65.4 kg 01/20/17 04:15 01/20/17 04:15 Assessment and Plan Plan: This is a pleasant 61-year-old gentleman who has small cell lung cancer with metastasis to brain who has also underlying COPD and chronic respiratory failure percent to the hospital with worsening shortness of breath and cough and was diagnosed with acute exacerbation of COPD. He developed an A. fib with RVR and converted to normal sinus mechanism. Currently he is on Cardizem drip. I will try to wean him from the Cardizem drip after I started him on metoprolol by mouth. Also I will obtain an echocardiogram was Doppler. Follow-up with the patient.
[2017-01-20] MEDS: METOPROLOL TARTRATE 25 MG TAB PO STA (10:29)
--- NOTE | 2017-01-20 11:36 | P.PN ---
Subjective Principal diagnosis: Acute hypoxic respiratory failure secondary to pneumonia and radiation pneumonitis as well as COPD. And small cell lung cancer. 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 Patient's diagnosis of small cell lung cancer was made back in July of 2016, and this was established via bronchoscopy and transtracheal needle aspiration done by Dr. Nava. Patient presented initially with a right upper lobe nodule and mediastinal as well as pretracheal lymphadenopathy. Since the diagnosis was made, patient received chemotherapy and radiation therapy by Dr. Oates, and recently he was discovered to have brain metastasis, patient finished whole brain radiation treatment with Dr. Hutchins. Patient was also diagnosed as having small pulmonary emboli during his last admission were in he presented with pancytopenia and intractable nausea and vomiting. Anticoagulation therapy was not recommended because of his brain metastasis and fear of bleeding while on anticoagulation therapy in the brain. At any rate since then the patient has been seen by different consultants including oncology, radiation oncology, and I saw him in the office few weeks ago recommended that he remains on prednisone for possible radiation pneumonitis. Patient has been on multiple bronchodilators for his underlying COPD/emphysema. Patient presented to the ER last night with mostly symptoms of chest discomfort, pain in the right side of the chest, pain in his right shoulder, radiation of the pain to the right upper extremity, and numbness in the hand and fingers noted. Patient was also noted to be relatively hypoxic, and he was in supraventricular tachycardia/atrial fibrillation with RVR. Seen by cardiology while in the ER, placed on Cardizem drip and given Cardizem bolus. Presently patient seems to be in sinus tachycardia rate of 127/m.. CT of the chest was ordered , and it showed moderate severe bullous emphysema with worsening patchy and confluent right upper lobe consolidation and small right pleural effusion and consolidation of the right base worsening airspace disease and worsening pneumonitis. No evidence of pulmonary embolism was noted. There was also a 2.1 cm focal density at the right base suspicious for malignancy. ABG in the ER showed a pO2 of 54 pCO2 of 42 pH of 7.33 and this was on 6 L nasal cannula. Lactic acid was 1.3. Patient was noted to be hypertensive, no episodes of hypotension in spite of his supraventricular tachycardia. Patient was placed on a nonrebreather mask, admitted to the intensive care unit, and I recommended high-dose of Solu-Cortef, antibiotics in the form of Levaquin and vancomycin, bronchodilators in the form of DuoNeb updrafts and the patient will be placed on GI and DVT prophylaxis. 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 Decision regarding CODE STATUS is yet to be decided upon. In the meantime the patient will remain on nonrebreather mask, and all orders were placed on the chart. Patient was reevaluated today on 01/20/2017, chest x-ray is slightly worse with slight increase in his right pleural effusion and airspace disease, however surprisingly the patient is feeling better clinically. Less shortness of breath , no chest pain, no fever, no chills, no hemoptysis. His labs were reviewed at his chest x-ray was reviewed. WBC count is down to 0.7 hemoglobin is 9.5 electrolytes and renal profile are normal. Patient is having trouble with his updrafts, hence I will switch him to Ventolin and Spiriva which she has taken on outpatient basis to replace DuoNeb. Remains on broad-spectrum antibiotics, cultures so far are negative. Objective - Vital Signs Vital signs: Vital Signs Temp 98.7 F 01/20/17 08:00 Pulse 105 H 01/20/17 10:00 Resp 24 01/20/17 10:00 BP 130/64 01/20/17 10:00 Pulse Ox 96 01/20/17 10:00 Intake & Output 01/19/17 01/20/17 01/20/17 18:59 06:59 18:59 Intake Total 924.75 1451.833 637.5 Output Total 650 950 175 Balance 274.75 501.833 462.5 Weight 62.9 kg 65.4 kg Intake: IV 1150.0 437.5 Piperacillin-Tazobactam 3 50.0 37.5 .375 gm In Dextrose/Water 1 50ml.bag @ 12.5 mls/hr IVPB Q8HR [facility] Rx#: [id number] Sodium Chloride 0.9% 1, 1100 400 000 ml @ 100 mls/hr IV . Q10H [facility] Rx#:[id number] Intake, IV Titration 924.75 201.833 200 Amount Diltiazem 125 mg In 12.25 89.333 Sodium Chloride 0.9% 100 ml @ 5 MG/HR 5 mls/hr IV .Q24H [facility] Rx#:[id number] Magnesium Sulfate-D5w Pmx 200 1 gm In Dextrose/Water 1 100ml.bag @ 100 mls/hr IVPB Q1H [facility] Rx#: [id number] Piperacillin-Tazobactam 3 37.5 12.5 .375 gm In Dextrose/Water 1 50ml.bag @ 12.5 mls/hr IVPB Q8HR [facility] Rx#: [id number] Sodium Chloride 0.9% 1, 500 100 000 ml @ 100 mls/hr IV . Q10H [facility] Rx#:[id number] Vancomycin 1,250 mg In 375 Sodium Chloride 0.9% 250 ml @ 125 mls/hr IVPB Q12H [facility] Rx#:[id number] Oral 100 Output: Urine 650 950 175 Other: Voiding Method Urinal Urinal Urinal - Exam Physical Exam: Revealed a 61-year-old white male in moderate respiratory distress presently on non-rebreather mask noted to be slightly anxious. HEENT:[Neck is supple.] [No neck masses.] [No thyromegaly.] [No JVD.] Chest: [Diminished breath sound bilaterally crackles and rhonchi and wheezing noted on the right side.] Cardiac Exam: Tachycardic [Normal S1 and S2, no S3 gallop, no murmur.] Abdomen: [Soft, nontender, no megaly, no rebound, no guarding, normal bowel sounds.] Extremities: [Mild clubbing, no edema, no cyanosis.] Neurological Exam: [No focal neurologic deficit.] - Labs CBC & Chem 7: 01/20/17 04:15 01/20/17 04:15 Labs: Abnormal Lab Results - Last 24 Hours (Table) 01/19/17 01/19/17 01/19/17 Range/Units 13:45 16:44 20:27 WBC (3.8-10.6) k/uL RBC (4.30-5.90) m/uL Hgb (13.0-17.5) gm/dL Hct (39.0-53.0) % MCV (80.0-100.0) fL MCH (25.0-35.0) pg RDW (11.5-15.5) % Plt Count (150-450) k/uL Sodium (137-145) mmol/L Glucose (74-99) mg/dL POC Glucose (mg/dL) 132 H 109 H 106 H (75-99) mg/dL Calcium (8.4-10.2) mg/dL Magnesium (1.6-2.3) mg/dL 01/20/17 01/20/17 01/20/17 Range/Units 04:15 04:15 06:50 WBC 0.7 L* (3.8-10.6) k/uL RBC 2.64 L (4.30-5.90) m/uL Hgb 9.5 L D (13.0-17.5) gm/dL Hct 29.7 L (39.0-53.0) % MCV 112.5 H (80.0-100.0) fL MCH 36.0 H (25.0-35.0) pg RDW 17.0 H (11.5-15.5) % Plt Count 84 L (150-450) k/uL Sodium 135 L (137-145) mmol/L Glucose 106 H (74-99) mg/dL POC Glucose (mg/dL) 123 H (75-99) mg/dL Calcium 8.0 L (8.4-10.2) mg/dL Magnesium 1.5 L (1.6-2.3) mg/dL 01/20/17 Range/Units 07:24 WBC (3.8-10.6) k/uL RBC (4.30-5.90) m/uL Hgb (13.0-17.5) gm/dL Hct (39.0-53.0) % MCV (80.0-100.0) fL MCH (25.0-35.0) pg RDW (11.5-15.5) % Plt Count (150-450) k/uL Sodium (137-145) mmol/L Glucose (74-99) mg/dL POC Glucose (mg/dL) 130 H (75-99) mg/dL Calcium (8.4-10.2) mg/dL Magnesium (1.6-2.3) mg/dL Microbiology - Last 24 Hours (Table) 01/19/17 05:16 Blood Culture - Preliminary Blood No Growth after 24 hours 01/19/17 07:55 Urine Culture - Preliminary Urine,Voided Assessment and Plan Plan: Impression: 1 Acute hypoxic respiratory failure, multifactorial secondary to severe COPD exacerbation, right sided small cell lung cancer, pneumonia, possible radiation pneumonitis involving the right lung. 2 possible sepsis, primary source is the right lung pneumonia. 3 atrial fibrillation with RVR, patient remains on Cardizem drip, rate seems to be better controlled. 4 history of severe bullous emphysema with acute exacerbation 5 acute radiation pneumonitis, patient finished his radiation treatment in October of 2016. 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 7 history of pulmonary embolism, patient is not on anticoagulation therapy because of risk of bleeding into the central nervous system. 8 history of shingles, treated and responded well to treatment. Recommendation: Patient will be treated with antibiotics, high doses of steroids , bronchodilators, high FiO2/oxygen, will place on GI and DVT prophylaxis, we' ll follow closely. Discussed his condition with him and his at bedside, yesterday, and patient is DO NOT RESUSCITATE as per his own wishes. Discussed the issue of anticoagulation, oncology feel it is best not to anticoagulate because of his brain metastasis. In the meantime, we'll continue to monitor the patient in the ICU for the next 24 hours. Prognosis remains poor and guarded. Time with Patient: Less than 30
--- NOTE | 2017-01-20 11:44 | P.PN ---
Subjective 61-year-old male one of Dr. Cabrera's, Dr Sarah Oates radiation oncologist Dr. 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 Anticoagulation was not recommended at that time secondary to brain with a stasis with feeling of increasing brain bleed He presented to emergency room secondary to increasing cough and increasing shortness of breath increasing discomfort, patient denies any fever, patient denies any obstructive processes, he mentions that he cannot use the nebulized albuterol as he causes paradoxical bronchospasm, he requires oral prednisone daily along with Ventolin inhaled device and Spiriva patient denies any headache no syncopal event no motor deficits in right or left side, no diplopia no posttussive vomiting In the emergency room patient was hypoxemic, he had supraventricular tachycardia with atrial fibrillation, RVR, he was placed on Cardizem drip, CAT scan was performed that shows severe bullous emphysema with worsening confluent right upper lobe consolidation and small right pleural effusion along with constellation off the right base worsening airspace disease and worsening pneumonitis. No large pulmonary emboli was noted, there is a focal density in the right base suspicious for malignancy at 2.1 cm patient was subsequently admitted to intensive care unit with consultations with Dr. Smith pulmonary medicine. CODE STATUS was discussed with the patient, he wants to be placed as a full code this time including ventilatory support however prognosis remains to be guarded based on not curable small cell carcinoma with brain metastases, again this would be closely discussed with the patient. Patient was started on Solu-Cortef and Levaquin and vancomycin 01/20: Patient remains in intensive care unit. He has been seen in consultation by Dr. Garnica. He was in atrial fibrillation converted to normal sinus rhythm and was on Cardizem drip weaned off and on oral metoprolol. Repeat chest x-ray shows worsening dense multifocal consolidation in the right mid and lower lungs. Patient is followed by Dr. Greco from pulmonary medicine. He is currently on Levaquin, Zosyn and vancomycin and also Solu-Cortef. He has been made no code. Consult with oncology is pending. Echocardiogram done and report pending. Blood culture is showing no growth after 24 hours and urine cultures in progress. Plan transfer out of ICU tomorrow. Objective - Vital Signs Vital signs: Vital Signs Temp 98.7 F 01/20/17 08:00 Pulse 115 H 01/20/17 09:00 Resp 24 01/20/17 09:00 BP 141/70 01/20/17 09:00 Pulse Ox 96 01/20/17 09:00 Intake & Output 01/19/17 01/20/17 01/20/17 18:59 06:59 18:59 Intake Total 924.75 1451.833 525.0 Output Total 650 950 175 Balance 274.75 501.833 350.0 Weight 62.9 kg 65.4 kg Intake: IV 1150.0 325.0 Piperacillin-Tazobactam 3 50.0 25.0 .375 gm In Dextrose/Water 1 50ml.bag @ 12.5 mls/hr IVPB Q8HR KATIE Rx#: [id number] Sodium Chloride 0.9% 1, 1100 300 000 ml @ 100 mls/hr IV . Q10H KATIE Rx#:[id number] Intake, IV Titration 924.75 201.833 200 Amount Diltiazem 125 mg In 12.25 89.333 Sodium Chloride 0.9% 100 ml @ 5 MG/HR 5 mls/hr IV .Q24H KATIE Rx#:[id number] Magnesium Sulfate-D5w Pmx 200 1 gm In Dextrose/Water 1 100ml.bag @ 100 mls/hr IVPB Q1H KATIE Rx#: [id number] Piperacillin-Tazobactam 3 37.5 12.5 .375 gm In Dextrose/Water 1 50ml.bag @ 12.5 mls/hr IVPB Q8HR KATIE Rx#: [id number] Sodium Chloride 0.9% 1, 500 100 000 ml @ 100 mls/hr IV . Q10H KATIE Rx#:[id number] Vancomycin 1,250 mg In 375 Sodium Chloride 0.9% 250 ml @ 125 mls/hr IVPB Q12H KATIE Rx#:[id number] Oral 100 Output: Urine 650 950 175 Other: Voiding Method Urinal Urinal Urinal - Exam General appearance: average body habitus, cooperative, mild distress - EENT Eyes: anicteric sclerae, EOMI, PERRLA, normal appearance ENT: hard of hearing, NA/AT, normal oropharynx - Neck Neck: no lymphadenopathy, normal ROM, no other, no rigidity, no stridor, no thyromegaly - Respiratory Respiratory: bilateral: CTA, negative: diminished, dullness, rales, rhonchi - Cardiovascular Rhythm: regular Heart sounds: normal: S1, S2 Abnormal Heart Sounds: no systolic murmur, no diastolic murmur, no rub, no S3 Gallop, no S4 Gallop, no click, no other - Gastrointestinal General gastrointestinal: normal bowel sounds, soft - Integumentary Integumentary: jaundiced, normal turgor - Neurologic Neurologic: CNII-XII intact - Musculoskeletal Musculoskeletal: gait normal, strength equal bilaterally - Psychiatric Psychiatric: A&O x's 3, appropriate affect, intact judgment & insight - Labs CBC & Chem 7: 01/20/17 04:15 01/20/17 04:15 Labs: Abnormal Lab Results - Last 24 Hours (Table) 01/19/17 01/19/17 01/19/17 Range/Units 07:55 13:45 16:44 WBC (3.8-10.6) k/uL RBC (4.30-5.90) m/uL Hgb (13.0-17.5) gm/dL Hct (39.0-53.0) % MCV (80.0-100.0) fL MCH (25.0-35.0) pg RDW (11.5-15.5) % Plt Count (150-450) k/uL Sodium (137-145) mmol/L Glucose (74-99) mg/dL POC Glucose (mg/dL) 132 H 109 H (75-99) mg/dL Calcium (8.4-10.2) mg/dL Magnesium (1.6-2.3) mg/dL Urine Protein 1+ H (Negative) Urine Glucose (UA) Trace H (Negative) Hyaline Casts 3 H (0-2) /lpf Urine Mucus Rare H (None) /hpf 01/19/17 01/20/17 01/20/17 Range/Units 20:27 04:15 04:15 WBC 0.7 L* (3.8-10.6) k/uL RBC 2.64 L (4.30-5.90) m/uL Hgb 9.5 L D (13.0-17.5) gm/dL Hct 29.7 L (39.0-53.0) % MCV 112.5 H (80.0-100.0) fL MCH 36.0 H (25.0-35.0) pg RDW 17.0 H (11.5-15.5) % Plt Count 84 L (150-450) k/uL Sodium 135 L (137-145) mmol/L Glucose 106 H (74-99) mg/dL POC Glucose (mg/dL) 106 H (75-99) mg/dL Calcium 8.0 L (8.4-10.2) mg/dL Magnesium 1.5 L (1.6-2.3) mg/dL Urine Protein (Negative) Urine Glucose (UA) (Negative) Hyaline Casts (0-2) /lpf Urine Mucus (None) /hpf 01/20/17 01/20/17 Range/Units 06:50 07:24 WBC (3.8-10.6) k/uL RBC (4.30-5.90) m/uL Hgb (13.0-17.5) gm/dL Hct (39.0-53.0) % MCV (80.0-100.0) fL MCH (25.0-35.0) pg RDW (11.5-15.5) % Plt Count (150-450) k/uL Sodium (137-145) mmol/L Glucose (74-99) mg/dL POC Glucose (mg/dL) 123 H 130 H (75-99) mg/dL Calcium (8.4-10.2) mg/dL Magnesium (1.6-2.3) mg/dL Urine Protein (Negative) Urine Glucose (UA) (Negative) Hyaline Casts (0-2) /lpf Urine Mucus (None) /hpf Microbiology - Last 24 Hours (Table) 01/19/17 05:16 Blood Culture - Preliminary Blood No Growth after 24 hours 01/19/17 07:55 Urine Culture - Preliminary Urine,Voided Assessment and Plan Plan: 1. Acute on chronic hypoxemic respiratory failure with worsening infiltrate suspicious of postobstructive pneumonia, gram-negative pneumonia, on a chemotherapy immunosuppressed patient underlying history of metastatic small cell carcinoma, patient requires close monitoring in the ICU secondary to underlying comorbidities including atrial fibrillation with rapid ventilator date, and worsening hypoxemia, patient will be seen by Dr. Smith from critical care medicine, IV hydrocortisone 100 mg every 8 hours, IV Zosyn and IV Levaquin and vancomycin. Sputum cultures blood cultures 2. Atrial fibrillation with rapid ventricular rate converted to sinus tachycardia, patient is on Cardizem drip, cardiology will be following him patient is not currently anticoagulated secondary to recent brain bleed that was noted arising from a metastatic lesions to the brain. Continue metoprolol tartrate 5 mg twice daily. 3 history of pulmonary emboli not on any anticoagulation secondary to risk for critical complication that can arise from anticoagulation 4 urgent hypertension with a blood pressure emergency was , patient will be on hydralazine and a sore are if possible try to bring his blood pressure down and if needed calcium channel donovan be good option as well. 5 recent herpes zoster: Without any postherpetic neuralgia symptoms 6 small cell CA of the lung: Has been on chemotherapy radiation therapy this is more stage IV lung cancer been manage and follow by oncology and radiation oncology. 7 severe intractable nausea and vomiting and gastroparesis: Has improved significantly since last week. 8 BPH: Watch for any urinary retention. 9 tachycardia: EKG was performed patient might need an echocardiogram and if needed to start him on beta donovan to bring the pulse rate down. 10 anemia: Iron deficiency continue multivitamins. stable 11 COPD: Has been on combination of bronchodilator along with steroid inhaler. 12 GI prophylaxis: Patient is on pantoprazole. 13. Pancytopenia most likely chemotherapy related, oncology is on consult 14. End-stage COPD with bullous emphysema, small pleural effusion steroid dependency and O2 dependency. Treatment as above nebulized solutions, DVT prophylaxis: norman jeffery CODE STATUS: Full code. Discharge plan: To be determined Impression and plan of care have been directed as dictated by the signing physician. [place] Archibald nurse practitioner acting as scribe for signing physician.
[2017-01-20 11:53] LABS: Glucose,Whole Blood 155 mg/dL (75-99)
[2017-01-20] MEDS: ALBUTEROL INHALER 60 PUFF/8 GM INHALER INHALATION PRN ×2 (11:54→16:11)
[2017-01-20] MEDS: TIOTROPIUM 18 MCG/PUFF INHALER INHALATION SCH (11:55)
[2017-01-20] MEDS: MORPHINE SULFATE 2 MG/ML SYRINGE IVP PRN ×3 (14:02→20:02)
--- NOTE | 2017-01-20 14:25 | CDI ---
In responding to this query, please exercise your independent professional judgment. The [facility] Coding Staff and Clinical Documentation Specialists appreciate your assistance in clarifying documentation, maintaining compliance with coding guidelines, accurately documenting patients condition and capturing severity of illness. The fact that a question is asked does not imply that any particular answer is desired or expected. Communication forms are a method of clarifying documentation and are not made part of the Legal Health Record. Thank you in advance for your clarification. Last Revision, April 2015 Doyle Christianson [address] [facility] [address] Documentation Clarification Form Date: 01/20/2017 2:05:00 PM From: Lea Germain Admit Date: 01/19/2017 7:00:00 AM Patient Name: José Miguel Gomez Visit Number: [id number] Discharge Date: Dr. Farhat Garnica Atrial fibrillation is documented in the ED evaluation, H&P and your progress notes. History/Risk Factors: Small cell lung cancer, COPD, on home O2, Clinical Indicators: Present with worsening shortness of breath associated with cough and also pleuretic chest discomfort. Patient developed atrial fibrillation with RVR. EKG/telemetry: SVT and multifocal atrial tachycardia than atrial fibrillation and converted to normal sinus mechanism. Treatment: Cardizem drip Metoprolol Tartrate PO In your professional opinion, can you please clarify the type of atrial fibrillation, if known? Chronic/Permanent Paroxysmal Persistent Other, please specify Unable to determine Please document in your progress notes in order to capture severity of illness and risk of mortality. Include clinical findings that support your diagnosis. FYI: Press F11 to launch patient chart MTDD
[2017-01-20] MEDS: ACETAMINOPHEN TAB 500 MG TAB PO PRN (16:24)
[2017-01-20 16:58] LABS: Glucose,Whole Blood 167 mg/dL (75-99)
--- NOTE | 2017-01-20 18:13 | CONS ---
Date of Consultation: 01-20-17 Mr. Gomez was seen at [facility] with history of pulmonary embolism, altered mental status with brain mets and small cell carcinoma of the lung. This is a 61 -year-old gentleman who has been admitted with diagnosis of PE. The patient has bilateral venous ultrasound showed no evidence of deep venous thrombosis. The patient had a CT scan which showed two spots in the brain consistent with metastasis. The patient is under the care of Dr. Oates. Past medical history of ( ), history of cancer, COPD, pneumonia and renal disease. The patient was seen in his room. He was lying comfortably. Neck is supple. Chest has crackles bilateral. Abdomen is soft. Femoral pulses are present. IMPRESSION: Acute pulmonary embolism. The patient is on anticoagulation. The patient was seen and discussed about the filter. Discussed with the family and the . The patient at this point does not want to go for filter. Risks and complications were discussed with the family and the patient and they understand. MATT
[2017-01-20] MEDS: METOPROLOL TARTRATE 25 MG TAB PO SCH (20:10)
[2017-01-20 20:13] LABS: Glucose,Whole Blood 163 mg/dL (75-99)
[2017-01-20] MEDS: MELATONIN 5 MG TABLET PO SCH (21:38)
--- NOTE | 2017-01-20 21:42 | ECHOF ---
Referral Reason:svt MEASUREMENTS -------- HEIGHT: 152.4 cm WEIGHT: 65.3 kg BP: 130/64 IVSd: 1.3 cm (0.6 - 1.1) LVIDd: 3.7 cm (3.9 - 5.3) LVPWd: 1.2 cm (0.6 - 1.1) IVSs: 1.6 cm LVIDs: 3.0 cm LVPWs: 1.0 cm Ao Diam: 3.3 cm (2.0 - 3.7) LA Diam: 4.0 cm (2.7 - 3.8) MV EXCURSION: 11.800 mm (> 18.000) MV EF SLOPE: 115 mm/s (70 - 150) EPSS: 0.3 cm MV E Jose: 0.57 m/s MV DecT: 280 ms MV A Jose: 0.77 m/s MV E/A Ratio: 0.74 RAP: 5.00 mmHg RVSP: 14.31 mmHg FINDINGS -------- Undetermined rhythm. Pt. has a pectus chest. There is mild concentric left ventricular hypertrophy. Overall left ventricular systolic function is normal with, an EF between 55 - 60 %. The right ventricle is normal in size. The left atrial size is normal. The right atrial size is normal. There is mild aortic valve sclerosis. There is no evidence of aortic regurgitation. Mild mitral annular calcification present. Mild mitral regurgitation is present. Mild tricuspid regurgitation present. There is no evidence of pulmonary hypertension. The right ventricular systolic pressure, as measured by Doppler, is 14.31mmHg. The pulmonic valve was not well visualized. The aortic root size is normal. Echo free space may represent effusion or a pericardial fat pad. CONCLUSIONS -------- 1. Pt. has a pectus chest. 2. The pulmonic valve was not well visualized. 3. Echo free space may represent effusion or a pericardial fat pad. 4. There is mild concentric left ventricular hypertrophy. 5. Overall left ventricular systolic function is normal with, an EF between 55 - 60 %. 6. There is mild aortic valve sclerosis. 7. Mild mitral annular calcification present. 8. Mild mitral regurgitation is present. 9. Mild tricuspid regurgitation present. 10. There is no evidence of pulmonary hypertension. 11. The right ventricular systolic pressure, as measured by Doppler, is 14.31mmHg. RESTAURANT HOSTESS: Marina Maravilla RDCS
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
[2017-01-21] MEDS: HYDROCORTISONE SUCCINATE 100 MG/2 ML VIAL IV SCH ×4 (00:57→23:23)
[2017-01-21] MEDS: PIPERACILLIN-TAZOBACTAM 3.375 GM in DEXTROSE/WATER 1 50ML.BAG IVPB SCH ×4 (00:57→23:27)
[2017-01-21] MEDS: SODIUM CHLORIDE 0.9% 1,000 ML IV SCH ×2 (00:57→09:35)
[2017-01-21] MEDS: MORPHINE SULFATE 2 MG/ML SYRINGE IVP PRN ×5 (02:04→18:17)
[2017-01-21] MEDS: LEVOFLOXACIN 750MG-D5W PMX 750 MG in DEXTROSE/WATER 1 150ML.BAG IVPB SCH (04:18)
[2017-01-21] MEDS: VANCOMYCIN 1,250 MG in SODIUM CHLORIDE 0.9% 250 ML IVPB SCH ×2 (04:18→16:20)
[2017-01-21 05:09] LABS: Anisocytosis Slight; CH 35.7; CHCM 31.3; HDW 2.57; HGB 10.1 gm/dL (13.0-17.5); Hypochromasia Slight; Immature Gran Flag Marked; MCH 36.2 pg (25.0-35.0); MCHC 31.7 g/dL (31.0-37.0); MCV 114.3 fL (80.0-100.0); Macrocytosis Marked; Mean Platelet Volume 7.8; RDW 16.9 % (11.5-15.5); WBC (Perox) 0.42
[2017-01-21 05:24] LABS: Anion Gap 8 mmol/L; Blood Urea Nitrogen 24 mg/dL (9-20); Calcium 8.5 mg/dL (8.4-10.2); Carbon Dioxide 22 mmol/L (22-30); Chloride 106 mmol/L (98-107); Glucose 133 mg/dL (74-99); Magnesium 1.7 mg/dL (1.6-2.3); Non-African American GFR(MDRD) >60 (>60 ml/min/1.73 sqM); Phosphorous 3.4 mg/dL (2.5-4.5); Potassium 3.5 mmol/L (3.5-5.1); Sodium 136 mmol/L (137-145)
[2017-01-21] MEDS ORDERED: Potassium Replacement Protocol 1 EACH MISC MISCELLANE PRN (05:38)
[2017-01-21] MEDS ORDERED: Magnesium Replacement Protocol 1 EACH MISC MISCELLANE PRN (05:38)
[2017-01-21 05:46] LABS: WBC 0.4 k/uL (3.8-10.6)
[2017-01-21 06:05] LABS: Add Differential Manual Differential
[2017-01-21 06:12] LABS: Manual Review Performed
[2017-01-21] MEDS: MAGNESIUM SULFATE-D5W PMX 1 GM in DEXTROSE/WATER 1 100ML.BAG IVPB SCH ×2 (06:30→08:34)
[2017-01-21] MEDS: POTASSIUM CHLORIDE ER 20 MEQ TAB.ER PO SCH ×2 (06:30→08:34)
--- NOTE | 2017-01-21 07:21 | XR ---
EXAMINATION TYPE: XR chest 1V portable DATE OF EXAM: 01/21/2017 Comparison: 01/20/2017 Clinical History: 61-year-old male Pneumonia vs radiation pneumonitis Findings: Heart is normal size. Aorta and pulmonary vasculature within normal limits. Right anterior chest wall injection port with catheter tip at the mid SVC. There is worsening density and extent of right mid and lower lung airspace opacity. Bullous change at the left lower lung. Nodular density peripheral left base suggestive of nipple shadow. Impression: Worsening density and extent of the extensive right mid and lower lung consolidation. Bullous emphyse ma.
[2017-01-21 07:30] LABS: Glucose,Whole Blood 107 mg/dL (75-99)
[2017-01-21] MEDS: METOPROLOL TARTRATE 25 MG TAB PO SCH (08:35)
[2017-01-21] MEDS: PANTOPRAZOLE 40 MG/10 ML VIAL IVP SCH (08:36)
[2017-01-21] MEDS: ALPRAZolam 0.25 MG TAB PO SCH ×2 (08:51→20:42)
[2017-01-21] MEDS: TIOTROPIUM 18 MCG/PUFF INHALER INHALATION SCH (08:52)
[2017-01-21] MEDS: INSULIN LISPRO (humaLOG) 300 UNIT/3 ML VIAL SQ SCH ×4 (08:52→23:21)
--- NOTE | 2017-01-21 09:36 | P.PN ---
Subjective Principal diagnosis: cardiac arrhythmia This is a pleasant 60-year-old gentleman with no prior cardiac history but history of small cell lung cancer with metastasis to the brain who is status post radiation and chemotherapy presented to the emergency room complaining of shortness of breath. The patient described worsening shortness of breath associated with cough and also pleuritic chest discomfort. The patient is known to have underlying COPD and he is on home oxygen. He was diagnosed with COPD exacerbation and he was started on treatment for that. We get involved in the care of the patient because the patient developed an A. fib with RVR and he was started on Cardizem drip and converted to normal sinus mechanism. Reviewing all the EKGs in the chart as well as the rhythm strip it did indicate more of SVT and multifocal atrial tachycardia than atrial fibrillation. he was started on metoprolol by mouth yesterday. He continues to be tachycardic but it seems to be sinus tachycardia and part of it is he is in mild acute respiratory distress. Objective - Vital Signs Vital signs: Vital Signs Temp 98.5 F 01/21/17 04:00 Pulse 102 H 01/21/17 09:00 Resp 25 H 01/21/17 09:00 BP 163/74 01/21/17 09:00 Pulse Ox 91 L 01/21/17 09:00 Intake & Output 01/20/17 01/21/17 01/21/17 18:59 06:59 18:59 Intake Total 2462.5 1162.5 470 Output Total 725 950 450 Balance 1737.5 212.5 20 Weight 65.4 kg Intake: IV 1287.5 1162.5 250 Piperacillin-Tazobactam 3 87.5 62.5 50 .375 gm In Dextrose/Water 1 50ml.bag @ 12.5 mls/hr IVPB Q8HR [facility]ATIE Rx#: [id number] Sodium Chloride 0.9% 1, 1200 1100 200 000 ml @ 100 mls/hr IV . Q10H [facility]ATIE Rx#:[id number] Intake, IV Titration 575 100 Amount Diltiazem 125 mg In 125 Sodium Chloride 0.9% 100 ml @ 5 MG/HR 5 mls/hr IV .Q24H [facility]ATIE Rx#:[id number] Magnesium Sulfate-D5w Pmx 200 1 gm In Dextrose/Water 1 100ml.bag @ 100 mls/hr IVPB Q1H KATIE Rx#: [id number] Magnesium Sulfate-D5w Pmx 100 1 gm In Dextrose/Water 1 100ml.bag @ 100 mls/hr IVPB Q1H KATIE Rx#: [id number] Vancomycin 1,250 mg In 250 Sodium Chloride 0.9% 250 ml @ 125 mls/hr IVPB Q12H KATIE Rx#:[id number] Oral 600 120 Output: Urine 725 950 450 Other: Voiding Method Urinal Urinal Urinal - Constitutional General appearance: Present: no acute distress - Respiratory Respiratory: bilateral: rales, wheezing - Cardiovascular Rhythm: regular Heart sounds: normal: S1, S2 - Labs CBC & Chem 7: 01/21/17 04:21 01/21/17 04:21 Labs: Abnormal Lab Results - Last 24 Hours (Table) 01/20/17 01/20/17 01/20/17 Range/Units 11:52 16:56 20:11 WBC (3.8-10.6) k/uL RBC (4.30-5.90) m/uL Hgb (13.0-17.5) gm/dL Hct (39.0-53.0) % MCV (80.0-100.0) fL MCH (25.0-35.0) pg RDW (11.5-15.5) % Plt Count (150-450) k/uL Sodium (137-145) mmol/L BUN (9-20) mg/dL Glucose (74-99) mg/dL POC Glucose (mg/dL) 155 H 167 H 163 H (75-99) mg/dL 01/21/17 01/21/17 01/21/17 Range/Units 04:21 04:21 07:28 WBC 0.4 L* (3.8-10.6) k/uL RBC 2.80 L (4.30-5.90) m/uL Hgb 10.1 L (13.0-17.5) gm/dL Hct 32.0 L (39.0-53.0) % MCV 114.3 H (80.0-100.0) fL MCH 36.2 H (25.0-35.0) pg RDW 16.9 H (11.5-15.5) % Plt Count 86 L (150-450) k/uL Sodium 136 L (137-145) mmol/L BUN 24 H (9-20) mg/dL Glucose 133 H (74-99) mg/dL POC Glucose (mg/dL) 107 H (75-99) mg/dL Microbiology - Last 24 Hours (Table) 01/19/17 05:16 Blood Culture - Preliminary Blood No Growth after 48 hours 01/19/17 15:17 Blood Culture - Preliminary Blood No Growth after 24 hours 01/19/17 07:55 Urine Culture - Final Urine,Voided Assessment and Plan Plan: This is a pleasant 61-year-old gentleman who has small cell lung cancer with metastasis to brain who has also underlying COPD and chronic respiratory failure percent to the hospital with worsening shortness of breath and cough and was diagnosed with acute exacerbation of COPD. he has been maintaining normal sinus mechanism. he is in sinus tachycardia. Underwent an echocardiogram which showed normal LV function. I'm going to increase the dose of metoprolol to 50 mg by mouth twice a day and continue monitor the heart rate and blood pressure and follow-up with the patient. No need for anticoagulation.
[2017-01-21] MEDS ORDERED: FUROSEMIDE 10 MG/ML 4 ML VIAL IV STA (10:09)
[2017-01-21] MEDS: LORazepam 2 MG/ML SYRINGE IV PRN (10:34)
--- NOTE | 2017-01-21 12:05 | P.PN ---
Subjective Principal diagnosis: Acute hypoxic respiratory failure secondary to pneumonia and radiation pneumonitis as well as COPD. And small cell lung cancer. 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 Patient's diagnosis of small cell lung cancer was made back in July of 2016, and this was established via bronchoscopy and transtracheal needle aspiration done by Dr. Nava. Patient presented initially with a right upper lobe nodule and mediastinal as well as pretracheal lymphadenopathy. Since the diagnosis was made, patient received chemotherapy and radiation therapy by Dr. Oates, and recently he was discovered to have brain metastasis, patient finished whole brain radiation treatment with Dr. Hutchins. Patient was also diagnosed as having small pulmonary emboli during his last admission were in he presented with pancytopenia and intractable nausea and vomiting. Anticoagulation therapy was not recommended because of his brain metastasis and fear of bleeding while on anticoagulation therapy in the brain. At any rate since then the patient has been seen by different consultants including oncology, radiation oncology, and I saw him in the office few weeks ago recommended that he remains on prednisone for possible radiation pneumonitis. Patient has been on multiple bronchodilators for his underlying COPD/emphysema. Patient presented to the ER last night with mostly symptoms of chest discomfort, pain in the right side of the chest, pain in his right shoulder, radiation of the pain to the right upper extremity, and numbness in the hand and fingers noted. Patient was also noted to be relatively hypoxic, and he was in supraventricular tachycardia/atrial fibrillation with RVR. Seen by cardiology while in the ER, placed on Cardizem drip and given Cardizem bolus. Presently patient seems to be in sinus tachycardia rate of 127/m.. CT of the chest was ordered , and it showed moderate severe bullous emphysema with worsening patchy and confluent right upper lobe consolidation and small right pleural effusion and consolidation of the right base worsening airspace disease and worsening pneumonitis. No evidence of pulmonary embolism was noted. There was also a 2.1 cm focal density at the right base suspicious for malignancy. ABG in the ER showed a pO2 of 54 pCO2 of 42 pH of 7.33 and this was on 6 L nasal cannula. Lactic acid was 1.3. Patient was noted to be hypertensive, no episodes of hypotension in spite of his supraventricular tachycardia. Patient was placed on a nonrebreather mask, admitted to the intensive care unit, and I recommended high-dose of Solu-Cortef, antibiotics in the form of Levaquin and vancomycin, bronchodilators in the form of DuoNeb updrafts and the patient will be placed on GI and DVT prophylaxis. I had a long discussion with the patient and his regarding CODE STATUS, he seems and his seems to be inclined to make him DO NOT RESUSCITATE CODE STATUS, and I explained to both the overall picture and the fact that he has a terminal illness, prognosis in the terminal operations supervisor is extremely poor and guarded. Decision regarding CODE STATUS is yet to be decided upon. In the meantime the patient will remain on nonrebreather mask, and all orders were placed on the chart. Patient was reevaluated today on 01/20/2017, chest x-ray is slightly worse with slight increase in his right pleural effusion and airspace disease, however surprisingly the patient is feeling better clinically. Less shortness of breath , no chest pain, no fever, no chills, no hemoptysis. His labs were reviewed at his chest x-ray was reviewed. WBC count is down to 0.7 hemoglobin is 9.5 electrolytes and renal profile are normal. Patient is having trouble with his updrafts, hence I will switch him to Ventolin and Spiriva which she has taken on outpatient basis to replace DuoNeb. Remains on broad-spectrum antibiotics, cultures so far are negative. Patient was reevaluated today on 01/21/2017, clinically, the patient is developing more shortness of breath, he is becoming more tachypneic, chest x- ray is definitely looking worse. More airspace disease on consultation as noted in the right midlung and in the right lower lobe. Even on a nonrebreather mask, O2 saturations is in the mid and high 80s. Hence the patient will be placed on a BiPAP at 12 and 5, with FiO2 of 100%. I will give him a dose of Lasix 40 mg IV push and will continue the same treatment plan including antibiotics and bronchodilators. Discussed with his his deteriorating condition, and she is planning to call her kids to come from [place]. Labs were reviewed, WBC count is 0.4 hemoglobin is 10.1. Basic metabolic profile and he'll profile is normal. Objective - Vital Signs Vital signs: Vital Signs Temp 98.5 F 01/21/17 04:00 Pulse 102 H 01/21/17 11:00 Resp 27 H 01/21/17 11:00 BP 137/66 01/21/17 11:00 Pulse Ox 93 L 01/21/17 11:00 Intake & Output 01/20/17 01/21/17 01/21/17 18:59 06:59 18:59 Intake Total 2462.5 1162.5 670 Output Total 725 950 900 Balance 1737.5 212.5 -230 Weight 65.4 kg Intake: IV 1287.5 1162.5 450 Piperacillin-Tazobactam 3 87.5 62.5 50 .375 gm In Dextrose/Water 1 50ml.bag @ 12.5 mls/hr IVPB Q8HR [facility] Rx#: [id number] Sodium Chloride 0.9% 1, 1200 1100 400 000 ml @ 100 mls/hr IV . Q10H [facility]ATIE Rx#:[id number] Intake, IV Titration 575 100 Amount Diltiazem 125 mg In 125 Sodium Chloride 0.9% 100 ml @ 5 MG/HR 5 mls/hr IV .Q24H [facility]ATIE Rx#:[id number] Magnesium Sulfate-D5w Pmx 200 1 gm In Dextrose/Water 1 100ml.bag @ 100 mls/hr IVPB Q1H KATIE Rx#: [id number] Magnesium Sulfate-D5w Pmx 100 1 gm In Dextrose/Water 1 100ml.bag @ 100 mls/hr IVPB Q1H KATIE Rx#: [id number] Vancomycin 1,250 mg In 250 Sodium Chloride 0.9% 250 ml @ 125 mls/hr IVPB Q12H KATIE Rx#:[id number] Oral 600 120 Output: Urine 725 950 900 Other: Voiding Method Urinal Urinal Urinal - Exam Physical Exam: Revealed a 61-year-old white male in moderate respiratory distress presently on non-rebreather mask noted to be slightly anxious. HEENT:[Neck is supple.] [No neck masses.] [No thyromegaly.] [No JVD.] Chest: [Diminished breath sound bilaterally crackles and rhonchi and wheezing noted on the right side.] Cardiac Exam: Tachycardic [Normal S1 and S2, no S3 gallop, no murmur.] Abdomen: [Soft, nontender, no megaly, no rebound, no guarding, normal bowel sounds.] Extremities: [Mild clubbing, no edema, no cyanosis.] Neurological Exam: [No focal neurologic deficit.] - Labs CBC & Chem 7: 01/21/17 04:21 01/21/17 04:21 Labs: Abnormal Lab Results - Last 24 Hours (Table) 01/20/17 01/20/17 01/21/17 Range/Units 16:56 20:11 04:21 WBC 0.4 L* (3.8-10.6) k/uL RBC 2.80 L (4.30-5.90) m/uL Hgb 10.1 L (13.0-17.5) gm/dL Hct 32.0 L (39.0-53.0) % MCV 114.3 H (80.0-100.0) fL MCH 36.2 H (25.0-35.0) pg RDW 16.9 H (11.5-15.5) % Plt Count 86 L (150-450) k/uL Sodium (137-145) mmol/L BUN (9-20) mg/dL Glucose (74-99) mg/dL POC Glucose (mg/dL) 167 H 163 H (75-99) mg/dL 01/21/17 01/21/17 Range/Units 04:21 07:28 WBC (3.8-10.6) k/uL RBC (4.30-5.90) m/uL Hgb (13.0-17.5) gm/dL Hct (39.0-53.0) % MCV (80.0-100.0) fL MCH (25.0-35.0) pg RDW (11.5-15.5) % Plt Count (150-450) k/uL Sodium 136 L (137-145) mmol/L BUN 24 H (9-20) mg/dL Glucose 133 H (74-99) mg/dL POC Glucose (mg/dL) 107 H (75-99) mg/dL Microbiology - Last 24 Hours (Table) 01/19/17 05:16 Blood Culture - Preliminary Blood No Growth after 48 hours 01/19/17 15:17 Blood Culture - Preliminary Blood No Growth after 24 hours 01/19/17 07:55 Urine Culture - Final Urine,Voided Assessment and Plan Plan: Impression: 1 Acute hypoxic respiratory failure, multifactorial secondary to severe COPD exacerbation, right sided small cell lung cancer, pneumonia, possible radiation pneumonitis involving the right lung. 2 possible sepsis, primary source is the right lung pneumonia. 3 atrial fibrillation with RVR, patient remains on Cardizem drip, rate seems to be better controlled. 4 history of severe bullous emphysema with acute exacerbation 5 acute radiation pneumonitis, patient finished his radiation treatment in October of 2016. 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 7 history of pulmonary embolism, patient is not on anticoagulation therapy because of risk of bleeding into the central nervous system. 8 history of shingles, treated and responded well to treatment. Recommendation: Continue antibiotics, high doses of steroids, bronchodilators, high FiO2/oxygen, presently placed on BiPAP. Continue GI and DVT prophylaxis, we'll follow closely. Discussed his condition with him and his at bedside , yesterday, and patient is DO NOT RESUSCITATE as per his own wishes. Overall clinical picture does not seem to be promising, patient remains DO NOT RESUSCITATE, and we'll continue meds and supportive measures as ordered. Time with Patient: Less than 30
[2017-01-21] MEDS: FILGRASTIM-SNDZ 480 MCG/0.8 ML SYRINGE SQ SCH (12:40)
[2017-01-21] MEDS: METOPROLOL TARTRATE 25 MG TAB PO STA (12:40)
[2017-01-21 13:00] LABS: Glucose,Whole Blood 134 mg/dL (75-99)
--- NOTE | 2017-01-21 14:42 | P.PN ---
Subjective 61-year-old male one of Dr. Cabrera's, Dr Sarah Oates radiation oncologist Dr. 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 Anticoagulation was not recommended at that time secondary to brain with a stasis with feeling of increasing brain bleed He presented to emergency room secondary to increasing cough and increasing shortness of breath increasing discomfort, patient denies any fever, patient denies any obstructive processes, he mentions that he cannot use the nebulized albuterol as he causes paradoxical bronchospasm, he requires oral prednisone daily along with Ventolin inhaled device and Spiriva patient denies any headache no syncopal event no motor deficits in right or left side, no diplopia no posttussive vomiting In the emergency room patient was hypoxemic, he had supraventricular tachycardia with atrial fibrillation, RVR, he was placed on Cardizem drip, CAT scan was performed that shows severe bullous emphysema with worsening confluent right upper lobe consolidation and small right pleural effusion along with constellation off the right base worsening airspace disease and worsening pneumonitis. No large pulmonary emboli was noted, there is a focal density in the right base suspicious for malignancy at 2.1 cm patient was subsequently admitted to intensive care unit with consultations with Dr. Smith pulmonary medicine. CODE STATUS was discussed with the patient, he wants to be placed as a full code this time including ventilatory support however prognosis remains to be guarded based on not curable small cell carcinoma with brain metastases, again this would be closely discussed with the patient. Patient was started on Solu-Cortef and Levaquin and vancomycin 01/20: Patient remains in intensive care unit. He has been seen in consultation by Dr. Garnica. He was in atrial fibrillation converted to normal sinus rhythm and was on Cardizem drip weaned off and on oral metoprolol. Repeat chest x-ray shows worsening dense multifocal consolidation in the right mid and lower lungs. Patient is followed by Dr. Greco from pulmonary medicine. He is currently on Levaquin, Zosyn and vancomycin and also Solu-Cortef. He has been made no code. Consult with oncology is pending. Echocardiogram done and report pending. Blood culture is showing no growth after 24 hours and urine cultures in progress. Plan transfer out of ICU tomorrow. 01/21: Patient has been seen by Dr. Del Cid and there is some concern for radiation pneumonitis. Patient has been started on Zarxio to improve his white cell count which is now down to 0.4. Regarding small cell lung cancer, patient is unable to undergo active treatment with plan to reevaluate in the office. Patient has completed radiation of the brain metastases to reduce the risk of further bleeding. Repeat chest x-ray shows worsening density and extent of the right mid and lower lung consolidation and a bolus emphysema. He has been afebrile. Pulse ox is 92% on 100% nonrebreather and is currently on BiPAP which he does not like to use. Lopressor was increased today. He did not have breakfast this morning. He is complaining of dry mouth for which mouthkote has been ordered. Blood cultures are showing no growth and urine culture shows genital tuan. Objective - Vital Signs Vital signs: Vital Signs Temp 98.5 F 01/21/17 04:00 Pulse 94 01/21/17 08:00 Resp 22 01/21/17 08:00 BP 140/67 01/21/17 08:00 Pulse Ox 92 L 01/21/17 08:00 Intake & Output 01/20/17 01/21/17 01/21/17 18:59 06:59 18:59 Intake Total 2462.5 1162.5 Output Total 725 950 Balance 1737.5 212.5 Intake: IV 1287.5 1162.5 Piperacillin-Tazobactam 3 87.5 62.5 .375 gm In Dextrose/Water 1 50ml.bag @ 12.5 mls/hr IVPB Q8HR [facility] Rx#: [id number] Sodium Chloride 0.9% 1, 1200 1100 000 ml @ 100 mls/hr IV . Q10H [facility] Rx#:[id number] Intake, IV Titration 575 Amount Diltiazem 125 mg In 125 Sodium Chloride 0.9% 100 ml @ 5 MG/HR 5 mls/hr IV .Q24H [facility] Rx#:[id number] Magnesium Sulfate-D5w Pmx 200 1 gm In Dextrose/Water 1 100ml.bag @ 100 mls/hr IVPB Q1H [facility] Rx#: [id number] Vancomycin 1,250 mg In 250 Sodium Chloride 0.9% 250 ml @ 125 mls/hr IVPB Q12H [facility] Rx#:[id number] Oral 600 Output: Urine 725 950 Other: Voiding Method Urinal Urinal - Exam General appearance: average body habitus, cooperative, mild distress - EENT Eyes: anicteric sclerae, EOMI, PERRLA, normal appearance ENT: hard of hearing, NA/AT, normal oropharynx - Neck Neck: no lymphadenopathy, normal ROM, no other, no rigidity, no stridor, no thyromegaly - Respiratory Respiratory: bilateral: CTA, negative: diminished, dullness, rales, rhonchi - Cardiovascular Rhythm: regular Heart sounds: normal: S1, S2 Abnormal Heart Sounds: no systolic murmur, no diastolic murmur, no rub, no S3 Gallop, no S4 Gallop, no click, no other - Gastrointestinal General gastrointestinal: normal bowel sounds, soft - Integumentary Integumentary: jaundiced, normal turgor - Neurologic Neurologic: CNII-XII intact - Musculoskeletal Musculoskeletal: gait normal, strength equal bilaterally - Psychiatric Psychiatric: A&O x's 3, appropriate affect, intact judgment & insight - Labs CBC & Chem 7: 01/21/17 04:21 01/21/17 04:21 Labs: Abnormal Lab Results - Last 24 Hours (Table) 01/20/17 01/20/17 01/20/17 Range/Units 11:52 16:56 20:11 WBC (3.8-10.6) k/uL RBC (4.30-5.90) m/uL Hgb (13.0-17.5) gm/dL Hct (39.0-53.0) % MCV (80.0-100.0) fL MCH (25.0-35.0) pg RDW (11.5-15.5) % Plt Count (150-450) k/uL Sodium (137-145) mmol/L BUN (9-20) mg/dL Glucose (74-99) mg/dL POC Glucose (mg/dL) 155 H 167 H 163 H (75-99) mg/dL 01/21/17 01/21/17 01/21/17 Range/Units 04:21 04:21 07:28 WBC 0.4 L* (3.8-10.6) k/uL RBC 2.80 L (4.30-5.90) m/uL Hgb 10.1 L (13.0-17.5) gm/dL Hct 32.0 L (39.0-53.0) % MCV 114.3 H (80.0-100.0) fL MCH 36.2 H (25.0-35.0) pg RDW 16.9 H (11.5-15.5) % Plt Count 86 L (150-450) k/uL Sodium 136 L (137-145) mmol/L BUN 24 H (9-20) mg/dL Glucose 133 H (74-99) mg/dL POC Glucose (mg/dL) 107 H (75-99) mg/dL Microbiology - Last 24 Hours (Table) 01/19/17 05:16 Blood Culture - Preliminary Blood No Growth after 48 hours 01/19/17 15:17 Blood Culture - Preliminary Blood No Growth after 24 hours 01/19/17 07:55 Urine Culture - Final Urine,Voided Assessment and Plan Plan: 1. Acute on chronic hypoxemic respiratory failure with worsening infiltrate suspicious of postobstructive pneumonia, gram-negative pneumonia, on a chemotherapy immunosuppressed patient underlying history of metastatic small cell carcinoma, patient requires close monitoring in the ICU secondary to underlying comorbidities including atrial fibrillation with rapid ventilator date, and worsening hypoxemia, patient will be seen by Dr. Smith from critical care medicine, IV hydrocortisone 100 mg every 8 hours, IV Zosyn and IV Levaquin and vancomycin. Sputum cultures blood cultures 2. Atrial fibrillation with rapid ventricular rate converted to sinus tachycardia, most likely this was paroxysmal atrial fibrillation. patient is on metoprolol 50 mg twice daily, cardiology will be following him patient is not currently anticoagulated secondary to recent brain bleed that was noted arising from a metastatic lesions to the brain. Continue metoprolol tartrate 50 mg twice daily. 3 history of pulmonary emboli not on any anticoagulation secondary to risk for critical complication that can arise from anticoagulation 4 urgent hypertension with a blood pressure emergency was , patient will be on hydralazine and a sore are if possible try to bring his blood pressure down and if needed calcium channel donovan be good option as well. 5 recent herpes zoster: Without any postherpetic neuralgia symptoms 6 small cell CA of the lung: Has been on chemotherapy radiation therapy this is more stage IV lung cancer been manage and follow by oncology and radiation oncology. 7 severe intractable nausea and vomiting and gastroparesis: Has improved significantly since last week. 8 BPH: Watch for any urinary retention. 9 tachycardia: EKG was performed patient might need an echocardiogram and if needed to start him on beta donovan to bring the pulse rate down. 10 anemia: Iron deficiency continue multivitamins. stable 11 COPD: Has been on combination of bronchodilator along with steroid inhaler. 12 GI prophylaxis: Patient is on pantoprazole. 13. Pancytopenia most likely chemotherapy related, oncology is on consult. Patient started on Zarxio. 14. End-stage COPD with bullous emphysema, small pleural effusion steroid dependency and O2 dependency. Treatment as above nebulized solutions, DVT prophylaxis: norman jeffery CODE STATUS: No code. Discharge plan: To be determined Impression and plan of care have been directed as dictated by the signing physician. [place] Archibald nurse practitioner acting as scribe for signing physician.
[2017-01-21] MEDS ORDERED: VANCOMYCIN TROUGH DUE 1 EACH MISC MISCELLANE ONE (16:00)
[2017-01-21 17:52] LABS: Glucose,Whole Blood 97 mg/dL (75-99)
[2017-01-21] MEDS: MELATONIN 5 MG TABLET PO SCH (20:42)
[2017-01-21 21:04] LABS: Glucose,Whole Blood 96 mg/dL (75-99)
[2017-01-21] MEDS ORDERED: SODIUM CHLORIDE 0.9% 1,000 ML IV ONE (22:08)
[2017-01-21] MEDS: METOPROLOL TARTRATE 50 MG TAB PO SCH (22:20)
[2017-01-22] MEDS: MORPHINE SULFATE 2 MG/ML SYRINGE IVP PRN ×6 (00:01→21:19)
[2017-01-22] MEDS: LEVOFLOXACIN 750MG-D5W PMX 750 MG in DEXTROSE/WATER 1 150ML.BAG IVPB SCH (04:34)
[2017-01-22] MEDS: DRY MOUTH SPRAY 44.3 SPRAY/44.3 ML SPRAY MUCOUS MEM PRN ×2 (05:02→09:53)
[2017-01-22 05:03] LABS: Anisocytosis Slight; CH 35.4; CHCM 32.5; HDW 2.77; HGB 9.9 gm/dL (13.0-17.5); Immature Gran Flag Marked; Macrocytosis Marked; Mean Platelet Volume 7.4; RBC 2.75 m/uL (4.30-5.90); RDW 16.4 % (11.5-15.5); WBC (Perox) 0.34
[2017-01-22 05:04] LABS: MCV 108.9 fL (80.0-100.0); WBC 0.3 k/uL (3.8-10.6)
[2017-01-22 05:07] LABS: Anion Gap 9 mmol/L; Blood Urea Nitrogen 26 mg/dL (9-20); Calcium 7.9 mg/dL (8.4-10.2); Carbon Dioxide 22 mmol/L (22-30); Chloride 103 mmol/L (98-107); Glucose 86 mg/dL (74-99); Magnesium 1.8 mg/dL (1.6-2.3); Non-African American GFR(MDRD) >60 (>60 ml/min/1.73 sqM); Phosphorous 4.2 mg/dL (2.5-4.5); Sodium 134 mmol/L (137-145)
[2017-01-22 05:11] LABS: Potassium 2.7 mmol/L (3.5-5.1)
[2017-01-22 05:30] LABS: Add Differential Manual Differential
[2017-01-22 05:32] LABS: Manual Review Performed
[2017-01-22] MEDS: VANCOMYCIN 1,500 MG in SODIUM CHLORIDE 0.9% 250 ML IVPB SCH ×2 (05:49→17:41)
[2017-01-22] MEDS: MAGNESIUM SULFATE-D5W PMX 1 GM in DEXTROSE/WATER 1 100ML.BAG IVPB SCH ×2 (06:27→07:49)
[2017-01-22] MEDS: POTASSIUM CHLORIDE 10 MEQ, LIDOCAINE 2% INJ 10 MG in SODIUM CHLORIDE 0.9% 100 ML IV SCH ×4 (06:32→22:28)
[2017-01-22] MEDS: SODIUM CHLORIDE 0.9% 1,000 ML IV SCH ×3 (07:13→18:32)
[2017-01-22 07:31] LABS: Glucose,Whole Blood 123 mg/dL (75-99)
[2017-01-22] MEDS: PIPERACILLIN-TAZOBACTAM 3.375 GM in DEXTROSE/WATER 1 50ML.BAG IVPB SCH ×2 (07:48→15:27)
[2017-01-22] MEDS: PANTOPRAZOLE 40 MG/10 ML VIAL IVP SCH (07:50)
[2017-01-22] MEDS: HYDROCORTISONE SUCCINATE 100 MG/2 ML VIAL IV SCH ×2 (07:50→15:21)
[2017-01-22] MEDS: INSULIN LISPRO (humaLOG) 300 UNIT/3 ML VIAL SQ SCH ×4 (07:51→21:35)
[2017-01-22] MEDS: METOPROLOL TARTRATE 50 MG TAB PO SCH (07:52)
[2017-01-22] MEDS: ALPRAZolam 0.25 MG TAB PO SCH ×2 (07:53→21:21)
--- NOTE | 2017-01-22 09:05 | XR ---
EXAMINATION TYPE: XR chest 1V portable DATE OF EXAM: 01/22/2017 COMPARISON: 01/22/2016 HISTORY: Shortness of breath. Pneumonia versus radiation pneumonitis. TECHNIQUE: Single frontal view of the chest is obtained. FINDINGS: Focal consolidation with regions of air trapping and bronchiectasis is seen in the right h emithorax, most focal within the upper lobe as there are bullous emphysematous changes of both lung b ases right-sided Mediport is redemonstrated. Heart is within normal limits. No evidence of pulmonary vascular congestion or pneumothorax.. IMPRESSION: 1. Similar right hemithorax consolidation that may be partially attributable to radiation pneumonitis , although pleural effusion and superimposed infection should also be considered. 2. Bullous emphysematous changes.
--- NOTE | 2017-01-22 11:00 | P.PN ---
Progress Note - Text This is a pleasant 60-year-old gentleman with no prior cardiac history but history of small cell lung cancer with metastasis to the brain who is status post radiation and chemotherapy presented to the emergency room complaining of shortness of breath. The patient described worsening shortness of breath associated with cough and also pleuritic chest discomfort. The patient is known to have underlying COPD and he is on home oxygen. He was diagnosed with COPD exacerbation and he was started on treatment for that. We get involved in the care of the patient because the patient developed an A. fib with RVR and he was started on Cardizem drip and converted to normal sinus mechanism. Reviewing all the EKGs in the chart as well as the rhythm strip it did indicate more of SVT and multifocal atrial tachycardia than atrial fibrillation. The patient was started on metoprolol at 25 mg by mouth twice a day and yesterday it was increased to 50 mg by mouth twice a day. He has been maintaining a heart rate around 100. From a perivascular standpoint of view, we'll continue the current medical treatment and follow-up with the patient on when necessary case.
[2017-01-22] MEDS: TIOTROPIUM 18 MCG/PUFF INHALER INHALATION SCH (11:50)
--- NOTE | 2017-01-22 11:52 | P.PN ---
Subjective Principal diagnosis: Acute hypoxic respiratory failure secondary to pneumonia and radiation pneumonitis as well as COPD. And small cell lung cancer. 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 Patient's diagnosis of small cell lung cancer was made back in July of 2016, and this was established via bronchoscopy and transtracheal needle aspiration done by Dr. Nava. Patient presented initially with a right upper lobe nodule and mediastinal as well as pretracheal lymphadenopathy. Since the diagnosis was made, patient received chemotherapy and radiation therapy by Dr. Oates, and recently he was discovered to have brain metastasis, patient finished whole brain radiation treatment with Dr. Hutchins. Patient was also diagnosed as having small pulmonary emboli during his last admission were in he presented with pancytopenia and intractable nausea and vomiting. Anticoagulation therapy was not recommended because of his brain metastasis and fear of bleeding while on anticoagulation therapy in the brain. At any rate since then the patient has been seen by different consultants including oncology, radiation oncology, and I saw him in the office few weeks ago recommended that he remains on prednisone for possible radiation pneumonitis. Patient has been on multiple bronchodilators for his underlying COPD/emphysema. Patient presented to the ER last night with mostly symptoms of chest discomfort, pain in the right side of the chest, pain in his right shoulder, radiation of the pain to the right upper extremity, and numbness in the hand and fingers noted. Patient was also noted to be relatively hypoxic, and he was in supraventricular tachycardia/atrial fibrillation with RVR. Seen by cardiology while in the ER, placed on Cardizem drip and given Cardizem bolus. Presently patient seems to be in sinus tachycardia rate of 127/m.. CT of the chest was ordered , and it showed moderate severe bullous emphysema with worsening patchy and confluent right upper lobe consolidation and small right pleural effusion and consolidation of the right base worsening airspace disease and worsening pneumonitis. No evidence of pulmonary embolism was noted. There was also a 2.1 cm focal density at the right base suspicious for malignancy. ABG in the ER showed a pO2 of 54 pCO2 of 42 pH of 7.33 and this was on 6 L nasal cannula. Lactic acid was 1.3. Patient was noted to be hypertensive, no episodes of hypotension in spite of his supraventricular tachycardia. Patient was placed on a nonrebreather mask, admitted to the intensive care unit, and I recommended high-dose of Solu-Cortef, antibiotics in the form of Levaquin and vancomycin, bronchodilators in the form of DuoNeb updrafts and the patient will be placed on GI and DVT prophylaxis. 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 Decision regarding CODE STATUS is yet to be decided upon. In the meantime the patient will remain on nonrebreather mask, and all orders were placed on the chart. Patient was reevaluated today on 01/20/2017, chest x-ray is slightly worse with slight increase in his right pleural effusion and airspace disease, however surprisingly the patient is feeling better clinically. Less shortness of breath , no chest pain, no fever, no chills, no hemoptysis. His labs were reviewed at his chest x-ray was reviewed. WBC count is down to 0.7 hemoglobin is 9.5 electrolytes and renal profile are normal. Patient is having trouble with his updrafts, hence I will switch him to Ventolin and Spiriva which she has taken on outpatient basis to replace DuoNeb. Remains on broad-spectrum antibiotics, cultures so far are negative. Patient was reevaluated today on 01/21/2017, clinically, the patient is developing more shortness of breath, he is becoming more tachypneic, chest x- ray is definitely looking worse. More airspace disease on consultation as noted in the right midlung and in the right lower lobe. Even on a nonrebreather mask, O2 saturations is in the mid and high 80s. Hence the patient will be placed on a BiPAP at 12 and 5, with FiO2 of 100%. I will give him a dose of Lasix 40 mg IV push and will continue the same treatment plan including antibiotics and bronchodilators. Discussed with his his deteriorating condition, and she is planning to call her kids to come from out of state. Labs were reviewed, WBC count is 0.4 hemoglobin is 10.1. Basic metabolic profile and he'll profile is normal. Reevaluated today on 01/22/2017, patient was kept on BiPAP overnight, had some issues with low blood pressure last night, hence his blood pressure was placed on hold, and the patient was given fluid boluses. This morning the patient is about the same, remains on BiPAP, blood pressure is marginal, he desaturates very easily, chest x-ray is showing worsening airspace disease and consolidation in the right lower lobe and right middle lung. Patient remains pancytopenic with WBC count of 0.3 hemoglobin is 9.9 platelets are 65,000. Potassium is 2.7 being corrected as per protocol. Objective - Vital Signs Vital signs: Vital Signs Temp 98.8 F 01/22/17 04:00 Pulse 105 H 01/22/17 09:00 Resp 24 01/22/17 09:00 BP 101/57 01/22/17 09:00 Pulse Ox 97 01/22/17 09:00 Intake & Output 01/21/17 01/22/17 01/22/17 18:59 06:59 18:59 Intake Total 1330 2410.0 500 Output Total 2600 700 0 Balance -1270 1710.0 500 Weight 65.4 kg 72.2 kg 72.2 kg Intake: IV 740 2410.0 400 Levofloxacin 750Mg-D5w 250 0 Pmx 750 mg In Dextrose/ Water 1 150ml.bag @ 100 mls/hr IVPB Q24H [facility] Rx#: [id number] Magnesium Sulfate-D5w Pmx 50 50 1 gm In Dextrose/Water 1 100ml.bag @ 100 mls/hr IVPB Q1H [facility] Rx#: [id number] Piperacillin-Tazobactam 3 100 50.0 50 .375 gm In Dextrose/Water 1 50ml.bag @ 12.5 mls/hr IVPB Q8HR [facility] Rx#: [id number] Potassium Chloride 10 meq 50 250 Lidocaine 2% Inj 10 mg In Sodium Chloride 0.9% 100 ml @ 100 mls/hr IV Q1HR [facility] Rx#:[id number] Sodium Chloride 0.9% 1, 640 1010 50 000 ml @ 100 mls/hr IV . Q10H [facility] Rx#:[id number] Sodium Chloride 0.9% 1, 1000 000 ml @ 999 mls/hr IV . Q1H1M [facility] Rx#:[id number] Intake, IV Titration 350 100 Amount Magnesium Sulfate-D5w Pmx 100 1 gm In Dextrose/Water 1 100ml.bag @ 100 mls/hr IVPB Q1H [facility] Rx#: [id number] Magnesium Sulfate-D5w Pmx 100 1 gm In Dextrose/Water 1 100ml.bag @ 100 mls/hr IVPB Q1H [facility] Rx#: [id number] Vancomycin 1,250 mg In 250 Sodium Chloride 0.9% 250 ml @ 125 mls/hr IVPB Q12H [facility] Rx#:[id number] Oral 240 Output: Urine 2600 700 0 Other: Voiding Method Urinal Urinal Urinal # Bowel Movements 0 0 - Exam Physical Exam: Revealed a 61-year-old white male in moderate respiratory distress presently on BiPAP mask with IPAP of 12 and EPAP of 5 HEENT:[Neck is supple.] [No neck masses.] [No thyromegaly.] [No JVD.] Chest: [Diminished breath sound bilaterally crackles and rhonchi and wheezing noted on the right side.] Cardiac Exam: Tachycardic [Normal S1 and S2, no S3 gallop, no murmur.] Abdomen: [Soft, nontender, no megaly, no rebound, no guarding, normal bowel sounds.] Extremities: [Mild clubbing, no edema, no cyanosis.] Neurological Exam: [No focal neurologic deficit.] - Labs CBC & Chem 7: 01/22/17 04:32 01/22/17 04:32 Labs: Abnormal Lab Results - Last 24 Hours (Table) 01/21/17 01/22/17 01/22/17 Range/Units 12:59 04:32 04:32 WBC 0.3 L* (3.8-10.6) k/uL RBC 2.75 L (4.30-5.90) m/uL Hgb 9.9 L (13.0-17.5) gm/dL Hct 30.0 L (39.0-53.0) % MCV 108.9 H D (80.0-100.0) fL MCH 36.0 H (25.0-35.0) pg RDW 16.4 H (11.5-15.5) % Plt Count 65 L (150-450) k/uL Sodium 134 L (137-145) mmol/L Potassium 2.7 L* (3.5-5.1) mmol/L BUN 26 H (9-20) mg/dL POC Glucose (mg/dL) 134 H (75-99) mg/dL Calcium 7.9 L (8.4-10.2) mg/dL 01/22/17 Range/Units 07:30 WBC (3.8-10.6) k/uL RBC (4.30-5.90) m/uL Hgb (13.0-17.5) gm/dL Hct (39.0-53.0) % MCV (80.0-100.0) fL MCH (25.0-35.0) pg RDW (11.5-15.5) % Plt Count (150-450) k/uL Sodium (137-145) mmol/L Potassium (3.5-5.1) mmol/L BUN (9-20) mg/dL POC Glucose (mg/dL) 123 H (75-99) mg/dL Calcium (8.4-10.2) mg/dL Microbiology - Last 24 Hours (Table) 01/19/17 05:16 Blood Culture - Preliminary Blood No Growth after 72 hours 01/19/17 15:17 Blood Culture - Preliminary Blood No Growth after 48 hours Assessment and Plan Plan: Impression: 1 Acute hypoxic respiratory failure, multifactorial secondary to severe COPD exacerbation, right sided small cell lung cancer, pneumonia, possible radiation pneumonitis involving the right lung. 2 possible sepsis, primary source is the right lung pneumonia. 3 atrial fibrillation with RVR, patient remains on Cardizem drip, rate seems to be better controlled. 4 history of severe bullous emphysema with acute exacerbation 5 acute radiation pneumonitis, patient finished his radiation treatment in October of 2016. 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 7 history of pulmonary embolism, patient is not on anticoagulation therapy because of risk of bleeding into the central nervous system. 8 history of shingles, treated and responded well to treatment. Recommendation: Continue antibiotics, high doses of steroids, bronchodilators, high FiO2/oxygen, presently placed on BiPAP. Continue GI and DVT prophylaxis, we'll follow closely. Discussed his condition with him and his at bedside , yesterday, and patient is DO NOT RESUSCITATE as per his own wishes. Overall clinical picture does not seem to be promising, patient remains DO NOT RESUSCITATE, and we'll continue meds and supportive measures as ordered. Time with Patient: Less than 30
[2017-01-22] MEDS: DILTIAZEM 125 MG in SODIUM CHLORIDE 0.9% 100 ML IV SCH (11:55)
[2017-01-22 12:33] LABS: Glucose,Whole Blood 162 mg/dL (75-99)
[2017-01-22] MEDS: POTASSIUM CHLORIDE 20 MEQ, LIDOCAINE 2% INJ 20 MG in SODIUM CHLORIDE 0.9% 100 ML IVPB SCH ×2 (13:10→15:25)
--- NOTE | 2017-01-22 14:24 | P.PN ---
Subjective 61-year-old male one of Dr. Cabrera's, Dr aSrah Oates radiation oncologist Dr. 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 Anticoagulation was not recommended at that time secondary to brain with a stasis with feeling of increasing brain bleed He presented to emergency room secondary to increasing cough and increasing shortness of breath increasing discomfort, patient denies any fever, patient denies any obstructive processes, he mentions that he cannot use the nebulized albuterol as he causes paradoxical bronchospasm, he requires oral prednisone daily along with Ventolin inhaled device and Spiriva patient denies any headache no syncopal event no motor deficits in right or left side, no diplopia no posttussive vomiting In the emergency room patient was hypoxemic, he had supraventricular tachycardia with atrial fibrillation, RVR, he was placed on Cardizem drip, CAT scan was performed that shows severe bullous emphysema with worsening confluent right upper lobe consolidation and small right pleural effusion along with constellation off the right base worsening airspace disease and worsening pneumonitis. No large pulmonary emboli was noted, there is a focal density in the right base suspicious for malignancy at 2.1 cm patient was subsequently admitted to intensive care unit with consultations with Dr. Smith pulmonary medicine. CODE STATUS was discussed with the patient, he wants to be placed as a full code this time including ventilatory support however prognosis remains to be guarded based on not curable small cell carcinoma with brain metastases, again this would be closely discussed with the patient. Patient was started on Solu-Cortef and Levaquin and vancomycin 01/20: Patient remains in intensive care unit. He has been seen in consultation by Dr. Garnica. He was in atrial fibrillation converted to normal sinus rhythm and was on Cardizem drip weaned off and on oral metoprolol. Repeat chest x-ray shows worsening dense multifocal consolidation in the right mid and lower lungs. Patient is followed by Dr. Greco from pulmonary medicine. He is currently on Levaquin, Zosyn and vancomycin and also Solu-Cortef. He has been made no code. Consult with oncology is pending. Echocardiogram done and report pending. Blood culture is showing no growth after 24 hours and urine cultures in progress. Plan transfer out of ICU tomorrow. 01/21: Patient has been seen by Dr. Del Cid and there is some concern for radiation pneumonitis. Patient has been started on Zarxio to improve his white cell count which is now down to 0.4. Regarding small cell lung cancer, patient is unable to undergo active treatment with plan to reevaluate in the office. Patient has completed radiation of the brain metastases to reduce the risk of further bleeding. Repeat chest x-ray shows worsening density and extent of the right mid and lower lung consolidation and a bolus emphysema. He has been afebrile. Pulse ox is 92% on 100% nonrebreather and is currently on BiPAP which he does not like to use. Lopressor was increased today. He did not have breakfast this morning. He is complaining of dry mouth for which mouthkote has been ordered. Blood cultures are showing no growth and urine culture shows genital tuan. 01/22: Repeat chest x-ray shows similar right hemithorax consolidation may be partially attributed to radiation pneumonitis although pleural effusion and superimposed infection should also be considered. Bullous emphysematous changes. Patient remains in the intensive care unit using BiPAP. Blood pressure has been on the low side last night status post fluid boluses. White count is now at 0.3 with hemoglobin of 9.9 and platelet count 65. Objective - Vital Signs Vital signs: Vital Signs Temp 98.8 F 01/22/17 04:00 Pulse 90 01/22/17 13:00 Resp 18 01/22/17 13:00 BP 100/61 01/22/17 13:00 Pulse Ox 92 L 01/22/17 13:00 Intake & Output 01/21/17 01/22/17 01/22/17 18:59 06:59 18:59 Intake Total 1330 2410.0 1060 Output Total 2600 700 0 Balance -1270 1710.0 1060 Weight 65.4 kg 72.2 kg 72.2 kg Intake: IV 740 2410.0 600 Levofloxacin 750Mg-D5w 250 0 Pmx 750 mg In Dextrose/ Water 1 150ml.bag @ 100 mls/hr IVPB Q24H [facility] Rx#: [id number] Magnesium Sulfate-D5w Pmx 50 50 1 gm In Dextrose/Water 1 100ml.bag @ 100 mls/hr IVPB Q1H [facility] Rx#: [id number] Piperacillin-Tazobactam 3 100 50.0 50 .375 gm In Dextrose/Water 1 50ml.bag @ 12.5 mls/hr IVPB Q8HR [facility] Rx#: [id number] Potassium Chloride 10 meq 50 250 Lidocaine 2% Inj 10 mg In Sodium Chloride 0.9% 100 ml @ 100 mls/hr IV Q1HR [facility] Rx#:[id number] Sodium Chloride 0.9% 1, 640 1010 250 000 ml @ 100 mls/hr IV . Q10H [facility] Rx#:[id number] Sodium Chloride 0.9% 1, 1000 000 ml @ 999 mls/hr IV . Q1H1M [facility] Rx#:[id number] Intake, IV Titration 350 100 Amount Magnesium Sulfate-D5w Pmx 100 1 gm In Dextrose/Water 1 100ml.bag @ 100 mls/hr IVPB Q1H [facility] Rx#: [id number] Magnesium Sulfate-D5w Pmx 100 1 gm In Dextrose/Water 1 100ml.bag @ 100 mls/hr IVPB Q1H [facility] Rx#: [id number] Vancomycin 1,250 mg In 250 Sodium Chloride 0.9% 250 ml @ 125 mls/hr IVPB Q12H [facility] Rx#:[id number] Oral 240 360 Output: Urine 2600 700 0 Other: Voiding Method Urinal Urinal Urinal # Bowel Movements 0 0 - Exam General appearance: average body habitus, cooperative, mild distress - EENT Eyes: anicteric sclerae, EOMI, PERRLA, normal appearance ENT: hard of hearing, NA/AT, normal oropharynx - Neck Neck: no lymphadenopathy, normal ROM, no other, no rigidity, no stridor, no thyromegaly - Respiratory Respiratory: bilateral: CTA, negative: diminished, dullness, rales, rhonchi - Cardiovascular Rhythm: regular Heart sounds: normal: S1, S2 Abnormal Heart Sounds: no systolic murmur, no diastolic murmur, no rub, no S3 Gallop, no S4 Gallop, no click, no other - Gastrointestinal General gastrointestinal: normal bowel sounds, soft - Integumentary Integumentary: jaundiced, normal turgor - Neurologic Neurologic: CNII-XII intact - Musculoskeletal Musculoskeletal: gait normal, strength equal bilaterally - Psychiatric Psychiatric: A&O x's 3, appropriate affect, intact judgment & insight - Labs CBC & Chem 7: 01/22/17 04:32 01/22/17 04:32 Labs: Abnormal Lab Results - Last 24 Hours (Table) 01/22/17 01/22/17 01/22/17 Range/Units 04:32 04:32 07:30 WBC 0.3 L* (3.8-10.6) k/uL RBC 2.75 L (4.30-5.90) m/uL Hgb 9.9 L (13.0-17.5) gm/dL Hct 30.0 L (39.0-53.0) % MCV 108.9 H D (80.0-100.0) fL MCH 36.0 H (25.0-35.0) pg RDW 16.4 H (11.5-15.5) % Plt Count 65 L (150-450) k/uL Sodium 134 L (137-145) mmol/L Potassium 2.7 L* (3.5-5.1) mmol/L BUN 26 H (9-20) mg/dL POC Glucose (mg/dL) 123 H (75-99) mg/dL Calcium 7.9 L (8.4-10.2) mg/dL 01/22/17 Range/Units 12:30 WBC (3.8-10.6) k/uL RBC (4.30-5.90) m/uL Hgb (13.0-17.5) gm/dL Hct (39.0-53.0) % MCV (80.0-100.0) fL MCH (25.0-35.0) pg RDW (11.5-15.5) % Plt Count (150-450) k/uL Sodium (137-145) mmol/L Potassium (3.5-5.1) mmol/L BUN (9-20) mg/dL POC Glucose (mg/dL) 162 H (75-99) mg/dL Calcium (8.4-10.2) mg/dL Microbiology - Last 24 Hours (Table) 01/19/17 05:16 Blood Culture - Preliminary Blood No Growth after 72 hours 01/19/17 15:17 Blood Culture - Preliminary Blood No Growth after 48 hours Assessment and Plan Plan: 1. Acute on chronic hypoxemic respiratory failure with worsening infiltrate suspicious of postobstructive pneumonia, gram-negative pneumonia, possible radiation pneumonitis in a chemotherapy immunosuppressed patient underlying history of metastatic small cell carcinoma, patient requires close monitoring in the ICU secondary to underlying comorbidities including atrial fibrillation with rapid ventilator date, and worsening hypoxemia, patient will be seen by Dr. Smith from critical care medicine, IV hydrocortisone 50 mg every 8 hours, IV Zosyn and IV Levaquin and vancomycin. Sputum cultures blood cultures 2. Atrial fibrillation with rapid ventricular rate converted to sinus tachycardia, most likely this was paroxysmal atrial fibrillation. patient is on metoprolol 50 mg twice daily, cardiology will be following him patient is not currently anticoagulated secondary to recent brain bleed that was noted arising from a metastatic lesions to the brain. Continue metoprolol tartrate 50 mg twice daily. 3 history of pulmonary emboli not on any anticoagulation secondary to risk for critical complication that can arise from anticoagulation 4 urgent hypertension with a blood pressure emergency was , patient will be on hydralazine and a sore are if possible try to bring his blood pressure down and if needed calcium channel donovan be good option as well. 5 recent herpes zoster: Without any postherpetic neuralgia symptoms 6 small cell CA of the lung: Has been on chemotherapy radiation therapy this is more stage IV lung cancer been manage and follow by oncology and radiation oncology. 7 severe intractable nausea and vomiting and gastroparesis: Has improved significantly since last week. 8 BPH: Watch for any urinary retention. 9 tachycardia: EKG was performed patient might need an echocardiogram and if needed to start him on beta donovan to bring the pulse rate down. 10 anemia: Iron deficiency continue multivitamins. stable 11 COPD: Has been on combination of bronchodilator along with steroid inhaler. 12 GI prophylaxis: Patient is on pantoprazole. 13. Pancytopenia most likely chemotherapy related, oncology is on consult. Patient started on Zarxio. 14. End-stage COPD with bullous emphysema, small pleural effusion steroid dependency and O2 dependency. Treatment as above nebulized solutions, DVT prophylaxis: norman jeffery CODE STATUS: No code. Discharge plan: To be determined Prognosis guarded Impression and plan of care have been directed as dictated by the signing physician. [place] Archibald nurse practitioner acting as scribe for signing physician.
--- NOTE | 2017-01-22 14:46 | CDI ---
POA In responding to this query, please exercise your independent professional judgment. The [facility] Coding Staff and Clinical Documentation Specialists appreciate your assistance in clarifying documentation, maintaining compliance with coding guidelines, accurately documenting patients condition and capturing severity of illness. The fact that a question is asked does not imply that any particular answer is desired or expected. Communication forms are a method of clarifying documentation and are not made part of the Legal Health Record. Thank you in advance for your clarification. Last Revision, April 2015 Doyle Christianson [address] [place] [place] [address] Documentation Clarification Form Date: 01/22/2017 2:15:00 PM From: Lea Germain Admit Date: 01/19/2017 7:00:00 AM Patient Name: José Miguel Gomez Visit Number: [id number] Discharge Date: Dr. Marie Booth/[place] Archibald [employer] Possible sepsis, primary source is the right lung pneumonia has been documented in the ongoing consult and progress notes by pulmonary, Patient history/risk factors: Asthma, Right small cell lung cancer with chemo/ radiation, with mets to brain, Pancytopenia, anemia, Home O2, Clinical Indicators: Presenting with complaints of chest discomfort, shortness of breath. ED evaluation: Patient does meet sepsis criteria Lab findings: WBC 2.5 HGB 11.9, HCT 36.4 PLT 136, Lactic Acid 1.3, 1.7 Chest x-ray: increased opacification right upper lobe and somewhat right lower lobe suggestive of worsening consolidation Vital Signs: 180/98 101 80 97.2 97% 5/L NC EKG: sinus tachycardia @ 112 Other Clinical Indicators: ER patient was noted to be relatively hypoxic and was in SVT/Atrial fibrillation with RVR Blood Culture: No Growth Treatment: IV Vancomycin Levaquin IV Zosyn IV IV Fluids Monitor Labs In your professional opinion, can you please clarify Sepsis? Ruled in or Ruled out Clarify if Sepsis was POA Unable to determine Please document in your progress notes and discharge summary in order to capture severity of illness and risk of mortality. Include clinical findings that support your diagnosis. FYI: Press F11 to launch patient chart. sepsis present on admision with post obstructive pneumonia right MTDD
[2017-01-22] MEDS: ACETAMINOPHEN TAB 500 MG TAB PO PRN ×2 (15:22→21:21)
[2017-01-22 17:26] LABS: Glucose,Whole Blood 157 mg/dL (75-99)
[2017-01-22] MEDS: FILGRASTIM-SNDZ 480 MCG/0.8 ML SYRINGE SQ SCH (17:42)
[2017-01-22] MEDS: METOPROLOL TARTRATE 25 MG TAB PO SCH (21:21)
[2017-01-22] MEDS: MELATONIN 5 MG TABLET PO SCH (21:21)
[2017-01-22 21:36] LABS: Glucose,Whole Blood 204 mg/dL (75-99)
[2017-01-23] MEDS: HYDROCORTISONE SUCCINATE 100 MG/2 ML VIAL IV SCH ×2 (00:26→09:00)
[2017-01-23] MEDS: POTASSIUM CHLORIDE 10 MEQ, LIDOCAINE 2% INJ 10 MG in SODIUM CHLORIDE 0.9% 100 ML IV SCH ×3 (00:27→07:41)
[2017-01-23] MEDS: PIPERACILLIN-TAZOBACTAM 3.375 GM in DEXTROSE/WATER 1 50ML.BAG IVPB SCH ×2 (00:32→07:54)
[2017-01-23] MEDS: MORPHINE SULFATE 2 MG/ML SYRINGE IVP PRN ×3 (02:42→13:55)
[2017-01-23] MEDS: LEVOFLOXACIN 750MG-D5W PMX 750 MG in DEXTROSE/WATER 1 150ML.BAG IVPB SCH (04:10)
[2017-01-23 05:19] LABS: Anisocytosis Slight; CH 35.6; CHCM 31.2; HCT 31.4 % (39.0-53.0); HGB 9.4 gm/dL (13.0-17.5); Hypochromasia Slight; Immature Gran Flag Marked; MCH 34.3 pg (25.0-35.0); MCHC 29.9 g/dL (31.0-37.0); Macrocytosis Marked; Mean Platelet Volume 8.6; RBC 2.74 m/uL (4.30-5.90); RDW 16.7 % (11.5-15.5); WBC (Perox) 1.03
[2017-01-23 05:21] LABS: WBC 0.9 k/uL (3.8-10.6)
[2017-01-23 05:29] LABS: Anion Gap 8 mmol/L; Blood Urea Nitrogen 33 mg/dL (9-20); Calcium 8.3 mg/dL (8.4-10.2); Carbon Dioxide 21 mmol/L (22-30); Chloride 105 mmol/L (98-107); Glucose 168 mg/dL (74-99); Magnesium 2.1 mg/dL (1.6-2.3); Non-African American GFR(MDRD) >60 (>60 ml/min/1.73 sqM); Phosphorous 4.6 mg/dL (2.5-4.5); Potassium 3.9 mmol/L (3.5-5.1); Sodium 134 mmol/L (137-145)
[2017-01-23 05:34] LABS: MCV 114.6 fL (80.0-100.0)
[2017-01-23] MEDS: VANCOMYCIN 1,500 MG in SODIUM CHLORIDE 0.9% 250 ML IVPB SCH (05:38)
[2017-01-23 05:55] LABS: Add Differential Manual Differential
[2017-01-23 05:56] LABS: Manual Review Performed
--- NOTE | 2017-01-23 07:13 | XR ---
EXAMINATION TYPE: XR chest 1V portable DATE OF EXAM: 01/23/2017 COMPARISON: Yesterday HISTORY: Pneumonia TECHNIQUE: Single frontal view of the chest is obtained. FINDINGS: There is extensive consolidation in the right lung. There is mild pulmonary vascular conge stion. There are bilateral pleural effusions and larger on the right side. There is interstitial infi ltrate in the left lung. There are chest leads. There is right jugular catheter with the tip in the s uperior vena cava. IMPRESSION: Pneumonic consolidation that is much more on the right side. This could relate to RDS. T here is probably congestive heart failure. There is not a significant change compared to yesterday. T his appears much worse than 01/19/2017 exam.
[2017-01-23 07:20] LABS: Glucose,Whole Blood 141 mg/dL (75-99)
[2017-01-23] MEDS ORDERED: PANTOPRAZOLE 40 MG TABLET PO SCH (07:30)
[2017-01-23 07:51] LABS: Glucose,Whole Blood 133 mg/dL (75-99)
[2017-01-23] MEDS: INSULIN LISPRO (humaLOG) 300 UNIT/3 ML VIAL SQ SCH (07:55)
[2017-01-23] MEDS: ALPRAZolam 0.25 MG TAB PO SCH (09:00)
[2017-01-23] MEDS: FILGRASTIM-SNDZ 480 MCG/0.8 ML SYRINGE SQ SCH (09:00)
[2017-01-23] MEDS: METOPROLOL TARTRATE 25 MG TAB PO SCH (09:00)
[2017-01-23] MEDS ORDERED: HYDROcodone/APAP 7.5-325MG 1 EACH TAB PO PRN (09:49)
[2017-01-23] MEDS ORDERED: FUROSEMIDE 10 MG/ML 4 ML VIAL IV STA (09:51)
[2017-01-23] MEDS ORDERED: SCOPOLAMINE 1.5MG/72HR PATCH TRANSDERM STA (09:52)
--- NOTE | 2017-01-23 11:26 | US ---
EXAMINATION TYPE: US chest DATE OF EXAM: 01/23/2017 COMPARISON: NONE CLINICAL HISTORY: rt pleural effusion; ICU patient. EXAM MEASUREMENTS: Right Pleural Effusion fluid pocket: complex fluid pocket = 11.2 cm A/P Right skin to fluid thickness: 3.0 cm A/P Left Pleural Effusion fluid pocket: 1.3 cm A/P Left skin to fluid thickness: 3.5 cm A/P Right side marked for possible thoracentesis outside the dept. Pulmonologists are able to review the images in the patient?s EMR. IMPRESSIONS: Large right pleural effusion is demonstrated.
[2017-01-23] MEDS: TIOTROPIUM 18 MCG/PUFF INHALER INHALATION SCH (11:30)
[2017-01-23 11:55] LABS: Glucose,Whole Blood 94 mg/dL (75-99)
[2017-01-23 12:01] VITALS: TEMP 97.8
--- NOTE | 2017-01-23 12:36 | P.PN ---
Subjective Principal diagnosis: Acute hypoxic respiratory failure secondary to pneumonia and radiation pneumonitis as well as COPD. And small cell lung cancer. 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 Patient's diagnosis of small cell lung cancer was made back in July of 2016, and this was established via bronchoscopy and transtracheal needle aspiration done by Dr. Nava. Patient presented initially with a right upper lobe nodule and mediastinal as well as pretracheal lymphadenopathy. Since the diagnosis was made, patient received chemotherapy and radiation therapy by Dr. Oates, and recently he was discovered to have brain metastasis, patient finished whole brain radiation treatment with Dr. Hutchins. Patient was also diagnosed as having small pulmonary emboli during his last admission were in he presented with pancytopenia and intractable nausea and vomiting. Anticoagulation therapy was not recommended because of his brain metastasis and fear of bleeding while on anticoagulation therapy in the brain. At any rate since then the patient has been seen by different consultants including oncology, radiation oncology, and I saw him in the office few weeks ago recommended that he remains on prednisone for possible radiation pneumonitis. Patient has been on multiple bronchodilators for his underlying COPD/emphysema. Patient presented to the ER last night with mostly symptoms of chest discomfort, pain in the right side of the chest, pain in his right shoulder, radiation of the pain to the right upper extremity, and numbness in the hand and fingers noted. Patient was also noted to be relatively hypoxic, and he was in supraventricular tachycardia/atrial fibrillation with RVR. Seen by cardiology while in the ER, placed on Cardizem drip and given Cardizem bolus. Presently patient seems to be in sinus tachycardia rate of 127/m.. CT of the chest was ordered , and it showed moderate severe bullous emphysema with worsening patchy and confluent right upper lobe consolidation and small right pleural effusion and consolidation of the right base worsening airspace disease and worsening pneumonitis. No evidence of pulmonary embolism was noted. There was also a 2.1 cm focal density at the right base suspicious for malignancy. ABG in the ER showed a pO2 of 54 pCO2 of 42 pH of 7.33 and this was on 6 L nasal cannula. Lactic acid was 1.3. Patient was noted to be hypertensive, no episodes of hypotension in spite of his supraventricular tachycardia. Patient was placed on a nonrebreather mask, admitted to the intensive care unit, and I recommended high-dose of Solu-Cortef, antibiotics in the form of Levaquin and vancomycin, bronchodilators in the form of DuoNeb updrafts and the patient will be placed on GI and DVT prophylaxis. I had a long discussion with the patient and his regarding CODE STATUS, he seems and his seems to be inclined to make him DO NOT RESUSCITATE CODE STATUS, and I explained to both the overall picture and the fact that he has a terminal illness, prognosis in the rn long term care is extremely poor and guarded. Decision regarding CODE STATUS is yet to be decided upon. In the meantime the patient will remain on nonrebreather mask, and all orders were placed on the chart. Patient was reevaluated today on 01/20/2017, chest x-ray is slightly worse with slight increase in his right pleural effusion and airspace disease, however surprisingly the patient is feeling better clinically. Less shortness of breath , no chest pain, no fever, no chills, no hemoptysis. His labs were reviewed at his chest x-ray was reviewed. WBC count is down to 0.7 hemoglobin is 9.5 electrolytes and renal profile are normal. Patient is having trouble with his updrafts, hence I will switch him to Ventolin and Spiriva which she has taken on outpatient basis to replace DuoNeb. Remains on broad-spectrum antibiotics, cultures so far are negative. Patient was reevaluated today on 01/21/2017, clinically, the patient is developing more shortness of breath, he is becoming more tachypneic, chest x- ray is definitely looking worse. More airspace disease on consultation as noted in the right midlung and in the right lower lobe. Even on a nonrebreather mask, O2 saturations is in the mid and high 80s. Hence the patient will be placed on a BiPAP at 12 and 5, with FiO2 of 100%. I will give him a dose of Lasix 40 mg IV push and will continue the same treatment plan including antibiotics and bronchodilators. Discussed with his his deteriorating condition, and she is planning to call her kids to come from [place]. Labs were reviewed, WBC count is 0.4 hemoglobin is 10.1. Basic metabolic profile and he'll profile is normal. Reevaluated today on 01/22/2017, patient was kept on BiPAP overnight, had some issues with low blood pressure last night, hence his blood pressure was placed on hold, and the patient was given fluid boluses. This morning the patient is about the same, remains on BiPAP, blood pressure is marginal, he desaturates very easily, chest x-ray is showing worsening airspace disease and consolidation in the right lower lobe and right middle lung. Patient remains pancytopenic with WBC count of 0.3 hemoglobin is 9.9 platelets are 65,000. Potassium is 2.7 being corrected as per protocol. Reevaluated today on 01/23/2017, patient is practically about the same, continues to have some right-sided chest pain, shortness of breath, and nausea. Today I recommended an ultrasound however there wasn't enough fluid to consider thoracentesis. I also recommended a scopolamine patch, Lasix 40 mg IV push 1, I also recommended more pain medicine in the form of Paxton. Discussed his condition with his at bedside, and overall there isn't much improvement and at least there isn't much deterioration since yesterday. Patient is maximized on bronchodilators, steroids, antibiotics, and hoping that his chest x-ray will start showing some improvement. Patient remains pancytopenic. WBC count is 0.9 hemoglobin is 9.4 electrolytes were reviewed and they'll profile is normal. Chest x-ray is practically about the same, I believe there may be slight improvement, disagree with the reading as per the radiologist. Objective - Vital Signs Vital signs: Vital Signs Temp 97.8 F 01/23/17 12:00 Pulse 89 01/23/17 12:00 Resp 15 01/23/17 12:00 BP 120/62 01/23/17 12:00 Pulse Ox 93 L 01/23/17 12:00 Intake & Output 01/22/17 01/23/17 01/23/17 18:59 06:59 18:59 Intake Total 1850 1480.0 520 Output Total 400 350 300 Balance 1450 1130.0 220 Weight 72.2 kg 74.7 kg 74.8 kg Intake: IV 920 1425.0 520 Levofloxacin 750Mg-D5w 0 150 Pmx 750 mg In Dextrose/ Water 1 150ml.bag @ 100 mls/hr IVPB Q24H [facility] Rx#: [id number] Magnesium Sulfate-D5w Pmx 50 1 gm In Dextrose/Water 1 100ml.bag @ 100 mls/hr IVPB Q1H [facility] Rx#: [id number] Piperacillin-Tazobactam 3 50 50.0 100 .375 gm In Dextrose/Water 1 50ml.bag @ 12.5 mls/hr IVPB Q8HR [facility] Rx#: [id number] Potassium Chloride 10 meq 410 Lidocaine 2% Inj 10 mg In Sodium Chloride 0.9% 100 ml @ 100 mls/hr IV Q1HR [facility] Rx#:[id number] Potassium Chloride 10 meq 200 200 Lidocaine 2% Inj 10 mg In Sodium Chloride 0.9% 100 ml @ 100 mls/hr IV Q1HR [facility] Rx#:[id number] Sodium Chloride 0.9% 1, 410 900 220 000 ml @ 40 mls/hr IV . Q24H [facility] Rx#:[id number] Vancomycin 1,500 mg In 125 Sodium Chloride 0.9% 250 ml @ 125 mls/hr IVPB Q12H [facility] Rx#:[id number] Intake, IV Titration 450 Amount Magnesium Sulfate-D5w Pmx 100 1 gm In Dextrose/Water 1 100ml.bag @ 100 mls/hr IVPB Q1H [facility] Rx#: [id number] Potassium Chloride 20 meq 100 Lidocaine 2% Inj 20 mg In Sodium Chloride 0.9% 100 ml @ 55.5 mls/hr IVPB Q2HR [facility] Rx#:[id number] Vancomycin 1,250 mg In 250 Sodium Chloride 0.9% 250 ml @ 125 mls/hr IVPB Q12H [facility] Rx#:[id number] Oral 480 55 Output: Urine 400 350 300 Other: Voiding Method Urinal Urinal Urinal # Bowel Movements 0 0 0 - Exam Physical Exam: Revealed a 61-year-old white male in moderate respiratory distress presently on BiPAP mask with IPAP of 12 and EPAP of 5 HEENT:[Neck is supple.] [No neck masses.] [No thyromegaly.] [No JVD.] Chest: [Diminished breath sound bilaterally crackles and rhonchi and wheezing noted on the right side.] Cardiac Exam: Tachycardic [Normal S1 and S2, no S3 gallop, no murmur.] Abdomen: [Soft, nontender, no megaly, no rebound, no guarding, normal bowel sounds.] Extremities: [Mild clubbing, no edema, no cyanosis.] Neurological Exam: [No focal neurologic deficit.] - Labs CBC & Chem 7: 01/23/17 04:35 01/23/17 04:35 Labs: Abnormal Lab Results - Last 24 Hours (Table) 01/22/17 01/22/17 01/22/17 Range/Units 12:30 17:24 21:34 WBC (3.8-10.6) k/uL RBC (4.30-5.90) m/uL Hgb (13.0-17.5) gm/dL Hct (39.0-53.0) % MCV (80.0-100.0) fL MCHC (31.0-37.0) g/dL RDW (11.5-15.5) % Plt Count (150-450) k/uL Sodium (137-145) mmol/L Carbon Dioxide (22-30) mmol/L BUN (9-20) mg/dL Glucose (74-99) mg/dL POC Glucose (mg/dL) 162 H 157 H 204 H (75-99) mg/dL Calcium (8.4-10.2) mg/dL Phosphorus (2.5-4.5) mg/dL 01/23/17 01/23/17 01/23/17 Range/Units 04:35 04:35 07:17 WBC 0.9 L* (3.8-10.6) k/uL RBC 2.74 L (4.30-5.90) m/uL Hgb 9.4 L (13.0-17.5) gm/dL Hct 31.4 L (39.0-53.0) % MCV 114.6 H D (80.0-100.0) fL MCHC 29.9 L (31.0-37.0) g/dL RDW 16.7 H (11.5-15.5) % Plt Count 48 L* (150-450) k/uL Sodium 134 L (137-145) mmol/L Carbon Dioxide 21 L (22-30) mmol/L BUN 33 H (9-20) mg/dL Glucose 168 H (74-99) mg/dL POC Glucose (mg/dL) 141 H (75-99) mg/dL Calcium 8.3 L (8.4-10.2) mg/dL Phosphorus 4.6 H (2.5-4.5) mg/dL 01/23/17 Range/Units 07:49 WBC (3.8-10.6) k/uL RBC (4.30-5.90) m/uL Hgb (13.0-17.5) gm/dL Hct (39.0-53.0) % MCV (80.0-100.0) fL MCHC (31.0-37.0) g/dL RDW (11.5-15.5) % Plt Count (150-450) k/uL Sodium (137-145) mmol/L Carbon Dioxide (22-30) mmol/L BUN (9-20) mg/dL Glucose (74-99) mg/dL POC Glucose (mg/dL) 133 H (75-99) mg/dL Calcium (8.4-10.2) mg/dL Phosphorus (2.5-4.5) mg/dL Microbiology - Last 24 Hours (Table) 01/19/17 05:16 Blood Culture - Preliminary Blood No Growth after 96 hours 01/19/17 15:17 Blood Culture - Preliminary Blood No Growth after 72 hours Assessment and Plan Plan: Impression: 1 Acute hypoxic respiratory failure, multifactorial secondary to severe COPD exacerbation, right sided small cell lung cancer, pneumonia, possible radiation pneumonitis involving the right lung. 2 possible sepsis, primary source is the right lung pneumonia. 3 atrial fibrillation with RVR, patient remains on Cardizem drip, rate seems to be better controlled. 4 history of severe bullous emphysema with acute exacerbation 5 acute radiation pneumonitis, patient finished his radiation treatment in October of 2016. 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 7 history of pulmonary embolism, patient is not on anticoagulation therapy because of risk of bleeding into the central nervous system. 8 history of shingles, treated and responded well to treatment. Recommendation: Continue antibiotics, high doses of steroids, bronchodilators, high FiO2/oxygen, presently placed on BiPAP. Continue GI and DVT prophylaxis, we'll follow closely. Discussed his condition with him and his at bedside , yesterday, and patient is DO NOT RESUSCITATE as per his own wishes. Overall clinical picture does not seem to be promising, patient remains DO NOT RESUSCITATE, and we'll continue meds and supportive measures as ordered. Ultrasound of the chest failed to show significant fluid to be able to do a safe thoracentesis, patient will be given a trial of diuretics, will try to control the pain better, and for his nausea and recommended scopolamine patches. Every 72 hours. Time with Patient: Less than 30
--- NOTE | 2017-01-23 12:39 | XR ---
EXAMINATION TYPE: XR shoulder limited LT DATE OF EXAM: 01/23/2017 COMPARISON: NONE HISTORY: Pain TECHNIQUE: 2 views FINDINGS: I see no fracture nor dislocation. There is multiple small metallic densities projected in the soft tissues anterior and inferior to the glenohumeral joint. IMPRESSION: Multiple foreign bodies. No fracture seen. There is noted some pneumonia in the left mid lung field.
--- NOTE | 2017-01-23 13:10 | P.PN ---
Subjective Principal diagnosis: Acute on chronic hypoxic respiratory failure, A. fib with RVR, pancytopenia and sepsis, history of PE, small cell saline see of the lung on chemo and radiation , brain metastasis, seizure. 61-year-old male one of Dr. Cabrera's, Dr Sarah Oates radiation oncologist Dr. 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 Anticoagulation was not recommended at that time secondary to brain with a stasis with feeling of increasing brain bleed He presented to emergency room secondary to increasing cough and increasing shortness of breath increasing discomfort, patient denies any fever, patient denies any obstructive processes, he mentions that he cannot use the nebulized albuterol as he causes paradoxical bronchospasm, he requires oral prednisone daily along with Ventolin inhaled device and Spiriva patient denies any headache no syncopal event no motor deficits in right or left side, no diplopia no posttussive vomiting In the emergency room patient was hypoxemic, he had supraventricular tachycardia with atrial fibrillation, RVR, he was placed on Cardizem drip, CAT scan was performed that shows severe bullous emphysema with worsening confluent right upper lobe consolidation and small right pleural effusion along with constellation off the right base worsening airspace disease and worsening pneumonitis. No large pulmonary emboli was noted, there is a focal density in the right base suspicious for malignancy at 2.1 cm patient was subsequently admitted to intensive care unit with consultations with Dr. Smith pulmonary medicine. CODE STATUS was discussed with the patient, he wants to be placed as a full code this time including ventilatory support however prognosis remains to be guarded based on not curable small cell carcinoma with brain metastases, again this would be closely discussed with the patient. Patient was started on Solu-Cortef and Levaquin and vancomycin 01/20: Patient remains in intensive care unit. He has been seen in consultation by Dr. Garnica. He was in atrial fibrillation converted to normal sinus rhythm and was on Cardizem drip weaned off and on oral metoprolol. Repeat chest x-ray shows worsening dense multifocal consolidation in the right mid and lower lungs. Patient is followed by Dr. Greco from pulmonary medicine. He is currently on Levaquin, Zosyn and vancomycin and also Solu-Cortef. He has been made no code. Consult with oncology is pending. Echocardiogram done and report pending. Blood culture is showing no growth after 24 hours and urine cultures in progress. Plan transfer out of ICU tomorrow. 01/21: Patient has been seen by Dr. Del Cid and there is some concern for radiation pneumonitis. Patient has been started on Zarxio to improve his white cell count which is now down to 0.4. Regarding small cell lung cancer, patient is unable to undergo active treatment with plan to reevaluate in the office. Patient has completed radiation of the brain metastases to reduce the risk of further bleeding. Repeat chest x-ray shows worsening density and extent of the right mid and lower lung consolidation and a bolus emphysema. He has been afebrile. Pulse ox is 92% on 100% nonrebreather and is currently on BiPAP which he does not like to use. Lopressor was increased today. He did not have breakfast this morning. He is complaining of dry mouth for which mouthkote has been ordered. Blood cultures are showing no growth and urine culture shows genital tuan. 01/22: Repeat chest x-ray shows similar right hemithorax consolidation may be partially attributed to radiation pneumonitis although pleural effusion and superimposed infection should also be considered. Bullous emphysematous changes. Patient remains in the intensive care unit using BiPAP. Blood pressure has been on the low side last night status post fluid boluses. White count is now at 0.3 with hemoglobin of 9.9 and platelet count 65. 8/: Patient still pancytopenic continue IV antibiotics was seen pulmonary still on BiPAP through the night he still very sick. With complaint of left shoulder growth or mass patient will have an x-ray of the shoulder to make sure there is no metastasis. Still awaiting for oncology for probably Neupogen and Procrit injection. Repeat lab tomorrow. Objective - Vital Signs Vital signs: Vital Signs Temp 97.8 F 01/23/17 12:00 Pulse 89 01/23/17 12:00 Resp 15 01/23/17 12:00 BP 120/62 01/23/17 12:00 Pulse Ox 93 L 01/23/17 12:00 Intake & Output 01/22/17 01/23/17 01/23/17 18:59 06:59 18:59 Intake Total 1850 1480.0 520 Output Total 400 350 300 Balance 1450 1130.0 220 Weight 72.2 kg 74.7 kg 74.8 kg Intake: IV 920 1425.0 520 Levofloxacin 750Mg-D5w 0 150 Pmx 750 mg In Dextrose/ Water 1 150ml.bag @ 100 mls/hr IVPB Q24H [facility] Rx#: [id number] Magnesium Sulfate-D5w Pmx 50 1 gm In Dextrose/Water 1 100ml.bag @ 100 mls/hr IVPB Q1H [facility] Rx#: [id number] Piperacillin-Tazobactam 3 50 50.0 100 .375 gm In Dextrose/Water 1 50ml.bag @ 12.5 mls/hr IVPB Q8HR [facility] Rx#: [id number] Potassium Chloride 10 meq 410 Lidocaine 2% Inj 10 mg In Sodium Chloride 0.9% 100 ml @ 100 mls/hr IV Q1HR [facility] Rx#:[id number] Potassium Chloride 10 meq 200 200 Lidocaine 2% Inj 10 mg In Sodium Chloride 0.9% 100 ml @ 100 mls/hr IV Q1HR [facility] Rx#:[id number] Sodium Chloride 0.9% 1, 410 900 220 000 ml @ 40 mls/hr IV . Q24H [facility] Rx#:[id number] Vancomycin 1,500 mg In 125 Sodium Chloride 0.9% 250 ml @ 125 mls/hr IVPB Q12H [facility] Rx#:[id number] Intake, IV Titration 450 Amount Magnesium Sulfate-D5w Pmx 100 1 gm In Dextrose/Water 1 100ml.bag @ 100 mls/hr IVPB Q1H [facility] Rx#: [id number] Potassium Chloride 20 meq 100 Lidocaine 2% Inj 20 mg In Sodium Chloride 0.9% 100 ml @ 55.5 mls/hr IVPB Q2HR [facility] Rx#:[id number] Vancomycin 1,250 mg In 250 Sodium Chloride 0.9% 250 ml @ 125 mls/hr IVPB Q12H [facility] Rx#:[id number] Oral 480 55 Output: Urine 400 350 300 Other: Voiding Method Urinal Urinal Urinal # Bowel Movements 0 0 0 - Constitutional General appearance: Present: cooperative, disheveled, no acute distress, thin. Absent: average body habitus, mild distress, morbidly obese, obese, severe distress - EENT Eyes: Present: abnormal pupil, normal appearance. Absent: anicteric sclerae, disc margins sharp, edentulous, EOMI, PERRLA, fundus normal, photophobia, dentition normal, poor dentition, ptosis, scleral icterus ENT: Present: normal oropharynx. Absent: hard of hearing, hearing grossly normal, NA/AT, other, pharyngeal erythema, thrush, tonsillar exudates, tonsillar swelling Ears: bilateral: normal - Neck Neck: Present: normal ROM. Absent: lymphadenopathy, other, rigidity, stridor, thyromegaly Carotids: bilateral: upstroke normal Thyroid: bilateral: normal size - Respiratory Respiratory: bilateral: diminished, dullness, rales, rhonchi - Cardiovascular Rhythm: regular Heart sounds: normal: S1, S2 Abnormal Heart Sounds: Present: systolic murmur, S3 Gallop - Gastrointestinal General gastrointestinal: Present: distended, normal bowel sounds, scaphoid, soft - Integumentary Integumentary: Present: normal, rash. Absent: calor, cellulitis, cyanotic, decreased turgor, flushed, jaundiced, normal turgor, pale, ulcer - Neurologic Neurologic: Present: CNII-XII intact - Musculoskeletal Musculoskeletal: Present: generalized weakness, strength equal bilaterally. Absent: gait normal, right sided weakness, left sided weakness - Psychiatric Psychiatric: Present: A&O x's 3, appropriate affect. Absent: intact judgment & insight - Labs CBC & Chem 7: 01/23/17 04:35 01/23/17 04:35 Labs: Abnormal Lab Results - Last 24 Hours (Table) 01/22/17 01/22/17 01/23/17 Range/Units 17:24 21:34 04:35 WBC 0.9 L* (3.8-10.6) k/uL RBC 2.74 L (4.30-5.90) m/uL Hgb 9.4 L (13.0-17.5) gm/dL Hct 31.4 L (39.0-53.0) % MCV 114.6 H D (80.0-100.0) fL MCHC 29.9 L (31.0-37.0) g/dL RDW 16.7 H (11.5-15.5) % Plt Count 48 L* (150-450) k/uL Sodium (137-145) mmol/L Carbon Dioxide (22-30) mmol/L BUN (9-20) mg/dL Glucose (74-99) mg/dL POC Glucose (mg/dL) 157 H 204 H (75-99) mg/dL Calcium (8.4-10.2) mg/dL Phosphorus (2.5-4.5) mg/dL 01/23/17 01/23/17 01/23/17 Range/Units 04:35 07:17 07:49 WBC (3.8-10.6) k/uL RBC (4.30-5.90) m/uL Hgb (13.0-17.5) gm/dL Hct (39.0-53.0) % MCV (80.0-100.0) fL MCHC (31.0-37.0) g/dL RDW (11.5-15.5) % Plt Count (150-450) k/uL Sodium 134 L (137-145) mmol/L Carbon Dioxide 21 L (22-30) mmol/L BUN 33 H (9-20) mg/dL Glucose 168 H (74-99) mg/dL POC Glucose (mg/dL) 141 H 133 H (75-99) mg/dL Calcium 8.3 L (8.4-10.2) mg/dL Phosphorus 4.6 H (2.5-4.5) mg/dL Microbiology - Last 24 Hours (Table) 01/19/17 05:16 Blood Culture - Preliminary Blood No Growth after 96 hours 01/19/17 15:17 Blood Culture - Preliminary Blood No Growth after 72 hours Assessment and Plan Plan: 1. Acute on chronic hypoxemic respiratory failure with worsening infiltrate suspicious of postobstructive pneumonia, gram-negative pneumonia, possible radiation pneumonitis in a chemotherapy immunosuppressed patient underlying history of metastatic small cell carcinoma, patient requires close monitoring in the ICU secondary to underlying comorbidities including atrial fibrillation with rapid ventilator date, and worsening hypoxemia, patient will be seen by Dr. Smith from critical care medicine, IV hydrocortisone 50 mg every 8 hours, IV Zosyn and IV Levaquin and vancomycin. Sputum cultures blood cultures 2. Pancytopenia most likely chemotherapy related, oncology is on consult. Patient started on Zosyn and still on Levaquin. 3 history of pulmonary emboli not on any anticoagulation secondary to risk for critical complication that can arise from anticoagulation. 4 urgent hypertension with a blood pressure emergency was , patient will be on hydralazine and a sore are if possible try to bring his blood pressure down and if needed calcium channel donovan be good option as well. 5 recent herpes zoster: Without any postherpetic neuralgia symptoms 6 small cell CA of the lung: Has been on chemotherapy radiation therapy this is more stage IV lung cancer been manage and follow by oncology and radiation oncology. Has not done any chemotherapy in over 2 months. 7 severe intractable nausea and vomiting and gastroparesis: Has improved significantly since last week. 8 BPH: Watch for any urinary retention. 9 tachycardia: EKG was performed patient might need an echocardiogram and if needed to start him on beta donovan to bring the pulse rate down. 10 anemia: Iron deficiency continue multivitamins. stable 11 COPD: Has been on combination of bronchodilator along with steroid inhaler. 12 GI prophylaxis: Patient is on pantoprazole. 13. Atrial fibrillation with rapid ventricular rate converted to sinus tachycardia, most likely this was paroxysmal atrial fibrillation. patient is on metoprolol 50 mg twice daily, cardiology will be following him patient is not currently anticoagulated secondary to recent brain bleed that was noted arising from a metastatic lesions to the brain. Continue metoprolol tartrate 50 mg twice daily. CODE STATUS: DO NOT RESUSCITATE.
[2017-01-23] MEDS ORDERED: DILTIAZEM 5 MG/ML 5 ML VIAL IVP STA (15:10)
[2017-01-23] MEDS: DILTIAZEM 125 MG in SODIUM CHLORIDE 0.9% 100 ML IV SCH (15:50)
[2017-01-23] MEDS: LORazepam 2 MG/ML SYRINGE IV PRN (15:57)
[2017-01-23] MEDS ORDERED: MORPHINE SULFATE (100 MG/2 ML) 100 MG in SODIUM CHLORIDE 0.9% 100 ML IV SCH (16:45)
[2017-01-23 23:05] VITALS: BP 86/42
[2017-01-24 00:07] VITALS: PULSE 56; RESP 11
[2017-01-24] MEDS ORDERED: VANCOMYCIN TROUGH DUE 1 EACH MISC MISCELLANE ONE (04:00)
--- NOTE | 2017-01-27 14:25 | P.DS ---
Providers Date of admission: 01/19/17 07:00 Expected date of discharge: 01/24/17 Attending physician: Marie Booth Consults: 01/19/17 06:59 Consult Physician Routine Consulting Provider: Thomas Oates Consult Reason/Comments: oncological care Do you want consulting provider notified?: Already Contacted 01/19/17 07:00 Consult Physician Routine Consulting Provider: Grace Smith Consult Reason/Comments: Pneumonia, sepsis Do you want consulting provider notified?: Yes 01/19/17 08:38 Consult Physician Routine Consulting Provider: Farhat Garnica Consult Reason/Comments: per Dr. Smith Do you want consulting provider notified?: Yes Primary care physician: [facility] Course: 61-year-old male one of Dr. Cabrera's, Dr Sarah Oates radiation oncologist Dr. 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 Anticoagulation was not recommended at that time secondary to brain with a stasis with feeling of increasing brain bleed He presented to emergency room secondary to increasing cough and increasing shortness of breath increasing discomfort, patient denies any fever, patient denies any obstructive processes, he mentions that he cannot use the nebulized albuterol as he causes paradoxical bronchospasm, he requires oral prednisone daily along with Ventolin inhaled device and Spiriva patient denies any headache no syncopal event no motor deficits in right or left side, no diplopia no posttussive vomiting In the emergency room patient was hypoxemic, he had supraventricular tachycardia with atrial fibrillation, RVR, he was placed on Cardizem drip, CAT scan was performed that shows severe bullous emphysema with worsening confluent right upper lobe consolidation and small right pleural effusion along with constellation off the right base worsening airspace disease and worsening pneumonitis. No large pulmonary emboli was noted, there is a focal density in the right base suspicious for malignancy at 2.1 cm patient was subsequently admitted to intensive care unit with consultations with Dr. Smith pulmonary medicine. CODE STATUS was discussed with the patient, he wants to be placed as a full code this time including ventilatory support however prognosis remains to be guarded based on not curable small cell carcinoma with brain metastases, again this would be closely discussed with the patient. Patient was started on Solu-Cortef and Levaquin and vancomycin 01/20: Patient remains in intensive care unit. He has been seen in consultation by Dr. Garnica. He was in atrial fibrillation converted to normal sinus rhythm and was on Cardizem drip weaned off and on oral metoprolol. Repeat chest x-ray shows worsening dense multifocal consolidation in the right mid and lower lungs. Patient is followed by Dr. Greco from pulmonary medicine. He is currently on Levaquin, Zosyn and vancomycin and also Solu-Cortef. He has been made no code. Consult with oncology is pending. Echocardiogram done and report pending. Blood culture is showing no growth after 24 hours and urine cultures in progress. Plan transfer out of ICU tomorrow. 01/21: Patient has been seen by Dr. Del Cid and there is some concern for radiation pneumonitis. Patient has been started on Zarxio to improve his white cell count which is now down to 0.4. Regarding small cell lung cancer, patient is unable to undergo active treatment with plan to reevaluate in the office. Patient has completed radiation of the brain metastases to reduce the risk of further bleeding. Repeat chest x-ray shows worsening density and extent of the right mid and lower lung consolidation and a bolus emphysema. He has been afebrile. Pulse ox is 92% on 100% nonrebreather and is currently on BiPAP which he does not like to use. Lopressor was increased today. He did not have breakfast this morning. He is complaining of dry mouth for which mouthkote has been ordered. Blood cultures are showing no growth and urine culture shows genital tuan. 01/22: Repeat chest x-ray shows similar right hemithorax consolidation may be partially attributed to radiation pneumonitis although pleural effusion and superimposed infection should also be considered. Bullous emphysematous changes. Patient remains in the intensive care unit using BiPAP. Blood pressure has been on the low side last night status post fluid boluses. White count is now at 0.3 with hemoglobin of 9.9 and platelet count 65. 8/19: Patient still pancytopenic continue IV antibiotics was seen pulmonary still on BiPAP through the night he still very sick. With complaint of left shoulder growth or mass patient will have an x-ray of the shoulder to make sure there is no metastasis. Still awaiting for oncology for probably Neupogen and Procrit injection. Repeat lab tomorrow. 01/24: Patient had further decline in his condition and late on January 23 /early a.m. January 25. Please see nursing documentation for details. Discharge diagnoses: 1. Acute on chronic hypoxemic respiratory failure and sepsis with worsening infiltrate suspicious of postobstructive pneumonia, gram-negative pneumonia, possible radiation pneumonitis in a chemotherapy immunosuppressed patient underlying history of metastatic small cell carcinoma 2. 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 Impression and plan of care have been directed as dictated by the signing physician. [place] Archibald nurse practitioner acting as scribe for signing physician. Patient Condition at Discharge: Undetermined Plan - Discharge Summary New Discharge Prescriptions: No Action predniSONE 5 mg PO QAM Acetaminophen Tab [Tylenol] 650 mg PO Q6HR PRN tab PRN Reason: Mild Pain Or Fever > 100.5 Pantoprazole [Protonix] 40 mg PO AC-BRKFST #30 tab HYDROcodone/APAP 7.5-325MG [[place] 7.5-325] 1 tab PO Q6HR PRN #40 tab PRN Reason: Pain Dexamethasone [Hexadrol] See Taper PO DAILY Tiotropium [place] [Spiriva Respimat] 2 puff INHALATION RT-DAILY Albuterol Inhaler [Ventolin Hfa Inhaler] 1 - 2 puff INHALATION RT-QID PRN PRN Reason: Shortness Of Breath Metoprolol Tartrate [Lopressor] 25 mg PO QAM Vitamin B Complex 1 cap PO QAM Levofloxacin [Levaquin] 750 mg PO DAILY #7 tab Discharge Medication List predniSONE 5 mg PO QAM 07/08/16 [History] Acetaminophen Tab [Tylenol] 650 mg PO Q6HR PRN tab 12/16/16 [Rx] HYDROcodone/APAP 7.5-325MG [[place] 7.5-325] 1 tab PO Q6HR PRN #40 tab 12/16/16 [ Rx] Pantoprazole [Protonix] 40 mg PO AC-BRKFST #30 tab 12/16/16 [Rx] Albuterol Inhaler [Ventolin Hfa Inhaler] 1 - 2 puff INHALATION RT-QID PRN [History] Dexamethasone [Hexadrol] See Taper PO DAILY 01/17/17 [History] Levofloxacin [Levaquin] 750 mg PO DAILY #7 tab 01/17/17 [Rx] Metoprolol Tartrate [Lopressor] 25 mg PO QAM 01/17/17 [History] Tiotropium [place] [Spiriva Respimat] 2 puff INHALATION RT-DAILY 01/17/17 [ History] Vitamin B Complex 1 cap PO QAM 01/17/17 [History] Follow up Appointment(s)/Referral(s): Zhane Cabrera MD [Primary Care Provider] - 1-2 days Discharge Disposition: - Preliminary Cause of Preliminary Cause of : small cell CA of the lung
== END 2017-01-24 05:58 | disposition expired | DRG 871 ==
LOC: EC 02:53 → 5MS5E 07:00 → 6ICU 08:48 → 5ONC 01-23 20:43 → 6ICU 01-23 20:53
PROVIDERS: ADMIT Family Medicine; ATTEND Family Medicine
DX: A41.9 Sepsis, unspecified organism (principal); J15.6 Pneumonia due to other Gram-negative bacteria; J96.21 Acute and chronic respiratory failure with hypoxia; J70.0 Acute pulmonary manifestations due to radiation; D61.810 Antineoplastic chemotherapy induced pancytopenia; J90 Pleural effusion, not elsewhere classified; C79.31 Secondary malignant neoplasm of brain; C34.90 Malignant neoplasm of unspecified part of unspecified bronchus or lung; I47.1 Supraventricular tachycardia; J44.0 Chronic obstructive pulmonary disease with (acute) lower respiratory infection; J44.1 Chronic obstructive pulmonary disease with (acute) exacerbation; Z99.81 Dependence on supplemental oxygen; I48.91 Unspecified atrial fibrillation; K31.84 Gastroparesis; D50.9 Iron deficiency anemia, unspecified; I12.9 Hypertensive chronic kidney disease with stage 1 through stage 4 chronic kidney disease, or unspecified chronic kidney disease; N18.9 Chronic kidney disease, unspecified; N40.0 Benign prostatic hyperplasia without lower urinary tract symptoms; T45.1X5A Adverse effect of antineoplastic and immunosuppressive drugs, initial encounter; Y84.2 Radiological procedure and radiotherapy as the cause of abnormal reaction of the patient, or of later complication, without mention of misadventure at the time of the procedure; Z66 Do not resuscitate; I48.0 Paroxysmal atrial fibrillation; Z79.01 Long term (current) use of anticoagulants; Z79.52 Long term (current) use of systemic steroids; Z79.899 Other long term (current) drug therapy; Z82.49 Family history of ischemic heart disease and other diseases of the circulatory system; Z82.5 Family history of asthma and other chronic lower respiratory diseases; Z86.19 Personal history of other infectious and parasitic diseases; Z86.711 Personal history of pulmonary embolism; Z87.442 Personal history of urinary calculi; Z87.891 Personal history of nicotine dependence; Z92.3 Personal history of irradiation
CPT/HCPCS: 36415; 71010; 71020; 71275; 76604; 80048; 80053; 80202; 81001; 82550; 82553; 82805; 83036; 83605; 83735; 84100; 84132; 84484; 85025; 85610; 85730; 87040; 87086; 93005; 93306; 94640; 94660